=== PATIENT | male | born 1970 | race Caucasian/White ===

== ENCOUNTER 2017-11-12 11:54 | Emergency (ER) | payer SELFPAY ==
[2017-11-12 12:02] VITALS: BP 153/102; PULSE 106; RESP 18; TEMP 36.6; O2SAT 100; BMI 26.4
--- NOTE | 2017-11-12 12:02 | XR_ITS ---
XR foot RT min 3V HISTORY: Posttraumatic pain ITS.REASON: pain ORDERING PHYSICIAN: Laith Petty MD PATIENT AGE: 46 years COMPARISON: None FINDINGS: No fracture or dislocation. No lytic or blastic change. There is normal mineralization.. The joint spaces are well-preserved. No significant degenerative/arthritic changes. No erosive changes evident. IMPRESSION: Negative, no acute finding
[2017-11-12 12:25] VITALS: BP 157/94; PULSE 54; RESP 17; O2SAT 98
--- NOTE | 2017-11-12 12:26 | PC.NURSE ---
pt returned from rad
--- NOTE | 2017-11-12 12:48 | HMH.EDGENADL ---
ED Disposition Clinical Impression: Right foot sprain Qualifiers: Encounter type: initial encounter Qualified Code(s): S93.601A - Unspecified sprain of right foot, initial encounter Disposition: Home, Self-Care Condition on Discharge: Good Instructions: DI for Foot Sprain Additional Instructions: Please apply ice to the affected area, take the pain medications today, schedule a follow-up appointment with Dr. Infante (corporate fitness program coordinator). Prescriptions: Tramadol HCl [Ultram 50mg tablet] 50 mg PO QIDP PRN #8 tab PRN Reason: pain Referrals: Mechelle Infante DPM [Physician] - Time of Disposition: 12:48 - Critical Care Critical Care Time: No Attestation: On 11/12/17, the high probability of a clinically significant, sudden or life threatening deterioration of the following system(s) required my full and direct attention, intervention and personal management. The time I documented below is in addition to time spent performing reported procedures but includes the following listed in this critical care notation. Medical Decision Making - Medical Records Medical records reviewed: Yes: I reviewed the patient's medical records. Vital Signs: 11/12/17 12:02 11/12/17 12:25 Temperature 97.8 F Temperature Source Oral Pulse Rate [Left Brachial] 106 H 54 L Respiratory Rate 18 17 Blood Pressure [Left Arm] 153/102 157/94 Blood Pressure Mean [Left Arm] 119 115 Blood Pressure Source [Left Arm] Automatic Cuff Automatic Cuff Blood Pressure Position [Left Arm] Sitting Sitting 02 Sat by Pulse Oximetry 100 98 Oxygen Delivery Method Room Air Room Air - Radiology Data #1 Image(s): Foot/Toes (right) Image Reviewed: Yes I reviewed the patient's radiology results, Yes I discussed the image results w/the radiologist, Yes I have reviewed radiologist's interpretation Preliminary Findings: Normal/NAD - [place] Inquiry Pt receiving controlled substance: Yes [place] was queried for this patient: No Reason not queried -: Hospital network issues Risks and benefits of using a controlled substance: were discussed with pt by me - Reevaluation(s) Time: 12:53 Reevaluation #1: Patient instructed to follow-up with corporate fitness program coordinator. General Adult HPI - General Chief complaint: PAIN Stated complaint: right foot pain no AO Mode of Arrival: Family Vehicle Limitations: No Limitations Description of Symptoms (Recalled from ER Triage Doc. by RN): pt states that a couple weeks ago he stepped off the side of the sidewalk and felt and twinge and since then the pain has increasingly gotten worse in his right foot. - History of Present Illness Onset (ago): week(s) (2) Location: lower extremity (right foot) Radiation: non-radiation Severity: moderate Severity scale (1-10): 4 Quality: burning Consistency: intermittent Relieving factors: rest Exacerbating factors: movement Associated symptoms: denies other symptoms - Related Data Previous Rx's Medication Instructions Recorded Tramadol HCl [Ultram 50mg 50 mg PO QIDP PRN #8 tab 11/12/17 tablet] Allergies Allergy/AdvReac Type Severity Reaction Status Date / Time ketorolac [From Toradol] Allergy Verified 11/12/17 12:09 [facility] History I have reviewed the patient's past medical history: Yes Medical History: Denies:: Cancer, Diabetes Mellitus Type 1, Diabetes Mellitus Type 2, MRSA Laterality Cases: Bilateral: Arthroscopy Shoulder Amputation: No - *Social History Smoking Status: Never smoker Alcohol Intake: current Alcohol Intake Frequency:: 0-2 drinks per day - Psychiatric History Expresses thoughts of harming self/others: None Suicide Plan Description: No Plan ROS Obtained: Yes All systems reviewed & no additional complaints - Musculoskeletal Musculoskeletal: Reports as per HPI, Reports other (right foot pain) Physical Exam - General General appearance: alert, in no apparent distress - Chest Chest inspection: Present: normal inspection, symmetric chest wall ris
[2017-11-12 12:55] VITALS: BP 132/86; PULSE 103; RESP 16; TEMP 36.8; O2SAT 100
== END 2017-11-12 12:59 | disposition home or self-care (01) ==
PROVIDERS: Emergency Provider Emergency Medicine
DX: S93.601A Unspecified sprain of right foot, initial encounter (principal); K21.9 Gastro-esophageal reflux disease without esophagitis; Z88.6 Allergy status to analgesic agent; X50.1XXA Overexertion from prolonged static or awkward postures, initial encounter; Y92.480 Sidewalk as the place of occurrence of the external cause
CPT/HCPCS: 73630; 99282

== ENCOUNTER 2017-12-26 04:05 | Emergency (ER) | payer SELFPAY ==
[2017-12-26 04:11] VITALS: BP 150/97; PULSE 108; RESP 20; TEMP 37.2; O2SAT 96; BMI 25.7
--- NOTE | 2017-12-26 04:16 | XR_ITS ---
XR chest 2V HISTORY: ITS.REASON: cough ORDERING PHYSICIAN: Jihan Rivas MD PATIENT AGE: 47 years COMPARISON: None available FINDINGS: The cardiomediastinal silhouette and pulmonary vascularity are within normal limits. The lungs are clear without infiltrates, suspicious nodules, or pleural effusions. No acute bony abnormalities. IMPRESSION: Negative chest, no acute finding
[2017-12-26 04:29] VITALS: PULSE 106; PULSE 99
--- NOTE | 2017-12-26 04:50 | HMH.EDCP ---
ED Disposition Clinical Impression: Influenza A, Cough, Rib pain on left side, Pneumonia, Lung neoplasm Disposition: Home, Self-Care Condition on Discharge: Fair Additional Instructions: 1- rest. 2- alternate motrin and tylenol for fever and pain. 3- call this afternoon Dr Castro office for an appointment. 4- start levaquinn 750 mg po q day, the patient was warned about gain as a side effect of tendon ruptures from Levaquin, avoid sports activity. 5- tamiflu 75 mg po bid. 6- to return for persisting fever, worse soa , hemoptysis or any new sx. Prescriptions: Benzonatate [Tessalon Perle 100mg Cap] 200 mg PO Q4HP PRN #30 cap PRN Reason: Cough levoFLOXacin [Levaquin 750mg tablet] 750 mg PO DAILY #10 tab Oseltamivir Phosphate [Tamiflu 75mg Capsule] 75 mg PO BID #10 cap - Critical Care Critical Care Time: No Attestation: On 12/26/17, the high probability of a clinically significant, sudden or life threatening deterioration of the following system(s) required my full and direct attention, intervention and personal management. The time I documented below is in addition to time spent performing reported procedures but includes the following listed in this critical care notation. Medical Decision Making - Medical Records Medical records reviewed: Yes: I reviewed the patient's medical records. - [place] Inquiry Pt receiving controlled substance: No [place] was queried for this patient: No Vital Signs: 12/26/17 04:11 12/26/17 04:29 12/26/17 05:39 Temperature 98.9 F Temperature Source Oral Pulse Rate 99 H Pulse Rate [Right Radial] 108 H 100 H Respiratory Rate 20 16 Blood Pressure Blood Pressure [Right Arm] 150/97 141/98 Blood Pressure Mean [Right Arm] 114 112 Blood Pressure Source Blood Pressure Source [Right Arm] Automatic Cuff Blood Pressure Position Blood Pressure Position [Right Arm] Sitting 02 Sat by Pulse Oximetry 96 95 Oxygen Delivery Method Room Air 12/26/17 06:57 12/26/17 07:43 Temperature 98.9 F Temperature Source Oral Pulse Rate 107 H Pulse Rate [Right Radial] 96 H Respiratory Rate 18 16 Blood Pressure 137/93 Blood Pressure [Right Arm] 147/101 Blood Pressure Mean [Right Arm] 116 Blood Pressure Source Automatic Cuff Blood Pressure Source [Right Arm] Blood Pressure Position Sitting Blood Pressure Position [Right Arm] 02 Sat by Pulse Oximetry 95 Oxygen Delivery Method Room Air Room Air - Lab Data Lab Results 12/26/17 04:40: Sodium 133 L, Potassium 3.9, Chloride 105, Carbon Dioxide 22, Anion Gap 9.9, BUN 14, Creatinine 0.98, Estimated Creat Clear 112, Estimated GFR 82, Est GFR ( Amer) 100, Glucose 106, Calcium 8.4 L, Total Bilirubin 0.3, AST 36, ALT 45, Alkaline Phosphatase 46, Total Creatine Kinase 88, CK-MB (CK-2) 0.6, CK-MB (CK-2) Rel Index 0.7, Troponin I < 0.02, Total Protein 7.4, Albumin 3.5, Globulin 3.9 H, Albumin/Globulin Ratio 0.9 L 12/26/17 04:40: Lactic Acid 0.8 12/26/17 04:40: WBC 6.1, RBC 5.04, Hgb 16.2, Hct 47.5, MCV 94.2 H, MCH 32.1 H, MCHC 34.0, RDW 12.2, Plt Count 171, MPV 7.2 L, Neut % (Auto) 47.2, Lymph % (Auto) 33.1, [place] % (Auto) 15.7 H, Eos % (Auto) 3.4, Baso % (Auto) 0.6, Neut # (Auto) 2.9, Lymph # (Auto) 2.0, [place] # (Auto) 1.0, Eos # (Auto) 0.2, Baso # (Auto) 0.0 12/26/17 04:40: D-Dimer 112 12/26/17 04:40: B-Natriuretic Peptide 8 12/26/17 04:40: Magnesium 1.8 12/26/17 04:40: Monoscreen Negative 12/26/17 05:00: Influenza Type A Ag Positive A, Influenza Type B Ag Negative, Group A Strep Rapid Negative 12/26/17 05:00: Specimen Source Right radial, O2 % room air, ABG pH 7.53 H, ABG pCO2 24.5 L, ABG pO2 92.9, ABG HCO3 19.8 L, ABG Total CO2 20.6 L, ABG O2 Saturation 98, ABG Base Excess -2.9 L, Demetrius Test Acceptable 12/26/17 05:45: Urine Color Yellow, Urine Appearance Clear, Urine pH 6.0, Ur Specific [place] 1.025, Urine Protein Negative, Urine Glucose (UA) Negative, Urine Ketones Trace, Urine Blood Negative, Urine Nitrate N
--- NOTE | 2017-12-26 04:54 | ED_ITS ---
ED Disposition Clinical Impression: Influenza A, Cough, Rib pain on left side, Pneumonia, Lung neoplasm Disposition: Home, Self-Care Condition on Discharge: Fair Additional Instructions: 1- rest. 2- alternate motrin and tylenol for fever and pain. 3- call this afternoon Dr Castro office for an appointment. 4- start levaquinn 750 mg po q day, the patient was warned about gain as a side effect of tendon ruptures from Levaquin, avoid sports activity. 5- tamiflu 75 mg po bid. 6- to return for persisting fever, worse soa , hemoptysis or any new sx. Prescriptions: Benzonatate [Tessalon Perle 100mg Cap] 200 mg PO Q4HP PRN #30 cap PRN Reason: Cough levoFLOXacin [Levaquin 750mg tablet] 750 mg PO DAILY #10 tab Oseltamivir Phosphate [Tamiflu 75mg Capsule] 75 mg PO BID #10 cap - Critical Care Critical Care Time: No Attestation: On 12/26/17, the high probability of a clinically significant, sudden or life threatening deterioration of the following system(s) required my full and direct attention, intervention and personal management. The time I documented below is in addition to time spent performing reported procedures but includes the following listed in this critical care notation. Medical Decision Making - Medical Records Medical records reviewed: Yes: I reviewed the patient's medical records. - [place] Inquiry Pt receiving controlled substance: No [place] was queried for this patient: No Vital Signs: 12/26/17 04:11 12/26/17 04:29 12/26/17 05:39 Temperature 98.9 F Temperature Source Oral Pulse Rate 99 H Pulse Rate [Right Radial] 108 H 100 H Respiratory Rate 20 16 Blood Pressure Blood Pressure [Right Arm] 150/97 141/98 Blood Pressure Mean [Right Arm] 114 112 Blood Pressure Source Blood Pressure Source [Right Arm] Automatic Cuff Blood Pressure Position Blood Pressure Position [Right Arm] Sitting 02 Sat by Pulse Oximetry 96 95 Oxygen Delivery Method Room Air 12/26/17 06:57 12/26/17 07:43 Temperature 98.9 F Temperature Source Oral Pulse Rate 107 H Pulse Rate [Right Radial] 96 H Respiratory Rate 18 16 Blood Pressure 137/93 Blood Pressure [Right Arm] 147/101 Blood Pressure Mean [Right Arm] 116 Blood Pressure Source Automatic Cuff Blood Pressure Source [Right Arm] Blood Pressure Position Sitting Blood Pressure Position [Right Arm] 02 Sat by Pulse Oximetry 95 Oxygen Delivery Method Room Air Room Air - Lab Data Lab Results 12/26/17 04:40: Sodium 133 L, Potassium 3.9, Chloride 105, Carbon Dioxide 22, Anion Gap 9.9, BUN 14, Creatinine 0.98, Estimated Creat Clear 112, Estimated GFR 82, Est GFR ( Amer) 100, Glucose 106, Calcium 8.4 L, Total Bilirubin 0.3, AST 36, ALT 45, Alkaline Phosphatase 46, Total Creatine Kinase 88, CK-MB ( CK-2) 0.6, CK-MB (CK-2) Rel Index 0.7, Troponin I < 0.02, Total Protein 7.4, Albumin 3.5, Globulin 3.9 H, Albumin/Globulin Ratio 0.9 L 12/26/17 04:40: Lactic Acid 0.8 12/26/17 04:40: WBC 6.1, RBC 5.04, Hgb 16.2, Hct 47.5, MCV 94.2 H, MCH 32.1 H, MCHC 34.0, RDW 12.2, Plt Count 171, MPV 7.2 L, Neut % (Auto) 47.2, Lymph % (Auto ) 33.1, [place] % (Auto) 15.7 H, Eos % (Auto) 3.4, Baso % (Auto) 0.6, Neut # (Auto ) 2.9, Lymph # (Auto) 2.0, [place] # (Auto) 1.0, Eos # (Auto) 0.2, Baso # (Auto) 0.0 12/26/17 04:40: D-Dimer
--- NOTE | 2017-12-26 04:59 | CT_ITS ---
CT angio chest HISTORY: Cough, chest pain, left-sided chest pain ITS.REASON: left inframammary pain and soa ORDERING PHYSICIAN: Jihan Rivas MD PATIENT AGE: 47 years TECHNIQUE: Axial images obtained following the administration of 75 mL of Isovue 370 . Sagittal, and coronal reformatted images are also generated and reviewed. All CT scans at the facility use one or more dose reduction, viz: automated exposure control; ma/kV adjustment per patient size (including targeted exams where dose is matched to indication; i.e. head); or iterative reconstruction technique. COMPARISON: None FINDINGS: No evidence of pulmonary embolus, aortic aneurysm, or aortic dissection. Main pulmonary artery is slightly prominent with a pulmonary artery/aorta ratio greater than 1. Normal heart size. No evidence of pericardial effusion. No mediastinal or hilar mass. There is a lobular 12 x 5 mm opacity in the posterior aspect of the right lower lobe. Could be due to an inflammatory nodule or developing neoplasm. There is some patchy groundglass opacities in this region as well which may be due to some pneumonitis. No effusions. No acute bony anomalies. Upper abdominal images are unremarkable. IMPRESSION: 1. No evidence of pulmonary embolus or aortic aneurysm or dissection. 2. Mild prominence of the main pulmonary artery which may be seen with early pulmonary arterial hypertension. 3. Nodular opacity right lower lobe which could be an infectious/inflammatory or even neoplastic. There is some patchy infiltrate in this region as well. Consider 3 month follow-up to confirm resolution and/or stability
[2017-12-26 05:25] LABS: Basophils % 0.6 % (0.1-2.0); Eosinophils # 0.2 K/mm3 (0.0-0.4); Eosinophils % 3.4 % (0.1-12.0); Hematocrit 47.5 % (42.0-52.0); Hemoglobin 16.2 g/dL (14.1-18.0); Lymphocytes % 33.1 K/mm3 (10-50); Mean Corpuscular Hemoglobin 32.1 pg (27.0-31.2); Mean Corpuscular Volume 94.2 fl (80-94); Mean Platelet Volume 7.2 fl (7.4-10.4); Monocytes % 15.7 % (1.7-9.3); Neutrophils # 2.9 K/mm3 (1.8-7.8); Neutrophils % 47.2 % (37.0-80.0); Platelet Count 171 K/mm3 (142-424); Red Blood Count 5.04 M/mm3 (4.60-6.20); Red Cell Distribution Width 12.2 % (11.5-17.5); White Blood Count 6.1 K/mm3 (4.8-10.8)
[2017-12-26 05:28] LABS: ABG Base Excess -2.9 mmol/L (-2.4-2.3); ABG HCO3 19.8 mmhg (22.0-26.0); ABG Oxygen Saturation 98 % (90-100); ABG PCO2 24.5 mmhg (35.0-45.0); ABG PH 7.53 mmol/L (7.35-7.45); ABG PO2 92.9 mmhg (80-100); ABG TCO2 20.6 mmhg (23-27)
[2017-12-26 05:31] LABS: Allen's Test Acceptable; Oxygen room air %; Source Right Radial
[2017-12-26 05:39] VITALS: BP 141/98; PULSE 100; RESP 16; O2SAT 95
[2017-12-26 05:41] LABS: Magnesium 1.8 mg/dL (1.4-2.2)
[2017-12-26 05:45] LABS: Lactic Acid 0.8 mmol/L (0.4-2.0)
[2017-12-26 05:53] LABS: Microscopic, Urine URINE MICROSCOPIC (MICROSCOPIC)
[2017-12-26 05:56] LABS: Appearance,Urine CLEAR (Clear); Bilirubin,Urine Negative (Negative); Blood, Urine Negative (Negative); Color,Urine YELLOW (Yellow); Glucose,Urine (UA) Negative (Negative); Ketones,Urine TRACE (Negative); Leukocyte Esterase,Urine Negative (Negative); Nitrate,Urine Negative (Negative); Protein,Urine Negative (Negative); Specific Gravity, Urine 1.025 (1.005-1.030); Urobilinogen,Urine 0.2 EU/dl (0.2)
[2017-12-26 05:56] LABS: Strep Scrn Group A (Rapid) Negative (Negative)
[2017-12-26 05:58] LABS: Amorphous Sediment,Urine Trace /lpf; Squamous Epithelial Cell,Urine Occasional #/hpf (0-5); WBC,Urine Occasional #/hpf (0-3)
[2017-12-26 06:01] LABS: Alanine Aminotransferase 45 U/L (12-78); Albumin Level 3.5 gm/dL (3.4-5.0); Albumin/Globulin Ratio 0.9 (1.1-1.8); Alkaline Phosphatase 46 U/L (46-116); Anion Gap 9.9 mEq/L (5-15); Aspartate Amino Transferase 36 U/L (15-37); Bilirubin,Total 0.3 mg/dL (0.2-1.0); Blood Urea Nitrogen 14 mg/dL (7-18); CKMB Relative Index 0.7 U/L (0-4.0); Calcium 8.4 mg/dL (8.5-10.1); Carbon Dioxide 22 mmol/L (21.0-32.0); Chloride 105 mmol/L (98-107); Creatine Kinase 88 U/L (39-308); Creatine Kinase MB 0.6 ng/ml (0.0-3.6); Creatinine Clearance Estimated 112 mL/min (0-300); Creatinine,Serum 0.98 mg/dL (0.70-1.30); Estimated Glomerular Filt Rate 82 ml/min (>60); GFR (African American) 100 ML/MIN (>60); Globulin 3.9 gm/dl (1.3-3.2); Glucose 106 mg/dL (74-106); Potassium 3.9 mmoL/L (3.5-5.1); Sodium 133 mmol/L (136-145); Total Protein,Serum 7.4 gm/dL (6.4-8.2); Troponin I < 0.02 ng/ml (0.00-0.06)
[2017-12-26 06:01] LABS: Amphetamine/Metha Screen,Urine Negative ng/mL (<1000); Barbiturates Screen,Urine Negative ng/mL (<200); Benzodiazepines Screen,Urine Negative ng/mL (200); Cannabinoid Screen,Urine Negative ng/mL (<50); Cocaine Screen,Urine Negative ng/g (<300); Methadone Screen,Urine Negative ng/mL (<300); Opiate Screen,Urine Positive ng/mL (<300); Phencyclidine Screen,Urine Negative ng/mL (<25)
[2017-12-26 06:06] LABS: D-Dimer 112 (0-400)
[2017-12-26 06:46] LABS: Monoscreen (Rapid) Negative (Negative)
[2017-12-26 06:57] VITALS: BP 147/101; PULSE 96; RESP 18; O2SAT 95
[2017-12-26 07:43] VITALS: BP 137/93; PULSE 107; RESP 16; TEMP 37.2; O2SAT 98
== END 2017-12-26 07:57 | disposition home or self-care (01) ==
PROVIDERS: Emergency Provider Emergency Medicine
DX: J10.1 Influenza due to other identified influenza virus with other respiratory manifestations (principal); J18.9 Pneumonia, unspecified organism; D38.1 Neoplasm of uncertain behavior of trachea, bronchus and lung
CPT/HCPCS: 71046; 71275; 80053; 80305; 81001; 82550; 82553; 82803; 83605; 83735; 83880; 84484; 85025; 85378; 86318; 87040; 87275; 87276; 87430; 93005; 96365; 96367; 96372; 96375; 99284; J1956; Q9967

== ENCOUNTER → 2019-05-18 14:41 | Outpatient (POV) | payer SELFPAY ==
--- NOTE | 2019-05-18 15:42 | ECG_ITS ---
APPROVED REPORT Exam: Resting ECG HR:99 bpm ECG Measurements Heart Rate 99 AXES WA 134 P 69 QRSd 72 QRS 22 QT 334 T 44 QTc 428 <Conclusion> Normal sinus rhythm left atrial abnormality Borderline ECG Electronically signed by : Gilberto Perdomo, 05/19/2019 13:49:15
== END ==
PROVIDERS: Visit Provider Internal Medicine
DX: R06.09 Other forms of dyspnea (principal); R00.0 Tachycardia, unspecified
CPT/HCPCS: 93005

== ENCOUNTER 2020-07-20 04:22 | Emergency (ER) | payer BC, SELFPAY ==
[2020-07-20 04:24] VITALS: BP 142/103; PULSE 108; RESP 16; TEMP 36.6; O2SAT 98; BMI 25.1
--- NOTE | 2020-07-20 04:43 | CT_ITS ---
PROCEDURE: CT LUMBAR SPINE WO CON CLINICAL HISTORY: post op back surgery. pain Mid back pain radiating down both legs, recent surgery COMPARISON: CT [facility]GC[facility] CT angio chest from 02/23/[address] THORACIC SPINE WO CON from 07/20/2020 TECHNIQUE: Axial images obtained with sagittal and coronal reformats. All CT scans at the facility use one or more dose reduction, viz: automated exposure control, ma/kV adjustment per patient size (including targeted exams where dose is matched to indication, i.e. head), or iterative reconstruction technique. FINDINGS: Most recent exam is not available for comparison. Lumbar spine: There postsurgical changes with inter pedicular screws and connecting rods at T11-T12 L2 and L3 stabilizing a burst fracture at L1. There is mild degenerative disc disease in the lower thoracic spine at T9-T10 T10-T11, T11-T12. A burst fractures present at L1 with main involvement involving the mid and anterior aspect of the vertebral body. Posterior vertebral body involvement is also noted with 7 mm retropulsion of the posterior superior fragment causing bilateral lateral recess narrowing, foraminal narrowing and narrowing of the canal. Scattered small foci of hyperdense material noted along the posterior aspect of the spine within the soft tissues consistent with antibiotic beads. L2-L3 and L3-L4 and L4-5 have an unremarkable appearance. There is minimal bulging disc at L5-S1 slightly eccentric toward the left. Scattered foci of air present within the paraspinal soft tissues consistent with postsurgical change. IMPRESSION: Postsurgical changes in the lower thoracic and lumbar spine with inter pedicular screws and interconnecting rods stabilizing L1 burst fracture with retropulsion of the posterior superior fragment by 7 mm with bilateral lateral recess narrowing and borderline canal stenosis. No obvious hardware malfunction Dictated by: Demetrius Ferris MD 07/20/2020 05:54 Demetrius Ferris MD in [place] 07/20/2020 05:54
--- NOTE | 2020-07-20 04:43 | CT_ITS ---
PROCEDURE: CT THORACIC SPINE WO CON CLINICAL HISTORY: post op back surgery. pain [facility] TECHNIQUE: Axial images obtained with sagittal and coronal reformats. All CT scans at the facility use one or more dose reduction, viz: automated exposure control, ma/kV adjustment per patient size (including targeted exams where dose is matched to indication, i.e. head), or iterative reconstruction technique. FINDINGS: Moderate compression deformity of L1 with mild retropulsion into the spinal canal of 7 mm with bilateral lateral recess narrowing and canal stenosis. Bilateral inter pedicular screws with interlocking rods noted at T11-T12 and L2 and L3. No evidence of hardware malfunction. Skin tyler are present along with foci of air within paraspinal musculature. Scattered small foci of hyperdensity noted in the surgery site and may represent antibiotic beads. Mild wedging is present involving T7, T8, T9, T10, and T11. There is a spinous process fracture nondisplaced involving T8 and T9. A left transverse process fractures present at L1. There is a right lower lobe nodule measuring 12 x 6 mm with 2 adjacent small satellite nodules probably not significantly changed from a prior chest CT of 02/23/2018. IMPRESSION: 1. Mild wedging of T7 through T11. These minimal compression deformities may be old and may be better evaluated with MRI. 2. Spinous process fractures nondisplaced at T8 and T9 3. Right lower lobe nodule not significantly changed. 4. Burst fracture of L1 described in the lumbar spine report Dictated by: Demetrius Ferris MD 07/20/2020 06:05 Demetrius Ferris MD in [place] 07/20/2020 06:05
[2020-07-20 05:24] VITALS: BP 132/97; PULSE 91; RESP 16; O2SAT 98
[2020-07-20 05:30] LABS: Basophils % 0.4 % (0.1-2.0); Eosinophils # 0.2 K/mm3 (0.0-0.4); Eosinophils % 3.1 % (0.1-12.0); Hematocrit 36.5 % (42.0-52.0); Hemoglobin 11.7 g/dL (14.1-18.0); Lymphocytes # 2.3 K/mm3 (0.7-4.5); Lymphocytes % 31.1 % (10-50); Mean Corpuscular HGB Conc 32.1 g/dL (31.8-35.4); Mean Corpuscular Hemoglobin 30.4 pg (27.0-31.2); Mean Corpuscular Volume 94.7 fl (80-94); Mean Platelet Volume 6.5 fl (7.4-10.4); Monocytes # 0.7 K/mm3 (0.1-1.0); Monocytes % 9.2 % (1.7-9.3); Neutrophils # 4.2 K/mm3 (1.8-7.8); Neutrophils % 56.2 % (37.0-80.0); Platelet Count 592 K/mm3 (142-424); Red Blood Count 3.85 M/mm3 (4.60-6.20); Red Cell Distribution Width 12.1 % (11.5-17.5); White Blood Count 7.5 K/mm3 (4.8-10.8)
[2020-07-20 05:34] LABS: Chloride 102 mmol/L (98-107); Potassium 4.1 mmoL/L (3.5-5.1); Sodium 136 mmol/L (136-145)
[2020-07-20 05:37] LABS: Alanine Aminotransferase 18 U/L (12-78); Albumin Level 4.2 g/dl (3.5-5.0); Albumin/Globulin Ratio 1.3 (1.1-1.8); Alkaline Phosphatase 93 U/L (38-126); Anion Gap 15.1 mEq/L (5-15); Aspartate Amino Transferase 26 U/L (17-59); Bilirubin,Total 0.4 mg/dl (0.2-1.3); Blood Urea Nitrogen 9 mg/dl (9-20); Calcium 9.9 mg/dl (8.4-10.2); Carbon Dioxide 23 mmol/L (22.0-30.0); Creatinine Clearance Estimated 130 mL/min (50-200); Estimated Glomerular Filt Rate 103 ml/min (>60); GFR (African American) 125 ML/MIN (>60); Globulin 3.3 g/dL (1.3-3.2); Glucose 93 mg/dl (74-100); Total Protein,Serum 7.5 g/dl (6.3-8.2)
--- NOTE | 2020-07-20 05:38 | HMH.EDGENADL ---
ED Disposition Clinical Impression: Post-op pain Disposition: Home, Self-Care Condition on Discharge: Good Instructions: DI for Acute Pain -- Adult Additional Instructions: call [facility] this am for follow up Prescriptions: Oxycodone HCl/Acetaminophen [Percocet 10-325 mg Tablet] 1 tab PO Q6H PRN #5 tab PRN Reason: Moderate To Severe Pain Prescription Printed Referrals: Gilberto Ma MD [Primary Care Provider] - - Critical Care Critical Care Time: No Attestation: On 07/20/20, the high probability of a clinically significant, sudden or life threatening deterioration of the following system(s) required my full and direct attention, intervention and personal management. The time I documented below is in addition to time spent performing reported procedures but includes the following listed in this critical care notation. Medical Decision Making - Medical Records Medical records reviewed: Yes: I reviewed the patient's medical records. - [place] Inquiry Pt receiving controlled substance: No Vital Signs: 07/20/20 04:24 07/20/20 05:24 Temperature 97.9 F Temperature Source Oral Pulse Rate [Left Radial] 108 H 91 H Respiratory Rate 16 16 Blood Pressure [Right Arm] 142/103 H 132/97 H Blood Pressure Mean [Right Arm] 116 108 Blood Pressure Source [Right Arm] Automatic Cuff Blood Pressure Position [Right Arm] Sitting Sitting 02 Sat by Pulse Oximetry 98 98 Oxygen Delivery Method Room Air - Lab Data Lab results reviewed: Yes: I reviewed the patient's lab results. Lab Results 07/20/20 04:50: WBC 7.5, RBC 3.85 L, Hgb 11.7 L, Hct 36.5 L, MCV 94.7 H, MCH 30.4, MCHC 32.1, RDW 12.1, Plt Count 592 H, MPV 6.5 L, Neut % (Auto) 56.2, Lymph % (Auto) 31.1, [place] % (Auto) 9.2, Eos % (Auto) 3.1, Baso % (Auto) 0.4, Neut # (Auto) 4.2, Lymph # (Auto) 2.3, [place] # (Auto) 0.7, Eos # (Auto) 0.2, Baso # (Auto) 0.0 07/20/20 04:50: Sodium 136, Potassium 4.1, Chloride 102, Carbon Dioxide 23, Anion Gap 15.1 H, BUN 9, Creatinine 0.80, Estimated Creat Clear 130, Estimated GFR 103, Est GFR ( Amer) 125, Glucose 93, Calcium 9.9, Total Bilirubin 0.4, AST 26, ALT 18, Alkaline Phosphatase 93, Total Protein 7.5, Albumin 4.2, Globulin 3.3 H, Albumin/Globulin Ratio 1.3 Result diagrams: 07/20/20 04:50 07/20/20 04:50 Orders (Tests/Meds): ED MEDICATIONS Generic Name Dose Route Start Last Admin Trade Name Freq PRN Reason Stop Dose Admin Sodium Chloride 1,000 mls @ 999 mls/hr 07/20/20 04:45 07/20/20 04:57 Sod Chlor 0.9% 1000ml Bag IV 07/20/20 05:45 999 mls/hr .Q1H1M VINOD Administration Discontinued Medications Generic Name Dose Route Start Last Admin Trade Name Freq PRN Reason Stop Dose Admin Hydromorphone HCl 1 mg 07/20/20 05:51 07/20/20 05:57 Hydromorphone 2mg/Ml Syringe IV 07/20/20 05:52 1 mg ONCE ONE Administration Morphine Sulfate 4 mg 07/20/20 04:43 07/20/20 04:57 Morphine 4mg/Ml Syringe IV 07/20/20 04:44 4 mg ONCE ONE Administration Ondansetron HCl 4 mg 07/20/20 04:44 07/20/20 04:57 Ondansetron 4mg/2ml Vial IV 07/20/20 04:45 4 mg ONCE ONE Administration - CT Data CT Scan: T-Spine, L-Spine Time Received: 06:[address] Reviewed: Yes: I have viewed the radiologist's interpretation Preliminary Findings: Abnormal (see report ) - Physician Consults Physician Consulted: spine- dr tamez Reason -: Pt condition General Adult HPI - General Chief complaint: PAIN Stated complaint: Back surgery this Oct, having severe now Time Seen by Provider: 07/20/20 05:00 Mode of Arrival: Wheelchair Source of Information: Patient, Medical Record Limitations: No Limitations Description of Symptoms (Recalled from ER Triage Doc. by RN): pt stated he had a spinal fusion surgery on 07/10 at . pt c/o severe pain at the center of his back and pain while ambulating. when asked to describe his pain pt stated it feels like ove been shot in the back with a shotgun pt rates his toya
--- NOTE | 2020-07-20 06:01 | PC.NURSE ---
speaking with ortho
[2020-07-20 06:27] VITALS: BP 141/92; PULSE 81; RESP 16; TEMP 36.6; O2SAT 98
== END 2020-07-20 06:34 | disposition home or self-care (01) ==
PROVIDERS: Emergency Provider Emergency Medicine; PCP Family Medicine
DX: G89.18 Other acute postprocedural pain (principal); M54.5 Low back pain
CPT/HCPCS: 72128; 72131; 80053; 85025; 96365; 96375; 99283; J2405

== ENCOUNTER → 2021-01-03 15:07 | Outpatient (CLI) | payer BC, SELFPAY | PROVIDERS: PCP Family Medicine; Visit Provider Family Medicine | DX: Z20.822 Contact with and (suspected) exposure to COVID-19 (principal) | CPT/HCPCS: U0003 ==

== ENCOUNTER 2021-10-25 08:50 | Emergency (ER) | payer BC, SELFPAY ==
[2021-10-25 08:52] VITALS: BP 118/90; PULSE 122; RESP 22; TEMP 36.8; O2SAT 97; BMI 25.7
--- NOTE | 2021-10-25 09:01 | HMH.EDGENADL ---
ED Disposition Clinical Impression: Strain of thoracic back region Cervical strain Qualifiers: Encounter type: initial encounter Qualified Code(s): S16.1XXA - Strain of muscle, fascia and tendon at neck level, initial encounter Lumbar strain Qualifiers: Encounter type: initial encounter Qualified Code(s): S39.012A - Strain of muscle, fascia and tendon of lower back, initial encounter Disposition: Home, Self-Care Condition on Discharge: Fair Instructions: DI for Low Back Pain, DI for Neck Sprain, DI for Thoracic Back Pain Additional Instructions: Lortab 7.5 mg as prescribed. Follow-up with your primary care provider as soon as possible for further care. Additional instructions for CONTROLLED SUBSTANCES: You have been prescribed a medication that is a controlled substance. Controlled substances include pain medications known as opiates and sedative nerve medications known as benzodiazepines. Tramadol, fioricet, and gabapentin are also controlled substances. Some common opiates include: Codeine (such as Tylenol #3) Hydrocodone (Vicodin, Lortab, Lorcet, [place]) Oxycodone (Percocet, Percodan, Oxycodone, Oxy IR) Some common benzodiazepines include: Diazepam (Valium) Lorazepam (Ativan) Alprazolam (Xanax) Clonazepam (Klonopin) Oxazepam (Serax) All of these controlled substances are highly addictive and frequently abused. Misuse can and frequently does lead to addiction as well as overdose and . Medication should be stored in a locked cabinet or other secure storage unit. Do not store the medication in a motor vehicle. Short term supplies, 3 days or less, are prescribed because of the highly addictive nature of the medication. Any of the controlled substance medication NOT taken should be disposed of properly and NOT SAVED. The recommended method of disposing of unused medications is: Place the medicines in a sealable plastic bag. If the medicine is a solid, crush it or add water to dissolve it. Add something undesirable (cat litter, coffee grounds, etc.) Dispose of sealed bag in household trash Do not flush or pour unused medicines down a sink or drain. Controlled substances should not be shared, given away or sold. Because of the addictive nature and frequent abuse, these medications are sometimes stolen. These medications should be kept in a safe place where they cannot be stolen. Do not keep them in your car or purse. Lost or stolen prescriptions for controlled substances WILL NOT BE REFILLED in this emergency department, regardless of whether a police report was filed. Prescriptions: Hydrocodone/Acetaminophen [Lortab 7.5/325mg tablet] 1 tab PO Q6HP PRN #10 tablet PRN Reason: Moderate To Severe Pain Transmission Status: Received by [email or web address] #[id number] Referrals: Gilberto Ma MD [Primary Care Provider] - - Critical Care Critical Care Time: No Attestation: On , the high probability of a clinically significant, sudden or life threatening deterioration of the following system(s) required my full and direct attention, intervention and personal management. The time I documented below is in addition to time spent performing reported procedures but includes the following listed in this critical care notation. Medical Decision Making - Tex Inquiry Pt receiving controlled substance: Yes Tex was queried for this patient: Yes Risks and benefits of using a controlled substance: were discussed with pt by me Vital Signs: 10/25/21 08:52 Temperature 98.2 F Temperature Source Oral Pulse Rate [Left Radial] 122 H Respiratory Rate 22 Blood Pressure [Left Arm] 118/90 Blood Pressure Mean [Left Arm] 99 Blood Pressure Source [Left Arm] Automatic Cuff Blood Pressure Position [Left Arm] Sitting 02 Sat by Pulse Oximetry 97 Oxygen Delivery Method Room Air Orders (Tests/Meds): ED MEDICATIONS Discontinued Medications Generic Name Dose Route Start Last Admin Trade Name
--- NOTE | 2021-10-25 09:11 | CT_ITS ---
FINAL REPORT CLINICAL HISTORY: fall, c/o severe back pain COMPARISON: 07-20-2020 CT FINDINGS: Axial imaging of the lumbar spine was obtained without contrast. Sagittal and coronal reformatted images were also obtained and reviewed.This study was performed with techniques to keep radiation doses as low as reasonably achievable (ALARA). Individualized dose reduction techniques using automated exposure control or adjustment of mA and/or kV according to the patient's size were employed. There is a moderate L1 burst fracture with interval healing and stable loss of height. There is no acute fracture. The vertebral alignment is normal. There is fusion of T11-L3. There is no evidence of significant central canal stenosis. IMPRESSION: Interval healing of previous fracture. No new abnormality. Reviewed, Interpreted and Dictated by Leobardo Patino III, MD Transcribed by Dora Conroy Authenticated by Leobardo Patino III, MD on 10/25/2021 10:26:[address] [facility]
--- NOTE | 2021-10-25 09:11 | CT_ITS ---
FINAL REPORT CLINICAL HISTORY: fall, c/o severe back pain FINDINGS: Axial CT images of the cervical spine were obtained without contrast. Sagittal and coronal reformatted images were also obtained. This study was performed with techniques to keep radiation doses as low as reasonably achievable (ALARA). Individualized dose reduction techniques using automated exposure control or adjustment of mA and/or kV according to the patient's size were employed. There is no evidence of fracture or dislocation. There are mild and moderate degenerative changes, greatest at C5-6. There is mild neural foraminal narrowing C5-6. No significant canal stenosis is identified. IMPRESSION: No fracture or acute bony abnormality identified. Reviewed, Interpreted and Dictated by Leobardo Patino III, MD Transcribed by Dorcas Aguilar Authenticated by Leobardo Patino III, MD on 10/25/2021 10:22:53 AM [facility]
--- NOTE | 2021-10-25 09:11 | CT_ITS ---
FINAL REPORT CLINICAL HISTORY: fall, c/o severe low back pain COMPARISON: 07/20/2020 FINDINGS: Axial CT images of the thoracic spine were obtained without contrast. Sagittal and coronal reformatted images were also obtained. This study was performed with techniques to keep radiation doses as low as reasonably achievable (ALARA). Individualized dose reduction techniques using automated exposure control or adjustment of mA and/or kV according to the patient's size were employed. There are mild chronic compression fractures of T5, and T7-T11 which are stable. No acute fracture is identified. There is fusion from T11-L3. There is no evidence of canal stenosis. IMPRESSION: Chronic compression fractures without acute bony abnormality. Reviewed, Interpreted and Dictated by Leobardo Patino III, MD Transcribed by Dorcas Aguilar Authenticated by Leobardo Patino III, MD on 10/25/2021 10:22:39 AM [facility]
--- NOTE | 2021-10-25 10:44 | PC.NURSE ---
called for disk for pt
--- NOTE | 2021-10-25 10:48 | PC.NURSE ---
pt up pacing room, vs delayed.
[2021-10-25 10:50] VITALS: BP 124/86; PULSE 105; RESP 21; TEMP 36.9; O2SAT 98
== END 2021-10-25 10:50 | disposition home or self-care (01) ==
PROVIDERS: Emergency Provider Emergency Medicine; PCP Family Medicine
DX: S16.1XXA Strain of muscle, fascia and tendon at neck level, initial encounter (principal); S39.012A Strain of muscle, fascia and tendon of lower back, initial encounter; W18.09XA Striking against other object with subsequent fall, initial encounter; Y92.488 Other paved roadways as the place of occurrence of the external cause
CPT/HCPCS: 72125; 72128; 72131; 96372; 99282; J2405

== ENCOUNTER 2021-12-27 08:00 | Outpatient (RCR) | payer BC, SELFPAY | END 2021-12-27 08:05 | disposition home or self-care (01) | LOC: PT 08:00 | PROVIDERS: PCP Family Medicine; Visit Provider Orthopaedic Surgery Orthopaedic Surgery of the Spine | DX: M54.50 Low back pain, unspecified (principal); Z98.1 Arthrodesis status | CPT/HCPCS: 97110; 97163; 97535 ==

== ENCOUNTER 2022-08-24 21:42 | Emergency (ER) | payer BC, SELFPAY ==
[2022-08-24 22:53] VITALS: BP 115/65; PULSE 91; RESP 18; TEMP 36.6; O2SAT 97; BMI 25.8
--- NOTE | 2022-08-24 22:59 | XR_ITS ---
PROCEDURE INFORMATION: Exam: XR Left Tibia and Fibula Exam date and time: 08/24/2022 11:21 PM Age: 51 years old Clinical indication: Injury or trauma; Fall; Sprain or strain; Lower leg; Left TECHNIQUE: Imaging protocol: Radiologic exam of the Left tibia and fibula. Views: 2 views. COMPARISON: CR XR ANKLE LT MIN 3V 08/24/2022 11:21 PM FINDINGS: Bones/joints: Bimalleolar fracture of the ankle. Soft tissues: Normal. IMPRESSION: Bimalleolar fracture of the ankle. No proximal fibular fracture.
--- NOTE | 2022-08-24 22:59 | XR_ITS ---
PROCEDURE INFORMATION: Exam: XR Left Ankle Exam date and time: 08/24/2022 11:21 PM Age: 51 years old Clinical indication: Injury or trauma; Fall; Sprain or strain; Ankle; Left TECHNIQUE: Imaging protocol: Radiologic exam of the Left ankle. Views: 3 or more views. COMPARISON: No relevant prior studies available. FINDINGS: Bones/joints: Mildly displaced oblique fracture of the distal fibular metaphysis. Mildly displaced medial malleolus fracture. Soft tissues: Hematoma around the ankle. IMPRESSION: Mildly displaced oblique fracture of the distal fibular metaphysis. Mildly displaced medial malleolus fracture.
--- NOTE | 2022-08-24 23:13 | HMH.EDFALL ---
Discharge Plan Disposition Patient Disposition: Home, Self-Care Prescriptions Prescriptions: No Action hydrocodone-acetaminophen 1 TAB tablet 1 tab PO Q6HP PRN (Reason: Moderate To Severe Pain) Qty: 10 0RF oxycodone-acetaminophen 1 EACH tablet 1 tab PO NEEDED PRN (Reason: post op pain ) oxycodone-acetaminophen 1 EACH tablet 1 tab PO Q6H PRN (Reason: Moderate To Severe Pain) Qty: 5 0RF Referrals Follow up/Referrals: Arline Clinton MD [Primary Care Provider] - See instructions Clinical Impressions Clinical Impression: Bimalleolar ankle fracture Instructions Patient Instructions: DI for Ankle Fracture Discharge ED Provider: Isaac Stinson Fall HPI General Chief Complaint: Fall Stated Complaint: AO 08/24@7AM@home Injured L leg Time Seen by Provider: 08/24/22 23:14 Mode of Arrival: Wheelchair Source of Information: Patient and Medical Record Limitations: No Limitations Description of Symptoms (Recalled from ER Triage Doc. by RN): pt states that this morning at approx 0700 while mopping his floor. States that he landed on his left side and injured his left ankle and leg. Denies any other injuries. History of Present Illness HPI Narrative: fell this am and has increased pain and swelling and ecchymosis lt ankle - MD complaint: fall Onset (ago): hour(s) Fall from: standing Fall witnessed: no Place fall occurred: home Loss of consciousness: none Prolonged down time: no Context: tripped/slipped Location of injury - extremities: Left: lower leg and ankle Severity: moderate Associated symptoms (after fall): denies Related Data Home Medications Medication Instructions Recorded Confirmed oxycodone-acetaminophen 5 mg-325 1 tab PO NEEDED PRN post op pain 07/20/20 1015/20 mg tablet Previous Rx's Medication Instructions Recorded oxycodone-acetaminophen 10 mg-325 1 tab PO Q6H PRN Moderate To 10/15/20 mg tablet Severe Pain #5 tabs hydrocodone 7.5 mg-acetaminophen 1 tab PO Q6HP PRN Moderate To 10/25/21 325 mg tablet Severe Pain #10 tabs Allergies Allergy/AdvReac Type Severity Reaction Status Date / Time ketorolac [From Toradol] Allergy Verified 07/20/20 05:22 PFSH PFSH Social History Smoking Status: Never smoker alcohol intake: never current occupational status: employed Travel in the last 8 weeks: None ROS Obtained: Yes All systems reviewed & no additional complaints except as documented Physical Exam General General appearance: alert Head Head exam: normocephalic Eye Eye exam: Present PERRL and EOMI ENT ENT exam: Present mucous membranes moist Neck Neck exam: Present trachea midline Respiratory Respiratory exam: Absent normal lung sounds bilaterally Cardiovascular Cardiovascular exam: Present regular rate Abdominal Exam Abdominal exam: Present soft Expanded Lower Extremity Exam Left: Hip/Pelvis exam: Present pelvis stable Lower leg exam: Present tenderness and Achilles tendon intact; Absent full ROM, swelling or ecchymosis Ankle exam: Present tenderness, swelling and deformity; Absent full ROM or erythema Foot/toe exam: Present ecchymosis; Absent calcaneal tenderness Neurovascular/Tendon exam: Absent pulse deficit or motor deficit Neurological Exam Neurological exam: Present alert and CN II-XII intact Skin Skin exam: Absent rash Medical Decision Making Medical Records Medical records reviewed: Yes I reviewed the patient's medical records. Tex Inquiry Pt receiving controlled substance: No Vital Signs: 08/24/22 22:53 08/25/22 00:37 Temperature 97.9 F 97.9 F Temperature Source Oral Oral Pulse Rate 82 Pulse Rate [Apical] 91 H Respiratory Rate 18 16 Blood Pressure 110/70 Blood Pressure [Right Arm] 115/65 Blood Pressure Mean [Right Arm] 81 Blood Pressure Source [Right Arm] Automatic Cuff Blood Pressure Position [Right Arm] Sitting 02 Sat by Pulse Oximetry 97 Oxygen Delivery Method Room Air
--- NOTE | 2022-08-24 23:36 | CT_ITS ---
PROCEDURE INFORMATION: Exam: CT Left Lower Extremity Without Contrast, Ankle Exam date and time: 08/24/2022 11:44 PM Age: 51 years old Clinical indication: Injury or trauma; Fall; Sprain or strain; Ankle; Left TECHNIQUE: Imaging protocol: CT of the Left lower extremity without contrast was performed. Exam focused on the ankle. 3D rendering (Not supervised by radiologist): MIP and/or 3D reconstructed images were created by the technologist. Radiation optimization: All CT scans at this facility use at least one of these dose optimization techniques: automated exposure control; mA and/or kV adjustment per patient size (includes targeted exams where dose is matched to clinical indication); or iterative reconstruction. COMPARISON: CR XR ANKLE LT MIN 3V 08/24/2022 11:21 PM FINDINGS: Bones/joints: Mildly displaced oblique fracture of the distal fibular metaphysis. Mildly displaced medial malleolar fracture with mild comminution. Talar bone islands. Chronic osteochondral defect of the medial talar dome. Soft tissues: Hematoma around the fractures. IMPRESSION: 1. Mildly displaced oblique fracture of the distal fibular metaphysis. 2. Mildly displaced medial malleolar fracture with mild comminution.
[2022-08-25 00:01] LABS: Coronavirus 19, PCR Not Detected (NotDetected); Influenza A, PCR Not Detected (NotDetected); Influenza B, PCR Not Detected (NotDetected)
--- NOTE | 2022-08-25 00:23 | PC.NURSE ---
paged Dr. Valadez at this time
[2022-08-25 00:37] VITALS: BP 110/70; PULSE 82; RESP 16; TEMP 36.6; O2SAT 97
== END 2022-08-25 01:29 | disposition home or self-care (01) ==
PROVIDERS: Emergency Provider Emergency Medicine; PCP Family Medicine
DX: M25.572 Pain in left ankle and joints of left foot (principal); S82.842A Displaced bimalleolar fracture of left lower leg, initial encounter for closed fracture; W01.0XXA Fall on same level from slipping, tripping and stumbling without subsequent striking against object, initial encounter; Y93.E5 Activity, floor mopping and cleaning
CPT/HCPCS: 29405; 73590; 73610; 73700; 96374; 96375; 96376; 99284; C9803; J2405; U0003; U0005

== ENCOUNTER 2022-08-25 12:41 | Emergency (ER) | payer BC, SELFPAY ==
[2022-08-25 12:41] VITALS: BP 144/92; PULSE 90; RESP 17; TEMP 36.7; O2SAT 100; BMI 25.8
[2022-08-25 13:00] VITALS: BP 142/80; PULSE 88; RESP 20; O2SAT 95
[2022-08-25 13:30] VITALS: BP 126/76; PULSE 80; RESP 20; O2SAT 96
--- NOTE | 2022-08-25 14:39 | HMH.EDGENADL ---
Discharge Plan Disposition Patient Disposition: Home, Self-Care Condition: Fair Prescriptions Prescriptions: New oxycodone 5 mg capsule 5 mg PO Q6H PRN (Reason: pain) Qty: 10 0RF No Action hydrocodone-acetaminophen 1 TAB tablet 1 tab PO Q6HP PRN (Reason: Moderate To Severe Pain) Qty: 10 0RF oxycodone-acetaminophen 1 EACH tablet 1 tab PO NEEDED PRN (Reason: post op pain ) oxycodone-acetaminophen 1 EACH tablet 1 tab PO Q6H PRN (Reason: Moderate To Severe Pain) Qty: 5 0RF Referrals Follow up/Referrals: Paul Valadez, [Staff Physician] - See instructions Provider,Referral, [Primary Care Provider] - See instructions Activity Restrictions/Add. Instructions Additional Instructions/Restrictions: Continue crutches and splint until seen by orthopedics. Elevate your ankle on several pillows. Ice 20 minutes 4 times a day. Follow-up with orthopedic clinic tomorrow. Call tomorrow morning at 9 AM to make arrangements to be seen tomorrow in the clinic. Oxycodone as needed for pain. Do not take hydrocodone while taking oxycodone. Additional instructions for FRACTURED (BROKEN) BONE: See Dr. Valadez, orthopedics, as soon as possible for further evaluation. Treat your splint like you would a cast: Do not get it wet (cover with a plastic bag while bathing or showering). If the splint feels too tight, you may loosen the lindsay wrap covering it, but do not remove the splint. You may ice the fracture by applying an ice pack over the top of the splint, without removing the splint. Return to an emergency department immediately if you have uncontrollable pain, loss of feeling or inability to move your injured extremity. Additional instructions for CONTROLLED SUBSTANCES: You have been prescribed a medication that is a controlled substance. Controlled substances include pain medications known as opiates and sedative nerve medications known as benzodiazepines. Tramadol, fioricet, and gabapentin are also controlled substances. Some common opiates include: Codeine (such as Tylenol #3) Hydrocodone (Vicodin, Lortab, Lorcet, [place]) Oxycodone (Percocet, Percodan, Oxycodone, Oxy IR) Some common benzodiazepines include: Diazepam (Valium) Lorazepam (Ativan) Alprazolam (Xanax) Clonazepam (Klonopin) Oxazepam (Serax) All of these controlled substances are highly addictive and frequently abused. Misuse can and frequently does lead to addiction as well as overdose and . Medication should be stored in a locked cabinet or other secure storage unit. Do not store the medication in a motor vehicle. Short term supplies, 3 days or less, are prescribed because of the highly addictive nature of the medication. Any of the controlled substance medication NOT taken should be disposed of properly and NOT SAVED. The recommended method of disposing of unused medications is: Place the medicines in a sealable plastic bag. If the medicine is a solid, crush it or add water to dissolve it. Add something undesirable (cat litter, coffee grounds, etc.) Dispose of sealed bag in household trash Do not flush or pour unused medicines down a sink or drain. Controlled substances should not be shared, given away or sold. Because of the addictive nature and frequent abuse, these medications are sometimes stolen. These medications should be kept in a safe place where they cannot be stolen. Do not keep them in your car or purse. Lost or stolen prescriptions for controlled substances WILL NOT BE REFILLED in this emergency department, regardless of whether a police report was filed. Clinical Impressions Clinical Impression: Bimalleolar ankle fracture Instructions Patient Instructions: How to Use Crutches, DI for Ankle Fracture, How to Take Care of Your Splint Discharge ED Provider: Eduardo Martinez General Adult HPI General Chief complaint: Extremity Injury, Lower Stated complaint: l leg pain Time Seen by Neal
--- NOTE | 2022-08-25 14:45 | PC.NURSE ---
DR. HACKETT AT BEDSIDE FOR EVALUATION
--- NOTE | 2022-08-25 15:10 | PC.NURSE ---
DR. HACKETT AT BEDSIDE TO DISCUSS POC WITH PT
--- NOTE | 2022-08-25 15:38 | PC.NURSE ---
ORTHO GLASS REAPPLIED TO L FOOT
--- NOTE | 2022-08-25 15:40 | PC.NURSE ---
PT HAS FAMILY COMING TO PICK HIM UP
[2022-08-25 15:50] VITALS: BP 126/66; PULSE 91; RESP 17; TEMP 36.7; O2SAT 99
== END 2022-08-25 15:50 | disposition home or self-care (01) ==
PROVIDERS: Emergency Provider Emergency Medicine
DX: S82.842A Displaced bimalleolar fracture of left lower leg, initial encounter for closed fracture (principal); R45.1 Restlessness and agitation; G89.29 Other chronic pain; Z79.1 Long term (current) use of non-steroidal anti-inflammatories (NSAID); W01.10XA Fall on same level from slipping, tripping and stumbling with subsequent striking against unspecified object, initial encounter
CPT/HCPCS: 96372; 99284; J2405

== ENCOUNTER → 2022-09-01 15:48 | Outpatient (CLI) | payer BC, SELFPAY ==
[2022-09-01 17:10] LABS: Microscopic, Urine URINE MICROSCOPIC (MICROSCOPIC)
[2022-09-01 17:50] LABS: Basophils # 0.1 K/mm3 (0-0.2); Basophils % 0.8 % (0.1-2.0); Eosinophils # 0.3 K/mm3 (0.0-0.4); Eosinophils % 3.4 % (0.1-12.0); Hematocrit 44.5 % (42.0-52.0); Hemoglobin 14.3 g/dL (14.1-18.0); Lymphocytes # 2.3 K/mm3 (0.7-4.5); Lymphocytes % 27.6 % (10-50); Mean Corpuscular HGB Conc 32.1 g/dL (31.8-35.4); Mean Corpuscular Hemoglobin 30.4 pg (27.0-31.2); Mean Corpuscular Volume 94.4 fl (80-94); Mean Platelet Volume 7.3 fl (7.4-10.4); Monocytes # 0.6 K/mm3 (0.1-1.0); Monocytes % 7.6 % (1.7-9.3); Neutrophils % 60.6 % (37.0-80.0); Platelet Count 403 K/mm3 (142-424); Red Blood Count 4.72 M/mm3 (4.60-6.20); White Blood Count 8.2 K/mm3 (4.8-10.8)
[2022-09-01 17:58] LABS: Appearance,Urine CLEAR (Clear); Bilirubin,Urine Negative (Negative); Blood, Urine Negative (Negative); Color,Urine YELLOW (Yellow); Glucose,Urine (UA) Negative (Negative); Ketones,Urine Negative (Negative); Leukocyte Esterase,Urine Negative (Negative); Nitrate,Urine Negative (Negative); PH,Urine 6.5 (5.0-8.5); Protein,Urine Negative (Negative); Urobilinogen,Urine 0.2 EU/dl (0.2)
[2022-09-01 18:03] LABS: Chloride 106 mmol/L (98-107); Sodium 140 mmol/L (136-145)
[2022-09-01 18:05] LABS: Alanine Aminotransferase 25 U/L (12-78); Albumin Level 4.5 g/dl (3.5-5.0); Albumin/Globulin Ratio 1.5 (1.1-1.8); Alkaline Phosphatase 70 U/L (38-126); Aspartate Amino Transferase 33 U/L (17-59); Bilirubin,Total 0.2 mg/dl (0.2-1.3); Blood Urea Nitrogen 19 mg/dl (9-20); Calcium 9.7 mg/dl (8.4-10.2); Carbon Dioxide 26 mmol/L (22.0-30.0); Estimated Glomerular Filt Rate 89 ml/min (>60); GFR (African American) 108 ML/MIN (>60); Glucose 92 mg/dl (74-100); Total Protein,Serum 7.5 g/dl (6.3-8.2)
[2022-09-01 18:49] LABS: Bacteria,Urine 1+ /lpf; Squamous Epithelial Cell,Urine Occasional #/hpf (0-5)
== END ==
PROVIDERS: Visit Provider Orthopaedic Surgery
DX: Z01.818 Encounter for other preprocedural examination (principal); S82.842A Displaced bimalleolar fracture of left lower leg, initial encounter for closed fracture
CPT/HCPCS: 80053; 81001; 85025

== ENCOUNTER 2022-09-02 13:31 | Day surgery (SDC) | payer BC, SELFPAY ==
[2022-08-27 13:37] VITALS: BMI 25.8
[2022-09-02] VITALS (11 sets, daily range): BP systolic 107–135; BP diastolic 60–95; PULSE 72–101; RESP 16–20; TEMP 36.4–43; O2SAT 92–98
--- NOTE | 2022-09-02 | XR_ITS ---
PROCEDURE INFORMATION: Exam: XR Left Ankle Exam date and time: 09/02/2022 12:00 AM Age: 51 years old Clinical indication: Screening exam; Orif left ankle using c-arm guidance. Dose 2:33mgy. Time: 38secs; Additional info: Orif left ankle, c-arm case TECHNIQUE: Imaging protocol: Radiologic exam of the Left ankle. Views: 1 or 2 views. COMPARISON: CT ANKLE LT WO CON 08/24/2022 11:44 PM FINDINGS: Bones/joints: Operative fluoroscopy was used to guide open reduction and internal fixation of the left lateral malleolus. Soft tissues: Normal. IMPRESSION: Operative fluoroscopy was used to guide open reduction and internal fixation of the left lateral malleolus.
--- NOTE | 2022-09-02 13:51 | SUR.PREOP ---
Pt progress number given to , Christy, verbalized understanding of system
--- NOTE | 2022-09-02 14:04 | P.PN_ITS ---
[facility] Medical History Small bowel obstruction due to adhesions Surgical History History of arthroscopy of left shoulder History of back surgery Family History Other No significant family history Social History Smoking Status: Never smoker alcohol intake: current substance use type: denies use current occupational status: employed Travel in the last 8 weeks: None [facility] Anesthesia Checklist Patient Identification Patient Identification: Arm Band Structural Data Admitted From: Home Planned Operative Procedure/s: ORIF Left Ankle Consent for Planned Operative Procedure(s) Verified: Yes Verified Documents: Surgical Consent NPO Status Verified Time NPO: 00:00 Additional verifications Anesthesia Reactions: Yes (N/V, anxiety) Hx Blood Transfusions: No Blood Transfusion Reaction: No Airway Assessment C-Spine Mobility Assessed: Yes TMJ Mobility Assessed: Yes Dentition: Good Dentition Neurological Assessment Level of Consciousness: Awake and Alert Anesthesia Plan Anesthesia Risk discussed: Yes Anesthesia Plan: Verified ASA Class: I Anesthesia Type: General w/block (Left Popliteal/Adductor Canal)
--- NOTE | 2022-09-02 17:30 | EXP.OP.NOTE ---
Date of procedure: 09/02/22 Pre-op Diagnosis:: Left displaced bimalleolar ankle fracture Post-op Diagnosis:: Same Procedure performed:: Open reduction internal fixation left bimalleolar ankle fracture Surgeon:: Paul Valadez DO Paper Bag Inspector(s):: Shobha FABIAN ARTIST BLACKSMITH:: Jimmy Hernandez Anesthesia: GETA and regional Estimated blood loss (mL): 0 Operative findings:: See dictation Operative note:: Patient is identified preoperatively. Left ankle marked yes my initials. Taken back the operating room. After undergoing a block with anesthesia. Placed upon operating bed. General anesthesia ministered airway secured. Left lower extremity prepped and draped in normal sterile fashion. Once prepped and draped final operative timeout performed to identify proper patient procedure and extremity. Everyone involved in case agreed. No counter indications to beginning. Did receive preoperative antibiotics. Marking pen was used to bre plan incision over the outside aspect of the ankle. And over the medial malleolus. Esmarch was used to exsanguinate extremity pneumatic tourniquet plated 300 mmHg. Skin knife was used to incise skin over the lateral malleolus careful dissection was taken down to identify the fracture site. Fracture hematoma was evacuated. Skin edges of the fracture were debrided. Reduction maneuver was performed with traction and [id number] reduction clamp. Once anatomical reduction was performed and clamped in place a anterior to posterior lag screw was placed to hold the fragment stable. The distal fibula plates were then selected and placed on the bone lag screw was used to lag plate to the bone distal 2.7-year-old screws were placed in the distal fibula portion additional locking screw in the shaft and lag screw in the shaft for fixation on the lateral malleolus. X-rays were taken to show good reduction of the lateral malleolus and reduction of the talus back under the tibia. Attention was then drawn to the medial aspect. Incision was made over the medial malleolus. There is a very small bony fragment off the anterior aspect of the medial malleolus. This fragment was so small that it would not hold the 4.0 mm cannulated screws. Therefore reduction maneuver was performed back in anatomical site and Ethibond sutures were placed to reduce the fracture and anatomical position and tied in place once reduced x-rays were taken to confirm reduction of the medial malleolus fragment. Deep layers closed with 0 Vicryl subcutaneous with 2-0 Vicryl nylon stitches in the skin sterile dressing placed posterior splint placed patient be made nonweightbearing we discharged home. Condition: stable Disposition: PACU Complications:: None apparent
--- NOTE | 2022-09-02 18:06 | P.PNANES_ITS ---
[facility] Anesthesia Record Part I Anesthesia Record I Intake, IV Amount: 600 Estimated blood loss (mL): 40 Urine output (mL): 0 Blood Products used (#): none Blood Pressure: 132/71 SaO2: 96 Pulse Rate: 101 Respiratory Rate: 20 Temperature: 97.9 F Patient is:: Awake and Stable Stable to PACU at:: 17:55
--- NOTE | 2022-09-02 18:26 | PC.NURSE ---
1822-detailed report given at bedside to BLUE Trejo 1824-pt transported to post op via stretcher w/herson rails up and left in care of BLUE Trejo with bed locked in lowest position, vss, pt stable
--- NOTE | 2022-09-03 07:13 | P.PNANES_ITS ---
[facility] Anesthesia Record Part II Anesthesia Record Part II Discharge Time: 18:25 Destination: Surgical Day Care (OP Surgery) PACU nurse assessment reviewed?: Yes Patient Condition:: Good Anesthesia Complications:: None Swallowing reflex intact?: Yes Cyanosis?: No Blood Pressure: 118/72 Pulse Rate: 75 Temperature: 97.7 F Mental Status: Alert & Oriented Pain level:: 4 (pt c/o thigh pain most likely from tourniquet. No c/o pain in ankle) Nausea and/or vomitting:: None Intake, IV Amount: 0
[2022-09-03 07:15] VITALS: BP 118/72; PULSE 75; TEMP 36.5
== END 2022-09-02 19:05 | disposition home or self-care (01) ==
PROVIDERS: PCP Family Medicine; Visit Provider Orthopaedic Surgery
PROC: (CPT 27814; principal; 2022-09-02 14:30)
DX: S82.842A Displaced bimalleolar fracture of left lower leg, initial encounter for closed fracture (principal); W01.0XXA Fall on same level from slipping, tripping and stumbling without subsequent striking against object, initial encounter; Y92.019 Unspecified place in single-family (private) house as the place of occurrence of the external cause
CPT/HCPCS: 27814; 73600; 76000; 96374; C1713; C1776; J2405

== ENCOUNTER → 2022-09-19 12:55 | Outpatient (CLI) | payer BC, SELFPAY ==
--- NOTE | 2022-09-19 12:58 | XR_ITS ---
FINAL REPORT CLINICAL HISTORY: lt ankle fracture, f/u COMPARISON: August 24, 2022 FINDINGS: LEFT ANKLE Three views of the left ankle were obtained. A cast is present There is a distal fibular fracture with a screw plate and multiple screws present. There is a medial malleolar fracture with approximately 5 mm of distraction, stable. There is no acute fracture or dislocation. There is a 9 mm osteochondral lesion in the medial talar dome right. There is no soft tissue abnormality. IMPRESSION: Distal fibular fracture with a screw plate and multiple screws present. Medial malleolus fracture with distraction, stable. Reviewed, Interpreted and Dictated by Leobardo Patino III, MD Transcribed by Dora Conroy Authenticated and [facility]
== END ==
PROVIDERS: PCP Family Medicine; Visit Provider Orthopaedic Surgery
DX: S82.842A Displaced bimalleolar fracture of left lower leg, initial encounter for closed fracture (principal)
CPT/HCPCS: 73610

== ENCOUNTER 2022-09-19 15:07 | Outpatient (RCR) | payer BC, SELFPAY | END 2022-09-19 16:00 | disposition home or self-care (01) | LOC: PT 15:07 | PROVIDERS: Visit Provider Orthopaedic Surgery | DX: M25.572 Pain in left ankle and joints of left foot (principal) | CPT/HCPCS: 97760 ==

== ENCOUNTER → 2022-10-17 12:51 | Outpatient (CLI) | payer BC, SELFPAY ==
--- NOTE | 2022-10-17 12:57 | XR_ITS ---
FINAL REPORT CLINICAL HISTORY: lt ankle fracture f/u COMPARISON: September 19, 2022 FINDINGS: LEFT ANKLE Three views of the left ankle were obtained. There are postoperative changes of the distal fibula. There is a subacute fracture of the medial malleolus with evidence of interval healing. There is increased callus formation along the posterior distal tibia. . The joint spaces and mortise are intact. There is medial soft tissue swelling. IMPRESSION: Subacute fracture of the medial malleolus with evidence of interval healing. Postoperative change distal fibula. Reviewed, Interpreted and Dictated by Leobardo Patino III, MD Transcribed by Dora Conroy Authenticated and [facility]
== END ==
LOC: RAD 12:53
PROVIDERS: PCP Family Medicine; Visit Provider Orthopaedic Surgery
DX: M25.572 Pain in left ankle and joints of left foot (principal); S82.842A Displaced bimalleolar fracture of left lower leg, initial encounter for closed fracture
CPT/HCPCS: 73610

== ENCOUNTER → 2022-11-04 13:11 | Outpatient (CLI) | payer BC, SELFPAY ==
--- NOTE | 2022-11-04 13:14 | XR_ITS ---
FINAL REPORT CLINICAL HISTORY: pain..s/p surgery COMPARISON: 10/17/2022 FINDINGS: LEFT ANKLE Three views demonstrate no new fracture or dislocation. There are postoperative changes of the distal fibula with screw plate and screws. Subacute appearing fracture of the medial malleolus is without evidence of significant callus formation. There is persistent soft tissue swelling. IMPRESSION: Subacute fracture of the medial malleolus without evidence of healing. Persistent soft tissue swelling. Reviewed, Interpreted and Dictated by Leobardo Patino III, MD Transcribed by Lydia Sanabria Authenticated and [facility]
== END ==
LOC: RAD 13:12
PROVIDERS: PCP Family Medicine; Visit Provider Physician Assistant Surgical
DX: S82.842A Displaced bimalleolar fracture of left lower leg, initial encounter for closed fracture (principal); M25.572 Pain in left ankle and joints of left foot
CPT/HCPCS: 73610

== ENCOUNTER → 2022-11-14 12:44 | Outpatient (CLI) | payer BC, SELFPAY ==
--- NOTE | 2022-11-14 12:53 | XR_ITS ---
FINAL REPORT CLINICAL HISTORY: fracture COMPARISON: 11/04/2022 FINDINGS: LEFT ANKLE Three views demonstrate no acute fracture or dislocation. Patient is status post ORIF with side plate and screws of the distal fibula. A well corticated os ossific density is seen inferior to the medial malleolus likely related to old trauma. The visualized joint spaces are normally aligned. The soft tissues are unremarkable. IMPRESSION: No acute bony abnormality. Reviewed, Interpreted and Dictated by Dylan Hatfield MD Transcribed by Lydia Sanabria Authenticated and . [facility]
== END ==
LOC: RAD 12:48
PROVIDERS: PCP Family Medicine; Visit Provider Orthopaedic Surgery
DX: S82.842A Displaced bimalleolar fracture of left lower leg, initial encounter for closed fracture (principal)
CPT/HCPCS: 73610

== ENCOUNTER → 2022-12-12 07:31 | Outpatient (CLI) | payer BC, SELFPAY ==
--- NOTE | 2022-12-12 07:32 | MR_ITS ---
FINAL REPORT CLINICAL HISTORY: ankle pain. PRIOR HX SURGERY AUG 2022. Lateral sided ankle pain with swelling. no injury or trauma COMPARISON: None FINDINGS: Multiplanar MR imaging of the left ankle was performed without contrast. Postoperative changes in the fibula cause significant artifact obscuring some detail. There is subacute fracture of the medial malleolus with bone marrow edema in this region. There is an osteochondral lesion in the medial tibial plateau measuring 7 mm transverse diameter with adjacent bone marrow edema. There is mild degenerative change. The ligaments are intact without definite evidence of injury. Portions of the lateral ligaments are obscured. The flexor and extensor tendons are intact. The posterior plantar aponeurosis is intact. No significant joint effusion is seen. The musculature is intact. There is no evidence of soft tissue mass or cyst. IMPRESSION: Subacute fracture medial malleolus with bone marrow edema. Osteochondral lesion medial tibial plateau with adjacent bone marrow edema. No definite ligamentous injury. Reviewed, Interpreted and Dictated by Leobardo Patino III, MD Transcribed by Christy Matthews Authenticated and [facility]
== END ==
LOC: RAD 07:32
PROVIDERS: PCP Family Medicine; Visit Provider Orthopaedic Surgery
DX: S82.842A Displaced bimalleolar fracture of left lower leg, initial encounter for closed fracture (principal)
CPT/HCPCS: 73721

== ENCOUNTER → 2022-12-24 09:37 | Outpatient (CLI) | payer BC, SELFPAY ==
[2022-12-24 09:55] LABS: Microscopic, Urine URINE MICROSCOPIC (MICROSCOPIC)
[2022-12-24 10:30] LABS: Basophils # 0.1 K/mm3 (0-0.2); Basophils % 1.3 % (0.1-2.0); Eosinophils # 0.2 K/mm3 (0.0-0.4); Eosinophils % 2.5 % (0.1-12.0); Hematocrit 50.1 % (42.0-52.0); Hemoglobin 16.6 g/dL (14.1-18.0); Lymphocytes # 4.1 K/mm3 (0.7-4.5); Lymphocytes % 43.9 % (10-50); Mean Corpuscular HGB Conc 33.1 g/dL (31.8-35.4); Mean Corpuscular Hemoglobin 29.9 pg (27.0-31.2); Mean Corpuscular Volume 90.2 fl (80-94); Mean Platelet Volume 7.6 fl (7.4-10.4); Monocytes # 0.6 K/mm3 (0.1-1.0); Monocytes % 6.7 % (1.7-9.3); Neutrophils # 4.3 K/mm3 (1.8-7.8); Neutrophils % 45.6 % (37.0-80.0); Platelet Count 391 K/mm3 (142-424); Red Blood Count 5.55 M/mm3 (4.60-6.20); White Blood Count 9.4 K/mm3 (4.8-10.8)
[2022-12-24 10:57] LABS: Appearance,Urine CLEAR (Clear); Blood, Urine Negative (Negative); Color,Urine YELLOW (Yellow); Glucose,Urine (UA) Negative (Negative); Ketones,Urine TRACE (Negative); Leukocyte Esterase,Urine Negative (Negative); Nitrate,Urine Negative (Negative); Protein,Urine TRACE (Negative); Specific Gravity, Urine 1.025 (1.005-1.030); Urobilinogen,Urine 0.2 EU/dl (0.2)
[2022-12-24 11:11] LABS: Bilirubin,Urine Negative (Negative); WBC,Urine Occasional #/hpf (0-3)
[2022-12-24 11:12] LABS: Bacteria,Urine Trace /lpf; Mucus,Urine Trace /lpf; Squamous Epithelial Cell,Urine Occasional #/hpf (0-5)
[2022-12-24 11:14] LABS: Alanine Aminotransferase 18 U/L (12-78); Albumin Level 4.9 g/dl (3.5-5.0); Albumin/Globulin Ratio 1.8 (1.1-1.8); Alkaline Phosphatase 106 U/L (38-126); Anion Gap 15.2 mEq/L (5-15); Aspartate Amino Transferase 26 U/L (17-59); Bilirubin,Total 0.6 mg/dl (0.2-1.3); Blood Urea Nitrogen 12 mg/dl (9-20); Calcium 9.4 mg/dl (8.4-10.2); Carbon Dioxide 20 mmol/L (22.0-30.0); Chloride 106 mmol/L (98-107); Cholesterol 246 mg/dl (140-200); Estimated Glomerular Filt Rate 89 ml/min (>60); GFR (African American) 108 ML/MIN (>60); Globulin 2.7 g/dL (1.3-3.2); Glucose 105 mg/dl (74-100); HDL Cholesterol 61 mg/dl (40-60); Potassium 4.2 mmoL/L (3.5-5.1); Sodium 137 mmol/L (136-145); Total Protein,Serum 7.6 g/dl (6.3-8.2); Triglycerides 184 mg/dl (30-150); VLDL Cholesterol 37 mg/dL (0-40)
[2022-12-24 11:25] LABS: Direct LDL Cholesterol 138.99 mg/dL (100-129)
[2022-12-24 11:31] LABS: 25-OH Vitamin D, Total 18.9 ng/mL (30-100)
[2022-12-24 11:44] LABS: Prostate Specific Ag Screen 5.4 ng/ml (0.0-4.0); Thyroid Stimulating Hormone 0.75 uIU/mL (0.465-4.68)
[2022-12-24 12:03] LABS: Vitamin B12 490 pg/mL (239-931)
[2022-12-24 23:58] LABS: Folate 9.81 ng/mL
[2022-12-29 14:16] LABS: Testosterone, Total, LC/MS 302.3 ng/dL (264.0-916.0); Testosterone,Free 4.4 pg/mL (7.2-24.0)
== END ==
LOC: LAB 09:37
PROVIDERS: PCP Family Medicine; Visit Provider Family Medicine
DX: Z00.00 Encounter for general adult medical examination without abnormal findings (principal); G47.00 Insomnia, unspecified; N52.9 Male erectile dysfunction, unspecified; M54.50 Low back pain, unspecified; E55.9 Vitamin D deficiency, unspecified; Z13.1 Encounter for screening for diabetes mellitus; Z13.6 Encounter for screening for cardiovascular disorders; Z12.5 Encounter for screening for malignant neoplasm of prostate; Z79.899 Other long term (current) drug therapy
CPT/HCPCS: 80053; 80061; 81001; 82306; 82607; 82746; 84402; 84403; 84443; 85025; G0103

== ENCOUNTER → 2023-05-20 14:09 | Outpatient (CLI) | payer BC, SELFPAY ==
--- NOTE | 2023-05-20 14:12 | XR_ITS ---
FINAL REPORT CLINICAL HISTORY: left ankle pain, swelling, hx of fx and sx 7 months ago COMPARISON: 11/14/2022 FINDINGS: Left ankle Three views were obtained. There are postoperative changes of the distal fibula with screw plate and multiple screws. There is presumed chronic bony fragment at the medial malleolus. Medial soft tissue swelling is seen. IMPRESSION: Postoperative and chronic appearing findings. Reviewed, Interpreted and Dictated by Leobardo Patino III, MD Transcribed by Dorcas Aguilar Authenticated and . [facility]
== END ==
LOC: RAD 14:09
PROVIDERS: PCP Family Medicine; Visit Provider Orthopaedic Surgery
DX: M25.572 Pain in left ankle and joints of left foot (principal)
CPT/HCPCS: 73610

== ENCOUNTER 2023-07-10 09:30 | Outpatient (RCR) | payer BC, SELFPAY ==
--- NOTE | 2023-05-28 15:30 | HMH.PTOPEV ---
PT Outpatient Evaluation Rehab PT Outpatient Evaluation Start: 05/28/23 11:05 Freq: Status: Active Protocol: Document 05/28/23 15:19 TANNA (Rec: 05/28/23 15:30 TANNA [id number]) E-signed By Zia Smith, PT Outpatient Therapy Subjective History Subjective History Patient is a 52 year old male presenting to outpatient PT with reports of L post- surgical foot/ankle pain S/P ORIF for bimalleolar ankle fracture. Initial occurred after a misstep in his kitchen at home 08/24/22. Comorbidities include hx of LS surgery, B shoulder labral repairs x 7, HTN and stomach surgery. Chief Complaint Pain,Stiff,Swelling,Weakness Symptom Type Ache,Sharp,Burning Symptoms Relieved By Rest/Positioning,Elevation Symptoms Aggravated By Standing,Physical Activity, Walking Prior Functional Limitations None Current Functional Limitations Housework,Standing,Squatting, Recreation Activity,Walking, Stairs,Balance Symptom Description Constant but Variable Level of pain today (0-10) 1 Pain scale - at its best (0-10) 1 Pain scale - at its worst (0-10) 9 Ankle/Foot Eval Gait Observation General Gait Pattern Observation Antalgic Gait,Decrease Weight Bear (L) Assistive Device Ambulation Assistive Device None Palpation Tenderness left Ankle/Foot Palpation Findings Tenderness Ankle/Foot Palpation Overall Comment Surgical incisions 3/4 ROM Ankle/Foot Dorsiflexion w/Knee Extended -13 Active Range Motion (degrees) Ankle/Foot Plantar Flexion Active Range 54 of Motion (degrees) Ankle/Foot Eversion Active Range of 9 Motion (degrees) Ankle/Foot Inversion Active Range of 15 Motion (degrees) Ankle/Foot ROM Limitations Soft Tissue Tightness,Bony Restriction Great Toe ROM Reason Not Measured Within Functional Limits Accessory Movements Ankle Accessory Movements that Elicit Tibial Dorsal Pomaria,Tibial Symptoms Ventral Pomaria,Talus Dorsal Pomaria,Talus Ventral Pomaria MMT left Ankle Dorsiflexion Strength Grade 4- Good- Ankle Plantarflexion Strength Grade 4- Good- Foot Eversion Strength Grade 3+ Fair+ Foot Inversion Strength Grade 3+ Fair+ Special Tests Ankle Anterior Drawer Test Negative Left Ankle Eversion Test Negative Left Foot Interdigital Kelly
--- NOTE | 2023-07-03 14:59 | HMH.RHREAS ---
Rehab Reassessment Rehab OP Re-assessment Start: 05/28/23 11:05 Freq: Status: Active Protocol: Document 07/03/23 14:50 TANNA (Rec: 07/03/23 14:58 TANNA [id number]) E-signed By Zia Smith, PT Lower Extremity Functional Index Activities Today, do you or would you have any difficulty at all with: a.Any of your usual work, housework or Quite a bit of difficulty school activities b. Your usual hobbies, recreational or Quite a bit of difficulty sporting activities c. Getting into or out of the bath Moderate difficulty d. Walking between rooms A little bit of difficulty e. Putting on your shoes or socks A little bit of difficulty f. Squatting Moderate difficulty g. Lifting an object, like a bag of Moderate difficulty groceries from the floor h. Performing light activities around A little bit of difficulty your home i. Performing heavy activities around Quite a bit of difficulty your home j. Getting into or out of a car Quite a bit of difficulty k. Walking 2 blocks Extreme difficulty or unable to perform activity l. Walking a mile Moderate difficulty m. Going up or down 10 stairs (about 1 Extreme difficulty or unable flight of stairs) to perform activity n. Standing for 1 hour A little bit of difficulty o. Sitting for 1 hour Extreme difficulty or unable to perform activity p. Running on even ground Extreme difficulty or unable to perform activity q. Running on uneven ground Extreme difficulty or unable to perform activity r. Making sharp turns while running fast Extreme difficulty or unable to perform activity s. Hopping Extreme difficulty or unable to perform activity t. Rolling over in bed No difficulty LEFI Score Lower Extremity Functional Index Score 28 Rehab Re-assessment Subjective Subjective Patient reports 40% improvement since start of care. Objective Objective Notes AROM: DF 0; PF 42; INV 24; EV 14 MMT: DF/PF WNL; INV/EV 4-/5 LEFS: Neuro: WNL TTP: L ATFL 3/4; lateral incision 3/4 Pain: 4/10 today; 8/10 at worst Assessment Progress Assessment Progressing as Expected Assessment Notes Patient would benefit from continuing with skilled PT services in
== END 2023-07-10 09:35 | disposition home or self-care (01) ==
LOC: PT 09:30
PROVIDERS: PCP Family Medicine; Visit Provider Orthopaedic Surgery
DX: M25.572 Pain in left ankle and joints of left foot (principal); S82.842A Displaced bimalleolar fracture of left lower leg, initial encounter for closed fracture
CPT/HCPCS: 97014; 97016; 97033; 97110; 97140; 97163; 97164; G0283

== ENCOUNTER → 2023-07-25 07:08 | Outpatient (CLI) | payer BC, SELFPAY ==
--- NOTE | 2023-07-25 07:21 | ECG_ITS ---
APPROVED REPORT Exam: Resting ECG HR:71 bpm ECG Measurements Heart Rate 71 AXES OR 157 P 27 QRSd 80 QRS 56 QT 378 T 63 QTc 400 Conclusion SINUS RHYTHM POSSIBLE RIGHT VENTRICULAR CONDUCTION DELAY [RSR (QR) IN V1/V2] NONSPECIFIC T-WAVE ABNORMALITY BORDERLINE ECG UNCONFIRMED REPORT Electronically signed by : Gilberto Perdomo MD 07/26/2023 10:40:07
--- NOTE | 2023-07-25 07:44 | XR_ITS ---
FINAL REPORT CLINICAL HISTORY: Pre Op, htn FINDINGS: Two views of the chest were obtained. The heart size and pulmonary vascularity are within normal limits. The mediastinum is normal. No acute pulmonary abnormality is identified. There is no pneumothorax. The bony thorax is intact. There are postoperative changes in the thoracolumbar spine. IMPRESSION: No active cardiopulmonary disease. Reviewed, Interpreted and Dictated by Leobardo Patino III, MD Transcribed by Dorcas Aguilar Authenticated and [facility]
[2023-07-25 07:46] LABS: Basophils # 0.1 K/mm3 (0-0.2); Basophils % 0.7 % (0.1-2.0); Eosinophils # 0.3 K/mm3 (0.0-0.4); Eosinophils % 3.3 % (0.1-12.0); Hematocrit 41.8 % (42.0-52.0); Hemoglobin 14.5 g/dL (14.1-18.0); Lymphocytes # 2.9 K/mm3 (0.7-4.5); Lymphocytes % 36.1 % (10-50); Mean Corpuscular HGB Conc 34.6 g/dL (31.8-35.4); Mean Corpuscular Hemoglobin 32.4 pg (27.0-31.2); Mean Corpuscular Volume 93.6 fl (80-94); Mean Platelet Volume 8.1 fl (7.4-10.4); Monocytes # 0.6 K/mm3 (0.1-1.0); Monocytes % 6.9 % (1.7-9.3); Neutrophils # 4.3 K/mm3 (1.8-7.8); Platelet Count 296 K/mm3 (142-424); Red Blood Count 4.46 M/mm3 (4.60-6.20); Red Cell Distribution Width 13.3 % (11.5-17.5)
[2023-07-25 08:24] LABS: Chloride 113 mmol/L (98-107); Potassium 4.1 mmoL/L (3.5-5.1); Sodium 141 mmol/L (136-145)
[2023-07-25 08:27] LABS: Alanine Aminotransferase 25 U/L (12-78); Albumin Level 3.9 g/dl (3.5-5.0); Albumin/Globulin Ratio 1.6 (1.1-1.8); Alkaline Phosphatase 72 U/L (38-126); Anion Gap 10.1 mEq/L (5-15); Aspartate Amino Transferase 27 U/L (17-59); Blood Urea Nitrogen 15 mg/dl (9-20); Carbon Dioxide 22 mmol/L (22.0-30.0); Estimated Glomerular Filt Rate 79 ml/min (>60); GFR (African American) 95 ML/MIN (>60); Globulin 2.5 g/dL (1.3-3.2); Total Protein,Serum 6.4 g/dl (6.3-8.2)
[2023-07-25 08:28] LABS: Bilirubin,Total 0.1 mg/dl (0.2-1.3); Calcium 9.1 mg/dl (8.4-10.2); Glucose 115 mg/dl (74-100)
== END ==
LOC: LAB 07:09
PROVIDERS: PCP Family Medicine; Visit Provider Orthopaedic Surgery
DX: Z01.818 Encounter for other preprocedural examination (principal); M25.572 Pain in left ankle and joints of left foot
CPT/HCPCS: 36415; 71046; 80053; 85025; 93005

== ENCOUNTER → 2023-07-25 07:13 | Outpatient (CLI) | payer BC, SELFPAY | PROVIDERS: PCP Orthopaedic Surgery; Visit Provider Orthopaedic Surgery | DX: Z01.818 Encounter for other preprocedural examination (principal) ==

== ENCOUNTER 2023-07-28 06:05 | Day surgery (SDC) | payer BC, SELFPAY ==
[2023-07-24 14:38] VITALS: BMI 27.1
[2023-07-28] VITALS (10 sets, daily range): BP systolic 106–141; BP diastolic 65–86; PULSE 66–98; RESP 14–21; TEMP 36.2–36.7; O2SAT 96–98
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
--- NOTE | 2023-07-28 08:52 | XR_ITS ---
FINAL REPORT CLINICAL HISTORY: HARDWEAR REMOVABLE 0.47 dap 0.08 fluoro time FINDINGS: 2 fluoroscopic spot images were obtained for hardware removal. 0.08 seconds of fluoroscopy time was reported. 0.47 mGy. IMPRESSION: 0.08 seconds of fluoroscopy time. Reviewed, Interpreted and Dictated by Leobardo Patino III, MD Transcribed by Lydia Sanabria Authenticated and [facility]
--- NOTE | 2023-07-28 08:55 | SUR.OPER ---
0855- asha mckay spoke to MAKAYLA wright and pt is permitted to take the hardware removed from his ankle home with him.
--- NOTE | 2023-07-28 09:09 | EXP.OP.NOTE ---
Date of procedure: 07/28/23 Pre-op Diagnosis:: Retained painful hardware left ankle Post-op Diagnosis:: Same Procedure performed:: Removal of implants deep left ankle fibula plate and screws Surgeon:: Paul Valadez DO [employer]:: Other Anesthesia: GETA and regional Estimated blood loss (mL): 0 Operative findings:: See dictation Operative note:: Patient was identified preoperatively. Left ankle marked with a yes and my initials. Transported operative suite. Given a regional block. Left lower extremity is then prepped and draped normal sterile fashion. Once prepped and draped final operative timeout performed to identify proper patient procedure and extremity. Everyone involved the case agreed. There is no counter indication to beginning. Did receive preoperative antibiotics. Marking pen was made to make previous incision over the lateral malleolus. Esmarch was used to exsanguinate the extremity and pneumatic tourniquet was inflated to 300 mmHg. Skin knife was used to incise through skin careful dissection was taken down to identify the fibular plate. Careful dissection was taken around the edges of the fibular plate with sharp dissection. The entirety of the plate was exposed retractors were placed hardware screws were removed without difficulty. Lag screw removed without difficulty. And the plate was removed without difficulty. Irrigation of the wound was performed. There is some scar tissue at the superior aspect of the plate with soft tissue growing into one of the open plate holes this was debrided. Irrigation repeated. Deep layers closed with Vicryl. Subcutaneous with Vicryl. And skin closed with 3-0 nylon stitch. Soft dressing placed wrap with Bryan bandage patient waken anesthesia taken recovery in stable condition Condition: stable Disposition: PACU Complications:: None apparent
--- NOTE | 2023-07-28 09:11 | P.PNANES_ITS ---
[facility] Anesthesia Record Part I Anesthesia Record I Intake, IV Amount: 800 Hydration: Adequate Estimated blood loss (mL): 5 Urine output (mL): 0 Blood Products used (#): none Blood Pressure: 128/86 SaO2: 96 Pulse Rate: 98 Airway Patency: Patent Respiratory Rate: 14 Temperature: 98 F Patient is:: Awake (Talking) and Stable Stable to PACU at:: 09:05
--- NOTE | 2023-07-29 07:19 | P.PNANES_ITS ---
[facility] Anesthesia Record Part II Anesthesia Record Part II Discharge Time: 09:33 Destination: Surgical Day Care (OP Surgery) PACU nurse assessment reviewed?: Yes Patient Condition:: Good Anesthesia Complications:: None Swallowing reflex intact?: Yes Airway Patency: Patent Cyanosis?: No Blood Pressure: 116/74 SaO2: 98 Respiratory Rate: 19 Pulse Rate: 80 Temperature: 98 F Mental Status: Alert & Oriented Pain level:: 4 Nausea and/or vomitting:: None Intake, IV Amount: 0 Hydration: Adequate
[2023-07-29 07:21] VITALS: BP 116/74; PULSE 80; RESP 19; TEMP 36.6; O2SAT 98
== END 2023-07-28 10:15 | disposition home or self-care (01) ==
PROVIDERS: PCP Family Medicine; Visit Provider Orthopaedic Surgery
PROC: (CPT 20680; principal; 2023-07-28 07:30)
DX: T84.84XA Pain due to internal orthopedic prosthetic devices, implants and grafts, initial encounter (principal); G89.28 Other chronic postprocedural pain
CPT/HCPCS: 20680; 73600; 96374

== ENCOUNTER → 2023-08-12 08:58 | Outpatient (CLI) | payer BC, SELFPAY ==
--- NOTE | 2023-08-12 09:01 | XR_ITS ---
FINAL REPORT CLINICAL HISTORY: left ankle sx, hardware removed 2 weeks ago FINDINGS: AP, oblique, and lateral views of the left ankle were obtained. There is no prior exam for comparison. There is a chronic appearing fracture of the medial malleolus. There is evidence of previous hardware in the distal fibula. There is degenerative joint disease. There is mild soft tissue edema. IMPRESSION: Degenerative joint disease. Evidence of prior hardware. Reviewed, Interpreted and Dictated by Natalie Youngblood MD Transcribed by Carlyle Santos Authenticated and [facility] [place] [place]
== END ==
LOC: RAD 08:59
PROVIDERS: PCP Family Medicine; Visit Provider Orthopaedic Surgery
DX: M25.572 Pain in left ankle and joints of left foot (principal); S82.892A Other fracture of left lower leg, initial encounter for closed fracture
CPT/HCPCS: 73610

== ENCOUNTER → 2023-09-16 08:46 | Outpatient (CLI) | payer BC, SELFPAY ==
--- NOTE | 2023-09-16 08:49 | XR_ITS ---
FINAL REPORT CLINICAL HISTORY: left ankle COMPARISON: 08/12/2023 FINDINGS: LEFT ANKLE: Three views of the left ankle were obtained. Again seen are hardware defects in the distal fibula consistent with explanted hardware. There is a well-corticated ossific density inferior to the medial malleolus probably due to ununited fracture fragment. There is a 6 mm osteochondral lesion in the medial talar dome. There is moderate soft tissue swelling about the ankle. IMPRESSION: Postoperative defects. Probable ununited fracture fragment inferior to the medial malleolus. Osteochondral lesion in the medial talar dome. Reviewed, Interpreted and Dictated by Dylan Hatfield MD Transcribed by Carlyle Santos Authenticated and . [facility]
== END ==
LOC: RAD 08:47
PROVIDERS: PCP Family Medicine; Visit Provider Orthopaedic Surgery
DX: T84.89XA Other specified complication of internal orthopedic prosthetic devices, implants and grafts, initial encounter (principal)
CPT/HCPCS: 73610

== ENCOUNTER 2024-01-14 10:00 | Outpatient (RCR) | payer BC, SELFPAY ==
--- NOTE | 2023-09-04 08:24 | HMH.PTOPEV ---
PT Outpatient Evaluation Rehab PT Outpatient Evaluation Start: 09/04/23 08:14 Freq: Status: Active Protocol: Document 09/04/23 08:14 EM (Rec: 09/04/23 08:24 EM [id number]) E-signed By Abhay Mcgee, PT Outpatient Therapy Subjective History Subjective History Pt presents s/p left ankle ( lateral aspect) hardware removal from previous ORIF. Pt reports most recent sx ~3 weeks ago, 'it certainly feels different, not sure about better, but I think it's moving better.' Pt reports previous injury/fx to left ankle w/ORIF was ~1 yr ago. New diagnosis of cancer in past 12 No months? Chief Complaint Pain,Stiff,Weakness Symptom Type Ache,Sharp,Dull Symptoms Relieved By Rest/Positioning,Ice Symptoms Aggravated By Standing,Walking Prior Functional Limitations Standing,Walking,Stairs Current Functional Limitations Housework,Standing,Walking, Stairs Symptom Description Constant but Variable Level of pain today (0-10) 7 Pain scale - at its best (0-10) 5 Pain scale - at its worst (0-10) 8 Ankle/Foot Eval Gait Observation General Gait Pattern Observation Antalgic Gait Assistive Device Ambulation Assistive Device None Palpation Tenderness left Ankle/Foot Palpation Overall Comment 3/4 lateral malleolus, 1/4 medial malleolus ROM Ankle/Foot Dorsiflexion w/Knee Extended 0-1 Active Range Motion (degrees) Ankle/Foot Plantar Flexion Active Range 0-34 of Motion (degrees) Ankle/Foot Eversion Active Range of 0-9 Motion (degrees) Ankle/Foot Inversion Active Range of 0-30 Motion (degrees) MMT Ankle Dorsiflexion Strength Grade 4 Good Ankle Plantarflexion Strength Grade 4- Good- Foot Eversion Strength Grade 3+ Fair+ Foot Inversion Strength Grade 3+ Fair+ Lower Extremity Functional Index Activities Today, do you or would you have any difficulty at all with: a.Any of your usual work, housework or Quite a bit of difficulty school activities b. Your usual hobbies, recreational or Quite a bit of difficulty sporting activities c. Getting into or out of the bath Moderate difficulty d. Walking between rooms Moderate difficulty e. Putting on your shoes or socks A little bit of difficulty f. Squatting Moderate difficulty g. Lifting an object, like a bag of A little bit of difficulty groceries from the floor h. Performing light activities around A little bit of difficulty your home i. Performing heavy activities around Extreme difficulty or unable your home to perform activity j. Getting into or out of a car Moderate difficulty k. Walking 2 blocks Quite a bit of difficulty l. Walking a mile Extreme difficulty or unable to perform activity m. Going up or down 10 stairs (about 1 Moderate difficulty flight of stairs) n. Standing for 1 hour Extreme difficulty or unable to perform activity o. Sitting for 1 hour A little bit of difficulty p. Running on even ground Extreme difficulty or unable to perform activity q. Running on uneven ground Extreme difficulty or unable to perform activity r. Making sharp turns while running fast Extreme difficulty or unable to perform activity s. Hopping Quite a bit of difficulty t. Rolling over in bed No difficulty LEFI Score Lower Extremity Functional Index Score 30 Outpatient Therapy Assessment Impairments Problems/Impairmments Palpation Tenderness,Impaired Range of Motion,Impaired Strength,Impaired Gait Pattern ,Impaired Walking,Impaired Standing,Impaired Household Care,Impaired Stair Climbing, Subjective C/O Pain,Impaired Self Care/Self Management Prognosis Rehab Potential Good Clinical Impression Consistent with Diagnosis Yes Short Term Goals Number of Weeks 4 Decreased Palpation Tenderness Yes: 1-2/4 left ankle Increase Range of Motion Yes: 75% of WFL LEFT ANKLE AROM Increase Strength Yes: 4/5 LEFT ANKLE Increase Ability to Walk Yes: 30MIN Increase Ability to Stand Yes: 30MIN Improve Ability For Household Care Yes: 30MIN Improve LEFI Score Yes: 40-45 Decrease Subjective C/O Pain Yes: 3-4/10 W/ABOVE ACTIVITIES Patient to be Ind w/ HEP Yes [employer] Information Clerk Goals Number of Weeks 6-8 Decreased Palpation Tenderness Yes: 0-1/4 LEFT ANKLE Increase Range of Motion Yes: WFL LEFT ANKLE AROM Increase Strength Yes: 5/5 LEFT ANKLE Improve Gait Pattern without Assistive Yes: WFL Device Increase Ability to Walk Yes: 60MIN Increase Ability to Stand Yes: 60MIN Improve Ability For Household Care Yes: 60MIN Improve Ability to Climb Stairs Yes: WFL Decrease Subjective C/O Pain Yes: 0-2/10 W/ABOVE ACTIVITIES Patient to be Ind w/ Advanced HEP Yes Outpatient Therapy Plan of Care Treatment Plan May Include Therapeutic Exercise Including Home Yes Exercise Program Manual Therapy Techniques Yes Neuromuscular Re-education Yes Therapeutic Activities to Return to Yes Previous Functional/Work Level Gait Training Yes ADL/Self Care Education Yes Dry Needling Yes Thermal Modalities Yes Electrical Stimulation Yes Ultrasound/Phonophoresis Yes Iontophoresis Yes Vasopneumatic Compression Pump Yes Eval/Re-Eval Yes Frequency Times per week 2-3 Duration Number of Weeks 6-8 Addendums This patient is a candidate for social No or vocational rehab? Patient/Guardian verbally acknowledges Yes understanding of treatment program and consents to further treatment? Patient/Guardian verbally acknowledges Yes understanding of diagnosis, prognosis and goals for treatment? Eval Complexity PT Charges 95676 - Moderate Complexity Shoulder/Elbow Eval Shoulder Objective Measurements Elbow Objective Measurements PHYSICIAN CERTIFICATION: I certify the specified therapy services for Popeye Matthews are required, authorized, and reviewed every 30 days.
--- NOTE | 2023-10-01 16:42 | HMH.RHREAS ---
Rehab Reassessment Rehab OP Re-assessment Start: 09/04/23 08:14 Freq: Status: Active Protocol: Document 10/01/23 16:02 EM (Rec: 10/01/23 16:39 EM [id number]) E-signed By Abhay Mcgee, PT Lower Extremity Functional Index Activities Today, do you or would you have any difficulty at all with: a.Any of your usual work, housework or Moderate difficulty school activities b. Your usual hobbies, recreational or Quite a bit of difficulty sporting activities c. Getting into or out of the bath A little bit of difficulty d. Walking between rooms A little bit of difficulty e. Putting on your shoes or socks A little bit of difficulty f. Squatting Moderate difficulty g. Lifting an object, like a bag of A little bit of difficulty groceries from the floor h. Performing light activities around A little bit of difficulty your home i. Performing heavy activities around Moderate difficulty your home j. Getting into or out of a car A little bit of difficulty k. Walking 2 blocks Quite a bit of difficulty l. Walking a mile Quite a bit of difficulty m. Going up or down 10 stairs (about 1 Moderate difficulty flight of stairs) n. Standing for 1 hour Moderate difficulty o. Sitting for 1 hour No difficulty p. Running on even ground Moderate difficulty q. Running on uneven ground Quite a bit of difficulty r. Making sharp turns while running fast Extreme difficulty or unable to perform activity s. Hopping Moderate difficulty t. Rolling over in bed No difficulty LEFI Score Lower Extremity Functional Index Score 44 Rehab Re-assessment Subjective Subjective Pt reports 0-3/10 left ankle pain on VAS depending on activity, and reports improved overall function since I eval . Objective Objective Notes AROM: LEFT ANKLE DF 0-9, PF 0- 39, INV 0-35, EVR 0-15 MMT: LEFT ANKLE DF 4-4+/5, L PF 4/5, L EVR 4/5, INV 4-4+/5 TTP: LEFT ANKLE LATERAL ASPECT /SX. INCISION 2/4, MEDIAL ASPECT LEFT ANKLE SX. INCISION 0-/4 GAIT: WFL ON LEVEL TERRAIN LEF INDEX 44 VS 30 ON I EVAL Assessment Progress Assessment Progressing as Expected Assessment Notes IMPROVED ROM, STRENGTH, TTP, LEF INDEX Patient goals met STG'S 06/14, LTG'S 02/12 Goals Not Met LTG'S 02/12 Plan Plan Pt to continue w/skilled P.T. to make further improvements in ROM, strength, TTP, and gait to allow for optimal function Frequency of Therapy 1-2x/wk Duration of therapy 4-6wks Time and Billing Re-Eval Time 12 Re-Eval Billing Units 1 PHYSICIAN CERTIFICATION: I certify the specified therapy services for Popeye Matthews are required, authorized, and reviewed every 30 days.
--- NOTE | 2023-10-30 11:33 | HMH.RHREAS ---
Rehab Reassessment Rehab OP Re-assessment Start: 09/04/23 08:14 Freq: Status: Active Protocol: Document 10/30/23 11:08 ME (Rec: 10/30/23 11:33 EM [id number]) E-signed By Abhay Mcgee, PT Lower Extremity Functional Index Activities Today, do you or would you have any difficulty at all with: a.Any of your usual work, housework or A little bit of difficulty school activities b. Your usual hobbies, recreational or Quite a bit of difficulty sporting activities c. Getting into or out of the bath A little bit of difficulty d. Walking between rooms A little bit of difficulty e. Putting on your shoes or socks A little bit of difficulty f. Squatting Moderate difficulty g. Lifting an object, like a bag of No difficulty groceries from the floor h. Performing light activities around A little bit of difficulty your home i. Performing heavy activities around Quite a bit of difficulty your home j. Getting into or out of a car A little bit of difficulty k. Walking 2 blocks Quite a bit of difficulty l. Walking a mile Quite a bit of difficulty m. Going up or down 10 stairs (about 1 Moderate difficulty flight of stairs) n. Standing for 1 hour Moderate difficulty o. Sitting for 1 hour No difficulty p. Running on even ground Quite a bit of difficulty q. Running on uneven ground Extreme difficulty or unable to perform activity r. Making sharp turns while running fast Extreme difficulty or unable to perform activity s. Hopping Extreme difficulty or unable to perform activity t. Rolling over in bed No difficulty LEFI Score Lower Extremity Functional Index Score 41 Rehab Re-assessment Subjective Subjective Pt reports 0-2/10 left ankle pain on VAS at rest, however, reports intermittent left ankle instability (lateral) on unlevel terrain. Objective Objective Notes AROM: LEFT ANKLE DF 0-10, PF 0 -45, INV 0-35, EVR 0-15 MMT: LEFT ANKLE DF 4+/5, L PF 4+/5, L EVR 4-4+/5, INV 4-4+/5 TTP: LEFT ANKLE LATERAL ASPECT /SX. INCISION 2/4, MEDIAL ASPECT LEFT ANKLE SX. INCISION 0-1/4, left sinus tarsi 2-3/4 GAIT: WFL ON LEVEL TERRAIN LEF INDEX 41 VS 30 ON I EVAL Assessment Progress Assessment Progressing as Expected Assessment Notes improved ROM, strength, increased TTP and LEF score Patient goals met STG'S 06/14, LTG'S 04/14 Revised Goals LTG'S 12/13 Plan Plan Pt to continue w/skilled P.T. to make further improvements in ROM, strength, TTP, and gait to allow for optimal function Frequency of Therapy 1-2X/WK Duration of therapy 3-5WKS Time and Billing Re-Eval Time 11 Re-Eval Billing Units 1 PHYSICIAN CERTIFICATION: I certify the specified therapy services for Popeye Matthews are required, authorized, and reviewed every 30 days.
--- NOTE | 2023-12-10 10:50 | HMH.RHREAS ---
Rehab Reassessment Rehab OP Re-assessment Start: 09/04/23 08:14 Freq: Status: Active Protocol: Document 12/10/23 10:31 EM (Rec: 12/10/23 10:49 EM [id number]) E-signed By Abhay Mcgee, PT Lower Extremity Functional Index Activities Today, do you or would you have any difficulty at all with: a.Any of your usual work, housework or A little bit of difficulty school activities b. Your usual hobbies, recreational or Quite a bit of difficulty sporting activities c. Getting into or out of the bath A little bit of difficulty d. Walking between rooms A little bit of difficulty e. Putting on your shoes or socks No difficulty f. Squatting No difficulty g. Lifting an object, like a bag of No difficulty groceries from the floor h. Performing light activities around A little bit of difficulty your home i. Performing heavy activities around Quite a bit of difficulty your home j. Getting into or out of a car A little bit of difficulty k. Walking 2 blocks Quite a bit of difficulty l. Walking a mile Extreme difficulty or unable to perform activity m. Going up or down 10 stairs (about 1 Quite a bit of difficulty flight of stairs) n. Standing for 1 hour Quite a bit of difficulty o. Sitting for 1 hour No difficulty p. Running on even ground Quite a bit of difficulty q. Running on uneven ground Extreme difficulty or unable to perform activity r. Making sharp turns while running fast Extreme difficulty or unable to perform activity s. Hopping Quite a bit of difficulty t. Rolling over in bed No difficulty LEFI Score Lower Extremity Functional Index Score 42 Rehab Re-assessment Subjective Subjective Pt reports absence from skilled P.T. d/t bowel obstruction, however, reports increase in medial aspect left ankle pain since last reassessment, 'the outside is feeling much better, but that inside is more painful and is a little unstable.' Pt reports 3/10 left ankle pain on VAS, and feels 80% better overall since I eval Objective Objective Notes AROM: LEFT ANKLE DF 0-12, PF 0 -48, INV 0-37, EVR 0-25 MMT: LEFT ANKLE DF 4+/5, L PF 4+/5, L EVR 4--4/5, INV 4/5 TTP: LEFT ANKLE LATERAL ASPECT /SX. INCISION 0-1/4, MEDIAL ASPECT LEFT ANKLE SX. INCISION /DELTOID LIG 2-12/07, left sinus tarsi 0-4 GAIT: WFL ON LEVEL TERRAIN LEF INDEX 42 VS 30 ON I EVAL Assessment Progress Assessment Slower Than Expected Assessment Notes slight regression in medial aspect TTP and strength, however LEF slightly improved LEF Patient goals met STG'S 06/14, LTG'S 04/14 Goals Not Met LTG'S 12/13 Plan Plan Pt to continue w/skilled P.T. to make further improvements in ROM, strength, TTP, and gait to allow for optimal function Frequency of Therapy 1-2x/wk Duration of therapy 3-5wks Time and Billing Re-Eval Time 11 Re-Eval Billing Units 1 PHYSICIAN CERTIFICATION: I certify the specified therapy services for Popeye Matthews are required, authorized, and reviewed every 30 days.
--- NOTE | 2024-01-14 12:54 | HMH.RHREAS ---
Rehab Reassessment Rehab OP Re-assessment Start: 09/04/23 08:14 Freq: Status: Active Protocol: Document 01/14/24 11:59 PHORNE (Rec: 01/14/24 12:52 PHORNE [id number]) E-signed By Omar Reilly, PT Lower Extremity Functional Index Activities Today, do you or would you have any difficulty at all with: a.Any of your usual work, housework or Moderate difficulty school activities b. Your usual hobbies, recreational or Moderate difficulty sporting activities c. Getting into or out of the bath A little bit of difficulty d. Walking between rooms Moderate difficulty e. Putting on your shoes or socks No difficulty f. Squatting A little bit of difficulty g. Lifting an object, like a bag of A little bit of difficulty groceries from the floor h. Performing light activities around A little bit of difficulty your home i. Performing heavy activities around Quite a bit of difficulty your home j. Getting into or out of a car A little bit of difficulty k. Walking 2 blocks Moderate difficulty l. Walking a mile Quite a bit of difficulty m. Going up or down 10 stairs (about 1 A little bit of difficulty flight of stairs) n. Standing for 1 hour Quite a bit of difficulty o. Sitting for 1 hour No difficulty p. Running on even ground A little bit of difficulty q. Running on uneven ground Extreme difficulty or unable to perform activity r. Making sharp turns while running fast Extreme difficulty or unable to perform activity s. Hopping Moderate difficulty t. Rolling over in bed No difficulty LEFI Score Lower Extremity Functional Index Score 46 Rehab Re-assessment Subjective Subjective Patient reports that he is approximately 75% improved since beginning PT. He reports that he feels like there has not been a lot of progress as of late, but reports that US and the patches continue to provide him with pain relief. He reports that he returns to Dr. Valadez's office next with hopes that he is able to have some imaging completed. He reports that he continues to have difficulty with standing. His current pain is a 4/10 but at worst is a 7/10 and at best is a 2/10. He would like to continue with therapy until he is able to get more answers. Objective Objective Notes AROM: LEFT ANKLE DF 0-14, PF 0 -50, INV 0-35, EVR 0-30 MMT: LEFT ANKLE DF 4+/5, L PF 4+/5, L EVR 4--4/5, INV 4/5 TTP: LEFT ANKLE LATERAL ASPECT /SX. INCISION 0-1/4, MEDIAL ASPECT LEFT ANKLE SX. INCISION /DELTOID LIG 2-3/4, left sinus tarsi 0-1/4 GAIT: WFL ON LEVEL TERRAIN LEF INDEX 46 vs 30 [ End ] Assessment Progress Assessment Slower Than Expected Assessment Notes Patient has shown some slight progress thus far in his rehabilitation. He continues to demonstrate persistent pain , but improvements in motion and strength. Skilled PT remains indicated for this patient, presently. Patient goals met STG'S 06/14, LTG'S 04/14 Goals Not Met LTG'S 12/13 Plan Plan Continue as per initial POC Frequency of Therapy 1-2x/wk Duration of therapy 3-5wks Time and Billing Re-Eval Time 11 Re-Eval Billing Units 1 PHYSICIAN CERTIFICATION: I certify the specified therapy services for Popeye Matthews are required, authorized, and reviewed every 30 days.
== END 2024-01-14 11:00 | disposition home or self-care (01) ==
LOC: PT 10:00
PROVIDERS: PCP Family Medicine; Visit Provider Orthopaedic Surgery
DX: M25.572 Pain in left ankle and joints of left foot (principal); S82.892A Other fracture of left lower leg, initial encounter for closed fracture; Z98.890 Other specified postprocedural states
CPT/HCPCS: 97010; 97014; 97016; 97033; 97035; 97110; 97112; 97140; 97163; 97164; 97530; G0283

== ENCOUNTER 2024-01-29 23:01 | Emergency (ER) | payer BC, SELFPAY ==
[2024-01-29 23:03] VITALS: BP 130/90; PULSE 126; RESP 22; TEMP 36.6; O2SAT 98; BMI 25.7
--- NOTE | 2024-01-29 23:25 | ECG_ITS ---
APPROVED REPORT Exam: Resting ECG HR:97 bpm ECG Measurements Heart Rate 97 AXES WY 139 P 59 QRSd 72 QRS 46 QT 307 T 149 QTc 361 Conclusion SINUS RHYTHM MODERATE T-WAVE ABNORMALITY, CONSIDER LATERAL ISCHEMIA [-0.1+ mV T-WAVE IN I/aVL/V5/V6] ABNORMAL ECG T wave abnormality in lateral leads but no STEMI Electronically signed by : GLENDY HARRISON, 01/30/2024 05:10:02
--- NOTE | 2024-01-29 23:25 | CT_ITS ---
PROCEDURE INFORMATION: Exam: CT Head Without Contrast Exam date and time: 01/29/2024 11:36 PM Age: 53 years old Clinical indication: Pain; Headache TECHNIQUE: Imaging protocol: Computed tomography of the head without contrast. Radiation optimization: All CT scans at this facility use at least one of these dose optimization techniques: automated exposure control; mA and/or kV adjustment per patient size (includes targeted exams where dose is matched to clinical indication); or iterative reconstruction. COMPARISON: CT CERVICAL SPINE WO CON 10/25/2021 9:31 AM FINDINGS: Brain: Normal. No hemorrhage. Unremarkable white matter. No mass effect. Cerebral ventricles: No ventriculomegaly. Paranasal sinuses: Visualized sinuses are unremarkable. No fluid levels. Mastoid air cells: Visualized mastoid air cells are well aerated. Bones/joints: Unremarkable. No acute fracture. Soft tissues: Unremarkable. IMPRESSION: No acute intracranial findings.
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
[2024-01-29 23:40] LABS: Basophils # 0.2 K/mm3 (0-0.2); Basophils % 1.3 % (0.1-2.0); Eosinophils # 0.2 K/mm3 (0.0-0.4); Eosinophils % 1.7 % (0.1-12.0); Hematocrit 50.1 % (42.0-52.0); Hemoglobin 17.2 g/dL (14.1-18.0); Lymphocytes # 4.9 K/mm3 (0.7-4.5); Lymphocytes % 41.2 % (10-50); Mean Corpuscular HGB Conc 34.3 g/dL (31.8-35.4); Mean Corpuscular Hemoglobin 32.1 pg (27.0-31.2); Mean Corpuscular Volume 93.6 fl (80-94); Mean Platelet Volume 7.1 fl (7.4-10.4); Monocytes % 8.4 % (1.7-9.3); Neutrophils # 5.6 K/mm3 (1.8-7.8); Neutrophils % 47.5 % (37.0-80.0); Platelet Count 344 K/mm3 (142-424); Red Blood Count 5.35 M/mm3 (4.60-6.20); Red Cell Distribution Width 13.3 % (11.5-17.5); White Blood Count 11.8 K/mm3 (4.8-10.8)
[2024-01-29 23:46] LABS: Alanine Aminotransferase 27 U/L (12-78); Albumin Level 4.7 g/dl (3.5-5.0); Albumin/Globulin Ratio 1.7 (1.1-1.8); Alkaline Phosphatase 85 U/L (38-126); Anion Gap 12.6 mEq/L (5-15); Aspartate Amino Transferase 35 U/L (17-59); Bilirubin,Total 0.7 mg/dl (0.2-1.3); Blood Urea Nitrogen 20 mg/dl (9-20); Calcium 9.8 mg/dl (8.4-10.2); Carbon Dioxide 22 mmol/L (22.0-30.0); Chloride 101 mmol/L (98-107); Creatinine Clearance Estimated 85 mL/min (50-200); Estimated Glomerular Filt Rate 64 ml/min (>60); GFR (African American) 77 ML/MIN (>60); Globulin 2.8 g/dL (1.3-3.2); Glucose 111 mg/dl (74-100); Magnesium 1.9 mg/dl (1.6-2.3); Potassium 3.6 mmoL/L (3.5-5.1); Sodium 132 mmol/L (136-145); Total Protein,Serum 7.5 g/dl (6.3-8.2)
[2024-01-30] VITALS: BP 121/87
[2024-01-30] MEDS: MAGNESIUM SULFATE IN WATER 2 GM/50 ML PIGGYBACK IV (00:03)
[2024-01-30] MEDS: LACTATED RINGERS 1000ML 1,000 ML 999 ML IV (00:04)
[2024-01-30] MEDS: droPERidol 5MG/2ML VIAL 2.5 MG IV (00:04)
[2024-01-30] MEDS: diphenhydrAMINE 50MG/ML VIAL 25 MG IV (00:56)
[2024-01-30 01:00] VITALS: BP 101/76
--- NOTE | 2024-01-30 01:35 | PC.NURSE ---
pt reports his head is feeling some better. However, pt states he is feeling very anxious. He reports the benedryl helped some at first but now he is back to where he was. I informed Dr. Albert, she states she will place an order for meds.
[2024-01-30] MEDS: LORazepam 1MG TABLET 1 MG PO (01:39)
[2024-01-30 01:55] VITALS: BP 141/94; PULSE 78; RESP 18; TEMP 37.1; O2SAT 99
== END 2024-01-30 02:05 | disposition home or self-care (01) ==
PROVIDERS: Emergency Provider Emergency Medicine; PCP Family Medicine
DX: G44.89 Other headache syndrome (principal); E87.1 Hypo-osmolality and hyponatremia; R11.2 Nausea with vomiting, unspecified; R42 Dizziness and giddiness; I10 Essential (primary) hypertension
CPT/HCPCS: 70450; 80053; 83735; 85025; 93005; 96365; 96375; 99284; J1790; J3475

== ENCOUNTER 2024-02-05 17:16 | Outpatient (CLI) | payer BC, SELFPAY ==
--- NOTE | 2024-02-05 17:16 | MR_ITS ---
FINAL REPORT TECHNIQUE: Multiplanar MRI without gadolinium enhancement CLINICAL HISTORY: Lt Ankle Pain, swelling prior surgery 2 years ago from a break and then 8-9 months ago hardware removal FINDINGS: Articular cartilage: There is an osteochondral defect of the medial talar dome measuring 9 mm. Marrow signal: Mild marrow edema along the margins of a ununited, chronic transverse fracture of the medial malleolus. There are postoperative changes of the distal fibula with healed fracture. There is also an old healed fracture of the posterior malleolus. Joint fluid: Small Tendons: No evidence of tear Ligaments: Major ligaments unremarkable Plantar fascia: No evidence of tear or fasciitis. IMPRESSION: Osteochondral lesion of the medial talar dome. Ununited, transverse medial malleolar fracture with mild reactive marrow edema along the fracture margins. Reviewed, Interpreted and Dictated by Дмитрий Luu MD Transcribed by Lydia Sanabria Authenticated and [facility]
== END 2024-02-05 23:59 | disposition home or self-care (01) ==
LOC: RAD 17:16
PROVIDERS: PCP Family Medicine; Visit Provider Orthopaedic Surgery
DX: M25.572 Pain in left ankle and joints of left foot (principal); T84.89XA Other specified complication of internal orthopedic prosthetic devices, implants and grafts, initial encounter
CPT/HCPCS: 73721

== ENCOUNTER 2024-04-28 06:15 | Day surgery (SDC) | payer BC, SELFPAY ==
[2024-04-26 09:50] VITALS: BMI 25.8
[2024-04-28] VITALS (10 sets, daily range): BP systolic 127–150; BP diastolic 86–105; PULSE 68–93; RESP 16–18; TEMP 36.2–36.6; O2SAT 96–100
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
--- NOTE | 2024-04-28 10:53 | P.PNANES_ITS ---
[facility] Anesthesia Record Part I Anesthesia Record I Intake, IV Amount: 1,100 Hydration: Adequate Estimated blood loss (mL): 10 Urine output (mL): 0 Blood Products used (#): none Blood Pressure: 146/86 SaO2: 97 Pulse Rate: 93 Airway Patency: Patent Respiratory Rate: 16 Temperature: 97.8 F Patient is:: Awake (Talking after removal of oral airway), Oral/Nasal airway (10.0 oral airway. Removed upon arrival to PACU) and Stable Stable to PACU at:: 10:55
--- NOTE | 2024-04-28 11:19 | P.OP_ITS ---
Date of procedure: 04/28/24 Pre-op Diagnosis:: Left ankle posttraumatic impingement and subcentimeter OCD lesion talus Post-op Diagnosis:: Same Procedure performed:: 1 left ankle arthroscopy with synovectomy and debridement Surgeon:: Paul Valadez DO Water Service Supervisor(s):: Fahad FABIAN WAISTLINE JOINER OVERLOCK:: Constance Overton Anesthesia: GETA and regional Estimated blood loss (mL): 0 Operative findings:: Extensive synovitis soft tissue impingement medial gutter subcentimeter OCD softening with no full-thickness cartilage lesion Operative note:: Patient is identified preoperatively. Left ankle marked with yes my initials. Transferred operative suite. Placed upon the operating bed general anesthesia was administered and airway secured. Left lower extremity was had a thigh tourniquet placed of the knee qureshi. Left lower extremity was then prepped and draped normal sterile fashion. Once prepped and draped final operative timeout performed to identify proper patient procedure and extremity. Everyone involved the case agreed. No counter indications to beginning. Did receive preoperative antibiotics. Marking pen was used to bre landmarks of the ankle standard anterior medial anterior lateral portals. Esmarch used to exsanguinate extremity pneumatic tourniquet inflated to 300 mmHg. 18-gauge needle was then placed into the ankle joint and inflated with 20 cc of saline. Small noy in the skin was made for the anterior medial portal followed by a hemostat and the trocar was placed into the ankle joint exchange with a camera. Tensions then brought to the anterior lateral portal with 18-gauge spinal needle was utilized for placement of the anterior lateral portal again small noy in the skin was made followed by hemostat and the probe was placed into the ankle joint. Scope directly into the medial gutter within the medial gutter there was significant soft tissue impingement the review of MRI scan of the talus showed subcentimeter lesion on the medial aspect of the talus. This area was extensively probed there was softening of the cartilage on the medial aspect of the talus but no large flap no loose cartilage lesion. Using a sucker shaver synovectomy and debridement was performed medial gutter and above the medial talus. Further diagnostic arthroscopy sweeping into the lateral joint line showed no full-thickness cartilage lesions there was cartilage softening on the inferior surface of the tibia again no full-thickness cartilage lesion present once debridement was completed probe was then placed back into the ankle joint I extensively probed the medial aspect of the talus without a full-thickness cartilage flap attention was brought to the finishing debridement of the medial gutter decision was made not to undermine the overlying cartilage. Final drive-through the ankle showed no loose bodies no further pathology cameras removed the joint was drained skin closed with nylon stitch large bulky dressing placed patient waken anesthesia taken recovery stable condition. Condition: stable Disposition: PACU Complications:: None apparent
--- NOTE | 2024-04-28 17:32 | EXP.ANES.II ---
[facility] Anesthesia Record Part II Anesthesia Record Part II Discharge Time: 11:20 Destination: Surgical Day Care (OP Surgery) PACU nurse assessment reviewed?: Yes Patient Condition:: Good Anesthesia Complications:: None Swallowing reflex intact?: Yes Airway Patency: Patent Cyanosis?: No Blood Pressure: 129/92 SaO2: 97 Respiratory Rate: 16 Pulse Rate: 82 Temperature: 97.7 F Mental Status: Alert & Oriented Pain level:: 5 Nausea and/or vomitting:: None Intake, IV Amount: 1,100 Hydration: Adequate
== END 2024-04-28 12:06 | disposition home or self-care (01) ==
PROVIDERS: PCP Family Medicine; Visit Provider Orthopaedic Surgery
PROC: (CPT 29897; principal; 2024-04-28 09:15)
DX: M93.272 Osteochondritis dissecans, left ankle and joints of left foot (principal); M89.8X7 Other specified disorders of bone, ankle and foot
CPT/HCPCS: 29897; 96374; J0690; J1100; J2250; J2270; J2405; J3010; J7120

== ENCOUNTER 2024-08-10 22:21 | Emergency (ER) | payer BC, SELFPAY ==
[2024-08-10 22:22] VITALS: BP 128/89; PULSE 98; RESP 20; TEMP 36.7; O2SAT 99; BMI 25.8
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
[2024-08-10] MEDS: diphenhydrAMINE 50MG/ML VIAL 50 MG IV (22:58)
[2024-08-10] MEDS: DEXAMETHASONE 4MG/ML 5ML MDV 10 MG IV (22:58)
[2024-08-10] MEDS: ACETAMINOPHEN 1,000MG/100ML VIAL 1000 MG IV (22:58)
[2024-08-10] MEDS: METHOCARBAMOL 500MG TABLET 500 MG PO (22:58)
--- NOTE | 2024-08-10 23:18 | ECG_ITS ---
APPROVED REPORT Exam: Resting ECG HR:92 bpm ECG Measurements Heart Rate 92 AXES MA 148 P 50 QRSd 86 QRS 46 QT 274 T 50 QTc 324 Conclusion SINUS RHYTHM POSSIBLE LEFT ATRIAL ENLARGEMENT [-0.1mV P-WAVE IN V1/V2] SEPTAL MYOCARDIAL INFARCTION , OF INDETERMINATE AGE [40+ ms Q WAVE IN V1/V2] No STEMI Electronically signed by : GLENDY HARRISON, 08/11/2024 04:42:06
[2024-08-10] MEDS: droPERidol 5MG/2ML VIAL 2.5 MG IV (23:26)
[2024-08-10 23:41] LABS: Basophils # 0.1 K/mm3 (0-0.2); Basophils % 0.8 % (0.1-2.0); Eosinophils # 0.2 K/mm3 (0.0-0.4); Eosinophils % 1.4 % (0.1-12.0); Hematocrit 48.7 % (42.0-52.0); Hemoglobin 17.4 g/dL (14.1-18.0); Lymphocytes # 3.8 K/mm3 (0.7-4.5); Lymphocytes % 36.2 % (10-50); Mean Corpuscular HGB Conc 35.6 g/dL (31.8-35.4); Mean Corpuscular Hemoglobin 31.8 pg (27.0-31.2); Mean Corpuscular Volume 89.2 fl (80-94); Mean Platelet Volume 7.3 fl (7.4-10.4); Monocytes # 0.8 K/mm3 (0.1-1.0); Monocytes % 8.1 % (1.7-9.3); Neutrophils # 5.6 K/mm3 (1.8-7.8); Neutrophils % 53.4 % (37.0-80.0); Platelet Count 339 K/mm3 (142-424); Red Blood Count 5.46 M/mm3 (4.60-6.20); Red Cell Distribution Width 13.1 % (11.5-17.5); White Blood Count 10.4 K/mm3 (4.8-10.8)
[2024-08-10 23:58] LABS: Chloride 101 mmol/L (98-107); Potassium 3.3 mmoL/L (3.5-5.1); Sodium 133 mmol/L (136-145)
[2024-08-11 00:01] LABS: Anion Gap 16.3 mEq/L (5-15); Blood Urea Nitrogen 20 mg/dl (9-20); Calcium 9.4 mg/dl (8.4-10.2); Carbon Dioxide 19 mmol/L (22.0-30.0); Creatinine Clearance Estimated 83 mL/min (50-200); Estimated Glomerular Filt Rate 64 ml/min (>60); GFR (African American) 77 ML/MIN (>60); Glucose 97 mg/dl (74-100)
[2024-08-11] MEDS: LORazepam 2MG/ML VIAL 1 MG IV ×2 (00:05→00:43)
[2024-08-11 01:28] VITALS: BP 138/98; PULSE 93; RESP 16; TEMP 36.6; O2SAT 94
== END 2024-08-11 01:34 | disposition home or self-care (01) ==
PROVIDERS: Physician Assistant; Emergency Provider Emergency Medicine; PCP Family Medicine
DX: R51.9 Headache, unspecified (principal); H53.149 Visual discomfort, unspecified; R11.0 Nausea; F40.298 Other specified phobia
CPT/HCPCS: 80048; 83735; 85025; 93005; 96374; 96375; 99283; J0131; J1100; J1200; J1790; J2060

== ENCOUNTER 2024-09-15 13:00 | Outpatient (RCR) | payer BC, SELFPAY ==
--- NOTE | 2024-07-14 10:44 | HMH.PTOPEV ---
PT Outpatient Evaluation Rehab PT Outpatient Evaluation Start: 07/14/24 10:13 Freq: Status: Active Protocol: Document 07/14/24 10:15 AYALAJOSELINE (Rec: 07/14/24 10:42 TANNA [id number]) E-signed By Zia Smith, PT Outpatient Therapy Subjective History Subjective History Patient is a 53 year old male presenting to outpatient PT with reports of L foot/ankle pain S/P L ankle debridement from previous ORIF. Patient has previously been seen in outpatient PT x 2. Main complaint is overall foot/ ankle deconditioning. Initial sx 07/28 with hardware removal 05/29. Other comorbidities include hx of LS fusion x 2, L RCR x 7 HTN and HL. New diagnosis of cancer in past 12 No months? Chief Complaint Pain,Stiff,Gives out/Unstable Symptom Type Ache,Sharp,Stabbing Symptoms Relieved By Rest/Positioning,Ice,OTC Meds Symptoms Aggravated By Standing,Physical Activity, Walking Prior Functional Limitations Standing,Walking Current Functional Limitations Housework,Standing,Recreation Activity,Walking,Stairs, Balance Symptom Description Constant but Variable Level of pain today (0-10) 2 Pain scale - at its best (0-10) 2 Pain scale - at its worst (0-10) 8 Ankle/Foot Eval Gait Observation General Gait Pattern Observation Antalgic Gait,Decrease Weight Bear (L) Assistive Device Ambulation Assistive Device None Palpation Tenderness left ATF TTP positive ROM Ankle/Foot Dorsiflexion w/Knee Extended -10 Active Range Motion (degrees) Ankle/Foot Plantar Flexion Active Range 58 of Motion (degrees) Ankle/Foot Eversion Active Range of 11 Motion (degrees) Ankle/Foot Inversion Active Range of 22 Motion (degrees) Great Toe ROM Reason Not Measured Within Functional Limits MMT Ankle Dorsiflexion Strength Grade 4 Good Ankle Plantarflexion Strength Grade 5 Normal Foot Eversion Strength Grade 4- Good- Foot Inversion Strength Grade 4- Good- Special Tests Ankle Anterior Drawer Test Negative Left Talar Tilt Test Negative Left Ankle Posterior Drawer Test Negative Left Foot Interdigital Neuroma Test Negative Left Lower Extremity Functional Index Activities Today, do you or would you have any difficulty at all with: a.Any of your usual work, housework or Quite a bit of difficulty school activities b. Your usual hobbies, recreational or Quite a bit of difficulty sporting activities c. Getting into or out of the bath Moderate difficulty d. Walking between rooms Moderate difficulty e. Putting on your shoes or socks A little bit of difficulty f. Squatting Moderate difficulty g. Lifting an object, like a bag of A little bit of difficulty groceries from the floor h. Performing light activities around Moderate difficulty your home i. Performing heavy activities around Quite a bit of difficulty your home j. Getting into or out of a car A little bit of difficulty k. Walking 2 blocks Moderate difficulty l. Walking a mile Extreme difficulty or unable to perform activity m. Going up or down 10 stairs (about 1 Quite a bit of difficulty flight of stairs) n. Standing for 1 hour Extreme difficulty or unable to perform activity o. Sitting for 1 hour No difficulty p. Running on even ground Quite a bit of difficulty q. Running on uneven ground Extreme difficulty or unable to perform activity r. Making sharp turns while running fast Extreme difficulty or unable to perform activity s. Hopping Quite a bit of difficulty t. Rolling over in bed No difficulty LEFI Score Lower Extremity Functional Index Score 33 Outpatient Therapy Assessment Impairments Problems/Impairmments Palpation Tenderness,Impaired Range of Motion,Impaired Strength,Impaired Gait Pattern ,Impaired Walking,Impaired Standing,Impaired Household Care,Impaired Stair Climbing, Impaired Incline Stepping, Impaired Stepping on Uneven Surface,Impaired Squatting, Impaired Recreational Activities,Impaired Work Activities,Impaired Balance, Subjective C/O Pain Prognosis Rehab Potential Good Clinical Impression Consistent with Diagnosis Yes Short Term Goals Number of Weeks 2 Decrease Subjective C/O Pain Yes: 5/10 at worst Patient to be Ind w/ HEP Yes Sponsorship Manager Goals Number of Weeks 4-6 Decreased Palpation Tenderness Yes: 1/4 Increase Range of Motion Yes: WNL Increase Strength Yes: 5/5 all planes Increase Ability to Walk Yes: 30 min without difficulty Improve Ability For Household Care Yes Improve Ability to Climb Stairs Yes: 1 flight up/down without difficulty Improve LEFI Score Yes: >70 Decrease Subjective C/O Pain Yes: 2 Outpatient Therapy Plan of Care Treatment Plan May Include Therapeutic Exercise Including Home Yes Exercise Program Manual Therapy Techniques Yes Neuromuscular Re-education Yes Therapeutic Activities to Return to Yes Previous Functional/Work Level Gait Training Yes ADL/Self Care Education Yes Dry Needling Yes Thermal Modalities Yes Electrical Stimulation Yes Ultrasound/Phonophoresis Yes Iontophoresis Yes Orthotics/Bracing/Splinting Yes Vasopneumatic Compression Pump Yes Massage Yes Eval/Re-Eval Yes Frequency Times per week 2-3 Duration Number of Weeks 4-6 Addendums This patient is a candidate for social No or vocational rehab? Patient/Guardian verbally acknowledges Yes understanding of treatment program and consents to further treatment? Patient/Guardian verbally acknowledges Yes understanding of diagnosis, prognosis and goals for treatment? Eval Complexity PT Charges 13110 - Moderate Complexity Shoulder/Elbow Eval Shoulder Objective Measurements Elbow Objective Measurements PHYSICIAN CERTIFICATION: I certify the specified therapy services for Popeye Matthews are required, authorized, and reviewed every 30 days.
--- NOTE | 2024-08-18 10:53 | HMH.RHREAS ---
Rehab Reassessment Rehab OP Re-assessment Start: 07/14/24 10:13 Freq: Status: Active Protocol: Document 08/17/24 10:57 TANNA (Rec: 08/17/24 12:14 TANNA [id number]) E-signed By Zia Smith, PT Lower Extremity Functional Index Activities Today, do you or would you have any difficulty at all with: a.Any of your usual work, housework or Moderate difficulty school activities b. Your usual hobbies, recreational or Quite a bit of difficulty sporting activities c. Getting into or out of the bath No difficulty d. Walking between rooms A little bit of difficulty e. Putting on your shoes or socks No difficulty f. Squatting A little bit of difficulty g. Lifting an object, like a bag of A little bit of difficulty groceries from the floor h. Performing light activities around A little bit of difficulty your home i. Performing heavy activities around Quite a bit of difficulty your home j. Getting into or out of a car A little bit of difficulty k. Walking 2 blocks Moderate difficulty l. Walking a mile Quite a bit of difficulty m. Going up or down 10 stairs (about 1 Moderate difficulty flight of stairs) n. Standing for 1 hour Quite a bit of difficulty o. Sitting for 1 hour No difficulty p. Running on even ground Moderate difficulty q. Running on uneven ground Quite a bit of difficulty r. Making sharp turns while running fast Extreme difficulty or unable to perform activity s. Hopping Quite a bit of difficulty t. Rolling over in bed No difficulty LEFI Score Lower Extremity Functional Index Score 45 Rehab Re-assessment Subjective Subjective Patient reports 70% improvement since start of care. Objective Objective Notes AROM: DF 0; PF WNL; INV 17; EV 19 MMT: DF 4+/5; PF WNL; INV/EV 4 /5 Pain 1/10 today 7/10 at worst over past week Neuro: WNL Assessment Progress Assessment Progressing as Expected Assessment Notes Patient would benefit from continuing with skilled PT services in order to address functional limitations with all standing/ambulatory activities. Patient goals met STG 2 Goals Not Met STG 1; LTG's Revised Goals NA Time and Billing Re-Eval Time 16 Re-Eval Billing Units 1 Charge for PT reassessment? Yes PHYSICIAN CERTIFICATION: I certify the specified therapy services for Popeye Byron are required, authorized, and reviewed every 30 days.
== END 2024-09-15 23:59 | disposition home or self-care (01) ==
LOC: PT 13:00
PROVIDERS: Visit Provider Physician Assistant
DX: M25.572 Pain in left ankle and joints of left foot (principal); Z98.890 Other specified postprocedural states
CPT/HCPCS: 97010; 97014; 97035; 97110; 97140; 97163; 97164; 97530; G0283

== ENCOUNTER 2025-02-11 15:36 | Outpatient (CLI) | payer BC, SELFPAY ==
--- NOTE | 2025-02-11 15:41 | XR_ITS ---
FINAL REPORT TECHNIQUE: 5 views cervical spine CLINICAL HISTORY: pain center of spine COMPARISON: None FINDINGS: CERVICAL SPINE: AP, lateral, oblique and odontoid views of the cervical spine were obtained. There is no prior exam for comparison. There is no acute fracture or malalignment. Vertebral body height is preserved. There is moderate disc space narrowing of the C5-6 and C6-7 levels, with moderate anterior osteophytes. The precervical soft tissues are normal. IMPRESSION: Degenerative change without acute bony abnormality. Reviewed, Interpreted and Dictated by Dylan Hatfield MD Transcribed by Julee Cheung Authenticated and [facility]
== END 2025-02-11 23:59 | disposition home or self-care (01) ==
LOC: RAD 15:37
PROVIDERS: PCP Nurse Practitioner; Visit Provider Nurse Practitioner
DX: M50.30 Other cervical disc degeneration, unspecified cervical region (principal)
CPT/HCPCS: 72050

== ENCOUNTER 2025-04-04 15:52 | Outpatient (RCR) | payer BC, SELFPAY | END 2025-04-04 23:59 | disposition home or self-care (01) | LOC: OT 15:52 | PROVIDERS: PCP Nurse Practitioner; Visit Provider Orthopaedic Surgery | DX: Z47.89 Encounter for other orthopedic aftercare (principal); Z96.612 Presence of left artificial shoulder joint | CPT/HCPCS: 97110; 97140; 97166 ==

== ENCOUNTER 2025-05-05 14:00 | Outpatient (RCR) | payer BC, SELFPAY | END 2025-05-05 23:59 | disposition home or self-care (01) | LOC: OT 14:00 | PROVIDERS: Visit Provider Orthopaedic Surgery | DX: Z47.1 Aftercare following joint replacement surgery (principal); Z96.612 Presence of left artificial shoulder joint | CPT/HCPCS: 97014; 97032; 97110; 97140; 97530; G0283 ==

== ENCOUNTER 2025-05-10 09:54 | Outpatient (RCR) | payer BC, SELFPAY | END 2025-05-10 23:59 | disposition home or self-care (01) | LOC: OT 09:54 | PROVIDERS: Visit Provider Orthopaedic Surgery | DX: Z47.89 Encounter for other orthopedic aftercare (principal); Z96.612 Presence of left artificial shoulder joint | CPT/HCPCS: 97014; 97035; 97110; 97168; G0283 ==

== ENCOUNTER 2025-06-09 09:37 | Outpatient (CLI) | payer BC, SELFPAY ==
--- OUTSIDE RECORDS SUMMARY | 2025-06-09 09:43 | XMS_ITS | Encounter Summary ---
Author Organization [employer] ([place], [place], [place], [place]) Address [address] [place] [address] Care Team Providers Care Ceramic Products Sales Engineer Name Role Phone Unavailable Primary Care Provider Unavailenrike e Encounter Details Date Type Department Care Team (Late st Contact Info) Description 03/07/2019 Transcribed Document [facility] [place] [facility] [address] [place] [address] ProviderYoli MD [address] [place] [address] Social History Tobacco Use Types Packs/Day Years Used Date Smoking Tobacco: Never Assessed Sex and Gender Information Value Date Recorded Sex Assigned at Not on file Legal Sex Male 6:25 PM CDT Gender Identity Not on file Sexual Orientation Not on file documented as of this encounter Miscellaneous Notes * Cerner Conversion Note - Historical ProviderMD - 03/07/2019 2:00 AM CDT Pain Assessment Entered On: 03/07/2019 3:18 EDT Performed On: 03/07/2019 3:25 EDT by Judy Conroy Lpn Intervention Information: acetaminophen Performed by Judy Conroy Lpn on 03/07/2019 02:25:00 EDT acetaminophen,650mg Oral Pain Assessment Pain Assessment : Follow-up assessment Pain Scale Goal : 4 Pain Scale Used : 0-10 Scale Judy Conroy Lpn - 03/07/2019 3:18 EDT Pain Scale Intensity : 1 Judy Conroy Lpn - 03/07/2019 3:18 EDT Image 4 - Images currently included in the form version of this document have not been included in the text rendition version of the form. documented in this encounter Plan of Treatment Not on file documented as of this encounter Visit Diagnoses Not on filedocumented in this encounter
--- OUTSIDE RECORDS SUMMARY | 2025-06-09 09:43 | XMS_ITS | Encounter Summary ---
Author Organization [employer] ([place], [place], [place], [place]) Address [address] [place] [address] Care Team Providers Care Insurance Associate Name Role Phone Unavailable Primary Care Provider Unavailenrike e Encounter Details Date Type Department Care Team (Late st Contact Info) Description 03/09/2019 Transcribed Document [facility] [place] [facility] [address] [place] [address] ProviderYoli MD [address], [place] [id number] Social History Tobacco Use Types Packs/Day Years Used Date Smoking Tobacco: Never Assessed Sex and Gender Information Value Date Recorded Sex Assigned at Not on file Legal Sex Male 6:25 PM CDT Gender Identity Not on file Sexual Orientation Not on file documented as of this encounter Miscellaneous Notes * Cerner Conversion Note - Yoli ProviderMD - 03/09/2019 5:50 AM CDT UM Authorization Entered On: 03/09/2019 5:50 EDT Performed On: 03/09/2019 5:50 EDT by MARCIA DELGADILLO RN Primary Insurance Authorization Authorization and Policy Numbers : Insurance 1 Health Plan: [facility] Policy Number: [id number] Authorization Number: NPR Insurance Primary Name : Bran [id number] Authorization Status-Primary : Admit approved Auth/Referral Contact Name-Primary : Davina Reference Number-Primary : [id number] Number of Days Authorized-Primary : 7 Authorized Service Begin Date-Primary : 02/26/2019 EDT Authorized Service End Date-Primary : 03/07/2019 EDT Authorization Comments-Primary : Per voice message: all days approved. D/C date noted. Historical Authorization Comments-Primary : Comment 1: Discharge date and summary faxed. (Gretel Ocampo, [employer] Solution Architect 03/08/2019 15:34) Comment 2: Clinicals faxed to [phone] (MARCIA DELGADILLO RN 03/08/2019 12:31) Comment 3: Clinicals faxed for cont stay. (MARCIA DELGADILLO RN 03/08/2019 06:51) Comment 4: Per Davina denial overturned and contd stay approved till 03/04, NRD 03/05. May fax clinicals on 03/09 9tuesday) (CARLOS MANUEL CAMACHO RN 03/05/2019 14:05) Comment 5: Clinicals faxed via [employer] for reconsideration, notified Linnea with Dr Camilo office, p2p no given (CARLOS MANUEL CAMACHO RN 03/05/2019 12:35) Comment 6: email to re: denial (ANA PAULA GONZALEZ, RN-Utilization Review 03/05/2019 12:14) Comment 7: rec'd call from Davina/Bran- approval for IP 02/26-03/02/19 and cont stay denial starting 03/03/19 and forward due to pt stable. Can do P2P within 14 days, call [phone] and option 1. If substantial change in condition, can fax additional clinicals for reconsideration. (ANA PAULA GONZALEZ, RN-Utilization Review 03/05/2019 12:09) Comment 8: Case pended per website, clinicals faxed via [employer] (CARLOS MANUEL CAMACHO RN 03/05/2019 10:27) Comment 9: Clinicals submitted via [employer] website (CARLOS MANUEL CAMACHO RN 03/02/2019 08:52) Comment 10: No authorization for this visit, OP or IP found in [employer]. (MARCIA DELGADILLO RN 02/27/2019 10:39) Comment 11: Per [facility] notes no auth required. Submitted for OP (?). MD wants patient to stay 5 days. Note to UR team to f/u on 03/02 re: authorizatin (MARCIA DELGADILLO RN 02/27/2019 10:36) MARCIA DELGADILLO RN - 03/09/2019 5:50 EDT documented in this encounter Plan of Treatment Not on file documented as of this encounter Visit Diagnoses Not on filedocumented in this encounter
--- OUTSIDE RECORDS SUMMARY | 2025-06-09 09:43 | XMS_ITS | Encounter Summary ---
Author Organization [employer] ([place], [place], [place], [place]) Address [address] [place] [address] Care Team Providers Care Sketch Liner Name Role Phone Unavailable Primary Care Provider Unavailabl e Encounter Details Date Type Department Care Team (Late st Contact Info) Description 05/03/2020 Transcribed Document [facility] [place] Family Medicine [address] [place] [address] ProviderYoli MD [address] [place] [address] Social History Tobacco Use Types Packs/Day Years Used Date Smoking Tobacco: Never Assessed Sex and Gender Information Value Date Recorded Sex Assigned at Not on file Legal Sex Male 6:25 PM CDT Gender Identity Not on file Sexual Orientation Not on file documented as of this encounter Miscellaneous Notes * Cerner Conversion Note - Yoli ProviderMD - 05/03/2020 11:22 AM CDT [facility] Endo IntraOp Summary Primary Physician: COLTON DODSON MD Finalized Date/Time: 05/03/20 11:38:46 Pt. Name: CALEB MATTHEWS/Sex: 1970 Male Med Rec #: [id number] Physician: COLTON DODSON MD Financial #: [id number] Pt. Type: O Room/Bed: END/ Admit/Disch: 05/03/20 09:56:00 - Institution: [facility] Endo - Case Attendance Entry 1 Entry 2 Entry 3 Case Attendee COLTON DODSON MD Thayer, Dena, RN ROXIE WOODARD, WATCH ENGINEER Role Performed Surgeon/Proceduralist, Dye Padder Operator, First Scrub, First First Time In 05/03/20 11:14:00 05/03/20 11:14:00 05/03/20 11:14:00 Time Out 05/03/20 11:40:00 05/03/20 11:40:00 05/03/20 11:40:00 Procedure Colonoscopy, Colonoscopy, Colonoscopy, Esophagogastroduodenosco Esophagogastroduodenosco Esophagogastroduodenosco py, Gastric Biopsy, py, Gastric Biopsy, py, Gastric Biopsy, Colon Biopsy Colon Biopsy Colon Biopsy Other Attendee Superficial Wound Closed By: Last Modified By: Beata Boone RN Thayer, Dena, Beata Corley RN 05/03/20 11:37:31 05/03/20 11:37:31 05/03/20 11:37:31 Entry 4 Entry 5 Case Attendee SAMUEL RAMIREZ CRNA-ADITYA GARZON MD-ANS Role Performed TRACTOR OPERATOR/Nurse Medical Laboratory Assistant Anesthesiologist of Record Time In 05/03/20 11:14:00 05/03/20 11:14:00 Time Out 05/03/20 11:40:00 05/03/20 11:40:00 Procedure Colonoscopy, Colonoscopy, Esophagogastroduodenosco Esophagogastroduodenosco py, Gastric Biopsy, py, Gastric Biopsy, Colon Biopsy Colon Biopsy Other Attendee Superficial Wound Closed By: Last Modified By: Beata Boone RN Thayer, Dena, RN 05/03/20 11:37:31 05/03/20 11:37:31 [facility] Endo - Case Attendance Audit 05/03/20 11:37:31 Asp Web Developer: [id number] Modifier: [id number] 1 <+> Time Out 1 <*> Procedure Colonoscopy, Esophagogastroduodenoscopy, Gastric Biopsy, Colon Biopsy 2 <+> Time Out 2 <*> Procedure Colonoscopy, Esophagogastroduodenoscopy, Gastric Biopsy, Colon Biopsy 3 <+> Time Out 3 <*> Procedure Colonoscopy, Esophagogastroduodenoscopy, Gastric Biopsy, Colon Biopsy 4 <+> Time Out 4 <*> Procedure Colonoscopy, Esophagogastroduodenoscopy, Gastric Biopsy, Colon Biopsy 5 <+> Time Out 5 <*> Procedure Colonoscopy, Esophagogastroduodenoscopy, Gastric Biopsy, Colon Biopsy 05/03/20 11:32:29 Asp Web Developer: [id number] Modifier: [id number] 1 <*> Procedure Colonoscopy, Esophagogastroduodenoscopy, Gastric Biopsy 2 <*> Procedure Colonoscopy, Esophagogastroduodenoscopy, Gastric Biopsy 3 <*> Procedure Colonoscopy, Esophagogastroduodenoscopy, Gastric Biopsy 4 <*> Procedure Colonoscopy, Esophagogastroduodenoscopy, Gastric Biopsy 5 <*> Procedure Colonoscopy, Esophagogastroduodenoscopy, Gastric Biopsy 05/03/20 11:23:30 Asp Web Developer: [id number] Modifier: [id number] 1 <*> Procedure Colonoscopy, Esophagogastroduodenoscopy 2 <*> Procedure Colonoscopy, Esophagogastroduodenoscopy 3 <*> Procedure Colonoscopy, Esophagogastroduodenoscopy 4 <*> Procedure Colonoscopy, Esophagogastroduodenoscopy 5 <*> Procedure Colonoscopy, Esophagogastroduodenoscopy 05/03/20 11:17:39 Asp Web Developer: [id number] Modifier: [id number] 1 <+> Time In 1 <*> Procedure Colonoscopy, Esophagogastroduodenoscopy 2 <+> Time In 2 <*> Procedure Colonoscopy, Esophagogastroduodenoscopy 3 <+> Time In 3 <*> Procedure Colonoscopy, Esophagogastroduodenoscopy 4 <+> Time In 4 <*> Procedure Colonoscopy, Esophagogastroduodenoscopy 5 <+> Time In 5 <*> Procedure Colonoscopy, Esophagogastroduodenoscopy 05/03/20 11:16:04 Asp Web Developer: [id number] Modifier: [id number] 1 <*> Procedure Colonoscopy 2 <*> Procedure Colonoscopy 3 <*> Procedure Colonoscopy 4 <*> Procedure Colonoscopy 5 <*> Procedure Colonoscopy 05/03/20 11:08:45 Asp Web Developer: [id number] Modifier: [id number] <+> 2 Case Attendee <+> 2 Role Performed <+> 2 Procedure <+> 3 Case Attendee <+> 3 Role Performed <+> 3 Procedure <+> 4 Case Attendee <+> 4 Role Performed <+> 4 Procedure <+> 5 Case Attendee <+> 5 Role Performed <+> 5 Procedure [facility] Endo - Case times Entry 1 Patient In Room Time 05/03/20 11:14:00 Out Room Time 05/03/20 11:40:00 Anesthesia Start Time 05/03/20 11:14:00 Stop Time 05/03/20 11:40:00 Surgery / Procedure Times Start Time 05/03/20 11:22:00 Stop Time 05/03/20 11:37:00 Last Modified By: Beata Boone RN 05/03/20 11:37:30 [facility] Endo - Case times Audit 05/03/20 11:37:30 Asp Web Developer: [id number] Modifier: [id number] <+> 1 Out Room Time <+> 1 Stop Time <+> 1 Stop Time 05/03/20 11:22:12 Asp Web Developer: [id number] Modifier: [id number] <+> 1 Start Time [facility] Endo - Cultures and Spec Summary Entry 1 Cultrures and Specimens Specimen Ordered: Yes Test(s) Routine/Path-Lab Requested/Final Disposition Last Modified By: Beata Boone RN 05/03/20 11:24:56 [facility] Endo - Delays Entry 1 Delay Reason Other Duration 0 Minute(s) Last Modified By: Beata Boone RN 05/03/20 11:08:50 [facility] Endo - Departure from OR Entry 1 Integumentary Assessment Integumentary WDL Assessment WDL Transfer/Handoff Transfer to PACU Phase I Post-op Transport Stretcher/Gurney Via Patient Transport Beata Boone, BLUE, Accompanied by SAMUEL RAMIREZ CRNA-ANS Last Modified By: Beata Boone RN 05/03/20 11:08:52 [facility] Endo - Endoscopy Details Entry 1 Abdomen Procedure Soft, Non-Tender Assessment Procedure Abdomen 05/03/20 11:08:00 Assessment D/T Radio Frequency Ablation Abdominal Pressure Last Modified By: Beata Boone RN 05/03/20 11:08:56 [facility] Endo - Fire Risk Assessment Entry 1 Fire Info Surgical Site or 0- No Incision Above the Xyphoid Open O2 Source 1- Yes (Mask or Cannula) Available Ignition 1- Yes (ESU, Laser, Light Source) Fire Risk 2 Assessment Score Fire Score Fire Risk Yes Assessment Complete Fire Risk Beata Boone, diesel engine inspector Verified By Fire Risk 05/03/20 11:09:00 Assessment Verified Date/Time Fire Risk High Risk Protocol Yes Implemented Standard Fire Yes Safety Precautions Followed Last Modified By: Beata Boone RN 05/03/20 11:09:02 [facility] Endo - General Case Associate Financial Advisor 1 Case Information OR Endo 01 [facility] Case Level 1 Room Verified Yes Wound Class III - Contaminated Specialty SN Gastroenterology Anesthesia Type General ASA Class 2 Diagnosis Preop Diagnosis change in bowel and abd pain Postop Same As Preop Yes Postop Diagnosis change in bowel and abd pain Last Modified By: Beata Boone RN 05/03/20 11:18:26 [facility] Endo - General Case Data Audit 05/03/20 11:18:26 Asp Web Developer: [id number] Modifier: [id number] 1 <*> Preop Diagnosis R19.8 R10.9 Z87.19 1 <*> Postop Diagnosis R19.8 R10.9 Z87.19 [facility] Endo - Intraoperative Assessment Entry 1 Valid History / Yes Physical in Chart Preoperative Yes Checklist Reviewed/Evaluated Patient is Latex No Sensitive Level of WDL Consciousness (WDL = Alert, Oriented to Person, Place, and Time) Present Upon IVs Arrival to OR Last Modified By: Beata Boone RN 05/03/20 11:09:27 [facility] Endo - Intraoperative Equipment Entry 1 Equipment Intraop Monitoring Electrocardiogram Three lead placement (ECG) Electrode Placement Blood Pressure Arm, left upper Location Pulse Oximeter Hand, right Probe Site Antiembolic Devices Scopes Flexible Endoscopes Colonoscope Used Scope Serial M Number/Identificatio n Number Photo/Video Documentation Photo Yes Video No Last Modified By: Beata Boone RN 05/03/20 11:09:40 [facility] Endo - Patient Positioning Entry 1 Procedure Colonoscopy, Esophagogastroduodenosco py, Gastric Biopsy, Colon Biopsy Body Position Lateral, right side up Left Arm Position Resting at side Right Arm Position Resting at side Left Leg Position Other Right Leg Position Other Position Comments Right leg over left leg, uncrossed Feet Uncrossed Yes Pressure Points Yes Checked Positioned By Beata Boone RN Position Verified Positioning Yes Verified by Surgeon Last Modified By: Beata Boone RN 05/03/20 11:32:30 [facility] Endo - Patient Positioning Audit 05/03/20 11:32:30 Asp Web Developer: [id number] Modifier: [id number] 1 <*> Procedure Colonoscopy, Esophagogastroduodenoscopy, Gastric Biopsy 05/03/20 11:23:31 Asp Web Developer: [id number] Modifier: [id number] 1 <*> Procedure Colonoscopy, Esophagogastroduodenoscopy 05/03/20 11:16:05 Asp Web Developer: [id number] Modifier: [id number] 1 <*> Procedure Colonoscopy [facility] Endo - Sign In Entry 1 Patient, Site, Yes Procedure Identified Surgical Consent Yes Confirmed Surgical Site N/A Marked by person performing procedure Airway Hypothermia Risk No Warming Measures No Taken Last Modified By: Beata Boone RN 05/03/20 11:22:34 [facility] Endo - Sign Out Entry 1 RN Confirmation Surgical Yes Procedure(s) Identified Instrument, Sponge N/A and Sharps Counts Correct/Documented Equipment Problems N/A Documented Specimen Labeled Yes Correctly Urinary Catheter N/A Documented in IView Safety Checklist Yes Elements Complete? RN Sign Out Beata Boone RN Signature RN Sign Out 05/03/20 11:40:00 Signature Date/Time Plan of Care Outcome - Fire Risk OUTCOME STATEMENT: Goal met Patient is free from injury related to surgical fire Plan of Care Outcome - Pt Positioning OUTCOME STATEMENT: Goal met Absence of signs and symptoms of positioning injury. Plan of Care Outcome - Skin Prep OUTCOME STATEMENT: Goal met Intraoperative care is consistent with measures to prevent infection Plan of Care Outcome - Xray/Images OUTCOME STATEMENT: N/A Absence of observable signs or symptoms of radiation injury Plan of Care Outcome - Counts OUTCOME STATEMENT: N/A Absence of signs and symptoms of injury related to extraneous objects Last Modified By: Beata Boone RN 05/03/20 11:38:00 [facility] Endo - Surgical Procedures Entry 1 Entry 2 Entry 3 Procedure Colonoscopy Esophagogastroduodenosco Gastric Biopsy py Modifiers Additional antral Procedure Description Primary Procedure No Yes No Primary Surgeon COLTON DODSON MD YONG, JUNE, MD YONG, JUNE, MD Start 05/03/20 11:29:00 05/03/20 11:22:00 05/03/20 11:22:00 Stop 05/03/20 11:37:00 05/03/20 11:23:00 05/03/20 11:37:00 Physician States 05/03/20 11:31:00 Cecum Reached Anesthesia Type MAC MAC MAC Specialty SN Gastroenterology SN Gastroenterology SN Gastroenterology Wound Class III - Contaminated III - Contaminated III - Contaminated Last Modified By: Beata Boone RN Thayer, Dena, RN Thayer, Dena, RN 05/03/20 11:38:06 05/03/20 11:38:06 05/03/20 11:38:06 Entry 4 Procedure Colon Biopsy Modifiers Additional random Procedure Description Primary Procedure No Primary Surgeon COLTON DODSON MD Start 05/03/20 11:29:00 Stop 05/03/20 11:37:00 Physician States 05/03/20 11:31:00 Cecum Reached Anesthesia Type MAC Specialty SN Gastroenterology Wound Class III - Contaminated Last Modified By: Beata Boone RN 05/03/20 11:38:06 [facility] Endo - Surgical Procedures Audit 05/03/20 11:38:06 Asp Web Developer: [id number] Modifier: [id number] 1 <*> Procedure Colonoscopy 2 <*> Procedure Esophagogastroduodenoscopy <+> 3 Stop <+> 4 Stop 05/03/20 11:37:16 Asp Web Developer: [id number] Modifier: [id number] 1 <*> Procedure Colonoscopy 1 <+> Stop 05/03/20 11:34:08 Asp Web Developer: [id number] Modifier: [id number] <*> Procedure Colon Biopsy 4 <+> Additional Procedure Description 05/03/20 11:32:27 Asp Web Developer: [id number] Modifier: [id number] 1 <*> Procedure Colonoscopy 1 <*> Start 05/03/20 11:22:00 1 <+> Physician States Cecum Reached <+> 4 Procedure <+> 4 Primary Procedure <+> 4 Primary Surgeon <+> 4 Specialty <+> 4 Start <+> 4 Wound Class <+> 4 Anesthesia Type <+> 4 Physician States Cecum Reached 05/03/20 11:25:43 Asp Web Developer: [id number] Modifier: [id number] <*> Procedure Gastric Biopsy 3 <+> Additional Procedure Description 05/03/20 11:24:42 Asp Web Developer: [id number] Modifier: [id number] 2 <*> Procedure Esophagogastroduodenoscopy 2 <+> Stop 05/03/20 11:23:28 Asp Web Developer: [id number] Modifier: [id number] <+> 3 Procedure <+> 3 Primary Procedure <+> 3 Primary Surgeon <+> 3 Specialty <+> 3 Start <+> 3 Wound Class <+> 3 Anesthesia Type 05/03/20 11:22:21 Asp Web Developer: [id number] Modifier: [id number] <+> 1 Start 2 <*> Procedure Esophagogastroduodenoscopy 2 <+> Start [facility] Endo - Time Out Entry 1 Procedure to be Colonoscopy, Performed Esophagogastroduodenosco py, Gastric Biopsy, Colon Biopsy Time Out Time Out Pause Time 05/03/20 11:20:00 All activity Yes suspended (unless life threatening emergency) Team Verbally Correct patient Confirms Information identity, Consent form is present and accurate, Agreement on the procedure to be done, Correct patient position, Relevant images/results properly labeled/appropriately displayed, Reconcile problems if responses among team members differ Antibiotic N/A Prophylaxis Administered Or In Progress Within the Last 60 Minutes Beta Edgar N/A Administered Venous N/A Thromboembolism Prophylaxis Required Anticipated Critical Events Surgeon None expected Last Modified By: Beata Boone RN 05/03/20 11:32:30 [facility] Endo - Time Out Audit 05/03/20 11:32:30 Asp Web Developer: [id number] Modifier: [id number] 1 <*> Procedure to be Performed Colonoscopy, Esophagogastroduodenoscopy, Gastric Biopsy 05/03/20 11:23:31 Asp Web Developer: [id number] Modifier: [id number] 1 <*> Procedure to be Performed Colonoscopy, Esophagogastroduodenoscopy Case Comments <None> Finalized By: Beata Boone RN Document Signatures Signed By: Beata Boone RN 05/03/20 11:38 Electronically signed by [facility] Conversion Dough Maker Cerner at 01/22/2023 6:50 PM CDT documented in this encounter Plan of Treatment Not on file documented as of this encounter Visit Diagnoses Not on filedocumented in this encounter
--- OUTSIDE RECORDS SUMMARY | 2025-06-09 09:43 | XMS_ITS | Encounter Summary ---
Author Organization [employer] ([place], [place], [place], [place]) Address [address] [place] [address] Care Team Providers Care Apartment Leasing Manager Name Role Phone Unavailable Primary Care Provider Unavailenrike e Encounter Details Date Type Department Care Team (Late st Contact Info) Description 03/08/2019 Transcribed Document [facility] [place] Family Medicine [facility] [place] [address] ProviderYoli MD [facility] [place], [place] [id number] Social History Tobacco Use Types Packs/Day Years Used Date Smoking Tobacco: Never Assessed Sex and Gender Information Value Date Recorded Sex Assigned at Not on file Legal Sex Male 6:25 PM CDT Gender Identity Not on file Sexual Orientation Not on file documented as of this encounter Miscellaneous Notes * Cerner Conversion Note - Yoli ProviderMD - 03/08/2019 10:09 AM CDT Patient: CALEB MATTHEWS Age: 48 Years Sex: Male : 1970 Admit Date 02/26/2019 10:03 Discharge Date 03/08/19 Primary Care Provider THAI MCLEAN [facility] Discharge Diagnosis No Diagnosis on Record Procedures SN - Proc - Procedure: Laparotomy Exploratory (02/26/19 09:50:05 EDT) Reason for Hospitalization 48-year-old male with history of multiple abdominal surgeries who presented with partial small bowel obstructions. He underwent laparoscopic lysis of adhesions in November 2018 with return of bowel function. The patient continued to endorse left lower quadrant pain and occasional bouts of partial obstruction since discharge. Presented on 02/26 for exploratory laparotomy with lysis of adhesions. The procedure was without any immediate consultations and was tolerated well by the patient. Hospital Course He was admitted following surgery. The patient had a history of difficult pain control. He was started on scheduled narcotics and Tylenol. The patient developed a postoperative ileus which was treated with NG tube and bowel rest. His ileus has resolved and the patient is currently tolerating a diet and has positive bowel function. Pain is controlled on current regimen. He is stable and ready for discharge home Vital Signs T: 36.7 ??C TMIN: 36.7 ??C TMAX: 37.3 ??C HR: 83(Monitored) RR: 16 BP: 109/65 SpO2: 98% Oxygen Settings (Last) Oxygen Therapy Mode: Room air (03/07/19 20:00:00 EDT) Oxygen Flow Rate: 2 Liter/Min (02/26/19 21:20:00 EDT) Physical Exam Gen: NAD Resp: Nonlabored respirations CV: Normal peripheral perfusion Ab: soft, nontender, nondistended Discharge Disposition Home Rx pain meds for continued pain control, prescribed bowel regimen daily Advance diet slowly as tolerated No heavy lifting, bending, pulling, stooping gradient 20 pounds for 6 weeks. Can shower. Follow-up 1 week. Discharge Follow Up KATHY MARTÍNEZBRITNEY - 03/18/2019 09:30 Discharge Medications (7) Active Ambien 10 mg oral tablet 10 mg = 1 Tab, PRN, Oral, At Bedtime amphetamine-dextroamphetamine 30 mg oral capsule, extended release 30 mg = 1 Cap, Oral, QAM Colace 100 mg oral capsule 100 mg = 1 Cap, PRN, Oral, BID hydroCHLOROthiazide-lisinopril 25 mg-20 mg oral tablet 1 Tab, Oral, Daily MiraLax oral powder for reconstitution 17 Gram, Oral, Daily oxyCODONE 15 mg oral tablet, extended release 15 mg = 1 Tab, Oral, Q12H oxyCODONE 5 mg oral tablet 5 mg = 1 Tab, PRN, Oral, Q6H Code Status Start: 02/26/19 10:25:00 EDT, Full Code, Continuous Order Condition on Discharge Stable Consulting Physicians SOMMER CALIX MD Current Diet Order Diet, Adult - Ordered -- Start: 03/08/19 8:51:00 EDT, GI Soft / Low Residue / Low Fiber Diet, Isolation: Standard Precautions Pending Labs Ordered Platelet Count Specimen Type: Blood, Routine collect, 02/28/19 10:25:00 EDT, Q48H, Nurse Collect documented in this encounter Plan of Treatment Not on file documented as of this encounter Visit Diagnoses Not on filedocumented in this encounter
--- OUTSIDE RECORDS SUMMARY | 2025-06-09 09:43 | XMS_ITS | Encounter Summary ---
Author Organization [employer] ([place], [place], [place], [place]) Address [address] [place] [address] Care Team Providers Care Baby Registry Sales Consultant Name Role Phone Unavailable Primary Care Provider Unavailabl e Encounter Details Date Type Department Care Team (Late st Contact Info) Description 03/08/2019 Transcribed Document [facility] [place] Family Medicine [address] [place] [address] ProviderYoli MD [address] [place], [place] [id number] Social History Tobacco Use Types Packs/Day Years Used Date Smoking Tobacco: Never Assessed Sex and Gender Information Value Date Recorded Sex Assigned at Not on file Legal Sex Male 6:25 PM CDT Gender Identity Not on file Sexual Orientation Not on file documented as of this encounter Miscellaneous Notes * Cerner Conversion Note - Historical ProviderMD - 03/08/2019 2:00 AM CDT Grain Merchandiser Details Entered On: 03/08/2019 2:32 EDT Performed On: 03/08/2019 2:00 EDT by Zoe Murray, BLUE Order Details Transport Mode Order Detail : Ambulatory Isolation Precautions Order Detail : Standard Precautions Order Detail : N/A IV Order Detail : 1 Oxygen Order Detail : 0 Nurse Collect Order Detail : 0 Lift/Transfer : Independent Central Line Order Detail : No Room Service : Appropriate Arterial Line : No Zoe Murray, BLUE - 03/08/2019 2:32 EDT documented in this encounter Plan of Treatment Not on file documented as of this encounter Visit Diagnoses Not on filedocumented in this encounter
--- OUTSIDE RECORDS SUMMARY | 2025-06-09 09:43 | XMS_ITS | Encounter Summary ---
Author Organization [employer] ([place], [place], [place], [place]) Address [address] [place] [address] Care Team Providers Care Fixed Income Director Name Role Phone Unavailable Primary Care Provider Unavailenrike e Encounter Details Date Type Department Care Team (Late st Contact Info) Description 03/08/2019 Transcribed Document [facility] [place] Family Medicine [address] [place] [address] ProviderYoli MD [address] [place] [address] Social History Tobacco Use Types Packs/Day Years Used Date Smoking Tobacco: Never Assessed Sex and Gender Information Value Date Recorded Sex Assigned at Not on file Legal Sex Male 6:25 PM CDT Gender Identity Not on file Sexual Orientation Not on file documented as of this encounter Miscellaneous Notes * Cerner Conversion Note - Yoli Luna MD - 03/08/2019 10:59 AM CDT Patient Education Materials Follows: Laparoscopic Lysis of Abdominal Adhesions, Care After Refer to this sheet in the next few weeks. These instructions provide you with information about caring for yourself after your procedure. Your health care provider may also give you more specific instructions. Your treatment has been planned according to current medical practices, but problems sometimes occur. Call your health care provider if you have any problems or questions after your procedure. What can I expect after the procedure? After your procedure, it is common to have some pain around the incision. Follow these instructions at home: ??? Take medicines only as directed by your health care provider. ??? You may need to start by eating only a little at a time. Start with liquids. As your appetite improves, gradually return to eating solid foods. ??? Do not lift anything that is heavier than 10 lb (4.5 kg) for four weeks. ??? Return to your normal activities as directed by your health care provider. Ask your health care provider what activities are safe for you. ??? There are many different ways to close and cover an incision, including stitches (sutures), skin glue, and adhesive strips. Follow instructions from your health care provider about: ? Incision care. ? Bandage (dressing) changes and removal. ? Incision closure removal. ??? Check your incisions every day for signs of infection. Watch for: ? Redness, swelling, or pain. ? Fluid , blood, or pus. Contact a health care provider if: ??? You develop a fever or chills. ??? You have redness, swelling, or pain at the site of your incisions. ??? You have fluid, blood, or pus coming from your incisions. ??? There is a bad smell coming from your incisions or the dressing. ??? Your pain gets worse. ??? You have a cough. ??? You have nausea and vomiting that does not go away after 3 hours. Get help right away if: ??? You develop severe pain in your abdomen or your chest. ??? You develop shortness of breath. ??? You develop nausea or vomiting that is severe or keeps coming back. This information is not intended to replace advice given to you by your health care provider. Make sure you discuss any questions you have with your health care provider. Document Released: 02/06/2016 Document Revised: 02/27/2017 Document Reviewed: 09/18/2015 Elsevier Interactive Patient Education ? 2018 [employer] documented in this encounter Plan of Treatment Not on file documented as of this encounter Visit Diagnoses Not on filedocumented in this encounter
--- OUTSIDE RECORDS SUMMARY | 2025-06-09 09:43 | XMS_ITS | Encounter Summary ---
Author Organization [employer] ([place], [place], [place], [place]) Address [address] [place] [address] Care Team Providers Care Educational Aide Name Role Phone Unavailable Primary Care Provider Sai e Encounter Details Date Type Department Care Team (Late st Contact Info) Description 03/08/2019 Transcribed Document [facility] [place] [address] [place] [address] ProviderYoli MD [address], [place] [id number] Social History Tobacco Use Types Packs/Day Years Used Date Smoking Tobacco: Never Assessed Sex and Gender Information Value Date Recorded Sex Assigned at Not on file Legal Sex Male 6:25 PM CDT Gender Identity Not on file Sexual Orientation Not on file documented as of this encounter Miscellaneous Notes * Cerner Conversion Note - Yoli ProviderMD - 03/08/2019 3:34 PM CDT UM Authorization Entered On: 03/08/2019 15:35 EDT Performed On: 03/08/2019 15:34 EDT by Gretel Ocampo, Liquid Sugar Melter Primary Insurance Authorization Authorization and Policy Numbers : Insurance 1 Health Plan: [facility] Policy Number: [id number] Authorization Number: NPR Insurance Primary Name : Bran [id number] Authorization Status-Primary : Awaiting callback Auth/Referral Contact Name-Primary : Davina Reference Number-Primary : [id number] Number of Days Authorized-Primary : 7 Authorized Service Begin Date-Primary : 02/26/2019 EDT Authorized Service End Date-Primary : 03/04/2019 EDT Authorization Comments-Primary : Discharge date and summary faxed. Historical Authorization Comments-Primary : Comment 1: Clinicals faxed to [phone] (MARCIA DELGADILLO RN 03/08/2019 12:31) Comment 2: Clinicals faxed for cont stay. (MARCIA DELGADILLO RN 03/08/2019 06:51) Comment 3: Per Davina denial overturned and contd stay approved till 03/04, NRD 03/05. May fax clinicals on 03/09 9tues) (CARLOS MANUEL CAMACHO RN 03/05/2019 14:05) Comment 4: Clinicals faxed via [employer] for reconsideration, notified Linnea with Dr Camilo office, p2p no given (CARLOS MANUEL CAMACHO RN 03/05/2019 12:35) Comment 5: email to re: denial (ANA PAULA GONZALEZ, RN-Utilization Review 03/05/2019 12:14) Comment 6: rec'd call from Davina/Bran- approval for IP 02/26-03/02/19 and cont stay denial starting 03/03/19 and forward due to pt stable. Can do P2P within 14 days, call [phone] and option 1. If substantial change in condition, can fax additional clinicals for reconsideration. (ANA PAULA GONZALEZ, RN-Utilization Review 03/05/2019 12:09) Comment 7: Case pended per website, clinicals faxed via [employer] (CARLOS MANUEL CAMACHO RN 03/05/2019 10:27) Comment 8: Clinicals submitted via [employer] website (CARLOS MANUEL CAMACHO RN 03/02/2019 08:52) Comment 9: No authorization for this visit, OP or IP found in [employer]. (MARCIA DELGADILLO RN 02/27/2019 10:39) Comment 10: Per [facility] notes no auth required. Submitted for OP (?). MD wants patient to stay 5 days. Note to UR team to f/u on 03/02 re: authorizatin (MARCIA DELGADILLO RN 02/27/2019 10:36) Gretel Ocampo, Liquid Sugar Melter - 03/08/2019 15:34 EDT Electronically signed by Panch[facility] Conversion X Ray Tech Cerner at 01/22/2023 6:46 PM CDT documented in this encounter Plan of Treatment Not on file documented as of this encounter Visit Diagnoses Not on filedocumented in this encounter
--- OUTSIDE RECORDS SUMMARY | 2025-06-09 09:43 | XMS_ITS | Encounter Summary ---
Author Organization [employer] ([place], [place], [place], [place]) Address [address] [place] [address] Care Team Providers Care Breaker Table Worker Name Role Phone Unavailable Primary Care Provider Unavailabl e Encounter Details Date Type Department Care Team (Late st Contact Info) Description 03/07/2019 Transcribed Document [facility] [place] [address] [place] [address] ProviderYoli MD [address] [place], [place] [phone] Social History Tobacco Use Types Packs/Day Years Used Date Smoking Tobacco: Never Assessed Sex and Gender Information Value Date Recorded Sex Assigned at Not on file Legal Sex Male 6:25 PM CDT Gender Identity Not on file Sexual Orientation Not on file documented as of this encounter Miscellaneous Notes * Cerner Conversion Note - Historical ProviderMD - 03/07/2019 5:00 PM CDT Chart Check - Review Order Profile Entered On: 03/07/2019 18:39 EDT Performed On: 03/07/2019 17:00 EDT by Sylvie Mcmanus RN Chart Check Powerplans Initiated/Discontinued as Appropriate : Yes All Active Orders Reviewed : Yes Sylvie Mcmanus RN - 03/07/2019 18:39 EDT Electronically signed by Pancho [facility] Conversion Music Adapter Cerner at 01/22/2023 6:53 PM CDT documented in this encounter Plan of Treatment Not on file documented as of this encounter Visit Diagnoses Not on filedocumented in this encounter
--- OUTSIDE RECORDS SUMMARY | 2025-06-09 09:43 | XMS_ITS | Encounter Summary ---
Author Organization [employer] ([place], [place], [place], [place]) Address [address] [place] [address] Care Team Providers Care Coal Yard Supervisor Name Role Phone Unavailable Primary Care Provider Unavailabl e Encounter Details Date Type Department Care Team (Late st Contact Info) Description 02/26/2019 Transcribed Document [facility] [place] [address] [place] [address] ProviderYoli MD [address] [place] [address] Social History Tobacco Use Types Packs/Day Years Used Date Smoking Tobacco: Never Assessed Sex and Gender Information Value Date Recorded Sex Assigned at Not on file Legal Sex Male 6:25 PM CDT Gender Identity Not on file Sexual Orientation Not on file documented as of this encounter Miscellaneous Notes * Cerner Conversion Note - Yoli ProviderMD - 02/26/2019 8:27 AM CDT [facility] Main OR IntraOp Summary Primary Physician: KATHY HERNANDEZ MD-SUR Finalized Date/Time: 02/27/19 15:56:37 Pt. Name: CALEB MATTHEWS/Sex: 1970 Male Med Rec #: [id number] Physician: KATHY HERNANDEZ MD-SUR Financial #: [id number] Pt. Type: I Room/Bed: 350/1 Admit/Disch: 02/26/19 10:03:00 - Institution: [facility] IntraOp Case Attendance Entry 1 Entry 2 Entry 3 Case Attendee KATHY HERNANDEZ MD-SUR Pulford, Tameka L, Rn Annmarie Moreno, Jewelry Manager Role Performed Surgeon/Proceduralist, Crab Butcher, First Scrub, First First Time In 02/26/19 08:02:00 02/26/19 08:02:00 02/26/19 08:02:00 Time Out 02/26/19 10:11:00 02/26/19 10:11:00 02/26/19 10:11:00 Procedure Laparotomy Exploratory Laparotomy Exploratory, Laparotomy Exploratory, Lysis Adhesions Lysis Adhesions Other Attendee Superficial Wound Closed By: Last Modified By: Solange Frazier Rn Pulford, Tameka L, Rn Pulford, Tameka L, Rn 02/26/19 10:11:48 02/26/19 10:11:31 02/26/19 10:11:31 Entry 4 Entry 5 Entry 6 Case Attendee JEREMY DURON CRNFA TAY, JAMES, MD KLINE, MICHELLE R, CRNA Role Performed INSULATION BOARD CALENDER OPERATOR Anesthesiologist of Fellow Record Time In 02/26/19 08:02:00 02/26/19 08:02:00 02/26/19 08:02:00 Time Out 02/26/19 10:11:00 02/26/19 10:11:00 02/26/19 10:11:00 Procedure Laparotomy Exploratory, Laparotomy Exploratory, Laparotomy Exploratory, Lysis Adhesions Lysis Adhesions Lysis Adhesions Other Attendee Superficial Wound Closed By: Last Modified By: Solange Frazier Rn Pulford, Tameka L, Rn Pulford, Tameka L, Rn 02/26/19 10:11:31 02/26/19 10:11:31 02/26/19 10:11:31 Entry 7 Case Attendee Bren Spaulding RN Role Performed Crab Butcher, Second Time In 02/26/19 09:15:00 Time Out 02/26/19 10:11:00 Procedure Laparotomy Exploratory, Lysis Adhesions Other Attendee Superficial Wound Closed By: Last Modified By: Solange Frazier Rn 02/26/19 10:11:31 [facility] IntraOp Case Attendance Audit 02/26/19 10:11:48 Manager School: [id number] Modifier: [id number] <+> 1 Procedure 02/26/19 10:11:31 Manager School: [id number] Modifier: [id number] <+> 1 Time Out 2 <+> Time Out 2 <*> Procedure Laparotomy Exploratory, Lysis Adhesions 3 <+> Time Out 3 <*> Procedure Laparotomy Exploratory, Lysis Adhesions 4 <+> Time Out 4 <*> Procedure Laparotomy Exploratory, Lysis Adhesions 5 <+> Time Out 5 <*> Procedure Laparotomy Exploratory, Lysis Adhesions 6 <+> Time Out 6 <*> Procedure Laparotomy Exploratory, Lysis Adhesions 7 <+> Time Out 7 <*> Procedure Laparotomy Exploratory, Lysis Adhesions 02/26/19 09:15:44 Manager School: [id number] Modifier: [id number] <+> 1 Time In 2 <+> Time In 2 <*> Procedure Laparotomy Exploratory, Lysis Adhesions 3 <+> Time In 3 <*> Procedure Laparotomy Exploratory, Lysis Adhesions 4 <+> Time In 4 <*> Procedure Laparotomy Exploratory, Lysis Adhesions 5 <+> Time In 5 <*> Procedure Laparotomy Exploratory, Lysis Adhesions 6 <+> Time In 6 <*> Procedure Laparotomy Exploratory, Lysis Adhesions <+> 7 Case Attendee <+> 7 Role Performed <+> 7 Time In <+> 7 Procedure 02/26/19 08:27:55 Manager School: [id number] Modifier: [id number] <+> 5 Case Attendee <+> 5 Role Performed <+> 5 Procedure <+> 6 Case Attendee <+> 6 Role Performed <+> 6 Procedure [facility] IntraOp Case Times Entry 1 Patient In Room Time 02/26/19 08:02:00 Out Room Time 02/26/19 10:11:00 Anesthesia Start Time 02/26/19 08:02:00 Stop Time 02/26/19 10:11:00 Anesthesia Ready 02/26/19 08:02:00 Surgery / Procedure Times Start Time 02/26/19 08:27:00 Stop Time 02/26/19 10:06:00 Last Modified By: Solange Frazier Rn 02/26/19 10:11:26 [facility] IntraOp Case Times Audit 02/26/19 10:11:26 Manager School: [id number] Modifier: [id number] <+> 1 Out Room Time <+> 1 Stop Time 02/26/19 10:11:01 Manager School: [id number] Modifier: [id number] <+> 1 Stop Time [facility] IntraOp Cautery Entry 1 ESU Identification Cautery Type Monopolar ESU ID Number [id number] ID Type Serial Number Cautery Settings Cut Setting 30 Coag Setting 30 ESU Grounding Pad Ground Pad Type Adult Grounding Pad Site Right thigh Grounding Pad Solange Frazier Rn Applied By Grounding Pad Site Warm, dry and intact Skin Condition Before Cautery Grounding Pad Site Unchanged Skin Condition After Cautery Last Modified By: Solange Frazier Rn 02/26/19 09:16:11 [facility] IntraOp Cautery Audit 02/26/19 09:16:11 Manager School: [id number] Modifier: [id number] <+> 1 Cautery Type [facility] IntraOp Communication Entry 1 Entry 2 Communication To Family/Significant other Family/Significant other Comment Communication By Solange Frazier Rn Montgomery, Hazel, RN Date and Time 02/26/19 08:35:00 02/26/19 09:33:00 Last Modified By: Solange Frazier Rn Pulford, Tameka L, Rn 02/26/19 09:42:27 02/26/19 09:42:27 [facility] IntraOp Communication Audit 02/26/19 09:42:27 Manager School: [id number] Modifier: [id number] <+> 1 Communication By <+> 1 Communication To <+> 2 Communication By <+> 2 Date and Time <+> 2 Communication To [facility] IntraOp Counts Verification Entry 1 Entry 2 Procedure Laparotomy Exploratory, Laparotomy Exploratory, Lysis Adhesions Lysis Adhesions Count Info Count Type Sponge, Sharps, Sponge, Sharps, Instrument Instrument, Miscellaneous Counts Verification Baseline/pre-procedure Before wound closure Sequence Count Results Not Applicable Correct, surgeon notified If Incorrect or Waived complete the Counts Action Taken form: If Intentional Retention, complete the Intential Retention form: Counts Performed By Count Performed By Annmarie Moreno, Annmarie Moreno, (Scrub) Jewelry Manager Jewelry Manager Count Performed By Solange Frazier Rn Montgomery, Hazel, RN (RN) Last Modified By: Solange Frazier Rn Pulford, Tameka L, Rn 02/26/19 09:54:27 02/26/19 09:54:52 [facility] IntraOp Counts Verification Audit 02/26/19 09:54:52 Manager School: [id number] Modifier: [id number] 2 <*> Procedure Laparotomy Exploratory, Lysis Adhesions 2 <+> Count Performed By (Scrub) 2 <+> Count Performed By (RN) 02/26/19 09:54:27 Manager School: [id number] Modifier: [id number] 1 <*> Procedure Laparotomy Exploratory, Lysis Adhesions 02/26/19 09:53:48 Manager School: [id number] Modifier: [id number] 1 <*> Procedure Laparotomy Exploratory, Lysis Adhesions 02/26/19 09:13:18 Manager School: [id number] Modifier: [id number] <+> 2 Procedure <+> 2 Count Type <+> 2 Counts Verification Sequence <+> 2 Count Results [facility] IntraOp Counts Final Entry 1 Procedure Laparotomy Exploratory, Lysis Adhesions Final Count Info Count Type Sponge, Sharps Counts Verification Skin Closure/end of Sequence procedure Count Results Correct, surgeon notified Counts Performed By Count Performed By Annmarie Moreno, (Scrub) Jewelry Manager Count Performed By Bren Spaulding RN (RN) Last Modified By: Solange Frazier Rn 02/26/19 09:54:05 [facility] IntraOp Counts Final Audit 02/26/19 09:54:05 Manager School: [id number] Modifier: [id number] Entry 1 was deleted. Higher numbered entries shifted one position to fill the gap. <-> 1 Procedure Laparotomy Exploratory, Lysis Adhesions <-> 1 Count Type Sponge, Sharps <-> 1 Count Results Correct, surgeon notified <-> 1 Count Performed By (Scrub) Annmarie Moreno, Jewelry Manager <-> 1 Count Performed By (RN) Bren Spaulding RN <-> 1 Counts Verification Sequence Skin Closure/end of procedure 02/26/19 09:53:20 Manager School: [id number] Modifier: [id number] Entry 1 was deleted. Higher numbered entries shifted one position to fill the gap. <-> 1 Procedure Laparotomy Exploratory, Lysis Adhesions <-> 1 Count Type Sponge, Sharps, Miscellaneous <-> 1 Count Results Correct, surgeon notified <-> 1 Count Performed By (Scrub) <-> 1 Count Performed By (RN) <-> 1 Counts Verification Sequence Skin Closure/end of procedure 02/26/19 09:50:27 Manager School: [id number] Modifier: [id number] <+> 2 Procedure <+> 2 Count Type <+> 2 Count Results <+> 2 Count Performed By (Scrub) <+> 2 Count Performed By (RN) <+> 2 Counts Verification Sequence [facility] IntraOp Cultures and Spec Summary Entry 1 Cultrures and Specimens Specimen Ordered: Yes Specimens Types Pathology Specimen(s) Labeled Pathology and Sent to Last Modified By: Solange Frazier Rn 02/26/19 07:37:02 [facility] IntraOp Delays Entry 1 Delay Reason No Delay Duration 02 Minute(s) Last Modified By: Solange Frazier Rn 02/26/19 08:32:21 [facility] IntraOp Delays Audit 02/26/19 08:32:21 Manager School: [id number] Modifier: [id number] 1 <*> Duration 0 Minute(s) [facility] IntraOp Departure from OR Entry 1 Integumentary Assessment Transfer/Handoff Transfer to PACU Phase I Handoff Method Bedside/Face to face, Phone call Post-op Transport Stretcher/Gurney Via Patient Transport JEREMY DURON CRNFA, Accompanied by GLEN TARANGO CRNA Last Modified By: Solange Frazier Rn 02/26/19 09:13:46 [facility] IntraOp Dressing and Packing Entry 1 Type Dressing Location ABDOMEN Applied By JEREMY DURON CRNFA Last Modified By: Solange Frazier Rn 02/26/19 09:51:03 [facility] IntraOp Fire Risk Assessment Entry 1 Fire Info Surgical Site or 0- No Incision Above the Xyphoid Open O2 Source 0- No (Mask or Cannula) Available Ignition 1- Yes (ESU, Laser, Light Source) Fire Risk 1 Assessment Score Fire Score Fire Risk Yes Assessment Complete Fire Risk Solange Frazier Rn Assessment Verified By Fire Risk 02/26/19 08:26:00 Assessment Verified Date/Time Fire Risk Standard Fire Yes Safety Precautions Followed Last Modified By: Solange Frazier Rn 02/26/19 08:40:40 [facility] IntraOp Fire Risk Assessment Audit 02/26/19 08:40:40 Manager School: [id number] Modifier: [id number] <+> 1 Fire Risk Assessment Verified Date/Time [facility] IntraOp General Case Artisan 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 1 Case Information OR OR 08 [facility] Case Level 1 Room Verified Yes Wound Class I - Clean Specialty SN General Anesthesia Type General ASA Class 2 Diagnosis Preop Diagnosis SMALL BOWEL OBSTRUCTION Postop Same As Preop No Postop Diagnosis SEE MD POST OP NOTE Last Modified By: Solange Frazier Rn 02/26/19 08:57:52 [facility] IntraOp General Case Data Audit 02/26/19 08:57:52 Manager School: [id number] Modifier: [id number] <+> 1 ASA Class <+> 1 Preop Diagnosis [facility] IntraOp Intraoperative Assessment Entry 1 Handoff Method Online nursing summary Valid History / Yes Physical in Chart Preoperative Yes Checklist Reviewed/Evaluated Allergies Reviewed Yes Patient is Latex No Sensitive Isolation Not applicable Precautions Noted Level of WDL Consciousness (WDL = Alert, Oriented to Person, Place, and Time) Skin Assessment No Verified Present Upon IVs Arrival to OR Last Modified By: Solange Frazier Rn 02/26/19 09:14:09 [facility] IntraOp Intraoperative Equipment Entry 1 Type Monitoring Equipment Equipment Michaela Suction System ID Number [id number] Intraop Monitoring Electrocardiogram Three lead placement (ECG) Electrode Placement Blood Pressure Non-Invasive BP Device Source Antiembolic Devices Antiembolic Devices Sequential compression device, knee high Antiembolic Device Bilateral Location Antiembolic Device [id number] ID Number Scopes Photo/Video Documentation Last Modified By: Solange Frazier Rn 02/26/19 07:38:43 [facility] IntraOp Medication Admin Entry 1 Medication/Irrigant SALINE NORMAL-[id number] Route of IRRIGATION Administration Dose Dose 1000 Unit of Measure ml Administered By KATHY HERNANDEZ MD-SUR Procedure Irrigation Last Modified By: Solange Frazier Rn 02/26/19 07:39:18 [facility] IntraOp Patient Positioning Entry 1 Procedure Laparotomy Exploratory, Lysis Adhesions Left Arm Position Secured on padded arm board Right Arm Position Secured on padded arm board Left Leg Position Uncrossed, parallel Right Leg Position Uncrossed, parallel Feet Uncrossed Yes Pressure Points Yes Checked Positioning Devices Head Rest, Safety Strap, Arm(s), Safety Strap, Thighs, Pillows Positioned By KATHY HERNANDEZ MD-SUR, Solange Frazier Rn Position Verified Positioning Yes Verified by Anesthesia Positioning Yes Verified by Surgeon Last Modified By: Solange Frazier Rn 02/26/19 07:40:15 [facility] IntraOp Sign In Entry 1 Patient, Site, Yes Procedure Identified Surgical Consent Yes Confirmed Surgical Site N/A Marked by person performing procedure Anesthesia Machine Yes Check Completed Medication Checks Yes Completed Allergies Yes Airway Difficult No Airway/Aspiration Risk Difficult Yes Airway/Aspiration Intervention Equipment Available Blood Loss Risk No Blood Loss Yes Intervention Equipment Prepared and Ready Blood Identifiers Not applicable Verified Per Policy Hypothermia Risk Yes Warming Measures Yes Taken Last Modified By: Solange Frazier Rn 02/26/19 07:40:40 [facility] IntraOp Sign Out Entry 1 RN Confirmation Surgical Yes Procedure(s) Identified Instrument, Sponge Yes and Sharps Counts Correct/Documented Equipment Problems Yes Documented Specimen Labeled Yes Correctly Urinary Catheter Yes Documented in IView Diego Patient Yes Recovery Concerns Reviewed with Anesthesia Provider, Surgeon and RN Diego Patient Yes Management Concerns Reviewed with Anesthesia Provider, Surgeon and RN Safety Checklist Yes Elements Complete? RN Sign Out Solange Frazier Rn Signature RN Sign Out 02/26/19 10:11:00 Signature Date/Time Plan of Care Outcome - [...] of Care Outcome - Counts OUTCOME STATEMENT: Goal met Absence of signs and symptoms of injury related to extraneous objects Last Modified By: Solange Frazier Rn 02/26/19 10:11:16 [facility] IntraOp Sign Out Audit 02/26/19 10:11:16 Manager School: [id number] Modifier: [id number] <+> 1 RN Sign Out Signature Date/Time 02/26/19 09:55:21 Manager School: [id number] Modifier: [id number] <+> 1 RN Sign Out Signature [facility] IntraOp Skin Prep Entry 1 Procedure Laparotomy Exploratory, Lysis Adhesions Prescribed N/A Pre-Surgical Prep Completed Prep Area ABDOMEN Intraop Prep Integumentary WDL Assessment WDL Prep Agents Chloraprep Prep by Solange Frazier Rn Hair Removal Methods Clipper/Scissors Hair Removal By Solange Frazier Rn Last Modified By: Solange Frazier Rn 02/26/19 09:15:17 [facility] IntraOp Skin Prep Audit 02/26/19 09:15:17 Manager School: [id number] Modifier: [id number] <+> 1 Procedure [facility] IntraOp Surgical Procedures Entry 1 Entry 2 Procedure Laparotomy Exploratory Lysis Adhesions Modifiers Additional (EXPLORATORY Procedure LAPAROTOMY, LYSIS OF Description ADHESIONS, TAP BLOCK INTRAOPERATIVELY) Primary Procedure Yes No Primary Surgeon KATHY HERNANDEZ MD-SUR NISBETT, DARYL, MD-SUR Start 02/26/19 08:27:00 02/26/19 08:27:00 Stop 02/26/19 10:06:00 02/26/19 10:06:00 Physician States Cecum Reached Anesthesia Type General General Specialty SN General SN General Wound Class I - Clean I - Clean Last Modified By: Solange Frazier Rn Pulford, Tameka L, Rn 02/26/19 10:11:10 02/26/19 10:11:10 [facility] IntraOp Surgical Procedures Audit 02/26/19 10:11:10 Manager School: [id number] Modifier: [id number] <+> 1 Stop <+> 2 Stop 02/26/19 09:50:05 Manager School: [id number] Modifier: [id number] 1 <*> Procedure Laparotomy Exploratory [facility] IntraOP Time Out Entry 1 Procedure to be Laparotomy Exploratory, Performed Lysis Adhesions Time Out Time Out Pause Time 02/26/19 08:26:00 All activity Yes suspended (unless life threatening emergency) Team Verbally Correct patient Confirms Information identity, Correct side and site are marked, Consent form is present and accurate, Agreement on the procedure to be done, Correct patient position, Relevant images/results properly labeled/appropriately displayed, Confirm antibiotics have been administered, Confirm the skin prep has dried, Confirm prosthesis/implant/devic e is present, Performed in location of procedure after prepped/draped, Reconcile problems if responses among team members differ Antibiotic Yes Prophylaxis Administered Or In Progress Within the Last 60 Minutes Beta Edgar N/A Administered Venous Yes Thromboembolism Prophylaxis Required Anticipated Critical Events Surgeon None expected Anesthesia Provider None expected Nursing Assures Sterility of instruments, Equipment concerns or issues Essential Imaging Yes Labeled and Displayed Last Modified By: Solange Frazier Rn 02/26/19 08:32:13 [facility] IntraOP Time Out Audit 02/26/19 08:32:13 Manager School: [id number] Modifier: [id number] 1 <+> Time Out Pause Time 1 <*> Procedure to be Performed Laparotomy Exploratory, Lysis Adhesions Case Comments <None> Finalized By: ANUP PARMAR Document Signatures Signed By: Solange Frazier Rn 02/26/19 10:11 ANUP PARMAR 02/27/19 15:56 Unfinalized History Date/Time Username Reason for Unfinalizing Freetext Reason for Unfinalizing 02/27/19 15:55 WATCHRISTINADR Correct Billing documented in this encounter Plan of Treatment Not on file documented as of this encounter Visit Diagnoses Not on filedocumented in this encounter
--- OUTSIDE RECORDS SUMMARY | 2025-06-09 09:43 | XMS_ITS | Encounter Summary ---
Author Organization [employer] ([place], [place], [place], [place]) Address [address] [place] [address] Care Team Providers Care Hr Administrative Assistant Name Role Phone Unavailable Primary Care Provider Unavailabl e Encounter Details Date Type Department Care Team (Late st Contact Info) Description 03/07/2019 Transcribed Document [facility] [place] [address] [place] [address] ProviderYoli MD [address] [place], [place] [id number] Social History Tobacco Use Types Packs/Day Years Used Date Smoking Tobacco: Never Assessed Sex and Gender Information Value Date Recorded Sex Assigned at Not on file Legal Sex Male 6:25 PM CDT Gender Identity Not on file Sexual Orientation Not on file documented as of this encounter Miscellaneous Notes * Cerner Conversion Note - Historical ProviderMD - 03/07/2019 2:00 AM CDT Front Desk Assistant Details Entered On: 03/07/2019 3:17 EDT Performed On: 03/07/2019 2:00 EDT by Judy Conroy Lpn Order Details Transport Mode Order Detail : Ambulatory Isolation Precautions Order Detail : Standard Precautions Order Detail : N/A IV Order Detail : 1 Oxygen Order Detail : 0 Nurse Collect Order Detail : 0 Lift/Transfer : Independent Central Line Order Detail : No Room Service : Appropriate Arterial Line : No Judy Conroy Lpn - 03/07/2019 3:17 EDT documented in this encounter Plan of Treatment Not on file documented as of this encounter Visit Diagnoses Not on filedocumented in this encounter
--- OUTSIDE RECORDS SUMMARY | 2025-06-09 09:43 | XMS_ITS | Encounter Summary ---
Author Organization [employer] ([place], [place], [place], [place]) Address [address] [place] [address] Care Team Providers Care Rn Practitioner Name Role Phone Unavailable Primary Care Provider Unavailenrike e Encounter Details Date Type Department Care Team (Late st Contact Info) Description 10/11/2018 Transcribed Document [facility] [place] Family Medicine [address] [place] [address] ProviderYoli MD [address] [place] [address] Social History Tobacco Use Types Packs/Day Years Used Date Smoking Tobacco: Never Assessed Sex and Gender Information Value Date Recorded Sex Assigned at Not on file Legal Sex Male 6:25 PM CDT Gender Identity Not on file Sexual Orientation Not on file documented as of this encounter Miscellaneous Notes * [employer] Conversion Note - Historical ProviderMD - 10/11/2018 6:00 AM STAFF CONSULTANT Pain Assessment Entered On: 10/11/2018 6:10 EST Performed On: 10/11/2018 5:16 EST by Eileen Sun Rn Intervention Information: acetaminophen Performed by Eileen Sun Rn on 10/11/2018 05:11:00 EST acetaminophen,650mg + sterile empty bag,1Each IV Piggyback,Forearm Left Pain Assessment Pain Assessment : Follow-up assessment Pain Scale Goal : 3 Pain Scale Used : 0-10 Scale Eileen Sun Rn - 10/11/2018 6:10 EST Pain Scale Intensity : 3 Eileen Sun Rn - 10/11/2018 6:10 EST Image 4 - Images currently included in the form version of this document have not been included in the text rendition version of the form. documented in this encounter Plan of Treatment Not on file documented as of this encounter Visit Diagnoses Not on filedocumented in this encounter
--- OUTSIDE RECORDS SUMMARY | 2025-06-09 09:43 | XMS_ITS | Encounter Summary ---
Author Organization [employer] ([place], [place], [place], [place]) Address [address] [place] [address] Care Team Providers Care Jd Edwards Consultant Name Role Phone Unavailable Primary Care Provider Unavailabl e Encounter Details Date Type Department Care Team (Late st Contact Info) Description 02/27/2019 Transcribed Document [facility] [place] Family Medicine [address] [place] [address] ProviderYoli MD [address] [place] [address] Social History Tobacco Use Types Packs/Day Years Used Date Smoking Tobacco: Never Assessed Sex and Gender Information Value Date Recorded Sex Assigned at Not on file Legal Sex Male 6:25 PM CDT Gender Identity Not on file Sexual Orientation Not on file documented as of this encounter Miscellaneous Notes * [employer] Conversion Note - Historical ProviderMD - 02/27/2019 10:39 AM CDT UM Authorization Entered On: 02/27/2019 10:40 EDT Performed On: 02/27/2019 10:39 EDT by MARCIA DELGADILLO RN Primary Insurance Authorization Authorization and Policy Numbers : Insurance 1 Health Plan: AET Policy Number: [id number] Authorization Number: [employer] Primary Name : Aeduniana [id number] Authorization Comments-Primary : No authorization for this visit, OP or IP found in [employer]. Historical Authorization Comments-Primary : Comment 1: Per [facility] notes no auth required. Submitted for OP (?). wants patient to stay 5 days. Note to UR team to f/u on 03/02 re: authorizatin (MARCIA DELGADILLO RN 02/27/2019 10:36) MARCIA DELGADILLO RN - 02/27/2019 10:39 EDT Electronically signed by [facility] Conversion [employer]ed Factory Manager Cerner at 01/22/2023 6:52 PM CDT documented in this encounter Plan of Treatment Not on file documented as of this encounter Visit Diagnoses Not on filedocumented in this encounter
--- OUTSIDE RECORDS SUMMARY | 2025-06-09 09:43 | XMS_ITS | Encounter Summary ---
Author Organization [employer] ([place], [place], [place], [place]) Address [address] [place] [address] Care Team Providers Care Anthropology Professor Name Role Phone Unavailable Primary Care Provider Unavailenrike e Encounter Details Date Type Department Care Team (Late st Contact Info) Description 03/10/2019 Transcribed Document [facility] [address] [place] [address] ProviderYoli MD [address] [id number] Social History Tobacco Use Types Packs/Day Years Used Date Smoking Tobacco: Never Assessed Sex and Gender Information Value Date Recorded Sex Assigned at Not on file Legal Sex Male 6:25 PM CDT Gender Identity Not on file Sexual Orientation Not on file documented as of this encounter Miscellaneous Notes * [employer] Conversion Note - Yoli ProviderMD - 03/10/2019 1:02 PM CDT Post Visit Phone Call Entered On: 03/10/2019 13:03 EDT Performed On: 03/10/2019 13:02 EDT by NEREIDA HARRIS RN Post Visit Phone Call Post Visit Phone Call History : First call Contact Relationship to Patient : Self Emergency Room Visit Since DC : No Adequate Pain Control After Visit : Yes Surgical Dressing Clean/Dry/Intact : Yes Surgical Site Free of Redness/Swelling/Drainage : Yes Symptoms of Fever : No Symptoms of Nausea or Vomiting : No Adequate Fluid Intake : Yes Food Intake, Post Visit : Fair Bowel/Bladder Concerns : No Mobility Progressing or Maintained as Expected : Yes Using Continuous Passive Motion Machine : N/A Discharge Instructions Understood : Yes Follow-Up Actions : None NEREIDA HARRIS RN - 03/10/2019 13:02 EDT documented in this encounter Plan of Treatment Not on file documented as of this encounter Visit Diagnoses Not on filedocumented in this encounter
--- OUTSIDE RECORDS SUMMARY | 2025-06-09 09:43 | XMS_ITS | Encounter Summary ---
Author Organization [employer] 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 Role Phone Unavailable Primary Care Provider Sai e Encounter Details Date Type Department Care Team (Late st Contact Info) Description 05/03/2020 Transcribed Document [facility] Medicine [address] [place] [address] ProviderYoli MD [address] [place] [address] Social History Tobacco Use Types Packs/Day Years Used Date Smoking Tobacco: Never Assessed Sex and Gender Information Value Date Recorded Sex Assigned at Not on file Legal Sex Male 6:25 PM CDT Gender Identity Not on file Sexual Orientation Not on file documented as of this encounter Miscellaneous Notes * Cerner Conversion Note - Yoli Luna MD - 05/03/2020 12:10 PM CDT Patient Education Materials Follows: ESOPHAGOGASTRODUODENOSCOPY Care After Read the instructions outlined below and refer to this sheet over the next few days. These discharge instructions provide you with general information on caring for yourself after you leave the hospital. Your doctor may also give you specific instructions. While your treatment has been planned according to the most current medical practices available, unavoidable complications occasionally occur. If you have any problems or questions after discharge, call your doctor. HOME CARE INSTRUCTIONS: ACTIVITY: ?? You may resume your regular activity tomorrow, but move at a slower pace for the next 24 hours. ?? Take frequent rest periods for the next 24 hours. ?? Walking will help get rid of the air and reduce the bloated feeling in your belly (abdomen). ?? No driving for 24 hours because of the medication (sedation) used during the test. ?? You may shower. ?? Do not sign any important legal documents or operate any machinery for 24 hours (because of the sedation used during the test). NUTRITION: ?? Drink plenty of fluids. ?? You may resume your normal diet or as instructed by your doctor ?? Begin with a light meal and progress to your normal diet. Heavy or fried foods are harder to digest and may make you feel sick to your stomach (nauseated). ?? Avoid alcoholic beverages for 24 hours or as instructed. MEDICATIONS: ?? You may resume your normal medications unless your doctor tells you otherwise. WHAT TO EXPECT TODAY: ?? Some feelings of bloating in the abdomen. ?? Excessive burping today and passage of more gas than usual. ?? A sore throat can be normal. Use throat lozenges or gargle with warm salt water and drink plenty of fluids. FINDING OUT THE RESULTS OF YOUR TEST: ?? Not all test results are available during your visit. If you had biopsies or other tests done during your procedure, you can make an appointment with your doctor to get the results. Sometimes you may be instructed to call the doctor's office for your results. It is important for you to follow up on all of your test results. SEEK IMMEDIATE MEDICAL CARE IF: ?? You cannot eat or drink. ?? You have worsening throat or chest pain. ?? You have dizziness, lightheadedness, or you faint. ?? You have severe nausea or vomiting. ?? You have a fever greater than 101. ?? You have chills. ?? You have severe abdominal pain or discomfort that gets worse throughout the day. ?? You have black, tarry, or bloody stools. Hemorrhoids Hemorrhoids are swollen veins in and around the rectum or anus. There are two types of hemorrhoids: ??? Internal hemorrhoids. These occur in the veins that are just inside the rectum. They may poke through to the outside and become irritated and painful. ??? External hemorrhoids. These occur in the veins that are outside the anus and can be felt as a painful swelling or hard lump near the anus. Most hemorrhoids do not cause serious problems, and they can be managed with home treatments such as diet and lifestyle changes. If home treatments do not help the symptoms, procedures can be done to shrink or remove the hemorrhoids. What are the causes? This condition is caused by increased pressure in the anal area. This pressure may result from various things, including: ??? Constipation. ??? Straining to have a bowel movement. ??? Diarrhea. ??? . ??? Obesity. ??? Sitting for long periods of time. ??? Heavy lifting or other activity that causes you to strain. ??? Anal sex. ??? Riding a bike for a long period of time. What are the signs or symptoms? Symptoms of this condition include: ??? Pain. ??? Anal itching or irritation. ??? Rectal bleeding. ??? Leakage of stool (feces). ??? Anal swelling. ??? One or more lumps around the anus. How is this diagnosed? This condition can often be diagnosed through a visual exam. Other exams or tests may also be done, such as: ??? An exam that involves feeling the rectal area with a gloved hand (digital rectal exam). ??? An exam of the anal canal that is done using a small tube (anoscope). ??? A blood test, if you have lost a significant amount of blood. ??? A test to look inside the colon using a flexible tube with a camera on the end (sigmoidoscopy or colonoscopy). How is this treated? This condition can usually be treated at home. However, various procedures may be done if dietary changes, lifestyle changes, and other home treatments do not help your symptoms. These procedures can help make the hemorrhoids smaller or remove them completely. Some of these procedures involve surgery, and others do not. Common procedures include: ??? Rubber band ligation. Rubber bands are placed at the base of the hemorrhoids to cut off their blood supply. ??? Sclerotherapy. Medicine is injected into the hemorrhoids to shrink them. ??? Infrared coagulation. A type of light energy is used to get rid of the hemorrhoids. ??? Hemorrhoidectomy surgery. The hemorrhoids are surgically removed, and the veins that supply them are tied off. ??? Stapled hemorrhoidopexy surgery. The surgeon tyler the base of the hemorrhoid to the rectal wall. Follow these instructions at home: Eating and drinking ??? Eat foods that have a lot of fiber in them, such as whole grains, beans, nuts, fruits, and vegetables. ??? Ask your health care provider about taking products that have added fiber (fiber supplements). ??? Reduce the amount of fat in your diet. You can do this by eating low-fat dairy products, eating less red meat, and avoiding processed foods. ??? Drink enough fluid to keep your urine pale yellow. Managing pain and swelling ??? Take warm sitz baths for 20 minutes, 3?4 times a day to ease pain and discomfort. You may do this in a bathtub or using a portable sitz bath that fits over the toilet. ??? If directed, apply ice to the affected area. Using ice packs between sitz baths may be helpful. ? Put ice in a plastic bag. ? Place a towel between your skin and the bag. ? Leave the ice on for 20 minutes, 2?3 times a day. General instructions ??? Take xntx-got-pfcktxz and prescription medicines only as told by your health care provider. ??? Use medicated creams or suppositories as told. ??? Get regular exercise. Ask your health care provider how much and what kind of exercise is best for you. In general, you should do moderate exercise for at least 30 minutes on most days of the week (150 minutes each week). This can include activities such as walking, biking, or yoga. ??? Go to the bathroom when you have the urge to have a bowel movement. Do not wait. ??? Avoid straining to have bowel movements. ??? Keep the anal area dry and clean. Use wet toilet paper or moist towelettes after a bowel movement. ??? Do not sit on the toilet for long periods of time. This increases blood pooling and pain. ??? Keep all follow-up visits as told by your health care provider. This is important. Contact a health care provider if you have: ??? Increasing pain and swelling that are not controlled by treatment or medicine. ??? Difficulty having a bowel movement, or you are unable to have a bowel movement. ??? Pain or inflammation outside the area of the hemorrhoids. Get help right away if you have: ??? Uncontrolled bleeding from your rectum. Summary ??? Hemorrhoids are swollen veins in and around the rectum or anus. ??? Most hemorrhoids can be managed with home treatments such as diet and lifestyle changes. ??? Taking warm sitz baths can help ease pain and discomfort. ??? In severe cases, procedures or surgery can be done to shrink or remove the hemorrhoids. This information is not intended to replace advice given to you by your health care provider. Make sure you discuss any questions you have with your health care provider. Document Released: 09/19/2001 Document Revised: 09/30/2019 Document Reviewed: 02/11/2019 [employer] Patient Education ? 2020 [facility]. General Anesthesia, Adult, Care After This sheet gives you information about how to care for yourself after your procedure. Your health care provider may also give you more specific instructions. If you have problems or questions, contact your health care provider. What can I expect after the procedure? After the procedure, the following side effects are common: ??? Pain or discomfort at the IV site. ??? Nausea. ??? Vomiting. ??? Sore throat. ??? Trouble concentrating. ??? Feeling cold or chills. ??? Weak or tired. ??? Sleepiness and fatigue. ??? Soreness and body aches. These side effects can affect parts of the body that were not involved in surgery. Follow these instructions at home: For at least 24 hours after the procedure: ??? Have a responsible adult stay with you. It is important to have someone help care for you until you are awake and alert. ??? Rest as needed. ??? Do not: ? Participate in activities in which you could fall or become injured. ? Drive. ? Use heavy machinery. ? Drink alcohol. ? Take sleeping pills or medicines that cause drowsiness. ? Make important decisions or sign legal documents. ? Take care of children on your own. Eating and drinking ??? Follow any instructions from your health care provider about eating or drinking restrictions. ??? When you feel hungry, start by eating small amounts of foods that are soft and easy to digest (bland), such as toast. Gradually return to your regular diet. ??? Drink enough fluid to keep your urine pale yellow. ??? If you vomit, rehydrate by drinking water, juice, or clear broth. General instructions ??? If you have sleep apnea, surgery and certain medicines can increase your risk for breathing problems. Follow instructions from your health care provider about wearing your sleep device: ? Anytime you are sleeping, including during daytime naps. ? While taking prescription pain medicines, sleeping medicines, or medicines that make you drowsy. ??? Return to your normal activities as told by your health care provider. Ask your health care provider what activities are safe for you. ??? Take lxnw-boa-tvkuexf and prescription medicines only as told by your health care provider. ??? If you smoke, do not smoke without supervision. ??? Keep all follow-up visits as told by your health care provider. This is important. Contact a health care provider if: ??? You have nausea or vomiting that does not get better with medicine. ??? You cannot eat or drink without vomiting. ??? You have pain that does not get better with medicine. ??? You are unable to pass urine. ??? You develop a skin rash. ??? You have a fever. ??? You have redness around your IV site that gets worse. Get help right away if: ??? You have difficulty breathing. ??? You have chest pain. ??? You have blood in your urine or stool, or you vomit blood. Summary ??? After the procedure, it is common to have a sore throat or nausea. It is also common to feel tired. ??? Have a responsible adult stay with you for the first 24 hours after general anesthesia. It is important to have someone help care for you until you are awake and alert. ??? When you feel hungry, start by eating small amounts of foods that are soft and easy to digest (bland), such as toast. Gradually return to your regular diet. ??? Drink enough fluid to keep your urine pale yellow. ??? Return to your normal activities as told by your health care provider. Ask your health care provider what activities are safe for you. This information is not intended to replace advice given to you by your health care provider. Make sure you discuss any questions you have with your health care provider. Document Released: 12/29/2001 Document Revised: 09/25/2018 Document Reviewed: 05/08/2018 [employer] Patient Education ? 2020 [employer] Gastritis, Adult Gastritis is inflammation of the stomach. There are two kinds of gastritis: ??? Acute gastritis. This kind develops suddenly. ??? Chronic gastritis. This kind is much more common and lasts for a long time. Gastritis happens when the lining of the stomach becomes weak or gets damaged. Without treatment, gastritis can lead to stomach bleeding and ulcers. What are the causes? This condition may be caused by: ??? An infection. ??? Drinking too much alcohol. ??? Certain medicines. These include steroids, antibiotics, and some uhiv-rmh-vnscfaa medicines, such as aspirin or ibuprofen. ??? Having too much acid in the stomach. ??? A disease of the intestines or stomach. ??? Stress. ??? An allergic reaction. ??? Crohn's disease. ??? Some cancer treatments (radiation). Sometimes the cause of this condition is not known. What are the signs or symptoms? Symptoms of this condition include: ??? Pain or a burning sensation in the upper abdomen. ??? Nausea. ??? Vomiting. ??? An uncomfortable feeling of fullness after eating. ??? Weight loss. ??? Bad breath. ??? Blood in your vomit or stools. In some cases, there are no symptoms. How is this diagnosed? This condition may be diagnosed with: ??? Your medical history and a description of your symptoms. ??? A physical exam. ??? Tests. These can include: ? Blood tests. ? Stool tests. ? A test in which a thin, flexible instrument with a light and a camera is passed down the esophagus and into the stomach (upper endoscopy). ? A test in which a sample of tissue is taken for testing (biopsy). How is this treated? This condition may be treated with medicines. The medicines that are used vary depending on the cause of the gastritis: ??? If the condition is caused by a bacterial infection, you may be given antibiotic medicines. ??? If the condition is caused by too much acid in the stomach, you may be given medicines called H2 blockers, proton pump inhibitors, or antacids. Treatment may also involve stopping the use of certain medicines, such as aspirin, ibuprofen, or other NSAIDs. Follow these instructions at home: Medicines ??? Take gjyb-bjm-ixxjtmu and prescription medicines only as told by your health care provider. ??? If you were prescribed an antibiotic medicine, take it as told by your health care provider. Do not stop taking the antibiotic even if you start to feel better. Eating and drinking ??? Eat small, frequent meals instead of large meals. ??? Avoid foods and drinks that make your symptoms worse. ??? Drink enough fluid to keep your urine pale yellow. Alcohol use ??? Do not drink alcohol if: ? Your health care provider tells you not to drink. ? You are , may be , or are planning to become . ??? If you drink alcohol: ? Limit your use to: ? 0?1 drink a day for women. ? 0?2 drinks a day for men. ? Be aware of how much alcohol is in your drink. In the [place] one drink equals one 12 oz bottle of beer (355 mL), one 5 oz glass of wine (148 mL), or one 1? oz glass of hard liquor (44 mL). General instructions ??? Talk with your health care provider about ways to manage stress, such as getting regular exercise or practicing deep breathing, meditation, or yoga. ??? Do not use any products that contain nicotine or tobacco, such as cigarettes and e-cigarettes. If you need help quitting, ask your health care provider. ??? Keep all follow-up visits as told by your health care provider. This is important. Contact a health care provider if: ??? Your symptoms get worse. ??? Your symptoms return after treatment. Get help right away if: ??? You vomit blood or material that looks like coffee grounds. ??? You have black or dark red stools. ??? You are unable to keep fluids down. ??? Your abdominal pain gets worse. ??? You have a fever. ??? You do not feel better after one week. Summary ??? Gastritis is inflammation of the lining of the stomach that can occur suddenly (acute) or develop slowly over time (chronic). ??? This condition is diagnosed with a medical history, a physical exam, or tests. ??? This condition may be treated with medicines to treat infection or medicines to reduce the amount of acid in your stomach. ??? Follow your health care provider's instructions about taking medicines, making changes to your diet, and knowing when to call for help. This information is not intended to replace advice given to you by your health care provider. Make sure you discuss any questions you have with your health care provider. Document Released: 09/16/2002 Document Revised: 02/09/2019 Document Reviewed: 02/09/2019 [employer] Patient Education ? 2020 [employer] Esophagitis Esophagitis is inflammation of the esophagus. The esophagus is the tube that carries food from your mouth to your stomach. Esophagitis can cause soreness or pain in the esophagus. This condition can make it difficult and painful to swallow. What are the causes? Most causes of esophagitis are not serious. Common causes of this condition include: ??? Gastroesophageal reflux disease (GERD). This is when stomach contents move back up into the esophagus (reflux). ??? Repeated vomiting. ??? An allergic reaction, especially caused by food allergies (eosinophilic esophagitis). ??? Injury to the esophagus by swallowing large pills with or without water, or swallowing certain types of medicines. ??? Swallowing (ingesting) harmful chemicals, such as household cleaning products. ??? Heavy alcohol use. ??? An infection of the esophagus. This most often occurs in people who have a weakened immune system. ??? Radiation or chemotherapy treatment for cancer. ??? Certain diseases such as sarcoidosis, Crohn's disease, and scleroderma. What are the signs or symptoms? Symptoms of this condition include: ??? Difficult or painful swallowing. ??? Pain with swallowing acidic liquids, such as citrus juices. ??? Pain with burping. ??? Chest pain. ??? Difficulty breathing. ??? Nausea. ??? Vomiting. ??? Pain in the abdomen. ??? Weight loss. ??? Ulcers in the mouth. ??? Patches of white material in the mouth (candidiasis). ??? Fever. ??? Coughing up blood or vomiting blood. ??? Stool that is black, tarry, or bright red. How is this diagnosed? Your health care provider will take a medical history and perform a physical exam. You may also have other tests, including: ??? An endoscopy to examine your esophagus and stomach with a small flexible tube with a camera. ??? A test that measures the acidity level in your esophagus. ??? A test that measures how much pressure is on your esophagus. ??? A barium swallow or modified barium swallow to show the shape, size, and functioning of your esophagus. ??? Allergy tests. How is this treated? Treatment for this condition depends on the cause of your esophagitis. In some cases, steroids or other medicines may be given to help relieve your symptoms or to treat the underlying cause of your condition. You may have to make some lifestyle changes, such as: ??? Avoiding alcohol. ??? Quitting smoking. ??? Changing your diet. ??? Exercising. ??? Changing your sleep habits and your sleep environment. Follow these instructions at home: Medicines ??? Take wxpt-ydc-uwnnrne and prescription medicines only as told by your health care provider. ??? Do not take aspirin, ibuprofen, or other NSAIDs unless your health care provider told you to do so. ??? If you have trouble taking pills: ? Use a pill splitter to decrease the size of the pill. This will decrease the chance of the pill getting stuck or injuring your esophagus. ? Drink water after you take a pill. Eating and drinking ??? Avoid foods and drinks that seem to make your symptoms worse. ??? Follow a diet as recommended by your health care provider. This may involve avoiding foods and drinks such as: ? Coffee and tea (with or without caffeine). ? Drinks that contain alcohol. ? Energy drinks and sports drinks. ? Carbonated drinks or sodas. ? Chocolate and cocoa. ? Peppermint and mint flavorings. ? Garlic and onions. ? Horseradish. ? Spicy and acidic foods, including peppers, chili powder, flannery powder, vinegar, hot sauces, and barbecue sauce. ? [place] fruit juices and citrus fruits, such as oranges, jessie, and limes. ? Tomato-based foods, such as red sauce, chili, salsa, and pizza with red sauce. ? Fried and fatty foods, such as donuts, icelandic fries, potato chips, and high-fat dressings. ? High-fat meats, such as hot dogs and fatty cuts of red and white meats, such as rib eye steak, sausage, ham, and dominguez. ? High-fat dairy items, such as whole milk, butter, and cream cheese. Lifestyle ??? Eat small, frequent meals instead of large meals. ??? Avoid drinking large amounts of liquid with your meals. ??? Avoid eating meals during the 2?3 hours before bedtime. ??? Avoid lying down right after you eat. ??? Do not exercise right after you eat. ??? Do not use any products that contain nicotine or tobacco, such as cigarettes and e-cigarettes. If you need help quitting, ask your health care provider. General instructions ??? Pay attention to any changes in your symptoms. Let your health care provider know about them. ??? Wear loose-fitting clothing. Do not wear anything tight around your waist that causes pressure on your abdomen. ??? Raise (elevate) the head of your bed about 6 inches (15 cm). ??? Try relaxation strategies such as yoga, deep breathing, or meditation to manage stress. If you need help reducing stress, ask your health care provider. ??? If you are overweight, reduce your weight to an amount that is healthy for you. Ask your health care provider for guidance about a safe weight loss goal. ??? Keep all follow-up visits as told by your health care provider. This is important. Contact a health care provider if: ??? You have new symptoms. ??? You have unexplained weight loss. ??? You have difficulty swallowing, or it hurts to swallow. ??? You have wheezing or a cough that does not go away. ??? Your symptoms do not improve with treatment. ??? You have frequent heartburn for more than two weeks. Get help right away if: ??? You have severe pain in your arms, neck, jaw, teeth, or back. ??? You feel sweaty, dizzy, or light-headed. ??? You have chest pain or shortness of breath. ??? You vomit and your vomit looks like blood or coffee grounds. ??? Your stool is bloody or black. ??? You have a fever. ??? You cannot swallow, drink, or eat. Summary ??? Esophagitis is inflammation of the esophagus. ??? Most causes of esophagitis are not serious. ??? Follow your health care provider's instructions about eating and drinking. Follow instructions on medicines. ??? Contact a health care provider if you have new symptoms, have weight loss, or coughing that does not stop. ??? Get help right away if you have severe pain in the arms, neck, jaw, teeth or back, or if you have chest pain, shortness of breath, or fever. This information is not intended to replace advice given to you by your health care provider. Make sure you discuss any questions you have with your health care provider. Document Released: 10/30/2005 Document Revised: 05/14/2019 Document Reviewed: 05/14/2019 [employer] Patient Education ? 2020 [facility]. Colonoscopy, Adult, Care After This sheet gives you information about how to care for yourself after your procedure. Your health care provider may also give you more specific instructions. If you have problems or questions, contact your health care provider. What can I expect after the procedure? After the procedure, it is common to have: ??? A small amount of blood in your stool for 24 hours after the procedure. ??? Some gas. ??? Mild abdominal cramping or bloating. Follow these instructions at home: General instructions ??? For the first 24 hours after the procedure: ? Do not drive or use machinery. ? Do not sign important documents. ? Do not drink alcohol. ? Do your regular daily activities at a slower pace than normal. ? Eat soft, xcza-su-ignuax foods. ??? Take nney-sxa-wgjsisk or prescription medicines only as told by your health care provider. Relieving cramping and bloating ??? Try walking around when you have cramps or feel bloated. ??? Apply heat to your abdomen as told by your health care provider. Use a heat source that your health care provider recommends, such as a moist heat pack or a heating pad. ? Place a towel between your skin and the heat source. ? Leave the heat on for 20?30 minutes. ? Remove the heat if your skin turns bright red. This is especially important if you are unable to feel pain, heat, or cold. You may have a greater risk of getting burned. Eating and drinking ??? Drink enough fluid to keep your urine pale yellow. ??? Resume your normal diet as instructed by your health care provider. Avoid heavy or fried foods that are hard to digest. ??? Avoid drinking alcohol for as long as instructed by your health care provider. Contact a health care provider if: ??? You have blood in your stool 2?3 days after the procedure. Get help right away if: ??? You have more than a small spotting of blood in your stool. ??? You pass large blood clots in your stool. ??? Your abdomen is swollen. ??? You have nausea or vomiting. ??? You have a fever. ??? You have increasing abdominal pain that is not relieved with medicine. Summary ??? After the procedure, it is common to have a small amount of blood in your stool. You may also have mild abdominal cramping and bloating. ??? For the first 24 hours after the procedure, do not drive or use machinery, sign important documents, or drink alcohol. ??? Contact your health care provider if you have a lot of blood in your stool, nausea or vomiting, a fever, or increased abdominal pain. This information is not intended to replace advice given to you by your health care provider. Make sure you discuss any questions you have with your health care provider. Document Released: 05/06/2005 Document Revised: 07/15/2018 Document Reviewed: 12/03/2016 Socrative Patient Education ? 2019 [facility]. documented in this encounter Plan of Treatment Not on file documented as of this encounter Visit Diagnoses Not on filedocumented in this encounter
--- OUTSIDE RECORDS SUMMARY | 2025-06-09 09:43 | XMS_ITS | Encounter Summary ---
Author Organization [employer] ([place], [place], [place], [place]) Address [address] [place] [address] Care Team Providers Care Ferry Captain Name Role Phone Unavailable Primary Care Provider Unavailenrike e Encounter Details Date Type Department Care Team (Late st Contact Info) Description 03/07/2019 Transcribed Document [facility] Family Medicine [address] [place] [address] ProviderYoli MD [address] [place] [address] Social History Tobacco Use Types Packs/Day Years Used Date Smoking Tobacco: Never Assessed Sex and Gender Information Value Date Recorded Sex Assigned at Not on file Legal Sex Male 6:25 PM CDT Gender Identity Not on file Sexual Orientation Not on file documented as of this encounter Miscellaneous Notes * Cerner Conversion Note - Historical ProviderMD - 03/07/2019 9:00 AM CDT Pain Assessment Entered On: 03/07/2019 18:38 EDT Performed On: 03/07/2019 10:02 EDT by Sylvie Mcmanus RN Intervention Information: oxyCODONE Performed by Sylvie Mcmanus RN on 03/07/2019 09:02:00 EDT oxyCODONE,15mg Oral Pain Assessment Pain Assessment : Follow-up assessment Pain Scale Goal : 4 Pain Scale Used : FACES Sylvie Mcmanus RN - 03/07/2019 18:38 EDT Pain Scale Intensity : 3 Sylvie Mcmanus RN - 03/07/2019 18:38 EDT Image 4 - Images currently included in the form version of this document have not been included in the text rendition version of the form. documented in this encounter Plan of Treatment Not on file documented as of this encounter Visit Diagnoses Not on filedocumented in this encounter
--- OUTSIDE RECORDS SUMMARY | 2025-06-09 09:43 | XMS_ITS | Encounter Summary ---
Author Organization [employer] ([place], [place], [place], [place]) Address [address] [place] [address] Care Team Providers Care Master Control Supervisor Name Role Phone Unavailable Primary Care Provider Unavailenrike e Encounter Details Date Type Department Care Team (Late st Contact Info) Description 02/26/2019 Transcribed Document [facility] Family Medicine [address] [place] [address] ProviderYoli MD [address] [place] [address] Social History Tobacco Use Types Packs/Day Years Used Date Smoking Tobacco: Never Assessed Sex and Gender Information Value Date Recorded Sex Assigned at Not on file Legal Sex Male 6:25 PM CDT Gender Identity Not on file Sexual Orientation Not on file documented as of this encounter Miscellaneous Notes * Cerner Conversion Note - Yoli ProviderMD - 02/26/2019 10:25 AM CDT Pain Assessment Entered On: 02/26/2019 23:58 EDT Performed On: 02/26/2019 23:21 EDT by MARINA COTE RN Intervention Information: morphine Performed by MARINA COTE RN on 02/26/2019 22:51:00 EDT morphine,2mg IV Push,Right Mid Forearm,Pain (Severe 7-10) Pain Assessment Pain Assessment : Follow-up assessment Pain Scale Goal : 4 Pain Scale Used : 0-10 Scale MARINA COTE RN - 02/26/2019 23:57 EDT Pain Scale Intensity : 0 MARINA COTE RN - 02/26/2019 23:57 EDT Image 4 - Images currently included in the form version of this document have not been included in the text rendition version of the form. documented in this encounter Plan of Treatment Not on file documented as of this encounter Visit Diagnoses Not on filedocumented in this encounter
--- OUTSIDE RECORDS SUMMARY | 2025-06-09 09:43 | XMS_ITS | Encounter Summary ---
Author Organization [employer] ([place], [place], [place], [place]) Address [address] [place] [address] Care Team Providers Care Sleep Scientist Name Role Phone Unavailable Primary Care Provider Unavailabl e Encounter Details Date Type Department Care Team (Late st Contact Info) Description 02/26/[address] [facility] [place] Family Medicine [address] [place] [address] ProviderYoli MD [address] [place] [address] Social History Tobacco Use Types Packs/Day Years Used Date Smoking Tobacco: Never Assessed Sex and Gender Information Value Date Recorded Sex Assigned at Not on file Legal Sex Male 6:25 PM CDT Gender Identity Not on file Sexual Orientation Not on file documented as of this encounter Miscellaneous Notes * Cerner Conversion Note - Yoli ProviderMD - 02/26/2019 8:27 AM CDT [facility] Main OR PACU Summary Primary Physician: KATHY HERNANDEZ MD-SUR Finalized Date/Time: 02/26/19 11:20:16 Pt. Name: CALEB MATTHEWS/Sex: 1970 Male Med Rec #: [id number] Physician: KATHY HERNANDEZ MD-SUR Financial #: [id number] Pt. Type: O Room/Bed: /4 Admit/Disch: 02/26/19 05:55:00 - Institution: [facility] Main OR PACU I Case Times Entry 1 In PACU I 02/26/19 10:14:00 Ready for PACU 02/26/19 10:30:00 Discharge Discharge from PACU 02/26/19 11:15:00 I Last Modified By: Madeleine Ribeiro RN 02/26/19 11:20:05 [facility] Main OR PACU Acuity Entry 1 Start Time 02/26/19 10:30:00 Stop Time 02/26/19 11:15:00 Acuity Level [facility] PACU Acuity I Last Modified By: Madeleine Ribeiro RN 02/26/19 11:20:15 Finalized By: Madeleine Ribeiro RN Document Signatures Signed By: Madeleine Ribeiro RN 02/26/19 11:20 Electronically signed by Pancho [facility] Conversion Dietetic Intern Cerner at 01/22/2023 6:34 PM CDT documented in this encounter Plan of Treatment Not on file documented as of this encounter Visit Diagnoses Not on filedocumented in this encounter
--- OUTSIDE RECORDS SUMMARY | 2025-06-09 09:43 | XMS_ITS | Encounter Summary ---
Author Organization [employer] ([place], [place], [place], [place]) Address [address] [place] [address] Care Team Providers Care Email Producer Name Role Phone Unavailable Primary Care Provider Unavailabl e Encounter Details Date Type Department Care Team (Late st Contact Info) Description 02/26/2019 Transcribed Document [facility] [place] Family Medicine [address] [place] [address] ProviderYoli MD [address] [place] [id number] Social History Tobacco Use Types Packs/Day Years Used Date Smoking Tobacco: Never Assessed Sex and Gender Information Value Date Recorded Sex Assigned at Not on file Legal Sex Male 6:25 PM CDT Gender Identity Not on file Sexual Orientation Not on file documented as of this encounter Miscellaneous Notes * Cerner Conversion Note - Historical ProviderMD - 02/26/2019 7:15 AM CDT Patient: CALEB MATTHEWS Age: 48 Years Sex: Male : 1970 Please update the History and Physical on your patient by completing the appropriate section (H&Ps performed within 30 days prior to admission must be updated prior to surgery/procedure) _X__ UPDATE: The History and Physical performed by:_DN_ has been reviewed; patient was examined; there have been no clinically significant changes since the prior History and Physical was completed. ___ UPDATE: The History and Physical performed by:__ has been reviewed; patient was examined; clinically significant changes since the prior History and Physical was completed are indicated below: Significant Changes: documented in this encounter Plan of Treatment Not on file documented as of this encounter Visit Diagnoses Not on filedocumented in this encounter
--- OUTSIDE RECORDS SUMMARY | 2025-06-09 09:43 | XMS_ITS | Encounter Summary ---
Author Organization [employer] ([place], [place], [place], [place]) Address [address] [place] [address] Care Team Providers Care Tripe Scraper Name Role Phone Unavailable Primary Care Provider Unavailenrike e Encounter Details Date Type Department Care Team (Late st Contact Info) Description 03/07/2019 Transcribed Document [facility] [place] [address] [place] [address] ProviderYoli MD [address] [place] [address] Social History Tobacco Use Types Packs/Day Years Used Date Smoking Tobacco: Never Assessed Sex and Gender Information Value Date Recorded Sex Assigned at Not on file Legal Sex Male 6:25 PM CDT Gender Identity Not on file Sexual Orientation Not on file documented as of this encounter Miscellaneous Notes * Cerner Conversion Note - Yoli ProviderMD - 03/07/2019 10:00 PM CDT Pain Assessment Entered On: 03/08/2019 2:31 EDT Performed On: 03/07/2019 21:45 EDT by Zoe Murray RN Intervention Information: acetaminophen Performed by Zoe Murray RN on 03/07/2019 20:45:00 EDT acetaminophen,650mg Oral Pain Assessment Pain Assessment : Follow-up assessment Pain Scale Goal : 4 Pain Scale Used : FACES Location : Abdominal Onset : Acute Quality : Aching Pain Radiation : No Pain Intervention, Drug : Medicated Pain Improved by Intervention : Yes Zoe Murray RN - 03/08/2019 2:30 EDT Pain Scale Intensity : 2 Zoe Murray RN - 03/08/2019 2:30 EDT Image 4 - Images currently included in the form version of this document have not been included in the text rendition version of the form. documented in this encounter Plan of Treatment Not on file documented as of this encounter Visit Diagnoses Not on filedocumented in this encounter
--- OUTSIDE RECORDS SUMMARY | 2025-06-09 09:43 | XMS_ITS | Encounter Summary ---
Author Organization [employer] ([place], [place], [place], [place]) Address [address] [place] [address] Care Team Providers Care Seamer Operator Name Role Phone Unavailable Primary Care Provider Unavailenrike e Encounter Details Date Type Department Care Team (Late st Contact Info) Description 03/08/2019 Transcribed Document [facility] Family Medicine [address] [place] [address] ProviderYoli MD [address], [place] [address] Social History Tobacco Use Types Packs/Day Years Used Date Smoking Tobacco: Never Assessed Sex and Gender Information Value Date Recorded Sex Assigned at Not on file Legal Sex Male 6:25 PM CDT Gender Identity Not on file Sexual Orientation Not on file documented as of this encounter Miscellaneous Notes * Cerner Conversion Note - Yoli ProviderMD - 03/08/2019 10:49 AM CDT Final Discharge Planning Entered On: 03/08/2019 10:51 EDT Performed On: 03/08/2019 10:49 EDT by ELEONORA ARMAS Restaurant Busser Final Discharge Planning Discharge Arrangements : Patient Post-Acute Information Patient Name: CALEB MATTHEWS Gender: Male : [birth year] Age: 48 Years No Post-Acute Placement(s) Listed No Post-Acute Service(s) Listed No [place] Referral(s) Listed Transportation Needs : Family/Friend Follow Up Appointment Scheduled : Yes Is Patient High/Moderate Readmission Risk? : Yes Discharge To Care Management : Home/Residential/Fci or Self Care -01 ELEONORA ARMAS, Restaurant Busser - 03/08/2019 10:49 EDT Final Narrative Note Final Narrative Note : Pt is discharging home with his , Christy, today. No needs identified. RRS is Moderate at 46. Pt does not want HH. Follow up appts made with surgery which is why he was in the hospital. ELEONORA ARMAS, Restaurant Busser - 03/08/2019 10:49 EDT documented in this encounter Plan of Treatment Not on file documented as of this encounter Visit Diagnoses Not on filedocumented in this encounter
--- OUTSIDE RECORDS SUMMARY | 2025-06-09 09:43 | XMS_ITS | Encounter Summary ---
Author Organization [employer] ([place], [place], [place], [place]) Address [address] [place] [address] Care Team Providers Care Piccoloist Name Role Phone Unavailable Primary Care Provider Sai e Encounter Details Date Type Department Care Team (Late st Contact Info) Description 10/11/2018 Transcribed Document [facility] [place] Family Medicine [address] [place] [address] ProviderYoli MD [address] [place] [address] Social History Tobacco Use Types Packs/Day Years Used Date Smoking Tobacco: Never Assessed Sex and Gender Information Value Date Recorded Sex Assigned at Not on file Legal Sex Male 6:25 PM CDT Gender Identity Not on file Sexual Orientation Not on file documented as of this encounter Miscellaneous Notes * Cerner Conversion Note - Historical ProviderMD - 10/11/2018 12:51 PM TRAIN DISPATCHER Pain Assessment Entered On: 10/12/2018 1:27 EST Performed On: 10/12/2018 0:02 EST by Salima Ramos RN Intervention Information: oxyCODONE Performed by Salima Ramos RN on 10/11/2018 23:02:00 EST oxyCODONE,5mg Oral,Abdominal Pain Pain Assessment Pain Assessment : Follow-up assessment Pain Scale Goal : 3 Pain Scale Used : 0-10 Scale Salima Ramos RN - 10/12/2018 1:26 EST Pain Scale Intensity : 2 Salima Ramos RN - 10/12/2018 1:26 EST Image 4 - Images currently included in the form version of this document have not been included in the text rendition version of the form. documented in this encounter Plan of Treatment Not on file documented as of this encounter Visit Diagnoses Not on filedocumented in this encounter
--- OUTSIDE RECORDS SUMMARY | 2025-06-09 09:43 | XMS_ITS | Encounter Summary ---
Author Organization [employer] ([place], [place], [place], [place]) Address [address] [place] [address] Care Team Providers Care Chiller Operator Name Role Phone Unavailable Primary Care Provider Unavailenrike e Encounter Details Date Type Department Care Team (Late st Contact Info) Description 02/26/2019 Transcribed Document [facility] [place] [address] [place] [address] ProviderYoli MD [address] [place] [address] Social History Tobacco Use Types Packs/Day Years Used Date Smoking Tobacco: Never Assessed Sex and Gender Information Value Date Recorded Sex Assigned at Not on file Legal Sex Male 6:25 PM CDT Gender Identity Not on file Sexual Orientation Not on file documented as of this encounter Miscellaneous Notes * Cerner Conversion Note - Historical ProviderMD - 02/26/2019 12:13 PM CDT Pain Assessment Entered On: 02/27/2019 18:33 EDT Performed On: 02/27/2019 9:13 EDT by Sylvie Mcmanus RN Intervention Information: HYDROmorphone Performed by Sylvie Mcmanus RN on 02/27/2019 08:43:00 EDT HYDROmorphone,0.5mg IV Push,Right Antecubit [place],Abdominal Pain Pain Assessment Pain Assessment : Follow-up assessment Pain Scale Goal : 4 Pain Scale Used : FACES Sylvie Mcmanus RN - 02/27/2019 18:33 EDT Pain Scale Intensity : 3 Sylvie Mcmanus RN - 02/27/2019 18:33 EDT Image 4 - Images currently included in the form version of this document have not been included in the text rendition version of the form. documented in this encounter Plan of Treatment Not on file documented as of this encounter Visit Diagnoses Not on filedocumented in this encounter
--- OUTSIDE RECORDS SUMMARY | 2025-06-09 09:43 | XMS_ITS | Encounter Summary ---
Author Organization [employer] ([place], [place], [place], [place]) Address [address] [place] [address] Care Team Providers Care Stable Manager Name Role Phone Unavailable Primary Care Provider Unavailenrike e Encounter Details Date Type Department Care Team (Late st Contact Info) Description 02/25/2019 Transcribed Document [facility] [place] [address] [place] [address] ProviderYoli MD [address] [place] [address] Social History Tobacco Use Types Packs/Day Years Used Date Smoking Tobacco: Never Assessed Sex and Gender Information Value Date Recorded Sex Assigned at Not on file Legal Sex Male 6:25 PM CDT Gender Identity Not on file Sexual Orientation Not on file documented as of this encounter Miscellaneous Notes * Cerner Conversion Note - Historical ProviderMD - 02/25/2019 10:41 AM CDT PAT Adult Entered On: 02/25/2019 10:43 EDT Performed On: 02/25/2019 10:41 EDT by IFRAH SMITH RN Height and Weight, Clinical Dosing Height Source : Measured Height Entry Format : [place]uel Height, Feet : 0 ft(Converted to: 0 cm, 0 Inch) Height, Inches : 71 Inch(Converted to: 5 ft 11 Inch, 180.34 cm) Clinical Height : 180.34 cm Weight Source : Standing scale Weight Entry Format : Deuel Clinical Dosing Weight : 79.09 kg Weight, Pounds : 174 lb Body Surface Area (BSA) : 1.99 m2 Body Mass Index : 24.3 kg/m2 (HI) [place] Body Weight : 74 kg MATT MANZANO RN - 02/26/2019 7:12 EDT Health Histories Smoking Status : Never (less than 100 in lifetime; none in last 30 days) Smokeless Tobacco Status : Never IFRAH SMITH RN - 02/25/2019 10:41 EDT Social History (As Of: 02/26/2019 07:15:12 EDT) Tobacco: Never (less than 100 in lifetime) Smoking Status. (Last Updated: 02/26/2019 07:14:07 EDT by MATT MANZANO RN) Alcohol: Alcohol Use History Yes. Alcohol Use Frequency Rarely. (Last Updated: 02/26/2019 07:14:57 EDT by MATT MANZANO RN) Substance Abuse: Drug Use Hx: No. Use in Last 12 Months: No. (Last Updated: 02/26/2019 07:15:02 EDT by MATT MANZANO RN) Infectious Disease History Fever/Chills Last 48 Hours : No Travel To Regions with Travel Advisories : No Travel Outside [place] Within Last 30 Days : No Contact With Traveler to Advisory Region : No Tuberculosis Symptoms : None MATT MANZANO RN - 02/26/2019 7:12 EDT Infectious Disease History : Chicken pox/Shingles IFRAH SMITH RN - 02/25/2019 10:41 EDT Anesthesia/Transfusion History Family History of Anesthesia Reaction : No prior transfusion(s) Blood Transfusion Acceptable to Patient : Yes Transfusion History : Prior anesthesia reaction Type of Anesthesia Reaction : Excessive nausea/vomiting Family History of Anesthesia Reaction : None IFRAH SMITH RN - 02/25/2019 10:41 EDT Advance Directive Patient has Advance Directive *Q : No, patient refuses Advance Directive information IFRAH SMITH RN - 02/25/2019 10:41 EDT Psychosocial History Do You Have a History of the Following? : Anxiety Currently in Unsafe Situation : No Tried to Harm Yourself in the Past? : No Thoughts of Harming/Killing Yourself : No IFRAH SMITH RN - 02/25/2019 10:41 EDT General Info Want Family/Rep/Phys Notified of Admit : No Emergency Contact #1 : ` Emergency Contact #1 Phone Number : ` Emergency Contact #1 Relationship : ` Emergency Contact #2 : ` Emergency Contact #2 Phone Number : ` Emergency Contact #2 Relationship : ` MATT MANZANO RN - 02/26/2019 7:12 EDT Primary Language : Ecuadorean Preferred Communication Mode : Verbal Communication Barrier : None IFRAH SMITH RN - 02/25/2019 10:41 EDT Trae Scale Trae Sensory Perception : No impairment Trae Moisture : Rarely moist Trae Activity : Walks frequently Trae Mobility : No limitation Trae Nutrition : Excellent Trae Friction and Shear : No apparent problem Trae Score : 23 IFRAH SMITH RN - 02/25/2019 10:41 EDT Sleep Apnea Risk Assmt Hx of Obstructive Sleep Apnea Diagnosis : No Snore Loudly : No Tired, Fatigued, or Sleepy During Day : No Observed Stopping Breathing During Sleep : No Have/Are Being Treated for Hypertension : Yes BMI Greater Than 35 kg/m2 : No Age over 50 Years Old : No Neck Circumference Greater Than 40 cm : No Gender Male : Yes STOP-BANG Sleep Apnea Risk Level Score : 2 IFRAH SMITH RN - 02/25/2019 10:41 EDT documented in this encounter Plan of Treatment Not on file documented as of this encounter Visit Diagnoses Not on filedocumented in this encounter
--- OUTSIDE RECORDS SUMMARY | 2025-06-09 09:43 | XMS_ITS | Encounter Summary ---
Author Organization [employer] ([place], [place], [place], [place]) Address [address] [place] [address] Care Team Providers Care Photographic Specialist Name Role Phone Unavailable Primary Care Provider Unavailenrike e Encounter Details Date Type Department Care Team (Late st Contact Info) Description 02/27/2019 Transcribed Document [facility] [place] [address] [place] [address] ProviderYoli MD [address] [place] [address] Social History Tobacco Use Types Packs/Day Years Used Date Smoking Tobacco: Never Assessed Sex and Gender Information Value Date Recorded Sex Assigned at Not on file Legal Sex Male 6:25 PM CDT Gender Identity Not on file Sexual Orientation Not on file documented as of this encounter Miscellaneous Notes * Cerner Conversion Note - Historical ProviderMD - 02/27/2019 6:00 PM CDT Pain Assessment Entered On: 02/27/2019 18:33 EDT Performed On: 02/27/2019 18:00 EDT by Sylvie Mcmanus RN Intervention Information: acetaminophen Performed by Sylvie Mcmanus RN on 02/27/2019 17:55:00 EDT acetaminophen,1000mg IV Piggyback,Right Lower Forearm Pain Assessment Pain Assessment : Follow-up assessment Pain Scale Goal : 4 Pain Scale Used : FACES Sylvie Mcmanus RN - 02/27/2019 18:32 EDT Pain Scale Intensity : 3 Sylvie Mcmanus RN - 02/27/2019 18:32 EDT Image 4 - Images currently included in the form version of this document have not been included in the text rendition version of the form. documented in this encounter Plan of Treatment Not on file documented as of this encounter Visit Diagnoses Not on filedocumented in this encounter
--- OUTSIDE RECORDS SUMMARY | 2025-06-09 09:43 | XMS_ITS | Encounter Summary ---
Author Organization [employer] ([place], [place], [place], [place]) Address [address] [place] [address] Care Team Providers Care Rivet Passer Name Role Phone Unavailable Primary Care Provider Unavailabl e Encounter Details Date Type Department Care Team (Late st Contact Info) Description 05/03/2020 Transcribed Document [facility] [place] [address] [place] [address] ProviderYoli MD [address], [place] [id number] Social History Tobacco Use Types Packs/Day Years Used Date Smoking Tobacco: Never Assessed Sex and Gender Information Value Date Recorded Sex Assigned at Not on file Legal Sex Male 6:25 PM CDT Gender Identity Not on file Sexual Orientation Not on file documented as of this encounter Miscellaneous Notes * Cerner Conversion Note - Yoli ProviderMD - 05/03/2020 10:30 AM CDT [facility] Arya PreOp Summary Primary Physician: COLTON DODSON MD Finalized Date/Time: 05/03/20 10:28:42 Pt. Name: CALEB MATTHEWS/Sex: 1970 Male Med Rec #: [id number] Physician: COLTON DODSON MD Financial #: [id number] Pt. Type: O Room/Bed: END/ Admit/Disch: 05/03/20 09:56:00 - Institution: [facility] Arya PreOp Case Times Entry 1 In Preop 05/03/20 10:15:00 Ready for Holding n/a Room Patient Ready for n/a Surgery Patient Out of Preop 05/03/20 10:28:00 Patient Out of n/a Holding Room Last Modified By: Gina Dunham RN 05/03/20 10:28:40 [facility] Endo PreOp Case Times Audit 05/03/20 10:28:40 Electrician Sound: [id number] Modifier: [id number] <+> 1 Patient Out of Preop Finalized By: Gina Dunham RN Document Signatures Signed By: Gina Dunham RN 05/03/20 10:28 documented in this encounter Plan of Treatment Not on file documented as of this encounter Visit Diagnoses Not on filedocumented in this encounter
--- OUTSIDE RECORDS SUMMARY | 2025-06-09 09:43 | XMS_ITS | Encounter Summary ---
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 Role Phone Unavailable Primary Care Provider Sai e Encounter Details Date Type Department Care Team (Late st Contact Info) Description 03/08/2019 Transcribed Document [facility] [place] [address] [place] [address] ProviderYoli MD [address], [place] [id number] Social History Tobacco Use Types Packs/Day Years Used Date Smoking Tobacco: Never Assessed Sex and Gender Information Value Date Recorded Sex Assigned at Not on file Legal Sex Male 6:25 PM CDT Gender Identity Not on file Sexual Orientation Not on file documented as of this encounter Miscellaneous Notes * Cerner Conversion Note - Yoli ProviderMD - 03/08/2019 8:50 AM CDT [facility] Authorization Entered On: 03/08/2019 8:50 EDT Performed On: 03/08/2019 8:50 EDT by MARCIA DELGADILLO RN Primary Insurance Authorization Authorization and Policy Numbers : Insurance 1 Health Plan: [facility] Policy Number: [id number] Authorization Number: NPR Insurance Primary Name : Bran [id number] Authorization Status-Primary : Awaiting callback Auth/Referral Contact Name-Primary : Daivna Reference Number-Primary : [id number] Number of Days Authorized-Primary : 7 Authorized Service Begin Date-Primary : 02/26/2019 EDT Authorized Service End Date-Primary : 03/04/2019 EDT Historical Authorization Comments-Primary : Comment 1: Clinicals faxed for cont stay. (MARCIA DELGADILLO RN 03/08/2019 06:51) Comment 2: Per [employer] denial overturned and contd stay approved till 03/04, NRD 03/05. May fax clinicals on 03/09 9t) (CARLOS MANUEL CAMACHO RN 03/05/2019 14:05) Comment 3: Clinicals faxed via [employer] for reconsideration, notified Linnea with Dr Camilo office, p2p no given (CARLOS MANUEL CAMACHO RN 03/05/2019 12:35) Comment 4: email to re: denial (ANA PAULA GONZALEZ, RN-Utilization Review 03/05/2019 12:14) Comment 5: rec'd call from [employer]- approval for IP 02/26-03/02/19 and cont stay denial starting 03/03/19 and forward due to pt stable. Can do P2P within 14 days, call [phone] and option 1. If substantial change in condition, can fax additional clinicals for reconsideration. (ANA PAULA GONZALEZ, RN-Utilization Review 03/05/2019 12:09) Comment 6: Case pended per website, clinicals faxed via [employer] (CARLOS MANUEL CAMACHO RN 03/05/2019 10:27) Comment 7: Clinicals submitted via [employer] website (CARLOS MANUEL CAMACHO RN 03/02/2019 08:52) Comment 8: No authorization for this visit, OP or IP found in [employer]. (MARCIA DELGADILLO RN 02/27/2019 10:39) Comment 9: Per [facility] notes no auth required. Submitted for OP (?). MD wants patient to stay 5 days. Note to UR team to f/u on 03/02 re: authorizatin (MARCIA DELGADILLO RN 02/27/2019 10:36) MARCIA DELGADILLO RN - 03/08/2019 8:50 EDT documented in this encounter Plan of Treatment Not on file documented as of this encounter Visit Diagnoses Not on filedocumented in this encounter
--- OUTSIDE RECORDS SUMMARY | 2025-06-09 09:43 | XMS_ITS | Encounter Summary ---
Author Organization [employer] ([place], [place], [place], [place]) Address [address] [place] [address] Care Team Providers Care Communication Signals Intelligence Name Role Phone Unavailable Primary Care Provider Unavailabl e Encounter Details Date Type Department Care Team (Late st Contact Info) Description 05/03/2020 Transcribed Document [facility] [place] [address] [place] [address] ProviderYoli MD [address], [place] [id number] Social History Tobacco Use Types Packs/Day Years Used Date Smoking Tobacco: Never Assessed Sex and Gender Information Value Date Recorded Sex Assigned at Not on file Legal Sex Male 6:25 PM CDT Gender Identity Not on file Sexual Orientation Not on file documented as of this encounter Miscellaneous Notes * Cerner Conversion Note - Yoli ProviderMD - 05/03/2020 11:22 AM CDT [facility] PACU Summary Primary Physician: COLTON DODSON MD Finalized Date/Time: 05/03/20 12:26:24 Pt. Name: CALEB MATTHEWS/Sex: 1970 Male Med Rec #: [id number] Physician: COLTON DODSON MD Financial #: [id number] Pt. Type: O Room/Bed: END/ Admit/Disch: 05/03/20 09:56:00 - Institution: [facility] PACU Case Times Entry 1 In PACU I 05/03/20 11:40:00 Ready for PACU 05/03/20 12:24:00 Discharge Discharge from PACU 05/03/20 12:24:00 I Last Modified By: Sugey Fagan RN 05/03/20 12:24:58 Finalized By: Sugey Fagan RN Document Signatures Signed By: Sugey Fagan RN 05/03/20 12:26 Electronically signed by Pancho [facility] Conversion Analytics Director Cerner at 01/22/2023 6:58 PM CDT documented in this encounter Plan of Treatment Not on file documented as of this encounter Visit Diagnoses Not on filedocumented in this encounter
--- OUTSIDE RECORDS SUMMARY | 2025-06-09 09:43 | XMS_ITS | Encounter Summary ---
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 Role Phone Unavailable Primary Care Provider Sai e Encounter Details Date Type Department Care Team (Late st Contact Info) Description 03/08/2019 Transcribed Document [facility] [place] Family Medicine [address] [place] [address] ProviderYoli MD [address], [place] [id number] Social History Tobacco Use Types Packs/Day Years Used Date Smoking Tobacco: Never Assessed Sex and Gender Information Value Date Recorded Sex Assigned at Not on file Legal Sex Male 6:25 PM CDT Gender Identity Not on file Sexual Orientation Not on file documented as of this encounter Miscellaneous Notes * Cerner Conversion Note - Yoli ProviderMD - 03/08/2019 6:51 AM CDT [facility] Authorization Entered On: 03/08/2019 6:51 EDT Performed On: 03/08/2019 6:51 EDT by MARCIA DELGADILLO RN Primary Insurance Authorization Authorization and Policy Numbers : Insurance 1 Health [facility] Policy Number: [id number] Authorization Number: NPR Insurance Primary Name : Bran [id number] Authorization Status-Primary : Admit approved Auth/Referral Contact Name-Primary : Davina Reference Number-Primary : [id number] Number of Days Authorized-Primary : 7 Authorized Service Begin Date-Primary : 02/26/2019 EDT Authorized Service End Date-Primary : 03/04/2019 EDT Authorization Comments-Primary : Clinicals faxed for cont stay. Historical Authorization Comments-Primary : Comment 1: Brian [employer] denial overturned and contd stay approved till 03/04, NRD 03/05. May fax clinicals on 03/09 9tuesday) (CARLOS MANUEL CAMACHO RN 03/05/2019 14:05) Comment 2: Clinicals faxed via [employer] for reconsideration, notified Linnea with Dr Camilo office, p2p no given (CARLOS MANUEL CAMACHO RN 03/05/2019 12:35) Comment 3: email to re: denial (ANA PAULA GONZALEZ, RN-Utilization Review 03/05/2019 12:14) Comment 4: rec'd call from [employer]- approval for IP 02/26-03/02/19 and cont stay denial starting 03/03/19 and forward due to pt stable. Can do P2P within 14 days, call [phone] and option 1. If substantial change in condition, can fax additional clinicals for reconsideration. (ANA PAULA GONZALEZ, RN-Utilization Review 03/05/2019 12:09) Comment 5: Case pended per website, clinicals faxed via [employer] (CARLOS MANUEL CAMACHO RN 03/05/2019 10:27) Comment 6: Clinicals submitted via [employer] website (CARLOS MANUEL CAMACHO RN 03/02/2019 08:52) Comment 7: No authorization for this visit, OP or IP found in [employer]. (MARCIA DELGADILLO RN 02/27/2019 10:39) Comment 8: Per [facility] notes no auth required. Submitted for OP (?). MD wants patient to stay 5 days. Note to UR team to f/u on 03/02 re: authorizatin (MARCIA DELGADILLO RN 02/27/2019 10:36) MARCIA DELGADILLO RN - 03/08/2019 6:51 EDT documented in this encounter Plan of Treatment Not on file documented as of this encounter Visit Diagnoses Not on filedocumented in this encounter
--- OUTSIDE RECORDS SUMMARY | 2025-06-09 09:43 | XMS_ITS | Encounter Summary ---
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 Name Role Phone Unavailable Primary Care Provider Unavailenrike e Encounter Details Date Type Department Care Team (Late st Contact Info) Description 05/03/2020 Transcribed Document [facility] [place] [address] [place] [address] ProviderYoli MD [address] [place] [address] Social History Tobacco Use Types Packs/Day Years Used Date Smoking Tobacco: Never Assessed Sex and Gender Information Value Date Recorded Sex Assigned at Not on file Legal Sex Male 6:25 PM CDT Gender Identity Not on file Sexual Orientation Not on file documented as of this encounter Miscellaneous Notes * Cerner Conversion Note - Yoli ProviderMD - 05/03/2020 10:15 AM CDT Pre Procedure Adult Entered On: 05/03/2020 10:18 EDT Performed On: 05/03/2020 10:15 EDT by Gina Dunham RN Height and Weight, Clinical Dosing Height Source : Stated Height Entry Format : [place] Height, Feet : 5 ft(Converted to: 152 cm, 60 Inch) Height, Inches : 11 Inch(Converted to: 0 ft 11 Inch, 27.94 cm) Clinical Height : 180.34 cm Weight Source : Standing scale Weight Entry Format : [place] Clinical Dosing Weight : 86.42 kg Weight, Pounds : 190 lb Weight, Ounces : 2 oz Body Surface Area (BSA) : 2.07 m2 Body Mass Index : 26.6 kg/m2 (HI) [place] Body Weight : 74 kg Gina Dunham RN - 05/03/2020 10:15 EDT Health Histories Smoking Status : Never (less than 100 in lifetime; none in last 30 days) Smokeless Tobacco Status : Never Gina Dunham RN - 05/03/2020 10:15 EDT Social History (As Of: 05/03/2020 10:18:08 EDT) Tobacco: Never (less than 100 in lifetime) Smoking Status. (Last Updated: 02/26/2019 07:14:07 EDT by MATT MANZANO RN) Alcohol: Alcohol Use History Yes. Alcohol Use Frequency Rarely. (Last Updated: 02/26/2019 07:14:57 EDT by MATT MANZANO RN) Substance Abuse: Drug Use Hx: No. Use in Last 12 Months: No. (Last Updated: 02/26/2019 07:15:02 EDT by MATT MANZANO RN) Infectious Disease History Has the patient ever been tested for COVID-19? : Yes, Patient stated results Negative Date of COVID-19 test known? : Yes Does patient have symptoms of COVID-19? : No COVID19 Screening : No Experiencing Infectious Disease Symptoms : No symptoms Physical contact outside [place] in the last 30 days : No Infectious Disease History : Chicken pox/Shingles Tuberculosis Symptoms : None Gina Dunham RN - 05/03/2020 10:15 EDT COVID19 PreProcedure Screening Is this an Emergent or Add on Procedure? : No Has patient been isolated since the test : Yes Exposed to COVID19 symptoms since test? : No Gina Dunham RN - 05/03/2020 10:15 EDT Anesthesia/Transfusion History Family History of Anesthesia Reaction : No prior transfusion(s) Transfusion History : Prior anesthesia reaction Type of Anesthesia Reaction : Excessive nausea/vomiting Family History of Anesthesia Reaction : None Gina Dunham RN - 05/03/2020 10:15 EDT Functional Assessment Living Situation : Home Current Home Treatments : None Gina Dunham RN - 05/03/2020 10:15 EDT [place] Suicide Severity Rating Scale (C-SSRS) CSSRS Past Month Wish to be : No CSSRS Past Month Suicidal Thoughts : No CSSRS Lifetime Suicide Behavior : No Suicide Severity Rating Score : 0 Suicide Severity Rating : No Additional Care Required at this time Gina Dunham RN - 05/03/2020 10:15 EDT Psychosocial History Do You Have a History of the Following? : Anxiety Currently in Unsafe Situation : No Gina Dunham RN - 05/03/2020 10:15 EDT Advance Directive Patient has Advance Directive *Q : No, patient refuses Advance Directive information Gina Dunham RN - 05/03/2020 10:15 EDT General Info Legal Guardian : No Want Family/Rep/Phys Notified of Admit : No Emergency Contact #1 : Christy Emergency Contact #1 Phone Number : [phone] Emergency Contact #1 Relationship : spouise Emergency Contact #2 : . Emergency Contact #2 Phone Number : . Emergency Contact #2 Relationship : . Primary Language : Stateless Preferred Communication Mode : Verbal Communication Barrier : None Floor Manager Needed : No Gina Dunham RN - 05/03/2020 10:15 EDT Sleep Apnea Risk Assmt Hx of [...] Sleep Apnea Risk Level Score : 2 Gina Dunham RN - 05/03/2020 10:15 EDT Trae Scale Trae Sensory Perception : No impairment Trae Moisture : Rarely moist Trae Activity : Walks frequently Trae Mobility : No limitation Trae Nutrition : Excellent Trae Friction and Shear : No apparent problem Trae Score : 23 Gina Dunham RN - 05/03/2020 10:15 EDT Fall Risk Scales ABCs Fall Injury Risk Identification : None JOHNS Hx Falls Immediate/Within 3 Months : No Johns Secondary Diagnosis : No JOHNS Use of Ambulatory Aid : None JOHNS IV Therapy or IV Access : Yes Johns Gait/Transferring : Normal, bedrest, immobile Johns Mental Status : Oriented to own ability Johns Fall Risk Score : 20 JOHNS Fall Scale Risk Level : 0-24 Low Risk [place] Fall Interventions : Adequate lighting, Non-slip footwear, Wheels locked Gina Dunham RN - 05/03/2020 10:15 EDT Valuables and Belongings Valuables and Belongings : Clothing Clothing : Common streetwear Clothing Disposition : Bedside Gina Dunham RN - 05/03/2020 10:15 EDT documented in this encounter Plan of Treatment Not on file documented as of this encounter Visit Diagnoses Not on filedocumented in this encounter
--- OUTSIDE RECORDS SUMMARY | 2025-06-09 09:43 | XMS_ITS | Encounter Summary ---
Author Organization [employer] ([place], [place], [place], [place]) Address [address] [place] [address] Care Team Providers Care College Advisor Name Role Phone Unavailable Primary Care Provider Unavailenrike e Encounter Details Date Type Department Care Team (Late st Contact Info) Description 03/08/2019 Transcribed Document [facility] [place] Family Medicine [address] [place] [address] ProviderYoli MD [address] [place] [address] Social History Tobacco Use Types Packs/Day Years Used Date Smoking Tobacco: Never Assessed Sex and Gender Information Value Date Recorded Sex Assigned at Not on file Legal Sex Male 6:25 PM CDT Gender Identity Not on file Sexual Orientation Not on file documented as of this encounter Miscellaneous Notes * Cerner Conversion Note - Yoli Luna MD - 03/08/2019 11:00 AM CDT [facility] [place] [address] CALEB MATTHEWS :1970 Visit Time:02/26/2019 Your Visit Summary Your Care Team Admitting Physician - KATHY HERNANDEZ MD-SUR Attending Physician - KATHY HERNANDEZ MD-SUR Primary Care Physician - THAI MCLEAN MD-[facility] Referring Physician - KATHY HERNANDEZ MD-SUR Your Diagnosis Other intestinal obstruction unspecified as to partial versus complete obstruction, Other intestinal obstruction unspecified as to partial versus complete obstruction, Other intestinal obstruction unspecified as to partial versus complete obstruction What to do next Instructions From Your Care Team STOP tylenol #3 (acetaminophen-codeine) if you are using new prescription oxycodone for pain. Use of multiple narcotic medications can cause dangerous oversedation. Follow-Up Appointments Follow Up with KATHY HERNANDEZ When 03/18/2019 09:30 AM EDT Comments Appointment has been made Where: [address] [facility] [address] [place] [address]- Medications What How Much When Instructions Next Dose docusate (Colace 100 mg oral capsule) 1 Capsule(s) Oral Two Times A Day as needed for as needed for constipation Printed Prescription 9pm oxyCODONE (oxyCODONE 15 mg oral tablet, extended release) 1 Tablet(s) Oral Every 12 hours Printed Prescription 9pm oxyCODONE (oxyCODONE 5 mg oral tablet) 1 Tablet(s) Oral Every 6 Hours as needed for Breakthrough Pain Printed Prescription 12 pm polyethylene glycol 3350 (MiraLax oral powder for reconstitution) 17 Gram(s) Oral Every Day Printed Prescription 03/09 amphetamine-dextroamphetamine (amphetamine-dextroamphetamine 30 mg oral capsule, extended release) 1 Capsule(s) Oral Every Morning 03/09 hydrochlorothiazide-lisinopril (hydroCHLOROthiazide-lisinopril 25 mg-20 mg oral tablet) 1 Tablet(s) Oral Every Day 03/09 zolpidem (Ambien 10 mg oral tablet) 1 Tablet(s) Oral At Bedtime as needed for sleep 03/08 9pm prn Take your medications faithfully. Do NOT skip medication. Do NOT stop taking medications without the direction of a physician. Carry a list of your medications with you at all times, and take this medication list with you to your first follow up visit. Report any side effects. Avoid herbal remedies unless discussed with your physician. As part of your treatment plan, your physician may have prescribed a limited course of a controlled substance. This medication may be given to help people with moderate or severe pain or for other medical conditions, but there are risks involved with treatment. Common side effects may include nausea, constipation, drowsiness, sweating, itching, dry mouth, and rash. More serious side effects may include cognitive and motor impairment, like problems with thinking, concentrating, alertness, and movement (e.g. slowed reflexes), and driving and operating heavy machinery can be dangerous. It is important for you to talk to your physician if you have these side effects or questions. These controlled substances can produce physical dependence and be habit-forming if taken for an extended period of time, which means that the body has gotten used to them and may experience withdrawal symptoms if they are abruptly stopped. Withdrawal symptoms can include runny nose, sweating, goose bumps, diarrhea, abdominal cramping, rapid heartbeat, difficulty sleeping, and nervousness. Please dispose of unused and medications per your retail pharmacy guidance. Allergies ketorolac (Rash, Rash) Immunizations This Visit No Immunizations Found Education Materials Laparoscopic Lysis of Abdominal Adhesions, Care After [...] 02/06/2016 Document Revised: 02/27/2017 Document Reviewed: 09/18/2015 [employer] Patient Education ?? 2018 [employer]. docusate (oral/rectal) (DOK ue sate) Colace, Diocto, Dioeze, Doc-Q-Lace, Docu, Docu Soft, Doculase, Docuprene, Docusil, Docusoft S, DocuSol, DOK, DSS, Dulcolax Stool Softener, Enemeez Mini, Manjit-Tin, Octycine-250, Pedia-Lax Stool Softener, Johnson Stool Softener, Promolaxin, Silace, Surfak Stool Softener, Mago-Q-Lax, Vacuant What is the most important information I should know about docusate? You should not use docusate if you have a blockage in your intestines. Do not use docusate while you are sick with nausea, vomiting, or severe stomach pain. You should not take mineral oil while using docusate. What is docusate? Docusate is a stool softener. It makes bowel movements softer and easier to pass. Docusate is used to treat or prevent constipation, and to reduce pain or rectal damage caused by hard stools or by straining during bowel movements. Docusate may also be used for purposes not listed in this medication guide. What should I discuss with my healthcare provider before using docusate? You should not use docusate if you are allergic to it, or if you have: ? nausea, vomiting, or severe stomach pain; ?? a blockage in your intestines; or ?? chronic stomach pain that has not been checked by a doctor. You should not take mineral oil while using docusate. Ask a doctor or pharmacist if it is safe for you to take docusate: ? if you are on a low-salt diet; or ?? if you have recently had a sudden change in your bowel habits lasting for longer than 2 weeks. FDA category C. It is not known whether docusate will harm an unborn baby. Do not use this medicine without a doctor's advice if you are . It is not known whether docusate passes into breast milk or if it could harm a nursing baby. Do not use this medicine without a doctor's advice if you are breast-feeding a baby. Do not give this medicine to a child younger than 6 years old without the advice of a doctor. How should I use docusate? Use exactly as directed on the label, or as prescribed by your doctor. Do not use in larger or smaller amounts or for longer than recommended. Take this medicine with a full glass of water. Drink plenty of liquids while you are taking docusate. Do not crush, chew, break, or open a docusate capsule or tablet. Swallow it whole. Measure liquid medicine with the dosing syringe provided, or with a special dose-measuring spoon or medicine cup. If you do not have a dose-measuring device, ask your pharmacist for one. Mix the liquid with 6 to 8 ounces of milk, fruit juice, or infant formula and drink the mixture right away. After taking docusate by mouth (tablets, capsules, liquid), you should have a bowel movement within 12 to 72 hours. Do not take docusate rectal enema by mouth. It is for use only in your rectum. Wash your hands before and after using docusate enema. Try to empty your bowel and bladder just before using the enema. Remove the cap from the enema applicator tip. Lie down on your left side with your knees bent, and gently insert the tip of the enema applicator into the rectum. Squeeze the tube to empty the entire contents into the rectum. Throw away the tube, even if there is still some medicine left in it. For best results, hold in the enema for as long as possible, or until you have a bowel movement. The rectal enema should produce a bowel movement within 2 to 15 minutes. Do not use docusate for longer than 7 days unless your doctor has told you to. Call your doctor if your symptoms do not improve, or if you have not had a bowel movement within 1 to 3 days. Overuse of a stool softener can lead to serious medical problems. Store at room temperature away from moisture and heat. What happens if I miss a dose? Since docusate is used when needed, you may not be on a dosing schedule. If you are on a schedule, use the missed dose as soon as you remember. Skip the missed dose if it is almost time for your next scheduled dose. Do not use extra medicine to make up the missed dose. What happens if I overdose? Seek emergency medical attention or call the Poison Help line at . Overdose symptoms may include nausea, vomiting or stomach pain. What should I avoid while using docusate? Avoid using laxatives or other stool softeners unless your doctor has told you to. What are the possible side effects of docusate? Get emergency medical help if you have any of these signs of an allergic reaction: hives; difficult breathing; swelling of your face, lips, tongue, or throat. Stop using docusate and call your doctor at once if you have: ? pounding heartbeats or fluttering in your chest; ?? a light-headed feeling, like you might pass out; ?? rectal bleeding or irritation; ?? numbness or a rash around your rectum; ?? vomiting, severe diarrhea or stomach cramps; or ?? continued constipation, or no bowel movement. Common side effects may include: ? dizziness, weakness; ?? gas, bloating, mild diarrhea; ?? rectal irritation; or ?? sweating. This is not a complete list of side effects and others may occur. Call your doctor for medical advice about side effects. You may report side effects to FDA at 9-089-GUJ-0686. What other drugs will affect docusate? Other drugs may interact with docusate, including prescription and fkxx-vfs-jqlxedm medicines, vitamins, and herbal products. Tell each of your health care providers about all medicines you use now and any medicine you start or stop using. Where can I get more information? Your pharmacist can provide more information about docusate. Remember, keep this and all other medicines out of the reach of children, never share your medicines with others, and use this medication only for the indication prescribed. Every effort has been made to ensure that the information provided by [employer] is accurate, up-to-date, and complete, but no guarantee is made to that effect. Drug information contained herein may be time sensitive. [employer] information has been compiled for use by healthcare practitioners and consumers in the [place] and therefore [employer] does not warrant that uses outside of the [place] are appropriate, unless specifically indicated otherwise. [employer] drug information does not endorse drugs, diagnose patients or recommend therapy. [employer] drug information is an informational resource designed to assist licensed healthcare practitioners in caring for their patients and/or to serve consumers viewing this service as a supplement to, and not a substitute for, the expertise, skill, knowledge and judgment of healthcare practitioners. The absence of a warning for a given drug or drug combination in no way should be construed to indicate that the drug or drug combination is safe, effective or appropriate for any given patient. [facility] does not assume any responsibility for any aspect of healthcare administered with the aid of information [employer] provides. The information contained herein is not intended to cover all possible uses, directions, precautions, warnings, drug interactions, allergic reactions, or adverse effects. If you have questions about the drugs you are taking, check with your doctor, nurse or pharmacist. Copyright 4582-1593 [employer]. Version: 3.03. Revision Date: 11/17/2013.oxycodone (ox i KOE done) Oxaydo, OxyCONTIN, Oxyfast, Roxicodone, Xtampza ER What is the most important information I should know about oxycodone? MISUSE OF OPIOID MEDICINE CAN CAUSE ADDICTION, OVERDOSE, OR . Keep the medication in a place where others cannot get to it. Taking opioid medicine during may cause life-threatening withdrawal symptoms in the . Fatal side effects can occur if you use opioid medicine with alcohol, or with other drugs that cause drowsiness or slow your breathing. What is oxycodone? Oxycodone is an opioid pain medication used to treat moderate to severe pain. The extended-release form of oxycodone is for ecyxpx-xak-yezne treatment of pain and should not be used on an as-needed basis for pain. Oxycodone may also be used for purposes not listed in this medication guide. What should I discuss with my healthcare provider before using oxycodone? You should not use oxycodone if you are allergic to it, or if you have: ? severe asthma or breathing problems; or ?? a blockage in your stomach or intestines. You should not use oxycodone unless you are already using a similar opioid medicine and are tolerant to it. Most brands of oxycodone are not approved for use in people under 18. OxyContin should not be given to a child younger than 11 years old. Tell your doctor if you have ever had: ? a head injury, or seizures; ?? drug or alcohol addiction, or mental illness; ?? liver or kidney disease; ?? urination problems; or ?? problems with your gallbladder, pancreas, or thyroid. If you use opioid medicine while you are , your baby could become dependent on the drug. This can cause life-threatening withdrawal symptoms in the baby after it is born. Babies born dependent on opioids may need medical treatment for several weeks. Do not breast-feed. Oxycodone can pass into breast milk and may cause drowsiness, breathing problems, or in a nursing baby. How should I use oxycodone? Follow the directions on your prescription label and read all medication guides. Never use oxycodone in larger amounts, or for longer than prescribed. Tell your doctor if you feel an increased urge to take more of this medicine. Never share opioid medicine with another person, especially someone with a history of drug abuse or addiction. MISUSE CAN CAUSE ADDICTION, OVERDOSE, OR . Keep the medication in a place where others cannot get to it. Selling or giving away opioid medicine is against the law. Stop taking all other szbdqr-vvt-tcgas narcotic pain medicines when you start taking extended-release oxycodone. Take oxycodone with food. Swallow the capsule or tablet whole to avoid exposure to a potentially fatal overdose. Do not crush, chew, break, open, or dissolve. Never crush or break an oxycodone pill to inhale the powder or mix it into a liquid to inject the drug into your vein. This can cause in . Measure liquid medicine carefully. Use the dosing syringe provided, or use a medicine dose-measuring device (not a kitchen spoon). You should not stop using oxycodone suddenly. Follow your doctor's instructions about tapering your dose. Store at room temperature, away from heat, moisture, and light. Keep track of your medicine. Oxycodone is a drug of abuse and you should be aware if anyone is using your medicine improperly or without a prescription. Do not keep leftover opioid medication. Just one dose can cause in someone using this medicine accidentally or improperly. Ask your pharmacist where to locate a drug take-back disposal program. If there is no take-back program, flush the unused medicine down the toilet. What happens if I miss a dose? Since oxycodone is used for pain, you are not likely to miss a dose. Skip any missed dose if it is almost time for your next dose. Do not use two doses at one time. What happens if I overdose? Seek emergency medical attention or call the Poison Help line at . An oxycodone overdose can be fatal, especially in a child or other person using the medicine without a prescription. Overdose can cause severe muscle weakness, pinpoint pupils, very slow breathing, extreme drowsiness, or coma. What should I avoid while using oxycodone? Do not drink alcohol. Dangerous side effects or could occur. Avoid driving or operating machinery until you know how oxycodone will affect you. Dizziness or severe drowsiness can cause falls or other accidents. Avoid medication errors. Always check the brand and strength of oxycodone you get from the pharmacy. What are the possible side effects of oxycodone? Get emergency medical help if you have signs of an allergic reaction: hives; difficult breathing; swelling of your face, lips, tongue, or throat. Opioid medicine can slow or stop your breathing, and may occur. A person caring for you should seek emergency medical attention if you have slow breathing with long pauses, blue colored lips, or if you are hard to wake up. Call your doctor at once if you have: ? noisy breathing, sighing, shallow breathing; ?? a slow heart rate or weak pulse; ?? a light-headed feeling, like you might pass out; ?? confusion, unusual thoughts or behavior; ?? seizure (convulsions); or ?? low cortisol levels-- nausea, vomiting, loss of appetite, dizziness, worsening tiredness or weakness. Seek medical attention right away if you have symptoms of serotonin syndrome, such as: agitation, confusion, fever, sweating, fast heart rate, chest pain, feeling short of breath, muscle stiffness, trouble walking, or feeling faint. Serious side effects may be more likely in older adults and those who are malnourished or debilitated. Long-term use of opioid medication may affect fertility (ability to have children) in men or women. It is not known whether opioid effects on fertility are permanent. Common side effects may include: ? drowsiness, headache, dizziness, tiredness; or ?? constipation, stomach pain, nausea, vomiting. This is not a complete list of side effects and others may occur. Call your doctor for medical advice about side effects. You may report side effects to FDA at 6-594-DVJ-7385. What other drugs will affect oxycodone? You may have breathing problems or withdrawal symptoms if you start or stop taking certain other medicines. Tell your doctor if you also use an antibiotic, antifungal medication, heart or blood pressure medication, seizure medication, or medicine to treat HIV or hepatitis C. Opioid medication can interact with many other drugs and cause dangerous side effects or . Be sure your doctor knows if you also use: ? cold or allergy medicines, bronchodilator asthma/COPD medication, or a diuretic ('water pill'); ?? medicines for motion sickness, irritable bowel syndrome, or overactive bladder; ?? other narcotic medications--opioid pain medicine or prescription cough medicine; ?? a sedative like Valium--diazepam, alprazolam, lorazepam, Xanax, Klonopin, Versed, and others; ?? drugs that make you sleepy or slow your breathing--a sleeping pill, muscle relaxer, medicine to treat mood disorders or mental illness; or ?? drugs that affect serotonin levels in your body--a stimulant, or medicine for depression, Parkinson's disease, migraine headaches, serious infections, or nausea and vomiting. This list is not complete and many other drugs may affect oxycodone. This includes prescription and lbhq-ckj-ulqfnip medicines, vitamins, and herbal products. Not all possible drug interactions are listed here. Where can I get more information? Your pharmacist can provide more information about oxycodone. Remember, keep this and all other medicines out of the reach of children, never share your medicines with others, and use this medication only for the indication prescribed. Every effort has been made to ensure that the information provided by [employer] is accurate, up-to-date, and complete, but no guarantee is made to that effect. Drug information contained herein may be time sensitive. [employer] information has been compiled for use by healthcare practitioners and consumers in the [place] and therefore [employer] does not warrant that uses outside of the [place] are appropriate, unless specifically indicated otherwise. [employer] drug information does not endorse drugs, diagnose patients or recommend therapy. [employer] drug information is an informational resource designed to assist licensed healthcare practitioners in caring for their patients and/or to serve consumers viewing this service as a supplement to, and not a substitute for, the expertise, skill, knowledge and judgment of healthcare practitioners. The absence of a warning for a given drug or drug combination in no way should be construed to indicate that the drug or drug combination is safe, effective or appropriate for any given patient. [employer] does not assume any responsibility for any aspect of healthcare administered with the aid of information [employer] provides. The information contained herein is not intended to cover all possible uses, directions, precautions, warnings, drug interactions, allergic reactions, or adverse effects. If you have questions about the drugs you are taking, check with your doctor, nurse or pharmacist. Copyright 0773-2098 [employer]. Version: 13.02. Revision Date: 09/02/2018.polyethylene glycol 3350 (yohannes ee ETH il een GLYE kol) ClearLax, GaviLAX, Gialax, GlycoLax, MiraLax, [id number], [employer] ClearLax What is the most important information I should know about polyethylene glycol 3350? You should not use this medicine if you have a bowel obstruction or intestinal blockage. If you have any of these conditions, you could have dangerous or life-threatening side effects from polyethylene glycol 3350. Do not use polyethylene glycol 3350 more than once per day. Call your doctor if you are still constipated or irregular after using this medication for 7 days in a row. What is polyethylene glycol 3350? Polyethylene glycol 3350 is a laxative solution that increases the amount of water in the intestinal tract to stimulate bowel movements. Polyethylene glycol 3350 is used as a laxative to treat occasional constipation or irregular bowel movements. Polyethylene glycol 3350 may also be used for purposes not listed in this medication guide. What should I discuss with my healthcare provider before taking polyethylene glycol 3350? You should not use this medicine if you are allergic to polyethylene glycol, or if you have a bowel obstruction or intestinal blockage. If you have any of these conditions, you could have dangerous or life-threatening side effects from polyethylene glycol 3350. People with eating disorders (such as anorexia or bulimia) should not use this medication without the advice of a doctor. To make sure this medicine is safe for you, tell your doctor if you have: ? nausea, vomiting, or severe stomach pain; ?? ulcerative colitis; ?? irritable bowel syndrome; ?? kidney disease; or ?? if you have had a sudden change in bowel habits that has lasted 2 weeks or longer. FDA category C. It is not known whether polyethylene glycol 3350 will harm an unborn baby. Tell your doctor if you are or plan to become while using this medication. It is not known whether polyethylene glycol 3350 passes into breast milk or if it could harm a nursing baby. Tell your doctor if you are breast-feeding a baby. How should I take polyethylene glycol 3350? Follow all directions on your prescription label. Do not use this medicine in larger or smaller amounts or for longer than recommended. To use the powder form of this medicine, measure your dose with the medicine cap on the bottle. This cap should contain dose narayan on the inside of it. Pour the powder into 4 to 8 ounces of a cold or hot beverage such as water, juice, soda, coffee, or tea. Stir this mixture and drink it right away. Do not save for later use. Polyethylene glycol 3350 should produce a bowel movement within 1 to 3 days of using the medication. Polyethylene glycol 3350 normally causes loose or even watery stools. Do not use polyethylene glycol 3350 more than once per day. Call your doctor if you are still constipated or irregular after using this medication for 7 days in a row. Store at room temperature away from moisture and heat. What happens if I miss a dose? Take the missed dose as soon as you remember. Skip the missed dose if it is almost time for your next scheduled dose. Do not take extra medicine to make up the missed dose. What happens if I overdose? Seek emergency medical attention or call the Poison Help line at . What should I avoid while taking polyethylene glycol 3350? Follow your doctor's instructions about any restrictions on food, beverages, or activity. What are the possible side effects of polyethylene glycol 3350? Get emergency medical help if you have signs of an allergic reaction: hives; difficult breathing; swelling of your face, lips, tongue, or throat. Stop taking this medicine and call your doctor at once if you have: ? severe or bloody diarrhea; ?? rectal bleeding; ?? blood in your stools; or ?? severe and worsening stomach pain. Common side effects may include: ? bloating, gas, upset stomach; ?? dizziness; or ?? increased sweating. This is not a complete list of side effects and others may occur. Call your doctor for medical advice about side effects. You may report side effects to FDA at 4-538-EDY-6853. What other drugs will affect polyethylene glycol 3350? Other drugs may interact with polyethylene glycol 3350, including prescription and zyam-ctf-imwyuam medicines, vitamins, and herbal products. Tell each of your health care providers about all medicines you use now and any medicine you start or stop using. Where can I get more information? Your pharmacist can provide more information about polyethylene glycol 3350. Remember, keep this and all other medicines out of the reach of children, never share your medicines with others, and use this medication only for the indication prescribed. Every effort has been made to ensure that the information provided by [employer]. ('[employer]') is accurate, up-to-date, and complete, but no guarantee is made to that effect. Drug information contained herein may be time sensitive. [facility] information has been compiled for use by healthcare practitioners and consumers in the [place] and therefore [facility] does not warrant that uses outside of the [place] are appropriate, unless specifically indicated otherwise. [employer] drug information does not endorse drugs, diagnose patients or recommend therapy. [employer] drug information is an informational resource designed to assist licensed healthcare practitioners in caring for their patients and/or to serve consumers viewing this service as a supplement to, and not a substitute for, the expertise, skill, knowledge and judgment of healthcare practitioners. The absence of a warning for a given drug or drug combination in no way should be construed to indicate that the drug or drug combination is safe, effective or appropriate for any given patient. [facility] does not assume any responsibility for any aspect of healthcare administered with the aid of information [facility] provides. The information contained herein is not intended to cover all possible uses, directions, precautions, warnings, drug interactions, allergic reactions, or adverse effects. If you have questions about the drugs you are taking, check with your doctor, nurse or pharmacist. Copyright 7731-8024 [employer]. Version: 2.04. Revision Date: 01/08/2017. Emergency Awareness and Preventative Care STROKE is an EMERGENCY Every Minute Counts Act FAST and Check for these signs: FACE Does the face look uneven? ARM Does one arm drift down? SPEECH Does their speech sound strange? TIME Call at any sign of stroke Stroke Risk Factors Atrial Fibrillation (irregular heartbeat) Diabetes Family history of stroke Heart Disease Heavy alcohol use High Blood Pressure High Cholesterol Physical inactivity and obesity Smoking Cigarette Smoking The facts are clear, cigarette smoking will shorten your life. Smoking can cause many illnesses along the way. As a healthcare provider, we recommend that you stop smoking. Assistance with quitting is available by contacting 7-207-FDXU-NOW. This is a free resource providing counseling, support, and referral. Or you may contact your personal physician. National Suicide Prevention Lifeline: The National Suicide Prevention Lifeline is a national network of local crisis centers that provides free and confidential emotional support to people in suicidal crisis or emotional distress 24 hours a day, 7 days a week. Don't Wait! Stop a Heart Attack Before it Starts What is a heart attack? A heart attack is damage or to a part of the heart from severely decreased or lack of blood flow to the heart. Over time, arteries can become narrow from the buildup of fat and cholesterol, which is called plaque. The plaque can rupture causing a blood clot to form. When the blood clot forms, the artery can become severely narrowed or completely blocked, causing a heart attack. Heart attack is the leading cause of in the [place]. 85% of muscle damage occurs within the first 2 hours. Delay in the recognition of heart attack symptoms increases the chances of . Know the early symptoms of a heart attack: Nausea Feeling of fullness in chest Jaw Pain Pain that travels down one or both arms Fatigue/being tired Anxiety Back Pain Chest pressure, squeezing, or discomfort Shortness of breath Sweating, or a cold sweat Feeling of impending doom There are unusual signs of a heart attack, too! Women, the elderly, and diabetics may present with atypical symptoms: Fainting/dizziness Weakness Confusion Risk Factors for a Heart Attack Some heart disease risk factors, such as age and family history, cannot be changed. Others, like smoking and lack of exercise, can be changed. Smoking High Cholesterol High Blood Pressure Family History Obesity Age Gender (Males are at higher risk) Lack of Exercise Diabetes Diet Stress Excessive Alcohol Intake If you or someone you know is experiencing the signs and symptoms of a heart attack, DON???T DELAY. Call immediately and seek help. If someone collapses, perform CPR! Do not attempt to drive if you are having symptoms of heart attack. Hands-Only CPR Why Hands-Only CPR? Hands-Only CPR has been shown to be as effective as conventional CPR for cardiac arrests that occur outside of a hospital. Survival depends on immediately receiving CPR from someone nearby. How do you perform Hands-Only CPR? There are two easy steps: Call if you see a teen or adult collapse Push hard and fast in the center of the chest at a beat of 100 beats per minute. Save a life! 4 WAYS TO GET AHEAD OF SEPSIS SEPSIS is a MEDICAL EMERGENCY. Time matters! Infections put you and your family at risk for a life-threatening condition called sepsis. Sepsis is the body's extreme response to an infection. It is life-threatening, and without timely treatment, sepsis can rapidly lead to tissue damage, organ failure, and . Sepsis happens when an infection you already have-in your skin, lungs, urinary tract or somewhere else-triggers a chain reaction throughout your body. 1 PREVENT INFECTIONS Take good care of chronic conditions. Talk to your doctor about getting the recommended vaccines. 2 PRACTICE GOOD HYGIENE Wash your hands frequently. Keep cuts or open sores clean and covered until they are healed. 3 KNOW THE SYMPTOMS Confusion or disorientation Shortness of breath High heart rate Fever, shivering, or feeling very cold Extreme pain or discomfort Clammy or sweaty skin 4 ACT FAST Get medical care IMMEDIATELY if you suspect sepsis or if you have an infection that is not getting better or is getting worse. To learn more about sepsis and how to prevent infections, visit www.cdc.gov/sepsis. Patient Portal Reminder: Be sure to sign up for the [facility] patient portal, which gives you 28/04 access to your medical information ??? including these discharge instructions ??? using your computer, smartphone, or tablet. Just go to [facility] to get started. Questions? Call . Test Results Laboratory or Other Results This Visit (last charted value for your 02/26/2019 visit) Hematology 03/08/19 07:16:00 Platelet Count: 524 K/uL -- Normal range between ( 163 and 369 ) 03/05/19 07:02:00 WBC: 8.4 K/uL -- Normal range between ( 3.6 and 9.5 ) RBC: 3.39 Million/uL -- Normal range between ( 4.20 and 5.70 ) Hct: 32.6 % -- Normal range between ( 40.1 and 51.0 ) Hgb: 11.0 g/dL -- Normal range between ( 13.5 and 17.3 ) MCH: 32.4 pg -- Normal range between ( 25.6 and 32.2 ) MCHC: 33.7 Gram/dL -- Normal range between ( 32.2 and 36.5 ) MCV: 96.2 fL -- Normal range between ( 79.0 and 94.8 ) Slide Review: No RDW: 11.5 % -- Normal range between ( 11.7 and 14.9 ) MPV: 8.6 fL -- Normal range between ( 9.4 and 12.4 ) 02/26/19 07:36:00 Hemoglobin POC: 16.0 Gram/dL -- Normal range between ( 12.0 and 17.0 ) Hematocrit POC: 47.0 % -- Normal range between ( 38.0 and 51.0 ) Blood Bank 02/26/19 07:34:00 ABO/Rh (ECHO): A POS Antibody Screen: Negative ABSC General Chemistry 03/05/19 07:02:00 Creatinine Level: 0.90 mg/dL -- Normal range between ( 0.70 and 1.30 ) Sodium Level: 135 mmol/L -- Normal range between ( 136 and 146 ) Potassium Level: 3.7 mmol/L -- Normal range between ( 3.5 and 5.1 ) Chloride Level: 100 mmol/L -- Normal range between ( 102 and 112 ) Carbon Dioxide Level: 29 mmol/L -- Normal range between ( 21 and 32 ) Anion Gap: 10 -- Normal range between ( 9 and 20 ) Bun/Creatinine: 12.2 -- Normal range between ( 8.0 and 20.0 ) Calcium Level: 8.7 mg/dL -- Normal range between ( 8.4 and 10.1 ) eGFR : >60 mL/min/1.73m2 eGFR NonAfrican: >60 mL/min/1.73m2 Glucose Level: 98 mg/dL -- Normal range between ( 74 and 106 ) Blood Urea Nitrogen: 11 mg/dL -- Normal range between ( 7 and 22 ) 03/03/19 18:13:00 Bilirubin Total: 2.0 mg/dL -- Normal range between ( 0.2 and 1.2 ) A/G Ratio: 0.7 -- Normal range between ( 1.1 and 2.5 ) ALT: 25 Units/Liter -- Normal range between ( 16 and 61 ) AST: 16 Units/Liter -- Normal range between ( 5 and 37 ) Globulin: 4.3 Gram/dL -- Normal range between ( 1.5 and 4.5 ) Alk Phos: 45 Units/Liter -- Normal range between ( 27 and 136 ) Protein Total: 7.5 Gram/dL -- Normal range between ( 6.4 and 8.2 ) Albumin Level: 3.2 Gram/dL -- Normal range between ( 3.4 and 5.0 ) 02/27/19 06:37:00 Magnesium Level: 2.1 mg/dL -- Normal range between ( 1.5 and 2.4 ) 02/26/19 07:36:00 Potassium POC: 3.7 mmol/L -- Normal range between ( 3.5 and 4.9 ) Diagnostic Radiology 03/03/19 13:56:00 CR Abdomen 1 Vw Portable: CR Abdomen 1 Vw Portable Patient Name:ISAURACALEB TITO I have received and understand this information and was given the opportunity to ask questions. Patient/Special Warfare Boat Operator Name: Patient/Special Warfare Boat Operator Signature: Relationship to Patient: Clinician/Hospital Special Warfare Boat Operator Signature: Date: documented in this encounter Plan of Treatment Not on file documented as of this encounter Visit Diagnoses Not on filedocumented in this encounter
--- OUTSIDE RECORDS SUMMARY | 2025-06-09 09:43 | XMS_ITS | Encounter Summary ---
Author Organization [employer] ([place], [place], [place], [place]) Address [address] [place] [address] Care Team Providers Care Surgical Appliances Salesperson Name Role Phone Unavailable Primary Care Provider Unavailenrike e Encounter Details Date Type Department Care Team (Late st Contact Info) Description 03/08/2019 Transcribed Document [facility] [place] Medicine [address] [place] [address] ProviderYoli MD [address], [place] [id number] Social History Tobacco Use Types Packs/Day Years Used Date Smoking Tobacco: Never Assessed Sex and Gender Information Value Date Recorded Sex Assigned at Not on file Legal Sex Male 6:25 PM CDT Gender Identity Not on file Sexual Orientation Not on file documented as of this encounter Miscellaneous Notes * [employer] Conversion Note - Historical ProviderMD - 03/08/2019 5:00 AM CDT Chart Check - Review Order Profile Entered On: 03/08/2019 4:04 EDT Performed On: 03/08/2019 5:00 EDT by Zoe Murray RN Chart Check Powerplans Initiated/Discontinued as Appropriate : Yes All Active Orders Reviewed : Yes Zoe Murray RN - 03/08/2019 4:04 EDT documented in this encounter Plan of Treatment Not on file documented as of this encounter Visit Diagnoses Not on filedocumented in this encounter
--- OUTSIDE RECORDS SUMMARY | 2025-06-09 09:43 | XMS_ITS | Encounter Summary ---
Author Organization [employer] ([place], [place], [place], [place]) Address [address] [place] [address] Care Team Providers Care Receptionist Telephone Operator Name Role Phone Unavailable Primary Care Provider Unavailabl e Encounter Details Date Type Department Care Team (Late st Contact Info) Description 11/23/2018 Transcribed Document [facility] [place] [address] [place] [address] ProviderYoli MD [address] [place] [address] Social History Tobacco Use Types Packs/Day Years Used Date Smoking Tobacco: Never Assessed Sex and Gender Information Value Date Recorded Sex Assigned at Not on file Legal Sex Male 6:25 PM CDT Gender Identity Not on file Sexual Orientation Not on file documented as of this encounter Miscellaneous Notes * [employer]ner Conversion Note - Historical ProviderMD - 11/23/2018 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 Family reports pt is tolerating po well and drinking nutrl suppl. Plans for d/c today. 11/18: Nsg consult ie: 2-# wt loss. Pt reports decreased appetite; NGT in place. States has lost 5-10# over the past 2 months. Has drank Ensure in the past and agreed to have it sent once diet advanced. No physical signs of malnutrition observed. Dx: abd pain, PSBO PMH: lung mass LBM: +11/22 Skin: wnls Meds: colace, miralax Labs: noted Diet: regular + Ensure BID Intake: ~63% x 2 meals (11/22) Ht: 71 , Admit wt: 170# Current wt: no new (11/23) UBW: 175-180# 2 months ago IBW: 172#/98% BMI 23.[address], LD - 11/23/2018 11:46 EST Nutrition Diagnoses Oral or Nutrition Support Intake : Inadequate oral intake Oral or Nutr Support Intake Related To : PSBO Oral or Nutr Support Intake Evidenced by : NPO x 1 day Oral or Nutrition Support Intake Status : Resolved Weight : Unintended weight loss Weight Related to : PMH Weight As Evidenced by : 5-10# (3-6%) x 2 months Weight Status : Active CHRISTINE ROSA RD, LD - 11/23/2018 10:59 EST Nutrition Interventions Meals and Snacks : General/Healthful diet Nutrition Supplement Therapy : Commercial beverage CHRISTINE ROSA RD, - 11/23/2018 10:59 EST Monitoring/Evaluation Energy Intake : Total energy intake Food Intake : Amount of food Weight Status : Weight gain, Weight loss, Weight Maintanence CHRISTINE ROSA RD, - 11/23/2018 10:59 EST Nutrition Recommendations Nutrition Care Level : Low Dietitian Recommendations : 1. Encourage po intake of meals and Thelma Ensure BID Goal: >75% intake 2. Check wt 2 x weekly Goal: no significant unplanned wt loss low risk - f/u weekly CHRISTINE ROSA RD, CARLI - 11/23/2018 11:46 EST documented in this encounter Plan of Treatment Not on file documented as of this encounter Visit Diagnoses Not on filedocumented in this encounter
--- OUTSIDE RECORDS SUMMARY | 2025-06-09 09:43 | XMS_ITS | Encounter Summary ---
Author Organization [employer] ([place], [place], [place], [place]) Address [address] [place] [address] Care Team Providers Care Barn Manager Name Role Phone Unavailable Primary Care Provider Unavailabl e Encounter Details Date Type Department Care Team (Late st Contact Info) Description 11/24/2018 Transcribed Document [facility] [place] Family Medicine [address] [place] [address] ProviderYoli MD [address] [place] [address] Social History Tobacco Use Types Packs/Day Years Used Date Smoking Tobacco: Never Assessed Sex and Gender Information Value Date Recorded Sex Assigned at Not on file Legal Sex Male 6:25 PM CDT Gender Identity Not on file Sexual Orientation Not on file documented as of this encounter Miscellaneous Notes * Cerner Conversion Note - Historical ProviderMD - 11/24/2018 2:34 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 Post Visit Phone Call Entered On: 11/24/2018 14:34 EST Performed On: 11/24/2018 14:34 EST by LIZETTE VARGAS RN-SCHED Post Visit Phone Call Post Visit Phone Call History : First call Contact Relationship to Patient : Self Contact Name : [facility] Visit Since DC : No Adequate Pain Control After Visit : Yes Symptoms of Fever : No Adequate Fluid Intake : Yes Food Intake, Post Visit : Good Bowel/Bladder Concerns : No Mobility Progressing or Maintained as Expected : Yes Discharge Instructions Understood : Yes Follow-Up Actions : None LIZETTE VARGAS RN-SCHED - 11/24/2018 14:34 EST Electronically signed by Panch[facility] Conversion Children'S Tutor Cerner at 01/22/2023 6:45 PM CDT documented in this encounter Plan of Treatment Not on file documented as of this encounter Visit Diagnoses Not on filedocumented in this encounter
--- OUTSIDE RECORDS SUMMARY | 2025-06-09 09:43 | XMS_ITS | Encounter Summary ---
Author Organization [employer] ([place], [place], [place], [place]) Address [address] [place] [address] Care Team Providers Care Sash Maker Name Role Phone Unavailable Primary Care Provider Unavailenrike e Encounter Details Date Type Department Care Team (Late st Contact Info) Description 03/07/2019 Transcribed Document [facility] [place] [address] [place] [address] ProviderYoli MD [address] [place], [place] [id number] Social History Tobacco Use Types Packs/Day Years Used Date Smoking Tobacco: Never Assessed Sex and Gender Information Value Date Recorded Sex Assigned at Not on file Legal Sex Male 6:25 PM CDT Gender Identity Not on file Sexual Orientation Not on file documented as of this encounter Miscellaneous Notes * Cerner Conversion Note - Historical ProviderMD - 03/07/2019 2:00 PM CDT Pain Assessment Entered On: 03/07/2019 18:38 EDT Performed On: 03/07/2019 16:27 EDT by Sylvie Mcmanus RN Intervention Information: acetaminophen Performed by Sylvie Mcmanus RN on 03/07/2019 15:27:00 EDT acetaminophen,650mg Oral Pain Assessment Pain Assessment [...]
--- OUTSIDE RECORDS SUMMARY | 2025-06-09 09:43 | XMS_ITS | Encounter Summary ---
Author Organization [employer] ([place], [place], [place], [place]) Address [address] [place] [address] Care Team Providers Care Surgical Garment Inspector Name Role Phone Unavailable Primary Care Provider Sai e Encounter Details Date Type Department Care Team (Late st Contact Info) Description 03/08/2019 Transcribed Document [facility] [place] [address] [place] [address] ProviderYoli MD [address], [place] [phone] Social History Tobacco Use Types Packs/Day Years Used Date Smoking Tobacco: Never Assessed Sex and Gender Information Value Date Recorded Sex Assigned at Not on file Legal Sex Male 6:25 PM CDT Gender Identity Not on file Sexual Orientation Not on file documented as of this encounter Miscellaneous Notes * Cerner Conversion Note - Yoli ProviderMD - 03/08/2019 12:31 PM CDT UM Authorization Entered On: 03/08/2019 12:33 EDT Performed On: 03/08/2019 12:31 EDT by MARCIA DELGADILLO RN Primary Insurance Authorization Authorization and Policy Numbers : Insurance 1 Health Plan: [facility] Policy Number: [id number] Authorization Number: NPR Insurance Primary Name : Bran [id number] Authorization Status-Primary : Awaiting callback Auth/Referral Contact Name-Primary : Davina Reference Number-Primary : [id number] Number of Days Authorized-Primary : 7 Authorized Service Begin Date-Primary : 02/26/2019 EDT Authorized Service End Date-Primary : 03/04/2019 EDT Authorization Comments-Primary : Clinicals faxed to [phone] Historical Authorization Comments-Primary : Comment 1: Clinicals faxed for cont stay. (MARCIA DELGADILLO RN 03/08/2019 06:51) Comment 2: Per Davina denial overturned and contd stay approved till 03/04, NRD 03/05. May fax clinicals on 03/09 9friday) (CARLOS MANUEL CAMACHO RN 03/05/2019 14:05) Comment 3: Clinicals faxed via [employer] for reconsideration, notified Linnea with Dr Camilo office, p2p no given (CARLOS MANUEL CAMACHO RN 03/05/2019 12:35) Comment 4: email to re: denial (ANA PAULA GONZALEZ, RN-Utilization Review 03/05/2019 12:14) Comment 5: rec'd call from Davina/Bran- approval for IP 02/26-03/02/19 and cont stay denial starting 03/03/19 and forward due to pt stable. Can do P2P within 14 days, call [phone] and option 1. If substantial change in condition, can fax additional clinicals for reconsideration. (ANA PAULA GONZALEZ, RN-Utilization Review 03/05/2019 12:09) Comment 6: Case pended per website, clinicals faxed via [employer] (CARLOS MANUEL CAMACHO RN 03/05/2019 10:27) Comment 7: Clinicals submitted via [employer] website (CARLOS MANUEL CAMACHO RN 03/02/2019 08:52) Comment 8: No authorization for this visit, OP or IP found in [employer]. (MARCIA DELGADILLO RN 02/27/2019 10:39) Comment 9: Per [facility] notes no auth required. Submitted for OP (?). MD wants patient to stay 5 days. Note to UR team to f/u on 03/02 re: authorizatin (MARCIA DELGADILLO RN 02/27/2019 10:36) MARCIA DELGADILLO, BLUE - 03/08/2019 12:31 EDT documented in this encounter Plan of Treatment Not on file documented as of this encounter Visit Diagnoses Not on filedocumented in this encounter
--- OUTSIDE RECORDS SUMMARY | 2025-06-09 09:43 | XMS_ITS | Encounter Summary ---
Author Organization [employer] ([place], [place], [place], [place]) Address [address] [place] [address] Care Team Providers Care Plastic Installer Name Role Phone Unavailable Primary Care Provider Unavailenrike e Encounter Details Date Type Department Care Team (Late st Contact Info) Description 03/08/2019 Transcribed Document [facility] [place] Family Medicine [address] [place] [address] ProviderYoli MD [address] [place] [address] Social History Tobacco Use Types Packs/Day Years Used Date Smoking Tobacco: Never Assessed Sex and Gender Information Value Date Recorded Sex Assigned at Not on file Legal Sex Male 6:25 PM CDT Gender Identity Not on file Sexual Orientation Not on file documented as of this encounter Miscellaneous Notes * Cerner Conversion Note - Yoli ProviderMD - 03/08/2019 2:00 AM CDT Pain Assessment Entered On: 03/08/2019 2:32 EDT Performed On: 03/08/2019 1:45 EDT by Zoe Murrya RN Intervention Information: acetaminophen Performed by Zoe Murray RN on 03/08/2019 00:45:00 EDT acetaminophen,650mg Oral Pain Assessment Pain Assessment : Follow-up assessment Pain Scale Goal : 4 Pain Scale Used : FACES Location : Abdominal Onset : Awoke with pain Quality : Aching Pain Radiation : No Pain Improved by : Medication Pain Worsened by : None Pain Intervention, Drug : Medicated Pain Improved by Intervention : Yes Zoe Murray RN - 03/08/2019 2:31 EDT Pain Scale Intensity : 1 Zoe Murray RN - 03/08/2019 2:31 EDT Image 4 - Images currently included in the form version of this document have not been included in the text rendition version of the form. documented in this encounter Plan of Treatment Not on file documented as of this encounter Visit Diagnoses Not on filedocumented in this encounter
--- OUTSIDE RECORDS SUMMARY | 2025-06-09 09:43 | XMS_ITS | Encounter Summary ---
Author Organization [employer] ([place], [place], [place], [place]) Address [address] [place] [address] Care Team Providers Care Award Clerk Name Role Phone Unavailable Primary Care Provider Unavailenrike e Encounter Details Date Type Department Care Team (Late st Contact Info) Description 05/03/2020 Transcribed Document [facility] [place] [address] [place] [address] ProviderYoli MD [address] [place] [address] Social History Tobacco Use Types Packs/Day Years Used Date Smoking Tobacco: Never Assessed Sex and Gender Information Value Date Recorded Sex Assigned at Not on file Legal Sex Male 6:25 PM CDT Gender Identity Not on file Sexual Orientation Not on file documented as of this encounter Miscellaneous Notes * Cerner Conversion Note - Yoli Luna MD - 05/03/2020 12:11 PM CDT [facility] [place] [address] CALEB MATTHEWS :1970 Visit Time:05/03/2020 What to do next Your Diagnosis Other specified symptoms and signs involving the digestive system and abdomen, Other specified symptoms and signs involving the digestive system and abdomen Personal history of other diseases of the digestive system Unspecified abdominal pain Follow-Up Appointments Follow Up with COLTON DODSON MD When Comments Biopsy results will be mailed to your home in about 1 week. If you do not receive anything, please call the GI office. Where: [address] [place] [address] [address] [place] [address]- Medications What How Much When Instructions Next Dose amphetamine-dextroamphetamine (amphetamine-dextroamphetamine 30 mg oral capsule, extended release) 1 Capsule(s) Oral Every Morning cefTAZidime (Tazicef ADD-[place]) IntraVENous Every 8 Hours hydrochlorothiazide-lisinopril (hydroCHLOROthiazide-lisinopril 25 mg-20 mg oral tablet) 1 Tablet(s) Oral Every Day zolpidem (Ambien 10 mg oral tablet) 1 Tablet(s) Oral At Bedtime as needed for sleep Take your medications faithfully. Do NOT skip [...] Please dispose of unused and medications per pharmacy guidance. Education Materials ESOPHAGOGASTRODUODENOSCOPY Care After Read the instructions outlined [...] call your doctor. HOME CARE INSTRUCTIONS: ACTIVITY: ??? You may resume your regular activity tomorrow, but move at a slower pace for the next 24 hours. ??? Take frequent rest periods for the next 24 hours. ??? Walking will help get rid of the air and reduce the bloated feeling in your belly (abdomen). ??? No driving for 24 hours because of the medication (sedation) used during the test. ??? You may shower. ??? Do not sign any important legal documents or operate any machinery for 24 hours (because of the sedation used during the test). NUTRITION: ??? Drink plenty of fluids. ??? You may resume your normal diet or as instructed by your doctor ??? Begin with a light meal and progress to your normal diet. Heavy or fried foods are harder to digest and may make you feel sick to your stomach (nauseated). ??? Avoid alcoholic beverages for 24 hours or as instructed. MEDICATIONS: ??? You may resume your normal medications unless your doctor tells you otherwise. WHAT TO EXPECT TODAY: ??? Some feelings of bloating in the abdomen. ??? Excessive burping today and passage of more gas than usual. ??? A sore throat can be normal. Use throat lozenges or gargle with warm salt water and drink plenty of fluids. FINDING OUT THE RESULTS OF YOUR TEST: ??? Not all test results are available during your visit. If you had biopsies or other tests done during your procedure, you can make an appointment with your doctor to get the results. Sometimes you may be instructed to call the doctor???s office for your results. It is important for you to follow up on all of your test results. SEEK IMMEDIATE MEDICAL CARE IF: ??? You cannot eat or drink. ??? You have worsening throat or chest pain. ??? You have dizziness, lightheadedness, or you faint. ??? You have severe nausea or vomiting. ??? You have a fever greater than 101. ??? You have chills. ??? You have severe abdominal pain or discomfort that gets worse throughout the day. ??? You have black, tarry, or bloody stools. [...] Take warm sitz baths for 20 minutes, 3???4 times a day to ease pain and [...] Leave the ice on for 20 minutes, 2???3 times a day. General instructions ??? Take htjh-djw-mpibrtd and prescription medicines only as told by [...] 09/19/2001 Document Revised: 09/30/2019 Document Reviewed: 02/11/2019 [employer] Patient Education ?? 2020 [employer]. General Anesthesia, Adult, Care After This sheet [...] activities are safe for you. ??? Take xbbw-yyl-adssoxa and prescription medicines only as told by [...] 12/29/2001 Document Revised: 09/25/2018 Document Reviewed: 05/08/2018 [employer] Patient Education ?? 2020 [employer]. Gastritis, Adult Gastritis is inflammation of the [...] medicines. These include steroids, antibiotics, and some jxex-qhr-ddqpzfc medicines, such as aspirin or ibuprofen. ??? [...] these instructions at home: Medicines ??? Take bkvw-gaj-jnwfycd and prescription medicines only as told by [...] alcohol: ? Limit your use to: ? 0???1 drink a day for women. ? 0???2 drinks a day for men. ? Be aware of how much alcohol is in your drink. In the [place] one drink equals one 12 oz bottle of beer (355 mL), one 5 oz glass of wine (148 mL), or one 1?? oz glass of hard liquor (44 mL). [...] 09/16/2002 Document Revised: 02/09/2019 Document Reviewed: 02/09/2019 [employer] Patient Education ?? 2020 [employer]. Esophagitis Esophagitis is inflammation of the esophagus. [...] these instructions at home: Medicines ??? Take zzmd-snz-tfngexn and prescription medicines only as told by [...] vinegar, hot sauces, and barbecue sauce. ? [place] fruit juices and citrus fruits, such as oranges, jessie, and limes. ? Tomato-based foods, such as red sauce, chili, salsa, and pizza with red sauce. ? Fried and fatty foods, such as donuts, dominican fries, potato chips, and high-fat dressings. ? [...] meals. ??? Avoid eating meals during the 2???3 hours before bedtime. ??? Avoid lying down [...] 10/30/2005 Document Revised: 05/14/2019 Document Reviewed: 05/14/2019 [employer] Patient Education ?? 2020 [employer]. Colonoscopy, Adult, Care After This sheet gives [...] slower pace than normal. ? Eat soft, pngv-sy-tqpvvp foods. ??? Take utuk-sui-hmgrfoy or prescription medicines only as told by [...] source. ? Leave the heat on for 20???30 minutes. ? Remove the heat if your [...] ??? You have blood in your stool 2???3 days after the procedure. Get help right [...] 05/06/2005 Document Revised: 07/15/2018 Document Reviewed: 12/03/2016 [employer] Patient Education ?? 2020 [employer]. Emergency Awareness and Preventative Care STROKE is [...] Assistance with quitting is available by contacting 0-531-RRNP-NOW. This is a free resource providing counseling, [...] and how to prevent infections, visit www.cdc.gov/sepsis. Test Results Laboratory or Other Results This Visit (last charted value for your 05/03/2020 visit) Microbiology 05/01/2020 12:00 PM Novel Coronavirus 2019: Not Detected Patient Name:CALEB MATTHEWS I have received this information and was given the opportunity to ask questions. Patient/Drill Hand Name: Patient/Drill Hand Signature: Relationship to Patient: Clinician/Hospital Drill Hand Signature: Date: Electronically signed by Pancho, [facility] Conversion Corner Cutter Tommie at 01/22/2023 6:53 PM CDT documented in this encounter Plan of Treatment Not on file documented as of this encounter Visit Diagnoses Not on filedocumented in this encounter
--- OUTSIDE RECORDS SUMMARY | 2025-06-09 09:43 | XMS_ITS | Encounter Summary ---
Author Organization [employer] ([place], [place], [place], [place]) Address [address] [place] [address] Care Team Providers Care Bicycle Technician Name Role Phone Unavailable Primary Care Provider Sai e Encounter Details Date Type Department Care Team (Late st Contact Info) Description 10/11/2018 Transcribed Document [facility] [place] [address] [place] [address] ProviderYoli MD [address] [place] [address] Social History Tobacco Use Types Packs/Day Years Used Date Smoking Tobacco: Never Assessed Sex and Gender Information Value Date Recorded Sex Assigned at Not on file Legal Sex Male 6:25 PM CDT Gender Identity Not on file Sexual Orientation Not on file documented as of this encounter Miscellaneous Notes * Cerner Conversion Note - Yoli ProviderMD - 10/11/2018 2:53 PM GIZZARD PEELER Patient: CALEB MATTHEWS Age: 47 Years Sex: Male : 1970 Subjective multiple owel movements after small bowel follow-through Pain improving Intake & Output Intake & Output Totals Last 24 Hours (7a-7a) Intake (32 Events) Continuous Infusions (1777.0833 mL) Medications (347.5 mL) Output (4 Events) Gastric Tube Output: (920 mL) Urine Voided (Volume) (500 mL) Input Total: 2124.5833 mL Output Total: 1420 mL Balance: 704.5833 mL Vital Signs T: 36.8 ??C HR: 84 (Monitored) RR: 14 BP: 140/90 MAP: 115 SpO2: 95% Physical Exam Gen: NAD Resp: Nonlabored respirations CV: Normal peripheral perfusion Ab: soft, nontender nondistended, VTE Risk Total Score VTE Prophylaxis - Surgical Heparin 5,000 Units, SubCutaneous, Inj, Q12H, Routine, Start 10/10/18 11:30:00 EST (KEMAR ACOSTA MD) Small bowel obstruction K56.609 resolved Advancing diet Home tomorrow Orders: acetaminophen, 500 mg, Oral, Tab, Q6H, PRN for Abdominal Pain, Routine, Start 10/11/18 12:51:00 EST docusate, 100 mg, Oral, Cap, BID, Routine, Start 10/11/18 12:51:00 EST oxyCODONE, 5 mg, Oral, Tab, Q6H, PRN for Abdominal Pain, Routine, Start 10/11/18 12:51:00 EST polyethylene glycol 3350, 17 Gram, Oral, Powder, Daily, Routine, Start 10/11/18 12:51:00 EST Advance Diet Instructions to Nursing Diet, Adult Medications Inpatient Colace, 100 mg, 1 Cap, Oral, BID Dilaudid, 0.5 mg, 0.5 mL, IV Push, Q4H, PRN heparin, 5000 Units, 1 mL, SubCutaneous, Q12H MiraLax, 17 Gram, 1 Packet, Oral, Daily oxyCODONE, 5 mg, 1 Tab, Oral, Q6H, PRN Protonix, 40 mg, IV Push, Daily Sodium Chloride 0.9% intravenous solution 1,000 mL, 1000 mL, IntraVENous Tylenol, 500 mg, 1 Tab, Oral, Q6H, PRN Zofran, 4 mg, 2 mL, IV Push, Q4H, PRN Home acetaminophen Routine Labs - Last 24 Hours No qualifying data available Albumin Level: 3.1 Gram/dL Low Alk Phos: 40 Units/Liter ALT: 38 Units/Liter Anion Gap: 13 AST: 44 Units/Liter High Bilirubin Total: 0.9 mg/dL Calcium Level: 8.4 mg/dL Magnesium Level: 2.1 mg/dL Protein Total: 5.9 Gram/dL Low Imaging Results (Last 24 Hours) Radiology Results (Last 48 hours) [id number] -- 10/10/2018 11:30 CT Abdomen Pelvis W (10/10/2018 07:18) Result: CT SCAN OF THE ABDOMEN AND PELVIS WITH CONTRAST INDICATION: Abdominal pain.COMPARISON: None .TECHNIQUE: Multiple axial CT images were obtained from the lung basesthrough the pubic symphysis following the administration of intravenous contrast. This study was performed with techniques to keep radiationdoses as low as reasonably achievable, (ALARA). Individualized dosereduction techniques using automated exposure control or adjustment ofmA and/or kV according to the patient size were employed. FINDINGS: ABDOMEN: The lung bases are clear. The heart is normal in size. Theliver is diffusely hypodense consistent with fatty infiltration. Thespleen is unremarkable. No adrenal mass is present. The pancreas isnormal. The kidneys are normal. The aorta is normal in caliber. There isno free fluid or adenopathy. There are mildly dilated loops of smallbowel within the abdomen which gradually taper to normal caliber likelyreflecting ileus.PELVIS: The appendix is not identified. There are colonic diverticulawithout CT evidence of diverticulitis. The urinary bladder isunremarkable. There is no significant free fluid or adenopathy. IMPRESSION: Mildly dilated loops of small bowel without a distincttransition point most suggestive of an ileus. An early obstruction isnot entirely excluded. CR Small Bowel Series (10/11/2018 10:36) Result: SMALL BOWEL FOLLOW-THROUGHHISTORY: Epigastric pain. Abnormal CT.PROCEDURE: Gastrografin was gently injected through the patient'sexisting nasogastric tube. 9 overhead films were obtained.FINDINGS: Preliminary director of manufacturing film demonstrates nasogastric tubeterminating within the stomach. There is a single loop of mildly dilatedbowel within the left abdomen. The transit time to the colon is normalat 45 minutes. The mucosal fold pattern is normal.IMPRESSION: No obstruction identified.Images reviewed, interpreted, and dictated by Dr. Natalie Youngblood.Transcribed by MARTY Neff have personally viewed, interpreted and dictated the examination. Ihave read and agree with the above final transcribed report. Problem List/Past Medical History No chronic problems Historical No historical problems Procedure/Surgical History LUNG CANCER WORKUP. Allergies ketorolac (Rash, Rash) Electronically signed by Nena Deleon Conversion Repairer Welding Systems And Equipment Cerner at 01/22/2023 6:31 PM CDT documented in this encounter Plan of Treatment Not on file documented as of this encounter Visit Diagnoses Not on filedocumented in this encounter
--- OUTSIDE RECORDS SUMMARY | 2025-06-09 09:43 | XMS_ITS | Encounter Summary ---
Author Organization [employer] ([place], [place], [place], [place]) Address [address] [place] [address] Care Team Providers Care Expander Name Role Phone Unavailable Primary Care Provider Unavailenrike e Encounter Details Date Type Department Care Team (Late st Contact Info) Description 10/11/2018 Transcribed Document [facility] [place] Medicine [address] [place] [address] ProviderYoli MD [address] [place] [address] Social History Tobacco Use Types Packs/Day Years Used Date Smoking Tobacco: Never Assessed Sex and Gender Information Value Date Recorded Sex Assigned at Not on file Legal Sex Male 6:25 PM CDT Gender Identity Not on file Sexual Orientation Not on file documented as of this encounter Miscellaneous Notes * Cerner Conversion Note - Historical ProviderMD - 10/11/2018 5:00 AM FIB[employer] OPTIC CABLE SPLICER Chart Check - Review Order Profile Entered On: 10/11/2018 6:10 EST Performed On: 10/11/2018 5:00 EST by Eileen Sun Rn Chart Check Chart Reviewed Date and Time : 10/11/2018 5:00 EST [employer] Initiated/Discontinued as Appropriate : Yes All Active Orders Reviewed : Yes Eileen Sun Rn - 10/11/2018 6:10 EST Electronically signed by Pancho [facility] Conversion Trim Machine Operator Cerner at 01/22/2023 6:32 PM CDT documented in this encounter Plan of Treatment Not on file documented as of this encounter Visit Diagnoses Not on filedocumented in this encounter
--- OUTSIDE RECORDS SUMMARY | 2025-06-09 09:43 | XMS_ITS | Encounter Summary ---
Author Organization [employer] ([place], [place], [place], [place]) Address [address] [place] [address] Care Team Providers Care Oysterman Name Role Phone Unavailable Primary Care Provider Unavailenrike e Encounter Details Date Type Department Care Team (Late st Contact Info) Description 02/27/2019 Transcribed Document [facility] [place] [address] [place] [address] ProviderYoli MD [address] [place] [address] Social History Tobacco Use Types Packs/Day Years Used Date Smoking Tobacco: Never Assessed Sex and Gender Information Value Date Recorded Sex Assigned at Not on file Legal Sex Male 6:25 PM CDT Gender Identity Not on file Sexual Orientation Not on file documented as of this encounter Miscellaneous Notes * Cerner Conversion Note - Historical ProviderMD - 02/27/2019 5:00 AM CDT Chart Check - Review Order Profile Entered On: 02/27/2019 3:03 EDT Performed On: 02/27/2019 5:00 EDT by MARINA COTE RN Chart Check Power[employer]ans Initiated/Discontinued as Appropriate : Yes All Active Orders Reviewed : Yes MARINA COTE RN - 02/27/2019 3:03 EDT documented in this encounter Plan of Treatment Not on file documented as of this encounter Visit Diagnoses Not on filedocumented in this encounter
--- OUTSIDE RECORDS SUMMARY | 2025-06-09 09:43 | XMS_ITS | Encounter Summary ---
Author Organization [employer] ([place], [place], [place], [place]) Address [address] [place] [address] Care Team Providers Care Internet Project Manager Name Role Phone Unavailable Primary Care Provider Unavailabl e Encounter Details Date Type Department Care Team (Late st Contact Info) Description 05/03/2020 Transcribed Document [facility] [place] [address] [place] [address] ProviderYoli MD [address] [id number] Social History Tobacco Use Types Packs/Day Years Used Date Smoking Tobacco: Never Assessed Sex and Gender Information Value Date Recorded Sex Assigned at Not on file Legal Sex Male 6:25 PM CDT Gender Identity Not on file Sexual Orientation Not on file documented as of this encounter Miscellaneous Notes * Cerner Conversion Note - Yoli Luna MD - 05/03/2020 11:46 AM CDT Patient: CALEB MATTHEWS Age: 49 Years Sex: Male : 1970 *Operation Colonoscopy, Esophagogastroduodenoscopy, Gastric Biopsy, Colon Biopsy, Indication for Surgery Abdominal pain Change in bowel. *Preoperative Diagnosis change in bowel and abd pain *Postoperative Diagnosis Abdominal pain due to previous adhesion. Chronic gastritis Reflux esophagitis A Normal colon to terminal ileum except hemorrhoids. *Surgeon(s) Primary Surgeon COLTON DODSON MD (Surgeon/Proceduralist, First) *Estimated Blood Loss Minimal. The colon prep was good. *Findings Reflux esophagitis A. Chronic gastritis, antral biopsies taken. Normal duodenum Normal colon to cecum and terminal ileum. Random colon biopsies were taken. Medium hemorrhoids. *Specimen(s) Antrum Random colon Complications None Outpatient Capsule Endoscopy. Follow up colonoscopy in 10 years. PPI daily x 3 months. Date of Service Date/Time of Service SN - Proc - Start Time: 05/03/20 11:29:00 (05/03/20 11:32:27) SN - Proc - Start Time: 05/03/20 11:29:00 (05/03/20 11:32:27) Electronically signed by Pancho, Nena Conversion Pathology Laboratory Aides Teacher Cerner at 01/22/2023 6:40 PM CDT documented in this encounter Plan of Treatment Not on file documented as of this encounter Visit Diagnoses Not on filedocumented in this encounter
--- OUTSIDE RECORDS SUMMARY | 2025-06-09 09:43 | XMS_ITS | Clinical Summary ---
Author Organization [employer] ([place], [place], [place], [place]) Address [address] [place] [address] Care Team Providers Care Light Armored Reconnaissance Officer Name Role Phone Unavailable Primary Care Provider Unavailabl e Social History Tobacco Use Types Packs/Day Years Used Date Smoking Tobacco: Never Assessed Sex and Gender Information Value Date Recorded Sex Assigned at Not on file Legal Sex Male 6:25 PM CDT Gender Identity Not on file Sexual Orientation Not on file Plan of Treatment Not on file
--- OUTSIDE RECORDS SUMMARY | 2025-06-09 09:43 | XMS_ITS | Encounter Summary ---
Author Organization [employer] ([place], [place], [place], [place]) Address [address] [place] [address] Care Team Providers Care Ultrasound Technologist Sonographer Name Role Phone Unavailable Primary Care Provider Unavailenrike e Encounter Details Date Type Department Care Team (Late st Contact Info) Description 03/08/[address] [facility] [place] [facility] [place] [address] ProviderYoli MD [address] [id number] Social History Tobacco Use Types Packs/Day Years Used Date Smoking Tobacco: Never Assessed Sex and Gender Information Value Date Recorded Sex Assigned at Not on file Legal Sex Male 6:25 PM CDT Gender Identity Not on file Sexual Orientation Not on file documented as of this encounter Miscellaneous Notes * Cerner Conversion Note - Yoli ProviderMD - 03/08/2019 9:00 AM CDT Patient: CALEB MATTHEWS Age: 48 Years Sex: Male : 1970 Assessment/Plan Status post post exploratory laparotomy of with lysis of adhesions Ileus has resolved. Patient tolerating full liquid diet. Advance diet to a GI soft diet. The patient is stable and ready for discharge to home. VTE Prophylaxis - Medical Enoxaparin 40 mg, SubCutaneous, Inj, [id number], Routine, Start 02/26/19 11:00:00 EDT (KATHY HERNANDEZ) Subjective Patient is doing well. Tolerating diet. Pain control. Vital Signs T: 36.7 ??C TMIN: 36.7 ??C TMAX: 37.3 ??C HR: 83(Monitored) RR: 16 BP: 109/65 SpO2: 98% Oxygen Settings (Last) Oxygen Therapy Mode: Room air (03/07/19 20:00:00 EDT) Oxygen Flow Rate: 2 Liter/Min (02/26/19 21:20:00 EDT) Intake & Output Totals Last 24 Hours (7a-7a) Input Total: 881 mL Output Total: 1940 mL Balance: -1059 mL Physical Exam Gen: NAD Resp: Nonlabored respirations CV: Normal peripheral perfusion Ab: soft, nontender, nondistended Medications Adderall 10 mg oral tablet, 30 mg= 3 Tab, Oral, Daily cloNIDine 50 mcg + dexamethasone 4 mg + bupivacaine-EPINEPHrine 0.25%-1:200,000 injectable solution cloNIDine 50 mcg + dexamethasone 4 mg + bupivacaine-EPINEPHrine 0.25%-1:200,000 injectable solution docusate sodium, 100 mg= 1 Cap, Oral, BID hydroCHLOROthiazide, 25 mg= 1 Tab, Oral, Daily lisinopril, 20 mg= 1 Tab, Oral, Daily Lovenox, 40 mg= 0.4 mL, SubCutaneous, K30DCed MiraLax, 17 Gram= 1 Packet, Oral, Daily ondansetron, 4 mg= 2 mL, IV Push, Q6H, PRN oxyCODONE, 5 mg= 1 Tab, Oral, Q6H, PRN OxyCONTIN, 15 mg= 1 Tab, Oral, Q12H sodium chloride 0.9% injectable solution, 10 mL, IV Push, See Comment, PRN Tylenol, 650 mg= 2 Tab, Oral, Q4H Valium, 5 mg= 1 Tab, Oral, Q6H, PRN Lab Results Test Name Test Result Date/Time Platelet Count 524 K/uL (High) 03/08/2019 07:16 EDT Electronically signed by Nena Deleon Conversion Motor Vehicle Emissions Inspector Cerner at 01/22/2023 6:28 PM CDT documented in this encounter Plan of Treatment Not on file documented as of this encounter Visit Diagnoses Not on filedocumented in this encounter
--- OUTSIDE RECORDS SUMMARY | 2025-06-09 09:43 | XMS_ITS | Encounter Summary ---
Author Organization [employer] ([place], [place], [place], [place]) Address [address] [place] [address] Care Team Providers Care Acquisition Editor Name Role Phone Unavailable Primary Care Provider Unavailenrike e Encounter Details Date Type Department Care Team (Late st Contact Info) Description 02/27/2019 Transcribed Document [facility] [place] [address] [place] [address] ProviderYoli MD [address] [place] [address] Social History Tobacco Use Types Packs/Day Years Used Date Smoking Tobacco: Never Assessed Sex and Gender Information Value Date Recorded Sex Assigned at Not on file Legal Sex Male 6:25 PM CDT Gender Identity Not on file Sexual Orientation Not on file documented as of this encounter Miscellaneous Notes * Cerner Conversion Note - Historical ProviderMD - 02/27/2019 2:00 AM CDT Promotion Specialist Details Entered On: 02/27/2019 1:10 EDT Performed On: 02/27/2019 2:00 EDT by MARINA COTE RN Order Details Transport Mode Order Detail : Wheelchair Isolation Precautions Order Detail : Standard Precautions Order Detail : N/A IV Order Detail : 1 Oxygen Order Detail : 0 Nurse Collect Order Detail : 0 Lift/Transfer : Independent Central Line Order Detail : No Room Service : Appropriate Arterial Line : No MARINA COTE RN - 02/27/2019 1:10 EDT documented in this encounter Plan of Treatment Not on file documented as of this encounter Visit Diagnoses Not on filedocumented in this encounter
--- OUTSIDE RECORDS SUMMARY | 2025-06-09 09:43 | XMS_ITS | Encounter Summary ---
Author Organization [employer] ([place], [place], [place], [place]) Address [address] [place] [address] Care Team Providers Care Seasonal Retail Merchandiser Name Role Phone Unavailable Primary Care Provider Unavailenrike e Encounter Details Date Type Department Care Team (Late st Contact Info) Description 02/26/2019 Transcribed Document [facility] [place] [facility] [place] [address] ProviderYoli MD [address] [place] [address] Social History Tobacco Use Types Packs/Day Years Used Date Smoking Tobacco: Never Assessed Sex and Gender Information Value Date Recorded Sex Assigned at Not on file Legal Sex Male 6:25 PM CDT Gender Identity Not on file Sexual Orientation Not on file documented as of this encounter Miscellaneous Notes * Cerner Conversion Note - Yoli ProviderMD - 02/26/2019 10:04 AM CDT Patient: CALEB MATTHEWS Age: 48 Years Sex: Male : 1970 *Operation Exploratory laparotomy Lysis of adhesions Indication for Surgery 48-year-old male with history of multiple abdominal surgeries who presented with partial small bowel obstructions. He underwent laparoscopic lysis of adhesions in November 2018 with return of bowel function. The patient continued to endorse left lower quadrant pain and occasional bouts of partial obstruction since discharge. *Preoperative Diagnosis Partial small bowel obstruction *Postoperative Diagnosis Same *Surgeon(s) Antonio Bo M.D. coding assistant: Kendal Thomas *Procedure Narrative Patient was brought to operative suite and placed in supine position. After induction of general anesthesia patient was prepped and draped in sterile fashion . Time out was preformed. Verified patient, procedures, yue-operative antibiotics, and correct site. I made a vertical midline incision using a 10 blade and this incision was deepened using electrocautery. I carefully entered the peritoneum at the inferior aspect of his wound given his previous abdominal surgeries. Using Metzenbaum scissors sharply dissected adhered small bowel to the anterior abdominal wall. Once I cleared the bilateral abdominal wall I then examined the small bowel standard fashion beginning at the ligament of Treitz. Patient had numerous intraloop adhesions. This required combination of blunt and sharp dissection in order to define the patient's intestinal anatomy. At the completion of the dissection I was able to examine the small bowel freely beginning at the ligament of Treitz to cecum. Then I examined the right, transverse and descending colon. The abdomen was irrigated and checked for hemostasis. Fascia was closed with #1 looped PDS ??2. Skin was closed with tyler. Patient tolerated procedure well. A tap block was performed at the completion of the surgery. Drains/Packs Used None *Estimated Blood Loss 100 mL *Findings Numerous intraloop adhesions *Specimen(s) None Complications None Date of Service Date/Time of Service SN - Proc - Start Time: 02/26/19 08:27:00 (EDT) (02/26/19 09:15:14 EDT) SN - Proc - Start Time: 02/26/19 08:27:00 (EDT) (02/26/19 09:15:14 EDT) Electronically signed by Nena Deleon Conversion Dental Laboratory Technology Teacher Cerner at 01/22/2023 6:48 PM CDT documented in this encounter Plan of Treatment Not on file documented as of this encounter Visit Diagnoses Not on filedocumented in this encounter
--- OUTSIDE RECORDS SUMMARY | 2025-06-09 09:44 | XMS_ITS | Encounter Summary ---
Author Organization [employer] ([place], [place], [place], [place]) Address [address] [place] [address] Care Team Providers Care Shoe Repair Cobbler Name Role Phone Unavailable Primary Care Provider Unavailabl e Encounter Details Date Type Department Care Team (Late st Contact Info) Description 03/02/2019 Transcribed Document [facility] [place] Family Medicine [address] [place] [address] ProviderYoli MD [address] [place] [address] Social History Tobacco Use Types Packs/Day Years Used Date Smoking Tobacco: Never Assessed Sex and Gender Information Value Date Recorded Sex Assigned at Not on file Legal Sex Male 6:25 PM CDT Gender Identity Not on file Sexual Orientation Not on file documented as of this encounter Miscellaneous Notes * Cerner Conversion Note - Yoli ProviderMD - 03/02/2019 8:52 AM CDT UM Authorization Entered On: 03/02/2019 8:53 EDT Performed On: 03/02/2019 8:52 EDT by CARLOS MANUEL CAMACHO RN Primary Insurance Authorization Authorization and Policy Numbers : Insurance 1 Health Plan: [employer] Policy Number: [id number] Authorization Number: NPR Insurance Primary Name : [facility] [id number] Reference Number-Primary : [id number] Authorized Service Begin Date-Primary : 02/26/2019 EDT Authorization Comments-Primary : Clinicals submitted via [employer] website Historical Authorization Comments-Primary : Comment 1: No authorization for this visit, OP or IP found in [employer]. (MARCIA DELGADILLO RN 02/27/2019 10:39) Comment 2: Per [facility] notes no auth required. Submitted for OP (?). wants patient to stay 5 days. Note to UR team to f/u on 5/28 re: authorizatin (MARCIA DELGADILLO RN 02/27/2019 10:36) CARLOS MANUEL CAMACHO RN - 03/02/2019 8:52 EDT documented in this encounter Plan of Treatment Not on file documented as of this encounter Visit Diagnoses Not on filedocumented in this encounter
--- OUTSIDE RECORDS SUMMARY | 2025-06-09 09:44 | XMS_ITS | Encounter Summary ---
Author Organization [employer] ([place], [place], [place], [place]) Address [address] [place] [address] Care Team Providers Care Price Economist Name Role Phone Unavailable Primary Care Provider Sai e Encounter Details Date Type Department Care Team (Late st Contact Info) Description 03/02/2019 Transcribed Document [facility] [place] Family Medicine [address] [place] [address] ProviderYoli MD [address] [place], [place] [id number] Social History Tobacco Use Types Packs/Day Years Used Date Smoking Tobacco: Never Assessed Sex and Gender Information Value Date Recorded Sex Assigned at Not on file Legal Sex Male 6:25 PM CDT Gender Identity Not on file Sexual Orientation Not on file documented as of this encounter Miscellaneous Notes * Cerner Conversion Note - Yoli ProviderMD - 03/02/2019 2:19 PM CDT Initial Discharge Planning Entered On: 03/02/2019 14:22 EDT Performed On: 03/02/2019 14:19 EDT by ELEONORA ARMAS Social Worker Initial Assessment I Previously Documented Living Environment : No qualifying data available. Living Situation : Home with family care Patient Lives With : Spouse Is the Patient a Caregiver at Home? : No Emergency Contact #1 : Christy Matthews Emergency Contact #1 Phone Number : [phone] Emergency Contact #1 Relationship : Emergency Contact #2 : ` Emergency Contact #2 Relationship : ` Enter Doctors Name : Gilberto Ma Does Patient have PCP Listed? : Yes Legal Guardian : No Is Guardianship Needed : No ELEONORA ARMAS Social Worker - 03/02/2019 14:19 EDT Initial Assessment II Sensory and Motor Deficits : None Current Home Treatments and Equipment : None ELEONORA ARMAS Social Worker - 03/02/2019 14:19 EDT Discharge Needs I Anticipated Discharge Date : 03/03/2019 EDT Anticipated Discharge To, CM : Home with family care Current Home Treatment/Equipment : Current Home Treatment/Equipment No qualifying data available. Post Acute/Home Treatments : None ELEONORA ARMAS French Cord Binder - 03/02/2019 14:19 EDT Discharge Needs II Professional Skilled Services : Professional Skilled Services No qualifying data available. ELEONORA ARMAS Social Worker - 03/02/2019 14:19 EDT Narrative Note Narrative Note : 48 year old male was admitted for exploratory lap/lysis of adhesions due to partial small bowel obstruction. MDR rounds held in pts room. Explained role of case management to pt and , Christy. Pt up ambulating independently. Pt will dc home tomorrow per surgery as long as pain is controlled. No needs identified. ELEONORA ARMAS French Cord Binder - 03/02/2019 14:19 EDT documented in this encounter Plan of Treatment Not on file documented as of this encounter Visit Diagnoses Not on filedocumented in this encounter
--- OUTSIDE RECORDS SUMMARY | 2025-06-09 09:44 | XMS_ITS | Encounter Summary ---
Author Organization [employer] ([place], [place], [place], [place]) Address [address] [place] [address] Care Team Providers Care Web Marketing Coordinator Name Role Phone Unavailable Primary Care Provider Unavailenrike e Encounter Details Date Type Department Care Team (Late st Contact Info) Description 11/19/2018 Transcribed Document [facility] [place] [address] [place] [address] ProviderYoli MD [address] [place] [address] Social History Tobacco Use Types Packs/Day Years Used Date Smoking Tobacco: Never Assessed Sex and Gender Information Value Date Recorded Sex Assigned at Not on file Legal Sex Male 6:25 PM CDT Gender Identity Not on file Sexual Orientation Not on file documented as of this encounter Miscellaneous Notes * Cerner Conversion Note - Historical ProviderMD - 11/19/2018 2:00 AM DAIRY INSPECTOR Snowmobile Mechanic Details Entered On: 11/19/2018 3:49 EST Performed On: 11/19/2018 2:00 EST by Reese Chawla RN Order Details Transport Mode Order Detail : Ambulatory Isolation Precautions Order Detail : Standard Precautions Order Detail : N/A IV Order Detail : 1 Oxygen Order Detail : 1 Nurse Collect Order Detail : 0 Lift/Transfer : Independent Central Line Order Detail : No Room Service : Not Appropriate Arterial Line : No Reese Chawla RN - 11/19/2018 3:49 EST documented in this encounter Plan of Treatment Not on file documented as of this encounter Visit Diagnoses Not on filedocumented in this encounter
--- OUTSIDE RECORDS SUMMARY | 2025-06-09 09:44 | XMS_ITS | Encounter Summary ---
Author Organization [employer] ([place], [place], [place], [place]) Address [address] [place] [address] Care Team Providers Care Inspector Hairspring Name Role Phone Unavailable Primary Care Provider Unavailenrike e Encounter Details Date Type Department Care Team (Late st Contact Info) Description 02/28/2019 Transcribed Document [facility] [place] [address] [place] [address] ProviderYoli MD [address] [place] [address] Social History Tobacco Use Types Packs/Day Years Used Date Smoking Tobacco: Never Assessed Sex and Gender Information Value Date Recorded Sex Assigned at Not on file Legal Sex Male 6:25 PM CDT Gender Identity Not on file Sexual Orientation Not on file documented as of this encounter Miscellaneous Notes * Cerner Conversion Note - Historical ProviderMD - 02/28/2019 12:00 AM CDT Pain Assessment Entered On: 02/28/2019 1:27 EDT Performed On: 02/27/2019 23:37 EDT by MARINA COTE RN Intervention Information: acetaminophen Performed by MARINA COTE RN on 02/27/2019 23:32:00 EDT acetaminophen,1000mg IV Piggyback,Right Mid Forearm Pain Assessment Pain Assessment : Follow-up assessment Pain Scale Goal : 4 Pain Scale Used : 0-10 Scale MARINA COTE RN - 02/28/2019 1:27 EDT Pain Scale Intensity : 5 MARINA COTE RN - 02/28/2019 1:27 EDT Image 4 - Images currently included in the form version of this document have not been included in the text rendition version of the form. documented in this encounter Plan of Treatment Not on file documented as of this encounter Visit Diagnoses Not on filedocumented in this encounter
--- OUTSIDE RECORDS SUMMARY | 2025-06-09 09:44 | XMS_ITS | Encounter Summary ---
Author Organization [employer] ([place], [place], [place], [place]) Address [address] [place] [address] Care Team Providers Care It Program Engagement Director Name Role Phone Unavailable Primary Care Provider Unavailenrike e Encounter Details Date Type Department Care Team (Late st Contact Info) Description 11/17/2018 Transcribed Document [facility] [place] [address] [place] [address] ProviderYoli MD [address] [place] [address] Social History Tobacco Use Types Packs/Day Years Used Date Smoking Tobacco: Never Assessed Sex and Gender Information Value Date Recorded Sex Assigned at Not on file Legal Sex Male 6:25 PM CDT Gender Identity Not on file Sexual Orientation Not on file documented as of this encounter Miscellaneous Notes * Cerner Conversion Note - Historical ProviderMD - 11/17/2018 5:08 PM INSTRUMENT ASSEMBLER ED Event Note Entered On: 11/17/2018 17:09 EST Performed On: 11/17/2018 17:08 EST by MARCIA MAZARIEGOS RN ED Event Note ED Event Date/Time : 11/17/2018 17:08 EST ED Event Location : Assigned room ED Description of Event : Report called to Sharmaine Alan RN and pt to room 336 via stretcher. MARCIA MAZARIEGOS RN - 11/17/2018 17:08 EST Electronically signed by [facility] Conversion Casing Tier Cerner at 01/22/2023 6:29 PM CDT documented in this encounter Plan of Treatment Not on file documented as of this encounter Visit Diagnoses Not on filedocumented in this encounter
--- OUTSIDE RECORDS SUMMARY | 2025-06-09 09:44 | XMS_ITS | Encounter Summary ---
Author Organization [employer] ([place], [place], [place], [place]) Address [address] [place] [address] Care Team Providers Care Post Anesthesia Room Nurse Name Role Phone Unavailable Primary Care Provider Unavailenrike e Encounter Details Date Type Department Care Team (Late st Contact Info) Description 02/27/2019 Transcribed Document [facility] [place] Family Medicine [address] [place] [address] ProviderYoli MD [address] [place] [address] Social History Tobacco Use Types Packs/Day Years Used Date Smoking Tobacco: Never Assessed Sex and Gender Information Value Date Recorded Sex Assigned at Not on file Legal Sex Male 6:25 PM CDT Gender Identity Not on file Sexual Orientation Not on file documented as of this encounter Miscellaneous Notes * Cerner Conversion Note - Historical ProviderMD - 02/27/2019 12:00 PM CDT Pain Assessment Entered On: 02/27/2019 18:32 EDT Performed On: 02/27/2019 12:22 EDT by Sylvie Mcmanus RN Intervention Information: acetaminophen Performed by Sylvie Mcmanus RN on 02/27/2019 12:17:00 EDT acetaminophen,1000mg IV Piggyback,Right Antecubit Crosby Pain Assessment Pain Assessment : Follow-up assessment Pain Scale Goal : 4 Pain Scale Used : FACES Sylvie Mcmnaus RN - 02/27/2019 18:32 EDT Pain Scale [...]
--- OUTSIDE RECORDS SUMMARY | 2025-06-09 09:44 | XMS_ITS | Encounter Summary ---
Author Organization [employer] ([place], [place], [place], [place]) Address [address] [place] [address] Care Team Providers Care Landscape Technician Name Role Phone Unavailable Primary Care Provider Unavailenrike e Encounter Details Date Type Department Care Team (Late st Contact Info) Description 11/17/2018 Transcribed Document [facility] [place] Family Medicine [address] [place] [address] ProviderYoli MD [address] [place] [address] Social History Tobacco Use Types Packs/Day Years Used Date Smoking Tobacco: Never Assessed Sex and Gender Information Value Date Recorded Sex Assigned at Not on file Legal Sex Male 6:25 PM CDT Gender Identity Not on file Sexual Orientation Not on file documented as of this encounter Miscellaneous Notes * Cerner Conversion Note - Historical ProviderMD - 11/17/2018 12:31 PM JOURNEYMAN MACHINIST Pain Assessment Entered On: 11/17/2018 14:21 EST Performed On: 11/17/2018 13:13 EST by MARCIA MAZARIEGOS RN Intervention Information: morphine Performed by MARCIA MAZARIEGOS RN on 11/17/2018 12:43:00 EST morphine,4mg IV Push,Left Lower Forearm Pain Assessment Pain Assessment : Follow-up assessment Pain Scale Used : 0-10 Scale Location : Abdominal MARCIA MAZARIEGOS RN - 11/17/2018 14:21 EST Pain Scale Intensity : 4 MARCIA MAZARIEGOS RN - 11/17/2018 14:21 EST Image 4 - Images currently included in the form version of this document have not been included in the text rendition version of the form. Electronically signed by Nena Deleon Conversion Structural Metal Fabricator Apprentice Cerner at 01/22/2023 6:38 PM CDT documented in this encounter Plan of Treatment Not on file documented as of this encounter Visit Diagnoses Not on filedocumented in this encounter
--- OUTSIDE RECORDS SUMMARY | 2025-06-09 09:44 | XMS_ITS | Encounter Summary ---
Author Organization [employer] ([place], [place], [place], [place]) Address [address] [place] [address] Care Team Providers Care Personal Computer Network Engineer Name Role Phone Unavailable Primary Care Provider Unavailenrike e Encounter Details Date Type Department Care Team (Late st Contact Info) Description 03/05/2019 Transcribed Document [facility] [place] Family Medicine [address] [place] [address] ProviderYoli MD [address] [place] [address] Social History Tobacco Use Types Packs/Day Years Used Date Smoking Tobacco: Never Assessed Sex and Gender Information Value Date Recorded Sex Assigned at Not on file Legal Sex Male 6:25 PM CDT Gender Identity Not on file Sexual Orientation Not on file documented as of this encounter Miscellaneous Notes * Cerner Conversion Note - Historical ProviderMD - 03/05/2019 8:18 AM CDT Pain Assessment Entered On: 03/05/2019 19:28 EDT Performed On: 03/05/2019 19:47 EDT by Judy Conroy Lpn Intervention Information: oxyCODONE Performed by Sylvie Mcmanus RN on 03/05/2019 18:47:00 EDT oxyCODONE,10mg OroGAStric Tube,Abdominal Pain Pain Assessment Pain Assessment : Follow-up assessment Pain Scale Goal : 4 Pain Scale Used : 0-10 Scale Judy Conroy Lpn - 03/05/2019 19:28 EDT Pain Scale Intensity : 1 Judy Conroy Lpn - 03/05/2019 19:28 EDT Image 4 - Images currently included in the form version of this document have not been included in the text rendition version of the form. documented in this encounter Plan of Treatment Not on file documented as of this encounter Visit Diagnoses Not on filedocumented in this encounter
--- OUTSIDE RECORDS SUMMARY | 2025-06-09 09:44 | XMS_ITS | Encounter Summary ---
Author Organization [employer] ([place], [place], [place], [place]) Address [address] [place] [address] Care Team Providers Care Education Finance Processor Name Role Phone Unavailable Primary Care Provider Unavailabl e Encounter Details Date Type Department Care Team (Late st Contact Info) Description 11/17/2018 Transcribed Document [facility] [place] [address] [place] [address] ProviderYoli MD [address] [place] [address] Social History Tobacco Use Types Packs/Day Years Used Date Smoking Tobacco: Never Assessed Sex and Gender Information Value Date Recorded Sex Assigned at Not on file Legal Sex Male 6:25 PM CDT Gender Identity Not on file Sexual Orientation Not on file documented as of this encounter Miscellaneous Notes * Cerner Conversion Note - Historical ProviderMD - 11/17/2018 12:06 PM AUTOMOTIVE ARTIST ED Assessment Entered On: 11/17/2018 12:46 EST Performed On: 11/17/2018 12:45 EST by MARCIA MAZARIEGOS RN ED Quick Look Assessment Level of Consciousness : Alert, Awake Affect/Behavior : Appropriate, Calm, Cooperative Orientation : Oriented x 4 Skin Temperature : Warm Skin Description : Dry MARCIA MAZARIEGOS RN - 11/17/2018 12:45 EST ED General-Functional Assess Preferred Communication Mode : Verbal Communication Barrier : None Primary Language : Trinidadian Any Spiritual/Cultural Needs or Requests : No Currently in Unsafe Situation : No MARCIA MAZARIEGOS RN - 11/17/2018 12:45 EST Social Habits Smoking Status : Never (less than 100 in lifetime; none in last 30 days) Smokeless Tobacco Status : Never Desires Tobacco Cessation Calc : 0 MARCIA MAZARIEGOS RN - 11/17/2018 12:45 EST Social History (As Of: 11/17/2018 12:46:46 EST) Gastrointestinal ED Gastrointestinal Assessment WDL : WDL with exceptions Gastrointestinal Symptoms : Abdominal pain, Nausea Frequency of Vomiting : 0 Bowel Movemen, Last Date : 11/16/2018 9:00 EST MARCIA MAZARIEGOS RN - 11/17/2018 12:45 EST Electronically signed by [employer] [facility] Conversion Aircraft Engine Installer Cerner at 01/22/2023 6:39 PM CDT documented in this encounter Plan of Treatment Not on file documented as of this encounter Visit Diagnoses Not on filedocumented in this encounter
--- OUTSIDE RECORDS SUMMARY | 2025-06-09 09:44 | XMS_ITS | Encounter Summary ---
Author Organization [employer] ([place], [place], [place], [place]) Address [address] [place] [address] Care Team Providers Care Associate Sales Name Role Phone Unavailable Primary Care Provider Unavailenrike e Encounter Details Date Type Department Care Team (Late st Contact Info) Description 03/05/2019 Transcribed Document [facility] [place] [address] [place] [address] ProviderYoli MD [address] [place] [address] Social History Tobacco Use Types Packs/Day Years Used Date Smoking Tobacco: Never Assessed Sex and Gender Information Value Date Recorded Sex Assigned at Not on file Legal Sex Male 6:25 PM CDT Gender Identity Not on file Sexual Orientation Not on file documented as of this encounter Miscellaneous Notes * Cerner Conversion Note - Historical ProviderMD - 03/05/2019 5:00 AM CDT Chart Check - Review Order Profile Entered On: 03/05/2019 6:03 EDT Performed On: 03/05/2019 5:00 EDT by Judy Conroy Lpn Chart Check Powerplans Initiated/Discontinued as Appropriate : Yes All Active Orders Reviewed : Yes Judy Conroy Lpn - 03/05/2019 6:02 EDT Electronically signed by [facility] Conversion Etymology Teacher Cerner at 01/22/2023 6:36 PM CDT documented in this encounter Plan of Treatment Not on file documented as of this encounter Visit Diagnoses Not on filedocumented in this encounter
--- OUTSIDE RECORDS SUMMARY | 2025-06-09 09:44 | XMS_ITS | Encounter Summary ---
Author Organization [employer] ([place], [place], [place], [place]) Address [address] [place] [address] Care Team Providers Care Savings Counselor Name Role Phone Unavailable Primary Care Provider Sai e Encounter Details Date Type Department Care Team (Late st Contact Info) Description 11/17/2018 Transcribed Document [facility] Family Medicine [address] [place] [address] ProviderYoli MD [address] [place] [address] Social History Tobacco Use Types Packs/Day Years Used Date Smoking Tobacco: Never Assessed Sex and Gender Information Value Date Recorded Sex Assigned at Not on file Legal Sex Male 6:25 PM CDT Gender Identity Not on file Sexual Orientation Not on file documented as of this encounter Miscellaneous Notes * Cerner Conversion Note - Yoli ProviderMD - 11/17/2018 5:11 PM CNC SERVICE ENGINEER [address] [place] [address] PERSON INFORMATION Name HEMALATHA MATTHEWSVIN Surinder Age 47 Years 1970 Sex Male Language Israeli PCP PHY, NOT LISTED Marital Status Single Med Service Emergency Medicine Acct# Arrival 11/17/2018 12:06:00 Visit Reason Abdominal pain; UNSPECIFIED ABDOMINAL PAIN Acuity 3 - Urgent LOS 000 05:05 Depart Date: 00:00 AM Address: [place] [address] Comment: PROVIDER INFORMATION Provider Role Assigned Unassigned YASMIN TREJO PA ED Physician 11/17/2018 12:26:52 MARCIA MAZARIEGOS, LICENSING MANAGER Nurse 11/17/2018 12:35:09 DIAGNOSIS Abdominal pain PHYS DOC NOTES VITALS INFORMATION Vital Sign Triage Latest Temp Source Oral Oral Temp Mode Fahrenheit Fahrenheit Temp Fahrenheit 97.4 Deg F 97.4 Deg F Temp Celsius 02 Sat 99 % 98 % Respiratory Rate 20 Breaths/Min 20 Breaths/Min Peripheral Pulse Rate 102 bpm 102 bpm Apical Heart Rate Blood Pressure 162 mmHg / 101 mmHg 169 mmHg / 100 mmHg Comment: MEDICAL INFORMATION Allergy Info: ketorolac Medications: Comment: DISCHARGE INFORMATION Discharge Disposition: Admitted as Inpatient Discharge Location: PATIENT EDUCATION INFORMATION Instructions: Follow up: With: Address: When: PATIENT RESOURCE [facility]ENTER Within 2 to 3 days Comments: For further assistance with your Primary Care Physician please contact the Patient Resource Center at [phone]. With: Address: When: NOT LISTED PHY Within 2 to 3 days Comment: documented in this encounter Plan of Treatment Not on file documented as of this encounter Visit Diagnoses Not on filedocumented in this encounter
--- OUTSIDE RECORDS SUMMARY | 2025-06-09 09:44 | XMS_ITS | Encounter Summary ---
Author Organization [employer] ([place], [place], [place], [place]) Address [address] [place] [address] Care Team Providers Care Warehouse Processor Name Role Phone Unavailable Primary Care Provider Unavailenrike e Encounter Details Date Type Department Care Team (Late st Contact Info) Description 02/27/2019 Transcribed Document [facility] [place] Family Medicine [address] [place] [address] ProviderYoli MD [address], [place] [id number] Social History Tobacco Use Types Packs/Day Years Used Date Smoking Tobacco: Never Assessed Sex and Gender Information Value Date Recorded Sex Assigned at Not on file Legal Sex Male 6:25 PM CDT Gender Identity Not on file Sexual Orientation Not on file documented as of this encounter Miscellaneous Notes * Cerner Conversion Note - Historical ProviderMD - 02/27/2019 12:00 AM CDT Pain Assessment Entered On: 02/26/2019 23:58 EDT Performed On: 02/26/2019 23:14 EDT by MARINA COTE RN Intervention Information: acetaminophen Performed by MARINA COTE RN on 02/26/2019 23:09:00 EDT acetaminophen,1000mg IV Piggyback,Right Mid Forearm Pain Assessment Pain Assessment : Follow-up assessment Pain Scale Goal : 4 Pain Scale Used : 0-10 Scale MARINA COTE RN - 02/26/2019 23:57 EDT Pain Scale Intensity : 4 MARINA COTE RN - 02/26/2019 23:57 EDT Image 4 - Images currently included in the form version of this document have not been included in the text rendition version of the form. documented in this encounter Plan of Treatment Not on file documented as of this encounter Visit Diagnoses Not on filedocumented in this encounter
--- OUTSIDE RECORDS SUMMARY | 2025-06-09 09:44 | XMS_ITS | Encounter Summary ---
Author Organization [employer] ([place], [place], [place], [place]) Address [address] [place] [address] Care Team Providers Care Flight Operations Specialist Name Role Phone Unavailable Primary Care Provider Sai e Encounter Details Date Type Department Care Team (Late st Contact Info) Description 11/17/2018 Transcribed Document [facility] [place] Family Medicine [facility] [place] [address] ProviderYoli MD [address], [place] [id number] Social History Tobacco Use Types Packs/Day Years Used Date Smoking Tobacco: Never Assessed Sex and Gender Information Value Date Recorded Sex Assigned at Not on file Legal Sex Male 6:25 PM CDT Gender Identity Not on file Sexual Orientation Not on file documented as of this encounter Miscellaneous Notes * Cerner Conversion Note - Historical ProviderMD - 11/17/2018 3:06 PM MEDICAL LEAD Patient: CALEB DELAROSA Age: 47 years Sex: Male : 1970 Associated Diagnoses: Abdominal pain Author: YASMIN TREJO PA Basic Information Additional information: Chief Complaint from Nursing Triage Note : Chief Complaint 11/17/2018 12:06 EST Chief Complaint from [facility], c/o LUQ abdominal pain, with nausea. hx SBO last month. pt reports watery bowel movement yesterday. . History of Present Illness Patient is a 47-year-old male with history of recent small bowel obstruction who presents the emergency room today with complaints of left upper quadrant abdominal pain and nausea. Patient reports that he has been experiencing this pain since Friday. He shared that his last bowel movement was yesterday and that since then his bowel movements have changed from regular to almost water. He also shares he has had nothing by mouth to eat or drink since Friday. He reports no aggravating or alleviating factors with this pain. Other than previously stated nausea and abdominal pain he reports no additional associated symptoms including pain in his chest, shortness of breath, vomiting, fever or any urinary complaints. Review of Systems Constitutional symptoms: No fever, no chills. Respiratory symptoms: No shortness of breath, Cardiovascular symptoms: No chest pain, Gastrointestinal symptoms: Abdominal pain, left upper quadrant, achy, cramping, pressure, nausea, diarrhea, no vomiting, no constipation. Genitourinary symptoms: No dysuria, Additional review of systems information: All other systems reviewed and otherwise negative. Health Status Allergies: Allergic Reactions (Selected) Severity Not Documented Ketorolac- Rash and rash.. Medications: (Selected) Inpatient Medications Ordered Normal Saline 1,000 mL: 125 mL/Hr, IntraVENous Zofran: 4 mg, IV Push, Q4H, PRN: Nausea/Vomiting morphine: 2 mg, IV Push, Q2H, PRN: Pain (Severe 7-10) Prescriptions Prescribed PriLOSEC OTC 20 mg oral delayed release tablet: 1 Tab, Oral, Daily, 30 Tab, 0 Refill(s). Past Medical/ Family/ Social History Surgical history: LUNG CANCER WORKUP.. Family history: No family history items have been selected or recorded.. Social history: Social & Psychosocial Habits No Data Available . Problem list: Active Problems (1) No Chronic Problems . Physical Examination Vital Signs Vital Signs/Vital Measures 11/17/2018 15:08 EST Heart Rate Monitored 104 bpm HI Systolic Blood Pressure 153 mmHg HI Diastolic Blood Pressure 88 mmHg Mean Arterial Pressure (MAP)-BMDI 124 Oxygen Saturation 96 % Oxygen Therapy Mode Room air (Modified) 11/17/2018 14:00 EST Heart Rate Monitored 94 bpm Oxygen Saturation 97 % Oxygen Therapy Mode Room air 11/17/2018 13:00 EST Heart Rate Monitored 96 bpm Oxygen Saturation 95 % Oxygen Therapy Mode Room air 11/17/2018 12:06 EST Temperature Source Oral Temperature Mode Fahrenheit Temperature, Fahrenheit 97.4 Deg F Clinical Temperature, C 36.3 Deg C Peripheral Pulse Rate 102 bpm HI Respiratory Rate 20 Breaths/Min Systolic Blood Pressure 162 mmHg HI Diastolic Blood Pressure 101 mmHg HI Oxygen Saturation 99 % Oxygen Therapy Mode Room air . Measurements 11/17/2018 12:06 EST Height Source Stated Height Entry Format Mcclain Height/Length, BELIZEAN (ft) 5 ft Height/Length BELIZEAN 7 Inch CLINICALHEIGHT 170.18 cm [place] Body Weight 65.16 kg Weight Source, ED Critical estimated dosing weight Weight Entry Format Mcclain Weight Malaysian lb 170 lb CLINICALWEIGHT 77.27 kg Body Surface Area (BSA) 1.89 m2 Body Mass Index 26.7 kg/m2 HI . Oxygen Saturation 11/17/2018 15:08 EST Oxygen Saturation 96 % 11/17/2018 14:00 EST Oxygen Saturation 97 % 11/17/2018 13:00 EST Oxygen Saturation 95 % 11/17/2018 12:06 EST Oxygen Saturation 99 % . General: Alert, moderate distress. Skin: Warm, dry. Head: Normocephalic, atraumatic. Eye: Extraocular movements are intact, normal conjunctiva. Cardiovascular: Tachycardia. Respiratory: Respirations are non-labored. Gastrointestinal: Soft, Tenderness: Mild, generalized, left upper quadrant, Guarding: Minimal, Rebound: Negative, Bowel sounds: Quiet. Neurological: Alert and oriented to person, place, time, and situation, No focal neurological deficit observed. Psychiatric: Cooperative. Medical Decision Making Rationale: Patient presents to ED with complaints of abdominal pain concern of bowel obstruction. Patient with history of bowel traction. Patient with elevated lactic of 2..2 and responded well to IV fluids with repeat lactic of 1.4. CT scan w/oral and IV contrast ordered by general surgery who was familiar with patient. Initial plan was NG tube and admission to hospital based on results of CT scan. No evidence of small bowel obstruction on CT scan. Patient afebrile, non-toxic appearing vital signs stable. General surgery was in the emergency room and caring for patient and recommended he be admitted to their service for additional workup. Patient and family were agreeable to plan of care and admitted to the hospital.. Documents reviewed: Emergency department nurses' notes, emergency department records, prior records. Orders Include Previous Orders (Selected) Inpatient Orders Ordered 12 Hr Chart Check-Review Order Profile: Admission History Adult: Admit to Inpatient: Document Patient's Preferred Pharmacy: ED Clinical Reconciliation: Immunizations Quality Measures: NG Tube: NPO (immediate): Normal Saline 1,000 mL: 125 mL/Hr, IntraVENous Lime Puller Details: Review Care Plan/IPOCs: Zofran: 4 mg, IV Push, Q4H, PRN: Nausea/Vomiting morphine: 2 mg, IV Push, Q2H, PRN: Pain (Severe 7-10) Ordered (Exam Completed) CT Abdomen Pelvis W: Completed .Automated Differential: CBC w/ Auto Diff: CMP Comprehensive Metabolic Panel: Cardiac Monitoring: ED Adult Fall Risk Assessment: ED Adult Triage: ED aviation program manager: EKG: Gastrografin (Adult): 30 mL, Oral, 1-Time Lactic Acid Level with Reflex if Indicated: Lactic Acid Level: Lipase Level: NaCl 0.9% bolus: 1,000 mL, 1,000 mL/Hr, IV Piggyback, 1-Time Peripheral IV Insertion: Pulse Oximetry Continuous Monitoring: Troponin I Ultra: Zofran: 4 mg, IV Push, 1-Time fentaNYL: 50 mcg, IV Push, 1-Time iopamidol: 75 mL, IV Push, ADHOC morphine: 4 mg, IV Push, 1-Time Discontinued CT Abdomen Pelvis WO: . Electrocardiogram: Time 11/17/2018 12:36:00, rate 102, EP Interp, The Rhythm is sinus tachycardia. , Sinus tachycardia without acute ST elevations reviewed by Dr. Ariza. Results review: Lab results : Lab Results 11/17/2018 15:00 EST WBC 7.8 K/uL RBC 4.68 Million/uL Hgb 15.3 g/dL Hct 44.6 % MCV 95.3 fL HI MCH 32.7 pg HI MCHC 34.3 Gram/dL Platelet Count 212 K/uL MPV 8.4 fL LOW RDW 11.9 % Neut % 64.9 % Neut # 5.08 K/uL Lymph % 21.5 % Lymph # 1.68 x10(3)/uL [place] % 10.6 % HI [place] # 0.83 K/uL Eos % 2.2 % Eos # 0.17 x10(3)/uL Baso % 0.5 % Baso # 0.04 x10(3)/uL Slide Review No IG# 0.02 x10(3)/uL IG% 0.30 % 11/17/2018 14:07 EST Lactic Acid Level 1.4 mmol/L 11/17/2018 12:37 EST Sodium Level 138 mmol/L Potassium Level 4.2 mmol/L Chloride Level 107 mmol/L Carbon Dioxide Level 21 mmol/L Anion Gap 14 Glucose Level 83 mg/dL Blood Urea Nitrogen 6 mg/dL LOW CREATININE 0.80 mg/dL eGFR >60 mL/min/1.73m2 eGFR NonAfrican >60 mL/min/1.73m2 Bun/Creatinine 7.5 LOW Calcium Level 8.8 mg/dL Protein Total 7.6 Gram/dL Albumin Level 4.1 Gram/dL Globulin 3.5 Gram/dL A/G Ratio 1.2 Bilirubin Total 0.6 mg/dL Alk Phos 51 Units/Liter AST 74 Units/Liter HI ALT 104 Units/Liter HI Lipase Level 104 Units/Liter Lactic Acid Level 2.2 mmol/L CRIT Troponin I Ultra <0.015 ng/mL . Radiology results: Radiology Results (Last 48 hours) [id number] -- 11/17/2018 16:04 CT Abdomen Pelvis W (11/17/2018 15:21) Result: CT SCAN OF THE ABDOMEN AND PELVIS WITH CONTRAST. HISTORY: Generalized abdominal pain, nausea, lung nodules.COMPARISON: October 10, 2018.PROCEDURE: The patient was injected with IV contrast. Oral contrast wasalso administered. Axial images were obtained from the lung bases to thepubic symphysis by computed tomography. This study was performed withtechniques to keep radiation doses as low as reasonably achievable,(ALARA). Individualized dose reduction techniques using automatedexposure control or adjustment of mA and/or kV according to the patientsize were employed.FINDINGS: ABDOMEN: The lung bases demonstrate a 6.5 mm noncalcified nodule in theright lower lobe. This is indeterminate. The heart is normal in size.The liver is mildly fatty infiltrated. The gallbladder is unremarkable.The spleen is unremarkable. No adrenal mass is present. The pancreas isnormal. The kidneys are normal. The aorta is normal in caliber. There isno free fluid or adenopathy. There is rectus diastases. There is nohernia. No free air is identified. GI tract demonstrates no evidence ofobstruction. Contrast is seen to the descending colon.PELVIS: The appendix is not identified. There is mild sigmoid colondiverticulosis without CT evidence of diverticulitis. The urinarybladder is unremarkable. There is no significant free fluid oradenopathy. IMPRESSION: No evidence of acute intra-abdominal process.Mild fatty infiltration of the liver.Noncalcified nodule in the right lower lobe, indeterminate.Films reviewed, interpreted, and dictated by Dr. Aguayo.Transcribed by Judith Miramontes PA-C. . Impression and Plan Diagnosis Abdominal pain - Discharge, Medical Calls-Consults - 11/17/2018 14:50:00 , MILAGROS DECKER PA, General Surgery, phone call, recommends very familiar with patient and hx of numerous SBO. Will wait for results of CT scan. Plan of care likely hospitalist to admit, NG tube and symptomatic care.. - 11/17/2018 16:04:00 , KATHY HERNANDEZ MD-SUR, General Surgery, phone call, recommends will admit to [facility]. Plan Condition: Stable. Disposition: Admit Admit/Transfer/Discharge: Admit to Inpatient (Order): Start: 11/17/2018 16:04 EST, Admit reason: Abdominal Pain, Estimated length of stay 2 Midnights or LONGER, Level of Care: Med-Surg, Admitting: KATHY HERNANDEZ MD-SUR, Attending: EVAN ARIZA MD-EMR. Counseled: Patient, Regarding diagnosis, Regarding diagnostic results, Regarding treatment plan, Patient indicated understanding of instructions. Notes: I certify that the Physician Retail Marketing Executive performed the services as delegated. I agree with the assessment, treatment plan and disposition of the patient as recorded by the Physician Retail Marketing Executive, Dr. Ariza. documented in this encounter Plan of Treatment Not on file documented as of this encounter Visit Diagnoses Not on filedocumented in this encounter
--- OUTSIDE RECORDS SUMMARY | 2025-06-09 09:44 | XMS_ITS | Encounter Summary ---
Author Organization [employer] ([place], [place], [place], [place]) Address [address] [place] [address] Care Team Providers Care Set Up Mechanic Name Role Phone Unavailable Primary Care Provider Unavailabl e Encounter Details Date Type Department Care Team (Late st Contact Info) Description 10/12/2018 Transcribed Document [facility] [place] [address] [place] [address] ProviderYoli MD [address] [place], [place] [phone] Social History Tobacco Use Types Packs/Day Years Used Date Smoking Tobacco: Never Assessed Sex and Gender Information Value Date Recorded Sex Assigned at Not on file Legal Sex Male 6:25 PM CDT Gender Identity Not on file Sexual Orientation Not on file documented as of this encounter Miscellaneous Notes * Cerner Conversion Note - Historical ProviderMD - 10/12/2018 9:40 AM PRESIDENT CELEBRITY ACQUISTION Discharge Instructions Entered On: 10/12/2018 9:43 EST Performed On: 10/12/2018 9:40 EST by ANGY QUIROS PharmD DC Instructions HWD Stroke/TIA Discharge Ins : N/A Heart Failure Discharge Ins : N/A Warfarin Discharge Ins : N/A Renetta Gunn Lpn - 10/12/2018 10:47 EST Special Instructions : STOP taking the following medication: 1) acetaminophen (tylenol) ANGY QUIROS, Nicholas - 10/12/2018 9:55 EST documented in this encounter Plan of Treatment Not on file documented as of this encounter Visit Diagnoses Not on filedocumented in this encounter
--- OUTSIDE RECORDS SUMMARY | 2025-06-09 09:44 | XMS_ITS | Encounter Summary ---
Author Organization [employer] ([place], [place], [place], [place]) Address [address] [place] [address] Care Team Providers Care Child & Adolescent Psychiatrist Name Role Phone Unavailable Primary Care Provider Unavailabl e Encounter Details Date Type Department Care Team (Late st Contact Info) Description 02/28/2019 Transcribed Document [facility] [place] [address] [place] [address] ProviderYoli MD [address] [place] [address] Social History Tobacco Use Types Packs/Day Years Used Date Smoking Tobacco: Never Assessed Sex and Gender Information Value Date Recorded Sex Assigned at Not on file Legal Sex Male 6:25 PM CDT Gender Identity Not on file Sexual Orientation Not on file documented as of this encounter Miscellaneous Notes * Cerner Conversion Note - Historical ProviderMD - 02/28/2019 5:00 PM CDT Chart Check - Review Order Profile Entered On: 02/28/2019 15:44 EDT Performed On: 02/28/2019 17:00 EDT by Sylvie Mcmanus RN Chart Check Powerplans Initiated/Discontinued as Appropriate : Yes All Active Orders Reviewed : Yes Sylvie Mcmanus RN - 02/28/2019 15:44 EDT Electronically signed by Pancho [facility] Conversion Trading Assistant Cerner at 01/22/2023 6:32 PM CDT documented in this encounter Plan of Treatment Not on file documented as of this encounter Visit Diagnoses Not on filedocumented in this encounter
--- OUTSIDE RECORDS SUMMARY | 2025-06-09 09:44 | XMS_ITS | Encounter Summary ---
Author Organization [employer] ([place], [place], [place], [place]) Address [address] [place] [address] Care Team Providers Care Insurance Executive Name Role Phone Unavailable Primary Care Provider Unavailabl e Encounter Details Date Type Department Care Team (Late st Contact Info) Description 10/13/2018 Transcribed Document [facility] [place] Family Medicine [address] [place] [address] ProviderYoli MD [address] [place] [address] Social History Tobacco Use Types Packs/Day Years Used Date Smoking Tobacco: Never Assessed Sex and Gender Information Value Date Recorded Sex Assigned at Not on file Legal Sex Male 6:25 PM CDT Gender Identity Not on file Sexual Orientation Not on file documented as of this encounter Miscellaneous Notes * Cerner Conversion Note - Historical ProviderMD - 10/13/2018 12:00 PM AMMONIA REFRIGERATION WORKER Post Visit Phone Call Entered On: 10/13/2018 12:03 EST Performed On: 10/13/2018 12:00 EST by Ronda Holland Rn Post Visit Phone Call Post Visit Phone [...] Understood : Yes Follow-Up Actions : None Ronda Holland Rn - 10/13/2018 12:00 EST Electronically signed by Pancho [facility] Conversion Financial Data Analyst Cerner at 01/22/2023 6:51 PM CDT documented in this encounter Plan of Treatment Not on file documented as of this encounter Visit Diagnoses Not on filedocumented in this encounter
--- OUTSIDE RECORDS SUMMARY | 2025-06-09 09:44 | XMS_ITS | Encounter Summary ---
Author Organization [employer] ([place], [place], [place], [place]) Address [address] [place] [address] Care Team Providers Care Marketing Support Assistant Name Role Phone Unavailable Primary Care Provider Unavailabl e Encounter Details Date Type Department Care Team (Late st Contact Info) Description 02/27/2019 Transcribed Document [facility] [place] Family Medicine [address] [place] [address] ProviderYoli MD [address] [place] [address] Social History Tobacco Use Types Packs/Day Years Used Date Smoking Tobacco: Never Assessed Sex and Gender Information Value Date Recorded Sex Assigned at Not on file Legal Sex Male 6:25 PM CDT Gender Identity Not on file Sexual Orientation Not on file documented as of this encounter Miscellaneous Notes * Cerner Conversion Note - Yoli ProviderMD - 02/27/2019 11:20 AM CDT Pain Assessment Entered On: 03/02/2019 2:11 EDT Performed On: 03/01/2019 5:10 EDT by Zoe Murray RN Intervention Information: HYDROmorphone Performed by Zoe Murray RN on 03/01/2019 04:40:00 EDT HYDROmorphone,1mg IV Push,Forearm Right,Pain (Severe 7-10) Pain Assessment Pain Assessment : Follow-up assessment Pain Scale Goal : 4 Pain Scale Used : FACES Location : Abdominal Onset : Awoke with pain Quality : Throbbing Pain Radiation : No Pain Improved by : Medication Pain Worsened by : None Pain Intervention, Drug : Medicated Pain Improved by Intervention : Yes Zoe Murray RN - 03/02/2019 2:11 EDT Pain Scale Intensity : 3 Zoe Murray RN - 03/02/2019 2:11 EDT Image 4 - Images currently included in the form version of this document have not been included in the text rendition version of the form. documented in this encounter Plan of Treatment Not on file documented as of this encounter Visit Diagnoses Not on filedocumented in this encounter
--- OUTSIDE RECORDS SUMMARY | 2025-06-09 09:44 | XMS_ITS | Encounter Summary ---
Author Organization [employer] ([place], [place], [place], [place]) Address [address] [place] [address] Care Team Providers Care Auto Customize Painter Name Role Phone Unavailable Primary Care Provider Unavailenrike e Encounter Details Date Type Department Care Team (Late st Contact Info) Description 03/01/2019 Transcribed Document [facility] [place] Medicine [address] [place] [address] ProviderYoli MD [address] [place] [address] Social History Tobacco Use Types Packs/Day Years Used Date Smoking Tobacco: Never Assessed Sex and Gender Information Value Date Recorded Sex Assigned at Not on file Legal Sex Male 6:25 PM CDT Gender Identity Not on file Sexual Orientation Not on file documented as of this encounter Miscellaneous Notes * Cerner Conversion Note - Yoli ProviderMD - 03/01/2019 10:50 AM CDT Patient: CALEB MATTHEWS Age: 48 Years Sex: Male : 1970 Subjective Rossi. cl. liqs. +flatus Intake & Output Intake & Output Totals Last 24 Hours (7a-7a) Intake (13 Events) Medications (21 mL) Oral Intake (500 mL) Output (0 Events) No output events found in the last 24 hours. Input Total: 521 mL Output Total: 0 mL Balance: 521 mL Vital Signs T: 37.2 ??C TMIN: 36.9 ??C TMAX: 37.8 ??C HR: 98(Monitored) RR: 16 BP: 99/64 SpO2: 98% Physical Exam abdomen soft. NT. Inciison dry VTE Risk Total Score VTE Prophylaxis - Surgical Enoxaparin 40 mg, SubCutaneous, Inj, [id number], Routine, Start 02/26/19 11:00:00 EDT (KATHY HERNANDEZ) Assessment/Plan s/p OFELIA. Doing great. Advance diet. Probable d/c in am Other intestinal obstruction unspecified as to partial versus complete obstruction K56.699, Other intestinal obstruction unspecified as to partial versus complete obstruction K56.699 Orders: docusate, 100 mg, Oral, Cap, BID, Routine, Start 03/01/19 9:06:00 EDT Medications Inpatient Adderall 10 mg oral tablet, 30 mg= 3 Tab, Oral, Daily alvimopan, 12 mg= 1 Cap, Nasogastric Tube, BID cloNIDine 50 mcg + dexamethasone 4 mg + bupivacaine-EPINEPHrine 0.25%-1:200,000 injectable solution cloNIDine 50 mcg + dexamethasone 4 mg + bupivacaine-EPINEPHrine 0.25%-1:200,000 injectable solution diazePAM, 2.5 mg= 0.5 Tab, Oral, Q6H, PRN docusate sodium, 100 mg= 1 Cap, Oral, BID hydroCHLOROthiazide, 25 mg= 1 Tab, Oral, Daily HYDROmorphone, 1 mg= 1 mL, IV Push, Q3H, PRN lisinopril, 20 mg= 1 Tab, Oral, Daily Lovenox, 40 mg= 0.4 mL, SubCutaneous, [id number] morphine, 2 mg= 1 mL, IV Push, Q3H, PRN ondansetron, 4 mg= 2 mL, IV Push, Q6H, PRN oxyCODONE, 10 mg= 2 Tab, Oral, Q6H, PRN Home Ambien 10 mg oral tablet, 10 mg= 1 Tab, Oral, At Bedtime, PRN amphetamine-dextroamphetamine 30 mg oral capsule, extended release hydroCHLOROthiazide-lisinopril 25 mg-20 mg oral tablet, 1 Tab Routine Labs - Last 24 Hours FEBRUARY 27 06:37 138 106 12 / H 113 3.9 24 1.00 \ FEBRUARY 27 06:37 \ L 9.6 / H 11.6 210 / L 28.9 \ No qualifying data available. Imaging Results (Last 24 Hours) No Radiology Results Found Problem List/Past Medical History Ongoing Bowel obstruction Hypertension Lung nodule Historical No qualifying data Procedure/Surgical History RELEASE LARGE INTESTINE, PERCUTANEOUS ENDOSCOPIC APPROACH (11/19/2018), RELEASE SMALL INTESTINE, PERCUTANEOUS ENDOSCOPIC APPROACH (11/19/2018), FLUOROSCOPY OF UPPER GI AND SMALL BOWEL USING OTHER CONTRAST (10/11/2018), DRAINAGE OF STOMACH WITH DRAINAGE DEVICE, VIA OPENING (10/10/2018), bowel sugery, LUNG CANCER WORKUP. Allergies ketorolac (Rash, Rash) Electronically signed by Pancho, [facility] Conversion Retail Aide Cerner at 01/22/2023 6:54 PM CDT documented in this encounter Plan of Treatment Not on file documented as of this encounter Visit Diagnoses Not on filedocumented in this encounter
--- OUTSIDE RECORDS SUMMARY | 2025-06-09 09:44 | XMS_ITS | Encounter Summary ---
Author Organization [employer] ([place], [place], [place], [place]) Address [address] [place] [address] Care Team Providers Care Business And Financial Counsel Name Role Phone Unavailable Primary Care Provider Unavailenrike e Encounter Details Date Type Department Care Team (Late st Contact Info) Description 10/12/2018 Transcribed Document [facility] [place] [address] [place] [address] ProviderYoli MD [address] [place], [place] [id number] Social History Tobacco Use Types Packs/Day Years Used Date Smoking Tobacco: Never Assessed Sex and Gender Information Value Date Recorded Sex Assigned at Not on file Legal Sex Male 6:25 PM CDT Gender Identity Not on file Sexual Orientation Not on file documented as of this encounter Miscellaneous Notes * Cerner Conversion Note - Historical ProviderMD - 10/12/2018 5:00 AM MORNING NEWS ANCHOR Chart Check - Review Order Profile Entered On: 10/12/2018 4:17 EST Performed On: 10/12/2018 5:00 EST by Salima Ramos RN Chart Check Chart Reviewed Date and Time : 10/12/2018 4:17 EST Powerplans Initiated/Discontinued as Appropriate : Not applicable All Active Orders Reviewed : Yes Salima Ramos RN - 10/12/2018 4:17 EST Electronically signed by Pancho [facility] Conversion Advertising Analyst Cerner at 01/22/2023 6:53 PM CDT documented in this encounter Plan of Treatment Not on file documented as of this encounter Visit Diagnoses Not on filedocumented in this encounter
--- OUTSIDE RECORDS SUMMARY | 2025-06-09 09:44 | XMS_ITS | Encounter Summary ---
Author Organization [employer] ([place], [place], [place], [place]) Address [address] [place] [address] Care Team Providers Care Cardiac Tech Name Role Phone Unavailable Primary Care Provider Unavailenrike e Encounter Details Date Type Department Care Team (Late st Contact Info) Description 03/05/2019 Transcribed Document [facility] [place] [address] [place] [address] ProviderYoli MD [address] [place] [address] Social History Tobacco Use Types Packs/Day Years Used Date Smoking Tobacco: Never Assessed Sex and Gender Information Value Date Recorded Sex Assigned at Not on file Legal Sex Male 6:25 PM CDT Gender Identity Not on file Sexual Orientation Not on file documented as of this encounter Miscellaneous Notes * Cerner Conversion Note - Yoli ProviderMD - 03/05/2019 12:35 PM CDT UM Authorization Entered On: 03/05/2019 12:36 EDT Performed On: 03/05/2019 12:35 EDT by CARLOS MANUEL CAMACHO RN Primary Insurance Authorization Authorization and Policy Numbers : Insurance 1 Health Plan: [employer] Policy Number: [id number] Authorization Number: NPR Insurance Primary Name : Bran [id number] Authorization Status-Primary : Pending Reference Number-Primary : [id number] Number of Days Authorized-Primary : 5 Authorized Service Begin Date-Primary : 02/26/2019 EDT Authorized Service End Date-Primary : 03/02/2019 EDT Authorization Comments-Primary : Clinicals faxed via ITN for reconsideration, notified Linnea with Dr Camilo office, p2p no given Historical Authorization Comments-Primary : Comment 1: email to re: denial (ANA PAULA GONZALEZ RN-Utilization Review 03/05/2019 12:14) Comment 2: rec'd call from [employer]- approval for IP 02/26-03/02/19 and cont stay denial starting 03/03/19 and forward due to pt stable. Can do P2P within 14 days, call [phone] and option 1. If substantial change in condition, can fax additional clinicals for reconsideration. (ANA PAULA GONZALEZ, RN-Utilization Review 03/05/2019 12:09) Comment 3: Case pended per website, clinicals faxed via ITN (CARLOS MANUEL ACMACHO RN 03/05/2019 10:27) Comment 4: Clinicals submitted via [employer] website (CARLOS MANUEL CAMACHO RN 03/02/2019 08:52) Comment 5: No authorization for this visit, OP or IP found in [employer]. (MARCIA DELGADILLO RN 02/27/2019 10:39) Comment 6: Per [facility] notes no auth required. Submitted for OP (?). MD wants patient to stay 5 days. Note to UR team to f/u on 03/02 re: authorizatin (MARCIA DELGADILLO RN 02/27/2019 10:36) CARLOS MANUEL CAMACHO, BLUE - 03/05/2019 12:35 EDT documented in this encounter Plan of Treatment Not on file documented as of this encounter Visit Diagnoses Not on filedocumented in this encounter
--- OUTSIDE RECORDS SUMMARY | 2025-06-09 09:44 | XMS_ITS | Encounter Summary ---
Author Organization [employer] ([place], [place], [place], [place]) Address [address] [place] [address] Care Team Providers Care News Correspondent Name Role Phone Unavailable Primary Care Provider Unavailabl e Encounter Details Date Type Department Care Team (Late st Contact Info) Description 03/01/2019 Transcribed Document [facility] Family Medicine [address] [place] [address] ProviderYoli MD [address] [place] [address] Social History Tobacco Use Types Packs/Day Years Used Date Smoking Tobacco: Never Assessed Sex and Gender Information Value Date Recorded Sex Assigned at Not on file Legal Sex Male 6:25 PM CDT Gender Identity Not on file Sexual Orientation Not on file documented as of this encounter Miscellaneous Notes * Cerner Conversion Note - Historical ProviderMD - 03/01/2019 2:00 AM CDT Prosthetic Dentist Details Entered On: 03/01/2019 4:24 EDT Performed On: 03/01/2019 2:00 EDT by Zoe Murray, BLUE Order Details Transport Mode Order Detail : Ambulatory Isolation Precautions Order Detail : Standard Precautions Order Detail : N/A IV Order Detail : 1 Oxygen Order Detail : 0 Nurse Collect Order Detail : 0 Lift/Transfer : Independent Central Line Order Detail : No Room Service : Appropriate Arterial Line : No Zoe Murray, BLUE - 03/01/2019 4:24 EDT documented in this encounter Plan of Treatment Not on file documented as of this encounter Visit Diagnoses Not on filedocumented in this encounter
--- OUTSIDE RECORDS SUMMARY | 2025-06-09 09:44 | XMS_ITS | Encounter Summary ---
Author Organization [employer] ([place], [place], [place], [place]) Address [address] [place] [address] Care Team Providers Care Pharmaceutical Officer Name Role Phone Unavailable Primary Care Provider Unavailenrike e Encounter Details Date Type Department Care Team (Late st Contact Info) Description 03/02/2019 Transcribed Document [facility] [place] [address] [place] [address] ProviderYoli MD [address] [place] [address] Social History Tobacco Use Types Packs/Day Years Used Date Smoking Tobacco: Never Assessed Sex and Gender Information Value Date Recorded Sex Assigned at Not on file Legal Sex Male 6:25 PM CDT Gender Identity Not on file Sexual Orientation Not on file documented as of this encounter Miscellaneous Notes * Cerner Conversion Note - Yoli ProviderMD - 03/02/2019 7:49 AM CDT Stroke/Warfarin Instructions Entered On: 03/02/2019 7:49 EDT Performed On: 03/02/2019 7:49 EDT by Ronda Colin RN Stroke/Warfarin Instructions Stroke/TIA Discharge Ins : N/A Warfarin Discharge Ins : N/A Ronda Colin RN - 03/02/2019 7:49 EDT documented in this encounter Plan of Treatment Not on file documented as of this encounter Visit Diagnoses Not on filedocumented in this encounter
--- OUTSIDE RECORDS SUMMARY | 2025-06-09 09:44 | XMS_ITS | Encounter Summary ---
Author Organization [employer] ([place], [place], [place], [place]) Address [address] [place] [address] Care Team Providers Care Vascular Surgery Physician Name Role Phone Unavailable Primary Care Provider Unavailabl e Encounter Details Date Type Department Care Team (Late st Contact Info) Description 11/17/2018 Transcribed Document [facility] [place] [facility] [place] [address] ProviderYoli MD [address] [place] [address] Social History Tobacco Use Types Packs/Day Years Used Date Smoking Tobacco: Never Assessed Sex and Gender Information Value Date Recorded Sex Assigned at Not on file Legal Sex Male 6:25 PM CDT Gender Identity Not on file Sexual Orientation Not on file documented as of this encounter Miscellaneous Notes * Cerner Conversion Note - Yoli ProviderMD - 11/17/2018 12:06 PM SYSTEM DEVELOPMENT ENGINEER ED Triage Entered On: 11/17/2018 12:17 EST Performed On: 11/17/2018 12:06 EST by WILLIE CRAWFORD ED Triage Across the Room Triage Date/Time : 11/17/2018 12:06 EST Trauma Room Arrival Date and Time : 11/17/2018 12:06 EST Chief Complaint : from lobby, c/o LUQ abdominal pain, with nausea. hx SBO last month. pt reports watery bowel movement yesterday. WILLIE CRAWFORD - 11/17/2018 12:15 EST DCP GENERIC CODE Tracking Acuity : 3 - Urgent Tracking Group : [facility] ED WILLIE CRAWFORD - 11/17/2018 12:15 EST Mode of Arrival : Ambulatory Transported to ED by : Private vehicle To Room Via : Ambulate Accompanied By : Unaccompanied ED Vital Signs : Document Height & Weight : Document ED Allergies : Document ED Reason for Visit : Document Tetanus Immunization : Unknown WILLIE CRAWFORD - 11/17/2018 12:15 EST Infectious Disease History Infectious Disease History : None Fever/Chills Last 48 Hours : No Travel To Regions with Travel Advisories : No Travel Outside [place] Within Last 30 Days : No Contact With Traveler to Advisory Region : No Tuberculosis Symptoms : None WILLIE CRAWFORD - 11/17/2018 12:15 EST Vital Signs ED Temperature Source : Oral Temperature Mode : Fahrenheit Temperature, Fahrenheit : 97.4 Deg F Clinical Temperature, C : 36.3 Deg C Oxygen Therapy Mode : Room air Peripheral Pulse Rate : 102 bpm (HI) Respiratory Rate : 20 Breaths/Min Systolic Blood Pressure : 162 mmHg (HI) Diastolic Blood Pressure : 101 mmHg (HI) Oxygen Saturation : 99 % WILLIE CRAWFORD - 11/17/2018 12:15 EST Allergy (As Of: 11/17/2018 12:17:30 EST) Allergies (Active) ketorolac Estimated Onset Date: Unspecified ; Reactions: Rash, Rash ; Created By: Contributor_system, HIST_GIGI; Reaction Status: Active ; Category: Drug ; Substance: ketorolac ; Type: Allergy ; Updated By: Contributor_system, HIST_CERMARINA; Reviewed Date: 11/17/2018 12:15 EST Diagnosis Control ED (As Of: 11/17/2018 12:17:30 EST) Problems(Active) No Chronic Problems (Cerner :NKP ) Name of Problem: No Chronic Problems ; Recorder: TOMI JEFFERS RN; Cancel Reason: <not entered> ; Code: NKP ; Contributor System: Humagade ; Last Updated: 10/10/2018 9:46 EST ; Life Cycle Date: 10/10/2018 ; Life Cycle Status: Active ; Responsible Provider: TOMI JEFFERS RN; Vocabulary: Cerner Diagnoses(Active) Abdominal pain Date: 11/17/2018 ; Diagnosis Type: Reason For Visit ; Confirmation: Complaint of ; Clinical Dx: Abdominal pain ; Classification: Medical ; Clinical Service: Emergency medicine ; Code: PNED ; Probability: 0 ; Diagnosis Code: [id number] ED Height and Weight Height Source : Stated Height Entry Format : [place] Height, Feet : 5 ft(Converted to: 152 cm, 60 Inch) Height, Inches : 7 Inch(Converted to: 0 ft 7 Inch, 17.78 cm) Clinical Height : 170.18 cm Weight Source, ED : Critical estimated dosing weight Weight Entry Format : [place] Weight, Pounds : 170 lb Clinical Dosing Weight : 77.27 kg Body Surface Area (BSA) : 1.89 m2 Body Mass Index : 26.7 kg/m2 (HI) [place] Body Weight (IBW) : 65.16 kg WILLIE CRAWFORD - 11/17/2018 12:15 EST documented in this encounter Plan of Treatment Not on file documented as of this encounter Visit Diagnoses Not on filedocumented in this encounter
--- OUTSIDE RECORDS SUMMARY | 2025-06-09 09:44 | XMS_ITS | Encounter Summary ---
Author Organization [employer] ([place], [place], [place], [place]) Address [address] [place] [address] Care Team Providers Care Citrus Fruit Colorer Name Role Phone Unavailable Primary Care Provider Unavailabl e Encounter Details Date Type Department Care Team (Late st Contact Info) Description 02/26/2019 Transcribed Document [facility] [place] Family Medicine [address] [place] [address] ProviderYoli MD [address] [id number] Social History Tobacco Use Types Packs/Day Years Used Date Smoking Tobacco: Never Assessed Sex and Gender Information Value Date Recorded Sex Assigned at Not on file Legal Sex Male 6:25 PM CDT Gender Identity Not on file Sexual Orientation Not on file documented as of this encounter Miscellaneous Notes * Cerner Conversion Note - Yoli ProviderMD - 02/26/2019 8:27 AM CDT [facility] Main OR Preop Summary Primary Physician: KATHY HERNANDEZ MD-SUR Finalized Date/Time: 02/26/19 13:09:00 Pt. Name: CALEB MATTHEWS/Sex: 1970 Male Med Rec #: [id number] Physician: KATHY HERNANDEZ MD-SUR Financial #: [id number] Pt. Type: O Room/Bed: 350/1 Admit/Disch: 02/26/19 05:55:00 - Institution: [facility] PreOp Case Times Entry 1 In Preop 02/26/19 06:05:00 Ready for Holding n/a Room Patient Ready for 02/26/19 07:40:00 Surgery Patient Out of Preop 02/26/19 07:59:00 Patient Out of n/a Holding Room Last Modified By: MATT MANZANO RN 02/26/19 13:08:59 [facility] PreOp Case Times Audit 02/26/19 13:08:59 Bulb Farmworker: CLEMENTE Modifier: CLEMENTE <+> 1 Patient Out of Preop Finalized By: MATT MANZANO, RN Document Signatures Signed By: MATT MANZANO RN 02/26/19 13:09 Electronically signed by Pancho [facility] Conversion Oracle Technical Architect Cerner at 01/22/2023 6:51 PM CDT documented in this encounter Plan of Treatment Not on file documented as of this encounter Visit Diagnoses Not on filedocumented in this encounter
--- OUTSIDE RECORDS SUMMARY | 2025-06-09 09:44 | XMS_ITS | Encounter Summary ---
Author Organization [employer] ([place], [place], [place], [place]) Address [address] [place] [address] Care Team Providers Care Devulcanizer Operator Name Role Phone Unavailable Primary Care Provider Unavailenrike e Encounter Details Date Type Department Care Team (Late st Contact Info) Description 11/19/2018 Transcribed Document [facility] [place] Medicine [facility] [place] [address] ProviderYoli MD [address] [place] [address] Social History Tobacco Use Types Packs/Day Years Used Date Smoking Tobacco: Never Assessed Sex and Gender Information Value Date Recorded Sex Assigned at Not on file Legal Sex Male 6:25 PM CDT Gender Identity Not on file Sexual Orientation Not on file documented as of this encounter Miscellaneous Notes * Cerner Conversion Note - Yoli ProviderMD - 11/19/2018 11:42 AM BAIT MAKER Care Management Assessment/Plan Entered On: 11/19/2018 11:43 EST Performed On: 11/19/2018 11:42 EST by SAM RUANO Care Management Note Care Management Note : Met with Pt and his on IDT rounds. Resting quietly. IVF's infusing. NG remains intact to LWS. Per BLUE Schmid, Pt will be going to OR in abour 30 minutes. CM will follow. Care Management Note Report : SAM RUANO - 11/18/18 13:12:54 Received from the ED with c/o abdominal pain and nausea, being admitted with same. Pt with hx. of multiple abdominal procedures in the past. Pt recently hospitalized 10/10/18-10/12/18 for a partial small bowel obstruction. Met with Pt and his on IDT rounds. Role of CM explained. Resting quietly. IVF's infusing. Pt currently NPO. NG tube has just been placed to LWS. Per Sharmaine RN, Pt is scheduled for OR tomorrow. Pt is ADL independent, denies DME/HH/Rehab. Plans are to return home with his at discharge. No needs anticipated/verbalized at this time. RRS is moderate @ 48. CM will follow. Documentation Status Complete : Yes ALDEN SAM - 11/19/2018 11:42 EST Electronically signed by [facility] Conversion Energy Infrastructure Engineer Cerner at 01/22/2023 6:48 PM CDT documented in this encounter Plan of Treatment Not on file documented as of this encounter Visit Diagnoses Not on filedocumented in this encounter
--- OUTSIDE RECORDS SUMMARY | 2025-06-09 09:44 | XMS_ITS | Encounter Summary ---
Author Organization [employer] ([place], [place], [place]) Address [address] [place] [address] Care Team Providers Care Customer Operations Intern Name Role Phone Unavailable Primary Care Provider Unavailabl e Encounter Details Date Type Department Care Team (Late st Contact Info) Description 03/02/2019 Transcribed Document [facility] [place] [address] [place] [address] ProviderYoli MD [address] [place] [address] Social History Tobacco Use Types Packs/Day Years Used Date Smoking Tobacco: Never Assessed Sex and Gender Information Value Date Recorded Sex Assigned at Not on file Legal Sex Male 6:25 PM CDT Gender Identity Not on file Sexual Orientation Not on file documented as of this encounter Miscellaneous Notes * Cerner Conversion Note - Historical ProviderMD - 03/02/2019 2:00 AM CDT Forest Patrolman Details Entered On: 03/02/2019 2:14 EDT Performed On: 03/02/2019 2:00 EDT by Zoe Murray, BLUE Order Details Transport Mode Order Detail : Ambulatory Isolation Precautions Order Detail : Standard Precautions Order Detail : N/A IV Order Detail : 1 Oxygen Order Detail : 0 Nurse Collect Order Detail : 0 Lift/Transfer : Independent Central Line Order Detail : No Room Service : Appropriate Arterial Line : No Zoe Murray, BLUE - 03/02/2019 2:13 EDT documented in this encounter Plan of Treatment Not on file documented as of this encounter Visit Diagnoses Not on filedocumented in this encounter
--- OUTSIDE RECORDS SUMMARY | 2025-06-09 09:44 | XMS_ITS | Encounter Summary ---
Author Organization [employer] ([place], [place], [place], [place]) Address [address] [place] [address] Care Team Providers Care Clinical Reimbursement Specialist Name Role Phone Unavailable Primary Care Provider Unavailenrike e Encounter Details Date Type Department Care Team (Late st Contact Info) Description 02/28/2019 Transcribed Document [facility] [place] Family Medicine [address] [place] [address] ProviderYoli MD [address] [place] [address] Social History Tobacco Use Types Packs/Day Years Used Date Smoking Tobacco: Never Assessed Sex and Gender Information Value Date Recorded Sex Assigned at Not on file Legal Sex Male 6:25 PM CDT Gender Identity Not on file Sexual Orientation Not on file documented as of this encounter Miscellaneous Notes * Cerner Conversion Note - Historical ProviderMD - 02/28/2019 2:00 AM CDT Winter Intern Details Entered On: 02/28/2019 1:27 EDT Performed On: 02/28/2019 2:00 EDT by MARINA COTE RN Order Details Transport Mode Order Detail : Wheelchair Isolation Precautions Order Detail : Standard Precautions Order Detail : N/A IV Order Detail : 1 Oxygen Order Detail : 0 Nurse Collect Order Detail : 0 Lift/Transfer : Independent Central Line Order Detail : No Room Service : Appropriate Arterial Line : No MARINA COTE RN - 02/28/2019 1:27 EDT documented in this encounter Plan of Treatment Not on file documented as of this encounter Visit Diagnoses Not on filedocumented in this encounter
--- OUTSIDE RECORDS SUMMARY | 2025-06-09 09:44 | XMS_ITS | Encounter Summary ---
Author Organization [employer] ([place], [place], [place], [place]) Address [address] [place] [address] Care Team Providers Care Feller Operator Name Role Phone Unavailable Primary Care Provider Sai e Encounter Details Date Type Department Care Team (Late st Contact Info) Description 10/12/2018 Transcribed Document [facility] [place] Family Medicine [address] [place] [address] ProviderYoli MD [address] [place] [address] Social History Tobacco Use Types Packs/Day Years Used Date Smoking Tobacco: Never Assessed Sex and Gender Information Value Date Recorded Sex Assigned at Not on file Legal Sex Male 6:25 PM CDT Gender Identity Not on file Sexual Orientation Not on file documented as of this encounter Miscellaneous Notes * Cerner Conversion Note - Yoli ProviderMD - 10/12/2018 10:47 AM 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 [address] [place] [address] Patient Copy Patient Information: Name: CALEB MATTHEWS Current Date: 10/12/2018 10:47:21 : 1970 Patient Address: [address] [place] [id number] Patient Attending Physician: KEMAR ACOSTA MD Primary Care Provider: RITCHIE UPTON (REF)MD-[facility] Primary Care Provider Discharge Diagnosis: Small bowel obstruction Weight on Admission: 175 lb, 0 oz Comment: Follow-up Instructions: With: Address: When: [place] [address] Business (1) Within 1 week Comments: Call in the AM Call for follow up appointment Discharge Instructions: Immunizations Documented During Stay: influenza virus vaccine, inactivated 10/12/2018 Special Instructions: STOP taking the following medication: 1) acetaminophen (tylenol) Heart Failure Discharge Instructions (if any): Stroke Related Discharge Instructions (if any): Warfarin Related Discharge Instructions (if any): Final Medication List: Printed Prescriptions omeprazole (PriLOSEC OTC 20 mg oral delayed release tablet) 1 Tablet(s) Oral Every Day. Refills: 0. oxyCODONE (oxyCODONE 5 mg oral capsule) 1 Capsule(s) Oral Every Day as needed as needed for pain for 3 Day(s). Refills: 0. polyethylene glycol 3350 (MiraLax oral powder for reconstitution) 17 Gram(s) Oral Every Day for 14 Day(s). Refills: 0. Patient Allergies: ketorolac Medication Instructions: Take your medications faithfully. Do NOT skip [...] cramping, rapid heartbeat, difficulty sleeping, and nervousness. Patient education materials: Small Bowel Obstruction A small bowel obstruction means that something is blocking the small bowel. The small bowel is also called the small intestine. It is the long tube that connects the stomach to the colon. An obstruction will stop food and fluids from passing through the small bowel. Treatment depends on what is causing the problem and how bad the problem is. Follow these instructions at home: ??? Get a lot of rest. ??? Follow your diet as told by your doctor. You may need to: ? Only drink clear liquids until you start to get better. ? Avoid solid foods as told by your doctor. ??? Take ymrh-cjw-tqgasmh and prescription medicines only as told by your doctor. ??? Keep all follow-up visits as told by your doctor. This is important. Contact a doctor if: ??? You have a fever. ??? You have chills. Get help right away if: ??? You have pain or cramps that get worse. ??? You throw up (vomit) blood. ??? You have a feeling of being sick to your stomach (nausea) that does not go away. ??? You cannot stop throwing up. ??? You cannot drink fluids. ??? You feel confused. ??? You feel dry or thirsty (dehydrated). ??? Your belly gets more bloated. ??? You feel weak or you pass out (faint). This information is not intended to replace advice given to you by your health care provider. Make sure you discuss any questions you have with your health care provider. Document Released: 10/30/2005 Document Revised: 05/19/2017 Document Reviewed: 11/16/2015 [employer] Patient Education ? 2017 [employer]. Medication Leaflets: polyethylene glycol 3350 (yohannes ee ETH il een GLYE kol) ClearLax, GaviLAX, Gialax, GlycoLax, MiraLax, [id number], [employer] ClearLax What is the most important [...] may report side effects to FDA at 6-098-FST-1940. What other drugs will affect polyethylene glycol 3350? Other drugs may interact with polyethylene glycol 3350, including prescription and esii-rdc-uxcfoxb medicines, vitamins, and herbal products. Tell each [...] to ensure that the information provided by [employer]') is accurate, up-to-date, and complete, but no guarantee is made to that effect. Drug information contained herein may be time sensitive. [employer] information has been compiled for use by healthcare practitioners and consumers in the [place] and therefore [employer] does not warrant that uses outside of the [place] are appropriate, unless specifically indicated otherwise. [employer] drug information does not endorse drugs, diagnose patients or recommend therapy. [employer] drug information is an informational resource designed [...] effective or appropriate for any given patient. [facility] does not assume any responsibility for any aspect of healthcare administered with the aid of information [facility] provides. The information contained herein is not intended to cover all possible uses, directions, precautions, warnings, drug interactions, allergic reactions, or adverse effects. If you have questions about the drugs you are taking, check with your doctor, nurse or pharmacist. Copyright 4613-[address] [facility] Easy. Version: 2.04. Revision Date: 01/08/2017. oxycodone (ox i KOE done) Oxaydo, OxyCONTIN, Oxyfast, [...] The extended-release form of oxycodone is for hgvcgj-nrw-bbpdg treatment of pain and should not be [...] against the law. Stop taking all other fjxljj-avb-omucf narcotic pain medicines when you start taking [...] may report side effects to FDA at 2-481-BPX-6558. What other drugs will affect oxycodone? You [...] doctor knows if you also use: ? other narcotic medications--opioid pain medicine or prescription cough medicine; ?? a sedative like Valium--diazepam, alprazolam, lorazepam, Ativan, Klonopin, Restoril, Tranxene, Versed, Xanax, and others; ?? drugs that make you sleepy or slow your breathing--a sleeping pill, muscle relaxer, tranquilizer, antidepressant, or antipsychotic medicine; or ?? drugs that affect serotonin levels in your body--medicine for depression, Parkinson's disease, migraine headaches, serious infections, or prevention of nausea and vomiting. This list is not complete and many other drugs may affect oxycodone. This includes prescription and vwkz-dbl-eignzdu medicines, vitamins, and herbal products. Not all [...] to ensure that the information provided by [employer]') is accurate, up-to-date, and complete, but no guarantee is made to that effect. Drug information contained herein may be time sensitive. [employer] information has been compiled for use by healthcare practitioners and consumers in the [place] and therefore [employer] does not warrant that uses outside of the [place] are appropriate, unless specifically indicated otherwise. [employer]'s drug information does not endorse drugs, diagnose patients or recommend therapy. [employer] drug information is an informational resource designed [...] effective or appropriate for any given patient. [facility] does not assume any responsibility for any aspect of healthcare administered with the aid of information [facility] provides. The information contained herein is not intended to cover all possible uses, directions, precautions, warnings, drug interactions, allergic reactions, or adverse effects. If you have questions about the drugs you are taking, check with your doctor, nurse or pharmacist. Copyright 4871-9172 [employer] Version: 13.. Revision Date: 07/17/2018. omeprazole (oh MEP ra zol) FIRST Omeprazole, Omeprazole + SyrSpend SF Cyn, PriLOSEC, PriLOSEC OTC What is the most important information I should know about omeprazole? Omeprazole can cause kidney problems. Tell your doctor if you are urinating less than usual, or if you have blood in your urine. Diarrhea may be a sign of a new infection. Call your doctor if you have diarrhea that is watery or has blood in it. Omeprazole may cause new or worsening symptoms of lupus. Tell your doctor if you have joint pain and a skin rash on your cheeks or arms that worsens in sunlight. 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 What is omeprazole? Omeprazole is a proton pump inhibitor that decreases the amount of acid produced in the stomach. Omeprazole is used to treat symptoms of gastroesophageal reflux disease (GERD) and other conditions caused by excess stomach acid. Omeprazole is also used to promote healing of erosive esophagitis (damage to your esophagus caused by stomach acid). Omeprazole may also be given together with antibiotics to treat gastric ulcer caused by infection with Helicobacter pylori (H. pylori). Psrn-psr-ksaesep (OTC) omeprazole is used to help control heartburn that occurs 2 or more days per week. This medicine not for immediate relief of heartburn symptoms. OTC omeprazole must be taken on a regular basis for 14 days in a row. Omeprazole may also be used for purposes not listed in this medication guide. What should I discuss with my healthcare provider before taking omeprazole? Heartburn can mimic early symptoms of a heart attack. Get emergency medical help if you have chest pain that spreads to your jaw or shoulder and you feel anxious or light-headed. You should not use omeprazole if you are allergic to it, or if: ? you are also allergic to medicines like omeprazole, such as esomeprazole, lansoprazole, pantoprazole, rabeprazole, Nexium, Prevacid, Protonix, and others; or ?? you also take HIV medication that contains rilpivirine (such as Complera, Edurant, Odefsey, Juluca). Ask a doctor or pharmacist if it is safe for you to use omeprazole if you have other medical conditions, especially: ? trouble or pain with swallowing; ?? bloody or black stools, vomit that looks like blood or coffee grounds; ?? heartburn that has lasted for over 3 months; ?? frequent chest pain, heartburn with wheezing; ?? unexplained weight loss; ?? nausea or vomiting, stomach pain; ?? liver disease; ?? low levels of magnesium in your blood; or ?? osteoporosis or low bone mineral density (osteopenia). You may be more likely to have a broken bone in your hip, wrist, or spine while taking a proton pump inhibitor long-term or more than once per day. Talk with your doctor about ways to keep your bones healthy. Ask a doctor before using this medicine if you are or breast-feeding. Do not give this medicine to a child without medical advice. How should I take omeprazole? Follow all directions on your prescription label and read all medication guides or instruction sheets. Use the medicine exactly as directed. Use Prilosec OTC (shqm-ynh-gdztyjk) exactly as directed on the label, or as prescribed by your doctor. Read and carefully follow any Instructions for Use provided with your medicine. Ask your doctor or pharmacist if you do not understand these instructions. Shake the oral suspension (liquid) before you measure a dose. Use the dosing syringe provided, or use a medicine dose-measuring device (not a kitchen spoon). If you cannot swallow a capsule whole, open it and sprinkle the medicine into a spoonful of applesauce. Swallow the mixture right away without chewing. Do not save it for later use. You must dissolve omeprazole powder in a small amount of water. This mixture can either be swallowed or given through a nasogastric (NG) feeding tube using a catheter-tipped syringe. OTC omeprazole should be taken for only 14 days in a row. Allow at least 4 months to pass before you start a new 14-day course of treatment. Use this medicine for the full prescribed length of time, even if your symptoms quickly improve. Call your doctor if your symptoms do not improve, or if they get worse. Some conditions are treated with a combination of omeprazole and antibiotics. Use all medications as directed. This medicine can affect the results of certain medical tests. Tell any doctor who treats you that you are using omeprazole. Store at room temperature away from moisture and heat. What happens if I miss a dose? Take the medicine as soon as you can, but skip the missed dose if it is almost time for your next dose. Do not take two doses at one time. What happens if I overdose? Seek emergency medical attention or call the Poison Help line at . What should I avoid while taking omeprazole? This medicine can cause diarrhea, which may be a sign of a new infection. If you have diarrhea that is watery or bloody, call your doctor before using anti-diarrhea medicine. What are the possible side effects of omeprazole? Get emergency medical help if you have signs of an allergic reaction: hives; difficulty breathing; swelling of your face, lips, tongue, or throat. Stop using omeprazole and call your doctor at once if you have: ? severe stomach pain, diarrhea that is watery or bloody; ?? new or unusual pain in your wrist, thigh, hip, or back; ?? seizure (convulsions); ?? kidney problems--little or no urination, blood in your urine, swelling, rapid weight gain; ?? low magnesium--dizziness, fast or irregular heart rate, tremors (shaking) or jerking muscle movements, feeling jittery, muscle cramps, muscle spasms in your hands and feet, cough or choking feeling; or ?? new or worsening symptoms of lupus--joint pain, and a skin rash on your cheeks or arms that worsens in sunlight. Taking omeprazole long-term may cause you to develop stomach growths called fundic gland polyps. Talk with your doctor about this risk. If you use omeprazole for longer than 3 years, you could develop a vitamin B-12 deficiency. Talk to your doctor about how to manage this condition if you develop it. Common side effects may include: ? stomach pain, gas; ?? nausea, vomiting, diarrhea; or ?? headache. This is not a complete list of side effects and others may occur. Call your doctor for medical advice about side effects. You may report side effects to FDA at 2-362-AWW-1330. What other drugs will affect omeprazole? Sometimes it is not safe to use certain medications at the same time. Some drugs can affect your blood levels of other drugs you take, which may increase side effects or make the medications less effective. Tell your doctor about all your current medicines. Many drugs can affect omeprazole, especially: ? clopidogrel; ?? methotrexate; ?? Bethesda's wort; or ?? an antibiotic--amoxicillin, clarithromycin, rifampin. This list is not complete and many other drugs may affect omeprazole. This includes prescription and ldrv-ecp-khfxwft medicines, vitamins, and herbal products. Not all possible drug interactions are listed here. Where can I get more information? Your pharmacist can provide more information about omeprazole. Remember, keep this and all other medicines out of the reach of children, never share your medicines with others, and use this medication only for the indication prescribed. Every effort has been made to ensure that the information provided by [employer]') is accurate, up-to-date, and complete, but no guarantee is made to that effect. Drug information contained herein may be time sensitive. [employer] information has been compiled for use by healthcare practitioners and consumers in the [place] and therefore [employer] does not warrant that uses outside of the [place] are appropriate, unless specifically indicated otherwise. [employer] drug information does not endorse drugs, diagnose patients or recommend therapy. [employer] drug information is an informational resource designed [...] effective or appropriate for any given patient. [employer] does not assume any responsibility for any aspect of healthcare administered with the aid of information [employer] provides. The information contained herein is not intended to cover all possible uses, directions, precautions, warnings, drug interactions, allergic reactions, or adverse effects. If you have questions about the drugs you are taking, check with your doctor, nurse or pharmacist. Copyright 2826-0411 [employer]. Version: 19.. Revision Date: 03/30/2018. CIGARETTE SMOKING: The facts are clear, cigarette smoking will shorten your life. Smoking can cause many illnesses along the way. As a healthcare provider, we recommend that you stop smoking. Assistance with quitting is available by contacting 2-472-OGXN-NOW. This is a free resource providing counseling, support, and referral. Or you may contact your personal physician. STROKE is an EMERGENCY Every [employer] ACT F.A.S.T! FACE ?? Facial droop ?? Uneven smile ARM ?? Arm numbness ?? Arm weakness SPEECH ?? Slurred speech ?? Difficulty speaking or understanding TIME ?? Call 911 and get to the hospital immediately Have the ambulance go to the nearest stroke center. STROKE Risk Factors High blood pressure High cholesterol Heart Disease Diabetes Smoking Heavy alcohol use Physical inactivity and obesity Atrial Fibrillation (irregular heartbeat) Family history of stroke Reminder: Be sure to sign up for the [employer] patient portal, which gives you 28/04 access to your medical information ??? including these discharge instructions ??? using your computer, smartphone, or tablet. Just go to Gert[employer]ude to get started. Questions? Call . [facility] would like to thank you for allowing us to assist you with your healthcare needs. IISAURA ERVIN E, (or national sales representative) have received the above patient education materials/instructions and have verbalized understanding: Patient Signature _ Date/Time Patient Sports Marketing Coordinator Signature (if needed) Date/Time Clinician/Hospital Sports Marketing Coordinator Signature (if needed) Date/Time Electronically signed by Pancho, [facility] Conversion Fire Captain Marine Cerner at 01/22/2023 6:39 PM CDT documented in this encounter Plan of Treatment Not on file documented as of this encounter Visit Diagnoses Not on filedocumented in this encounter
--- OUTSIDE RECORDS SUMMARY | 2025-06-09 09:44 | XMS_ITS | Encounter Summary ---
Author Organization [employer] ([place], [place], [place], [place]) Address [address] [place] [address] Care Team Providers Care Data Center Operator Name Role Phone Unavailable Primary Care Provider Sai e Encounter Details Date Type Department Care Team (Late st Contact Info) Description 11/19/2018 Transcribed Document [facility] [place] Family Medicine [address] [place] [address] Provider, MD Yoli [address] [place] [address] Social History Tobacco Use Types Packs/Day Years Used Date Smoking Tobacco: Never Assessed Sex and Gender Information Value Date Recorded Sex Assigned at Not on file Legal Sex Male 6:25 PM CDT Gender Identity Not on file Sexual Orientation Not on file documented as of this encounter Miscellaneous Notes * Cerner Conversion Note - Yoli ProviderMD - 11/19/2018 1:57 PM 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 Name: CALEB MATTHEWS D.O.B./Sex: 1970 Male Med Rec #: [id number] Physician: EVAN GIRALDO MD-[facility] Financial #: [id number] Pt. Type: I Room/Bed: 336/1 Admit/Disch: 11/17/18 16:04:00 - Institution: [facility] PreOp Case Times Entry 1 In Preop 11/19/18 11:20:00 Ready for Holding n/a Room Patient Ready for 11/19/18 12:19:00 Surgery Patient Out of Preop 11/19/18 13:14:00 Patient Out of n/a Holding Room Last Modified By: Jacqueline Clinton, RN 11/19/18 15:34:08 [facility] PreOp Case Times Audit 11/19/18 15:34:08 Thermostat Mechanic: PROCTOML Modifier: WRIGHTVP <+> 1 Patient Out of Preop Finalized By: Jacqueline Clinton, RN Document Signatures Signed By: Jacqueline Clinton RN 11/19/18 15:34 Electronically signed by Pancho [facility] Conversion Compliance Project Manager Cerner at 01/22/2023 6:38 PM CDT documented in this encounter Plan of Treatment Not on file documented as of this encounter Visit Diagnoses Not on filedocumented in this encounter
--- OUTSIDE RECORDS SUMMARY | 2025-06-09 09:44 | XMS_ITS | Encounter Summary ---
Author Organization [employer] ([place], [place], [place], [place]) Address [address] [place] [address] Care Team Providers Care Catering Convention Services Manager Name Role Phone Unavailable Primary Care Provider Sai e Encounter Details Date Type Department Care Team (Late st Contact Info) Description 10/12/2018 Transcribed Document [facility] [place] Family Medicine [address] [place] [address] ProviderYoli MD [address] [place] [address] Social History Tobacco Use Types Packs/Day Years Used Date Smoking Tobacco: Never Assessed Sex and Gender Information Value Date Recorded Sex Assigned at Not on file Legal Sex Male 6:25 PM CDT Gender Identity Not on file Sexual Orientation Not on file documented as of this encounter Miscellaneous Notes * Cerner Conversion Note - Yoli ProviderMD - 10/12/2018 10:45 AM LIBRARY HELPER [address] [place] [address] Patient Copy Patient Information: Name: CALEB MATTHEWS Current Date: 10/12/2018 10:45:01 : 1970 Patient Address: [address] [place] [id number] Patient Attending Physician: KEMAR ACOSTA MD Primary Care Provider: RITCHIE UPTON (REF[facility] Primary Care Provider Discharge Diagnosis: Small bowel obstruction Weight on Admission: 175 lb, 0 oz Comment: Follow-up Instructions: With: Address: When: [place] [address] Business (1) Within 1 week [...] as told by your doctor. ??? Take lhhw-nti-oxgewqs and prescription medicines only as told by [...] 10/30/2005 Document Revised: 05/19/2017 Document Reviewed: 11/16/2015 [employer] Patient Education ? 2017 [employer]. Medication Leaflets: polyethylene glycol 3350 (yohannes ee ETH il een GLYE kol) ClearLax, GaviLAX, Gialax, GlycoLax, MiraLax, [id number], SunMark ClearLax What is the most important [...] may report side effects to FDA at 9-942-CWC-1973. What other drugs will affect polyethylene glycol 3350? Other drugs may interact with polyethylene glycol 3350, including prescription and pgqy-wdj-dbblpgi medicines, vitamins, and herbal products. Tell each [...] to ensure that the information provided by [employer]. ('Mult[employer]') is accurate, up-to-date, and complete, but no guarantee is made to that effect. Drug information contained herein may be time sensitive. [employer] information has been compiled for use by healthcare practitioners and consumers in the [place] and therefore [employer] does not warrant that uses outside of the [place] are appropriate, unless specifically indicated otherwise. [employer] drug information does not endorse drugs, diagnose patients or recommend therapy. [employer]ats drug information is an informational resource designed [...] effective or appropriate for any given patient. [facility] does not assume any responsibility for any aspect of healthcare administered with the aid of information [facility] provides. The information contained herein is not intended to cover all possible uses, directions, precautions, warnings, drug interactions, allergic reactions, or adverse effects. If you have questions about the drugs you are taking, check with your doctor, nurse or pharmacist. Copyright 7283-0791 [employer]. Version: 2.04. Revision Date: 01/08/2017. oxycodone (ox [...] The extended-release form of oxycodone is for yijiyq-ybm-lmpme treatment of pain and should not be [...] against the law. Stop taking all other kzzrvz-eys-zcjgw narcotic pain medicines when you start taking [...] may report side effects to FDA at 1-026-UQL-1040. What other drugs will affect oxycodone? You [...] may affect oxycodone. This includes prescription and pfxr-kro-gliyuip medicines, vitamins, and herbal products. Not all [...] to ensure that the information provided by [employer]. ('Mult[employer]') is accurate, up-to-date, and complete, but no guarantee is made to that effect. Drug information contained herein may be time sensitive. [employer] information has been compiled for use by healthcare practitioners and consumers in the [place] and therefore [employer] does not warrant that uses outside of the [place] are appropriate, unless specifically indicated otherwise. [employer]'s drug information does not endorse drugs, diagnose patients or recommend therapy. [employer] drug information is an informational resource designed [...] effective or appropriate for any given patient. [facility] does not assume any responsibility for any aspect of healthcare administered with the aid of information [facility] provides. The information contained herein is not intended to cover all possible uses, directions, precautions, warnings, drug interactions, allergic reactions, or adverse effects. If you have questions about the drugs you are taking, check with your doctor, nurse or pharmacist. Copyright 5182-1836 [employer]. Version: 13.. Revision Date: 07/17/2018. omeprazole (oh [...] a broken bone while taking this medicine nursing home or more than once per day. What [...] by infection with Helicobacter pylori (H. pylori). Ipac-qoy-bgnczxk (OTC) omeprazole is used to help control [...] medicine exactly as directed. Use Prilosec OTC (wuxu-mga-hyhqlef) exactly as directed on the label, or [...] may report side effects to FDA at 6-975-SGI-6866. What other drugs will affect omeprazole? Sometimes it is not safe to use certain medications at the same time. Some drugs can affect your blood levels of other drugs you take, which may increase side effects or make the medications less effective. Tell your doctor about all your current medicines. Many drugs can affect omeprazole, especially: ? clopidogrel; ?? methotrexate; ?? Juntura's wort; or ?? an antibiotic--amoxicillin, clarithromycin, rifampin. This list is not complete and many other drugs may affect omeprazole. This includes prescription and pjja-ior-wjaqhrp medicines, vitamins, and herbal products. Not all [...] to ensure that the information provided by [employer]. ('Multum') is accurate, up-to-date, and complete, but no guarantee is made to that effect. Drug information contained herein may be time sensitive. [employer] information has been compiled for use by healthcare practitioners and consumers in the [place] and therefore [employer] does not warrant that uses outside of the [place] are appropriate, unless specifically indicated otherwise. [employer]ats drug information does not endorse drugs, diagnose patients or recommend therapy. [employer]ats drug information is an informational resource designed [...] effective or appropriate for any given patient. [employer] does not assume any responsibility for any aspect of healthcare administered with the aid of information [employer] provides. The information contained herein is not intended to cover all possible uses, directions, precautions, warnings, drug interactions, allergic reactions, or adverse effects. If you have questions about the drugs you are taking, check with your doctor, nurse or pharmacist. Copyright 9775-3188 [facility], [employer]. Version: 19.. Revision Date: 03/30/2018. CIGARETTE SMOKING: The facts are clear, cigarette smoking will shorten your life. Smoking can cause many illnesses along the way. As a healthcare provider, we recommend that you stop smoking. Assistance with quitting is available by contacting 6-589-JZVT-NOW. This is a free resource providing counseling, [...] Be sure to sign up for the [employer] patient portal, which gives you 28/04 access to your medical information ??? including these discharge instructions ??? using your computer, smartphone, or tablet. Just go to [employer] to get started. Questions? Call . [facility] would like to thank you for allowing us to assist you with your healthcare needs. IISAURA ERVIN E, (or major account representative) have received the above patient education materials/instructions and have verbalized understanding: Patient Signature _ Date/Time Patient Elevated Motorman Signature (if needed) Date/Time Clinician/Hospital Elevated Motorman Signature (if needed) Date/Time Electronically signed by Pancho, [facility] Conversion Tree Fruit And Nut Crops Farmer Cerner at 01/22/2023 6:33 PM CDT documented in this encounter Plan of Treatment Not on file documented as of this encounter Visit Diagnoses Not on filedocumented in this encounter
--- OUTSIDE RECORDS SUMMARY | 2025-06-09 09:44 | XMS_ITS | Encounter Summary ---
Author Organization [employer] ([place], [place], [place], [place]) Address [address] [place] [address] Care Team Providers Care Supervisor Fish Processing Name Role Phone Unavailable Primary Care Provider Unavailenrike e Encounter Details Date Type Department Care Team (Late st Contact Info) Description 11/19/2018 Transcribed Document [facility] [place] [address] [place] [address] ProviderYoli MD [address] [place] [address] Social History Tobacco Use Types Packs/Day Years Used Date Smoking Tobacco: Never Assessed Sex and Gender Information Value Date Recorded Sex Assigned at Not on file Legal Sex Male 6:25 PM CDT Gender Identity Not on file Sexual Orientation Not on file documented as of this encounter Miscellaneous Notes * Cerner Conversion Note - Historical ProviderMD - 11/19/2018 4:09 PM MAGNET MAKER Pain Assessment Entered On: 11/19/2018 23:42 EST Performed On: 11/19/2018 23:19 EST by Reese Chawla RN Intervention Information: oxyCODONE Performed by Reese Chawla RN on 11/19/2018 22:19:00 EST oxyCODONE,5mg OroGAStric Tube,Abdominal Pain Pain Assessment Pain Assessment : Follow-up assessment Pain Scale Goal : 3 Pain Scale Used : 0-10 Scale Pain Improved by Intervention : Yes Reese Chawla RN - 11/19/2018 23:42 EST Pain Scale Intensity : 3 Reese Chawla RN - 11/19/2018 23:42 EST Image 4 - Images currently included in the form version of this document have not been included in the text rendition version of the form. documented in this encounter Plan of Treatment Not on file documented as of this encounter Visit Diagnoses Not on filedocumented in this encounter
--- OUTSIDE RECORDS SUMMARY | 2025-06-09 09:44 | XMS_ITS | Encounter Summary ---
Author Organization [employer] ([place], [place], [place], [place]) Address [address] [place] [address] Care Team Providers Care Cloth Winding Supervisor Name Role Phone Unavailable Primary Care Provider Unavailenrike e Encounter Details Date Type Department Care Team (Late st Contact Info) Description 11/19/2018 Transcribed Document [facility] [place] [address] [place] [address] ProviderYoli MD [address] [place] [address] Social History Tobacco Use Types Packs/Day Years Used Date Smoking Tobacco: Never Assessed Sex and Gender Information Value Date Recorded Sex Assigned at Not on file Legal Sex Male 6:25 PM CDT Gender Identity Not on file Sexual Orientation Not on file documented as of this encounter Miscellaneous Notes * Cerner Conversion Note - Historical ProviderMD - 11/19/2018 12:00 AM WHEEL BLOCKER Pain Assessment Entered On: 11/19/2018 3:49 EST Performed On: 11/19/2018 3:15 EST by Reese Chawla RN Intervention Information: acetaminophen Performed by Reese Chawla RN on 11/19/2018 03:10:00 EST acetaminophen,650mg + sterile empty bag,1Each IV Piggyback,Left Lower Forearm Pain Assessment Pain Assessment : Follow-up assessment Pain Scale Goal : 3 Pain Scale Used : 0-10 Scale Pain Improved by Intervention : Yes Reese Chawla RN - 11/19/2018 3:49 EST Pain Scale Intensity : 3 Reese Chawla RN - 11/19/2018 3:49 EST Image 4 - Images currently included in the form version of this document have not been included in the text rendition version of the form. Electronically signed by Nena Deleon Conversion General Utility Machine Operator Tommie at 01/22/2023 6:28 PM CDT documented in this encounter Plan of Treatment Not on file documented as of this encounter Visit Diagnoses Not on filedocumented in this encounter
--- OUTSIDE RECORDS SUMMARY | 2025-06-09 09:44 | XMS_ITS | Encounter Summary ---
Author Organization [employer] ([place], [place], [place], [place]) Address [address] [place] [address] Care Team Providers Care Recorder Of Deeds Name Role Phone Unavailable Primary Care Provider Unavailabl e Encounter Details Date Type Department Care Team (Late st Contact Info) Description 02/28/2019 Transcribed Document [facility] [place] [address] [place] [address] ProviderYoli MD [address] [place] [address] Social History Tobacco Use Types Packs/Day Years Used Date Smoking Tobacco: Never Assessed Sex and Gender Information Value Date Recorded Sex Assigned at Not on file Legal Sex Male 6:25 PM CDT Gender Identity Not on file Sexual Orientation Not on file documented as of this encounter Miscellaneous Notes * Cerner Conversion Note - Yoli ProviderMD - 02/28/2019 9:00 AM CDT RX Interventions Entered On: 03/02/2019 13:17 EDT Performed On: 03/02/2019 13:16 EDT by YASMIN FREITAS [facility] Clinical Interventions Clarify Drug Order : Yes YASMIN FREITAS [facility] - 03/02/2019 13:16 EDT Clarify Drug Order Clarify Drug Order, Notes : I s/w BLUE Gauthier 3A, 03/03/19 @ 0915. She will ask pt. if he was able to have someone bring in his own supply - YASMIN Gonzalez [facility] - 03/03/2019 9:16 EDT Clarify Drug Order, Order : BLUE Burris 3A< called 03/02/19 1316 about patient's adderall. Patient takes 30 mg ER at home. Order entered on 02/28 as immediate release. [facility] does not stock ER, patient will need to use own supply. YASMIN FREITAS [facility] - 03/02/2019 13:18 EDT Clarify Drug Order, Value : 0 Dollar Clarify Drug Order, Time : 10 Minute(s) YASMIN FREITAS, [facility] - 03/02/2019 13:16 EDT Electronically signed by Pancho [facility] Conversion Environmental Services Associate Cerner at 01/22/2023 6:35 PM CDT documented in this encounter Plan of Treatment Not on file documented as of this encounter Visit Diagnoses Not on filedocumented in this encounter
--- OUTSIDE RECORDS SUMMARY | 2025-06-09 09:44 | XMS_ITS | Encounter Summary ---
Author Organization [facility] ([place], [place], [place], [place]) Address [address] [place] [address] Care Team Providers Care Cashiers Bussers Food Runners Name Role Phone Unavailable Primary Care Provider Unavailenrike e Encounter Details Date Type Department Care Team (Late st Contact Info) Description 11/17/2018 Transcribed Document [facility] [place] [address] [place] [address] ProviderYoli MD [address] [place] [address] Social History Tobacco Use Types Packs/Day Years Used Date Smoking Tobacco: Never Assessed Sex and Gender Information Value Date Recorded Sex Assigned at Not on file Legal Sex Male 6:25 PM CDT Gender Identity Not on file Sexual Orientation Not on file documented as of this encounter Miscellaneous Notes * Cerner Conversion Note - Historical ProviderMD - 11/17/2018 3:11 PM BUILDING EQUIPMENT OPERATOR Pain Assessment Entered On: 11/18/2018 8:03 EST Performed On: 11/18/2018 6:17 EST by Reese Chawla RN Intervention Information: morphine Performed by Reese Chawla RN on 11/18/2018 05:47:00 EST morphine,2mg IV Push,Left Lower Forearm,Pain (Severe 7-10) Pain Assessment Pain Assessment : Follow-up assessment Pain Scale Goal : 3 Pain Scale Used : 0-10 Scale Pain Improved by Intervention : Yes Reese Chawla RN - 11/18/2018 8:03 EST Pain Scale Intensity : 4 Reese Chawla RN - 11/18/2018 8:03 EST Image 4 - Images currently included in the form version of this document have not been included in the text rendition version of the form. documented in this encounter Plan of Treatment Not on file documented as of this encounter Visit Diagnoses Not on filedocumented in this encounter
--- OUTSIDE RECORDS SUMMARY | 2025-06-09 09:44 | XMS_ITS | Encounter Summary ---
Author Organization [employer] ([place], [place], [place], [place]) Address [address] [place] [address] Care Team Providers Care Electric Milkers Installer Name Role Phone Unavailable Primary Care Provider Sai e Encounter Details Date Type Department Care Team (Late st Contact Info) Description 10/12/2018 Transcribed Document [facility] [place] [address] [place] [address] ProviderYoli MD [address] [place] [address] Social History Tobacco Use Types Packs/Day Years Used Date Smoking Tobacco: Never Assessed Sex and Gender Information Value Date Recorded Sex Assigned at Not on file Legal Sex Male 6:25 PM CDT Gender Identity Not on file Sexual Orientation Not on file documented as of this encounter Miscellaneous Notes * Cerner Conversion Note - Yoli ProviderMD - 10/12/2018 8:21 AM LEADING FIREFIGHTER Patient: CALEB MATTHEWS Age: 47 Years Sex: Male : 1970 Subjective Pt doing well. Rossi diet. +Bms. anxious to go home Intake & Output Intake & Output Totals Last 24 Hours (7a-7a) Intake (9 Events) Medications (548.5 mL) Oral Intake (1531 mL) Output (1 Events) Urine Voided (Volume) (400 mL) Input Total: 2079.5 mL Output Total: 400 mL Balance: 1679.5 mL Vital Signs T: 36.6 ??C HR: 68 (Monitored) RR: 17 BP: 137/97 MAP: 110 SpO2: 97% Physical Exam abd soft, NT, ND. VTE Risk Total Score VTE Prophylaxis - Surgical Heparin 5,000 Units, SubCutaneous, Inj, Q12H, Routine, Start 10/10/18 11:30:00 EST (KEMAR ACOSTA MD) Assessment/Plan Small bowel obstruction K56.609 - resolved - advance diet as tolerated - OK to DC from surgical perspective Abdominal pain [id number] Other intestinal obstruction unspecified as to partial versus complete obstruction K56.699, Other intestinal obstruction unspecified as to partial versus complete obstruction K56.699 Small bowel obstruction K56.609 Medications Inpatient Colace, 100 mg, 1 Cap, Oral, BID Dilaudid, 0.5 mg, 0.5 mL, IV Push, Q4H, PRN heparin, 5000 Units, 1 mL, SubCutaneous, Q12H MiraLax, 17 Gram, 1 Packet, Oral, Daily oxyCODONE, 5 mg, 1 Tab, Oral, Q4H, PRN Protonix, 40 mg, IV Push, Daily Sodium Chloride 0.9% intravenous solution 1,000 mL, 1000 mL, IntraVENous Tylenol, 500 mg, 1 Tab, Oral, Q6H, PRN Zofran, 4 mg, 2 mL, IV Push, Q4H, PRN Home acetaminophen Routine Labs - Last 24 Hours OCT 12 07:15 140 110 8 / 101 4.0 22 0.70 \ Anion Gap: 12 Calcium Level: 8.6 mg/dL Imaging Results (Last 24 Hours) Radiology Results (Last 48 hours) [id number] -- 10/10/2018 11:30 CR Small Bowel Series (10/11/2018 10:36) Result: SMALL BOWEL FOLLOW-THROUGHHISTORY: Epigastric pain. Abnormal CT.PROCEDURE: Gastrografin was gently injected through the patient'sexisting nasogastric tube. 9 overhead films were obtained.FINDINGS: Preliminary electricians top helper film demonstrates nasogastric tubeterminating within the stomach. There is a single loop of mildly dilatedbowel within the left abdomen. The transit time to the colon is normalat 45 minutes. The mucosal fold pattern is normal.IMPRESSION: No obstruction identified.Images reviewed, interpreted, and dictated by Dr. Natalie Youngblood.Transcribed by Jovon Ladd, MARTY have personally viewed, interpreted and dictated the examination. Ihave read and agree with the above final transcribed report. Problem List/Past Medical History No chronic problems Historical No historical problems Procedure/Surgical History LUNG CANCER WORKUP. Allergies ketorolac (Rash, Rash) documented in this encounter Plan of Treatment Not on file documented as of this encounter Visit Diagnoses Not on filedocumented in this encounter
--- OUTSIDE RECORDS SUMMARY | 2025-06-09 09:44 | XMS_ITS | Encounter Summary ---
Author Organization [employer] ([place], [place], [place], [place]) Address [address] [place] [address] Care Team Providers Care Apartment Groundskeeper Name Role Phone Unavailable Primary Care Provider Unavailenrike e Encounter Details Date Type Department Care Team (Late st Contact Info) Description 02/27/2019 Transcribed Document [facility] [place] [address] [place] [address] ProviderYoli MD [address] [id number] Social History Tobacco Use Types Packs/Day Years Used Date Smoking Tobacco: Never Assessed Sex and Gender Information Value Date Recorded Sex Assigned at Not on file Legal Sex Male 6:25 PM CDT Gender Identity Not on file Sexual Orientation Not on file documented as of this encounter Miscellaneous Notes * Cerner Conversion Note - Yoli ProviderMD - 02/27/2019 12:54 PM CDT Patient: CALEB MATTHEWS Age: 48 Years Sex: Male : 1970 Assessment/Plan Status post exploratory laparotomy for chronic partial small bowel obstructions. Postop day 1 Scheduled Tylenol, when necessary by mouth oxycodone 10 mg and IV Dilaudid Lisinopril and HCTZ for hypertension When necessary diazepam for abdominal cramps Encourage ambulation Nothing by mouth for abdominal distention. Patient is passing flatus at this time Maintenance IV fluids DC Burgos Patient has completed perioperative antibiotics Slowly restart diet once abdominal distention has resolved VTE Prophylaxis - Medical Enoxaparin 40 mg, SubCutaneous, Inj, [id number], Routine, Start 02/26/19 11:00:00 EDT (KATHY HERNANDEZ) Subjective Pain control poor Patient endorses flatus multiple times Vital Signs T: 37.3 ??C TMIN: 36.7 ??C TMAX: 37.3 ??C HR: 79(Monitored) RR: 16 BP: 100/66 SpO2: 97% Oxygen Settings (Last) Oxygen Therapy Mode: Room air (02/27/19 07:00:00 EDT) Oxygen Flow Rate: 2 Liter/Min (02/26/19 21:20:00 EDT) Intake & Output Totals Last 24 Hours (7a-7a) Input Total: 4530.1633 mL Output Total: 2150 mL Balance: 2380.1633 mL Physical Exam Gen: NAD Resp:Nonlabored respirations CV:Normal peripheral perfusion Ab: Distended, incision dressing clean dry and intact Medications alvimopan, 12 mg= 1 Cap, Nasogastric Tube, BID cloNIDine 50 mcg + dexamethasone 4 mg + bupivacaine-EPINEPHrine 0.25%-1:200,000 injectable solution cloNIDine 50 mcg + dexamethasone 4 mg + bupivacaine-EPINEPHrine 0.25%-1:200,000 injectable solution diazePAM, 2.5 mg= 0.5 Tab, Oral, Q6H, PRN hydroCHLOROthiazide, 25 mg= 1 Tab, Oral, Daily HYDROmorphone, 1 mg= 1 mL, IV Push, Q3H, PRN lisinopril, 20 mg= 1 Tab, Oral, Daily Lovenox, 40 mg= 0.4 mL, SubCutaneous, L25HQsf morphine, 2 mg= 1 mL, IV Push, Q3H, PRN ondansetron, 4 mg= 2 mL, IV Push, Q6H, PRN oxyCODONE, 10 mg= 2 Tab, Oral, Q6H, PRN Tylenol, 1000 mg= 100 mL, IV Piggyback, Q6H Lab Results Test Name Test Result Date/Time Sodium Level 138 mmol/L 02/27/2019 06:37 EDT Potassium Level 3.9 mmol/L 02/27/2019 06:37 EDT Chloride Level 106 mmol/L 02/27/2019 06:37 EDT Carbon Dioxide Level 24 mmol/L 02/27/2019 06:37 EDT Anion Gap 12 02/27/2019 06:37 EDT Glucose Level 113 mg/dL (High) 02/27/2019 06:37 EDT Blood Urea Nitrogen 12 mg/dL 02/27/2019 06:37 EDT Creatinine Level 1.00 mg/dL 02/27/2019 06:37 EDT eGFR >60 mL/min/1.73m2 02/27/2019 06:37 EDT eGFR NonAfrican >60 mL/min/1.73m2 02/27/2019 06:37 EDT Bun/Creatinine 12.0 02/27/2019 06:37 EDT Calcium Level 8.9 mg/dL 02/27/2019 06:37 EDT Magnesium Level 2.1 mg/dL 02/27/2019 06:37 EDT WBC 11.6 K/uL (High) 02/27/2019 06:37 EDT RBC 2.90 Million/uL (Low) 02/27/2019 06:37 EDT Hgb 9.6 g/dL (Low) 02/27/2019 06:37 EDT Hct 28.9 % (Low) 02/27/2019 06:37 EDT MCV 99.7 fL (High) 02/27/2019 06:37 EDT MCH 33.1 pg (High) 02/27/2019 06:37 EDT MCHC 33.2 Gram/dL 02/27/2019 06:37 EDT Platelet Count 210 K/uL 02/27/2019 06:37 EDT MPV 8.9 fL (Low) 02/27/2019 06:37 EDT RDW 12.1 % 02/27/2019 06:37 EDT Slide Review No 02/27/2019 06:37 EDT documented in this encounter Plan of Treatment Not on file documented as of this encounter Visit Diagnoses Not on filedocumented in this encounter
--- OUTSIDE RECORDS SUMMARY | 2025-06-09 09:44 | XMS_ITS | Encounter Summary ---
Author Organization [employer] ([place], [place], [place], [place]) Address [address] [place] [address] Care Team Providers Care Personal Care Assistant Name Role Phone Unavailable Primary Care Provider Sai e Encounter Details Date Type Department Care Team (Late st Contact Info) Description 10/12/2018 Transcribed Document [facility] [place] Family Medicine [address] [place] [address] ProviderYoli MD [address] [place] [address] Social History Tobacco Use Types Packs/Day Years Used Date Smoking Tobacco: Never Assessed Sex and Gender Information Value Date Recorded Sex Assigned at Not on file Legal Sex Male 6:25 PM CDT Gender Identity Not on file Sexual Orientation Not on file documented as of this encounter Miscellaneous Notes * Cerner Conversion Note - Yoli ProviderMD - 10/12/2018 10:58 AM PATIENT ACCOUNT REPRESENTATIVE [address] [place] [address] Patient Copy Patient Information: Name: CALEB MATTHEWS Current Date: 10/12/2018 10:58:01 : 1970 Patient Address: [address] [place] [id number] Patient Attending Physician: KEMAR ACOSTA MD Primary Care Provider: RITCH[facility]PTON (REF[facility] Primary Care Provider Discharge Diagnosis: Small bowel obstruction Weight on Admission: 175 lb, 0 oz Comment: Follow-up Instructions: With: Address: When: [place] [address] Business (1) Within 1 week [...] as told by your doctor. ??? Take cufh-hik-hukiuhs and prescription medicines only as told by [...] 10/30/2005 Document Revised: 05/19/2017 Document Reviewed: 11/16/2015 [employer] Interactive Patient Education ? 2017 SOHM. Medication Leaflets: polyethylene glycol 3350 (yohannes ee ETH il een GLYE kol) ClearLax, GaviLAX, Gialax, GlycoLax, MiraLax, [id number], SunMark ClearLax What is the most important [...] may report side effects to FDA at 9-451-LMF-2661. What other drugs will affect polyethylene glycol 3350? Other drugs may interact with polyethylene glycol 3350, including prescription and goag-krn-moblfdo medicines, vitamins, and herbal products. Tell each [...] to ensure that the information provided by [employer]. ('Mult[employer]') is accurate, up-to-date, and complete, but no guarantee is made to that effect. Drug information contained herein may be time sensitive. [employer] information has been compiled for use by healthcare practitioners and consumers in the [place] and therefore [employer] does not warrant that uses outside of the [place] are appropriate, unless specifically indicated otherwise. [employer] drug information does not endorse drugs, diagnose patients or recommend therapy. [employer] drug information is an informational resource designed [...] with your doctor, nurse or pharmacist. Copyright 9023-4782 [employer]. Version: 2.04. Revision Date: 01/08/2017. oxycodone (ox [...] The extended-release form of oxycodone is for ydekji-vxk-uqnwr treatment of pain and should not be [...] against the law. Stop taking all other bblbur-ljn-esibd narcotic pain medicines when you start taking [...] may report side effects to FDA at 0-960-FJZ-1782. What other drugs will affect oxycodone? You [...] may affect oxycodone. This includes prescription and bwlb-bif-aovcjpu medicines, vitamins, and herbal products. Not all [...] to ensure that the information provided by [employer]. ('Multum') is accurate, up-to-date, and complete, but no guarantee is made to that effect. Drug information contained herein may be time sensitive. [employer] information has been compiled for use by healthcare practitioners and consumers in the [place] and therefore [employer] does not warrant that uses outside of the [place] are appropriate, unless specifically indicated otherwise. [employer]'s drug information does not endorse drugs, diagnose patients or recommend therapy. [employer] drug information is an informational resource designed [...] with your doctor, nurse or pharmacist. Copyright 0941-1724 [employer]. Version: 13.. Revision Date: 07/17/2018. omeprazole (oh [...] a broken bone while taking this medicine half-way or more than once per day. What [...] by infection with Helicobacter pylori (H. pylori). Amzj-kek-fdmaflh (OTC) omeprazole is used to help control [...] medicine exactly as directed. Use Prilosec OTC (wynh-dvk-uuhpjws) exactly as directed on the label, or [...] may report side effects to FDA at 7-482-UWS-1345. What other drugs will affect omeprazole? Sometimes it is not safe to use certain medications at the same time. Some drugs can affect your blood levels of other drugs you take, which may increase side effects or make the medications less effective. Tell your doctor about all your current medicines. Many drugs can affect omeprazole, especially: ? clopidogrel; ?? methotrexate; ?? Wartburg's wort; or ?? an antibiotic--amoxicillin, clarithromycin, rifampin. This list is not complete and many other drugs may affect omeprazole. This includes prescription and vkwt-qqp-ogwfycm medicines, vitamins, and herbal products. Not all [...] to ensure that the information provided by [employer]. ('Multum') is accurate, up-to-date, and complete, but no guarantee is made to that effect. Drug information contained herein may be time sensitive. [employer] information has been compiled for use by healthcare practitioners and consumers in the [place] and therefore [employer] does not warrant that uses outside of the [place] are appropriate, unless specifically indicated otherwise. [employer] drug information does not endorse drugs, diagnose patients or recommend therapy. [employer] drug information is an informational resource designed [...] effective or appropriate for any given patient. [employer] does not assume any responsibility for any aspect of healthcare administered with the aid of information Mult[employer] provides. The information contained herein is not intended to cover all possible uses, directions, precautions, warnings, drug interactions, allergic reactions, or adverse effects. If you have questions about the drugs you are taking, check with your doctor, nurse or pharmacist. Copyright 5103-0221 [facility] [employer]. Version: 19.. Revision Date: 03/30/2018. CIGARETTE SMOKING: The facts are clear, cigarette smoking will shorten your life. Smoking can cause many illnesses along the way. As a healthcare provider, we recommend that you stop smoking. Assistance with quitting is available by contacting 8-416-QPSQ-NOW. This is a free resource providing counseling, [...] Be sure to sign up for the [employer] patient portal, which gives you 28/04 access to your medical information ??? including these discharge instructions ??? using your computer, smartphone, or tablet. Just go to [employer] to get started. Questions? Call . [facility] would like to thank you for allowing us to assist you with your healthcare needs. IISAURA ERVIN E, (or vendor representatives) have received the above patient education materials/instructions and have verbalized understanding: Patient Signature _ Date/Time Patient Whirley Operator Signature (if needed) Date/Time Clinician/Hospital Whirley Operator Signature (if needed) Date/Time documented in this encounter Plan of Treatment Not on file documented as of this encounter Visit Diagnoses Not on filedocumented in this encounter
--- OUTSIDE RECORDS SUMMARY | 2025-06-09 09:44 | XMS_ITS | Encounter Summary ---
Author Organization [employer] ([place], [place], [place], [place]) Address [address] [place] [address] Care Team Providers Care Cardiovascular Invasive Specialist Name Role Phone Unavailable Primary Care Provider Unavailenrike e Encounter Details Date Type Department Care Team (Late st Contact Info) Description 02/27/2019 Transcribed Document [facility] [place] Family Medicine [address] [place] [address] ProviderYoli MD [address] [place] [address] Social History Tobacco Use Types Packs/Day Years Used Date Smoking Tobacco: Never Assessed Sex and Gender Information Value Date Recorded Sex Assigned at Not on file Legal Sex Male 6:25 PM CDT Gender Identity Not on file Sexual Orientation Not on file documented as of this encounter Miscellaneous Notes * Cerner Conversion Note - Historical ProviderMD - 02/27/2019 11:10 AM CDT Pain Assessment Entered On: 03/01/2019 12:40 EDT Performed On: 03/01/2019 13:24 EDT by Sylvie Mcmanus RN Intervention Information: oxyCODONE Performed by Sylvie Mcmanus RN on 03/01/2019 12:24:00 EDT oxyCODONE,10mg Oral,Abdominal Pain Pain Assessment Pain Assessment : Follow-up assessment Pain Scale Goal : 4 Pain Scale Used : FACES Sylvie Mcmanus RN - 03/01/2019 12:40 EDT Pain Scale Intensity : 3 Sylvie Mcmanus RN - 03/01/2019 12:40 EDT Image 4 - Images currently included in the form version of this document have not been included in the text rendition version of the form. documented in this encounter Plan of Treatment Not on file documented as of this encounter Visit Diagnoses Not on filedocumented in this encounter
--- OUTSIDE RECORDS SUMMARY | 2025-06-09 09:44 | XMS_ITS | Encounter Summary ---
Author Organization [employer] ([place], [place], [place], [place]) Address [address] [place] [address] Care Team Providers Care Snowsport Instructor Name Role Phone Unavailable Primary Care Provider Unavailenrike e Encounter Details Date Type Department Care Team (Late st Contact Info) Description 03/05/2019 Transcribed Document [facility] [place] Family Medicine [address] [place] [address] ProviderYoli MD [address] [place] [address] Social History Tobacco Use Types Packs/Day Years Used Date Smoking Tobacco: Never Assessed Sex and Gender Information Value Date Recorded Sex Assigned at Not on file Legal Sex Male 6:25 PM CDT Gender Identity Not on file Sexual Orientation Not on file documented as of this encounter Miscellaneous Notes * Cerner Conversion Note - Historical ProviderMD - 03/05/2019 7:10 PM CDT Pain Assessment Entered On: 03/07/2019 3:17 EDT Performed On: 03/06/2019 20:42 EDT by Judy Conroy Lpn Intervention Information: morphine Performed by Judy Conroy Lpn on 03/06/2019 20:12:00 EDT morphine,2mg IV Push,Left Mid Forearm,Abdominal Pain Pain Assessment Pain Assessment : Follow-up assessment Pain Scale Goal : 4 Pain Scale Used : 0-10 Scale Judy Conroy Lpn - 03/07/2019 3:17 EDT Pain Scale Intensity : 1 Judy Conroy Lpn - 03/07/2019 3:17 EDT Image 4 - Images currently included in the form version of this document have not been included in the text rendition version of the form. documented in this encounter Plan of Treatment Not on file documented as of this encounter Visit Diagnoses Not on filedocumented in this encounter
--- OUTSIDE RECORDS SUMMARY | 2025-06-09 09:44 | XMS_ITS | Encounter Summary ---
Author Organization [employer] ([place], [place], [place], [place]) Address [address] [place] [address] Care Team Providers Care Seed Potato Cutter Name Role Phone Unavailable Primary Care Provider Unavailenrike e Encounter Details Date Type Department Care Team (Late st Contact Info) Description 02/28/2019 Transcribed Document [facility] [place] [address] [place] [address] ProviderYoli MD [address] [place], [place] [id number] Social History Tobacco Use Types Packs/Day Years Used Date Smoking Tobacco: Never Assessed Sex and Gender Information Value Date Recorded Sex Assigned at Not on file Legal Sex Male 6:25 PM CDT Gender Identity Not on file Sexual Orientation Not on file documented as of this encounter Miscellaneous Notes * Cerner Conversion Note - Yoli ProviderMD - 02/28/2019 9:18 AM CDT Patient: CALEB DELAROSA Age: 48 Years Sex: Male : 1970 Subjective +flatus Intake & Output Intake & Output Totals Last 24 Hours (7a-7a) Intake (20 Events) Continuous Infusions (200 mL) Medications (413.17 mL) Output (3 Events) Urine Voided (Volume) (900 mL) Input Total: 613.17 mL Output Total: 900 mL Balance: -286.83 mL Vital Signs T: 37.7 ??C TMIN: 37.3 ??C TMAX: 37.7 ??C HR: 102(Monitored) RR: 18 BP: 109/66 SpO2: 97% Physical Exam abdomen softly distended. Dressings dry VTE Risk Total Score VTE Prophylaxis - Surgical Enoxaparin 40 mg, SubCutaneous, Inj, Q48LOdh, Routine, Start 02/26/19 11:00:00 EDT (KATHY HERNANDEZ) Assessment/Plan POD#2 OFELIA. Doing well. Start cl. liqs Other intestinal obstruction unspecified as to partial versus complete obstruction K56.699, Other intestinal obstruction unspecified as to partial versus complete obstruction K56.699 Medications Inpatient alvimopan, 12 mg= 1 Cap, Nasogastric Tube, [...] Daily Lovenox, 40 mg= 0.4 mL, SubCutaneous, K75PAau morphine, 2 mg= 1 mL, IV Push, [...]
--- OUTSIDE RECORDS SUMMARY | 2025-06-09 09:44 | XMS_ITS | Encounter Summary ---
Author Organization [employer] ([place], [place], [place], [place]) Address [address] [place] [address] Care Team Providers Care Virginia Line Attendant Name Role Phone Unavailable Primary Care Provider Sai e Encounter Details Date Type Department Care Team (Late st Contact Info) Description 11/19/2018 Transcribed Document [facility] [place] [address] [place] [address] ProviderYoli MD [address] [place] [address] Social History Tobacco Use Types Packs/Day Years Used Date Smoking Tobacco: Never Assessed Sex and Gender Information Value Date Recorded Sex Assigned at Not on file Legal Sex Male 6:25 PM CDT Gender Identity Not on file Sexual Orientation Not on file documented as of this encounter Miscellaneous Notes * Cerner Conversion Note - Historical ProviderMD - 11/19/2018 4:10 PM SADDLE CUTTER Pain Assessment Entered On: 11/19/2018 16:25 EST Performed On: 11/19/2018 16:42 EST by Lacie Patrick RN Intervention Information: fentaNYL Performed by Lacie Patrick RN on 11/19/2018 16:12:00 EST fentaNYL,25mcg IV Push,Forearm Left,Pain (Severe 7-10) Pain Assessment Pain Assessment : Follow-up assessment Pain Scale Goal : 3 Lacie Patrick RN - 11/19/2018 16:25 EST documented in this encounter Plan of Treatment Not on file documented as of this encounter Visit Diagnoses Not on filedocumented in this encounter
--- OUTSIDE RECORDS SUMMARY | 2025-06-09 09:44 | XMS_ITS | Encounter Summary ---
Author Organization [employer] ([place], [place], [place], [place]) Address [address] [place] [address] Care Team Providers Care French Drawer Name Role Phone Unavailable Primary Care Provider Unavailenrike e Encounter Details Date Type Department Care Team (Late st Contact Info) Description 03/01/2019 Transcribed Document [facility] [place] Family Medicine [address] [place] [address] ProviderYoli MD [address] [place] [address] Social History Tobacco Use Types Packs/Day Years Used Date Smoking Tobacco: Never Assessed Sex and Gender Information Value Date Recorded Sex Assigned at Not on file Legal Sex Male 6:25 PM CDT Gender Identity Not on file Sexual Orientation Not on file documented as of this encounter Miscellaneous Notes * Cerner Conversion Note - Historical ProviderMD - 03/01/2019 5:00 AM CDT Chart Check - Review Order Profile Entered On: 03/01/2019 4:26 EDT Performed On: 03/01/2019 5:00 EDT by Zoe Murrya RN Chart Check Powerplans Initiated/Discontinued as Appropriate : Yes All Active Orders Reviewed : Yes Zoe Murray RN - 03/01/2019 4:26 EDT documented in this encounter Plan of Treatment Not on file documented as of this encounter Visit Diagnoses Not on filedocumented in this encounter
--- OUTSIDE RECORDS SUMMARY | 2025-06-09 09:44 | XMS_ITS | Encounter Summary ---
Author Organization [employer] ([place], [place], [place], [place]) Address [address] [place] [address] Care Team Providers Care Physics And Astronomy Professor Name Role Phone Unavailable Primary Care Provider Unavailenrike e Encounter Details Date Type Department Care Team (Late st Contact Info) Description 02/28/2019 Transcribed Document [facility] [place] [address] [place] [address] ProviderYoli MD [address], [place] [id number] Social History Tobacco Use Types Packs/Day Years Used Date Smoking Tobacco: Never Assessed Sex and Gender Information Value Date Recorded Sex Assigned at Not on file Legal Sex Male 6:25 PM CDT Gender Identity Not on file Sexual Orientation Not on file documented as of this encounter Miscellaneous Notes * Cerner Conversion Note - Historical ProviderMD - 02/28/2019 5:00 AM CDT Chart Check - Review Order Profile Entered On: 02/28/2019 3:12 EDT Performed On: 02/28/2019 5:00 EDT by MARINA COTE RN Chart Check Powerplans Initiated/Discontinued as Appropriate : Yes All Active Orders Reviewed : Yes MARINA COTE RN - 02/28/2019 3:12 EDT documented in this encounter Plan of Treatment Not on file documented as of this encounter Visit Diagnoses Not on filedocumented in this encounter
--- OUTSIDE RECORDS SUMMARY | 2025-06-09 09:44 | XMS_ITS | Encounter Summary ---
Author Organization [employer] ([place], [place], [place], [place]) Address [address] [place] [address] Care Team Providers Care Saturation Equipment Operator Name Role Phone Unavailable Primary Care Provider Unavailabl e Encounter Details Date Type Department Care Team (Late st Contact Info) Description 03/01/2019 Transcribed Document [facility] [place] Family Medicine [address] [place] [address] ProviderYoli MD [address] [place] [address] Social History Tobacco Use Types Packs/Day Years Used Date Smoking Tobacco: Never Assessed Sex and Gender Information Value Date Recorded Sex Assigned at Not on file Legal Sex Male 6:25 PM CDT Gender Identity Not on file Sexual Orientation Not on file documented as of this encounter Miscellaneous Notes * Cerner Conversion Note - Historical ProviderMD - 03/01/2019 5:00 PM CDT Chart Check - Review Order Profile Entered On: 03/01/2019 16:19 EDT Performed On: 03/01/2019 17:00 EDT by Sylvie Mcmanus RN Chart Check Powerplans Initiated/Discontinued as Appropriate : Yes All Active Orders Reviewed : Yes Sylvie Mcmanus RN - 03/01/2019 16:19 EDT Electronically signed by [facility] Conversion Merchandise Planning Manager Cerner at 01/22/2023 6:54 PM CDT documented in this encounter Plan of Treatment Not on file documented as of this encounter Visit Diagnoses Not on filedocumented in this encounter
--- OUTSIDE RECORDS SUMMARY | 2025-06-09 09:44 | XMS_ITS | Encounter Summary ---
Author Organization [employer] ([place], [place], [place], [place]) Address [address] [place] [address] Care Team Providers Care Delivery Person Name Role Phone Unavailable Primary Care Provider Unavailenrike e Encounter Details Date Type Department Care Team (Late st Contact Info) Description 11/17/2018 Transcribed Document [facility] [place] Family Medicine [address] [place] [address] ProviderYoli MD [address] [place] [address] Social History Tobacco Use Types Packs/Day Years Used Date Smoking Tobacco: Never Assessed Sex and Gender Information Value Date Recorded Sex Assigned at Not on file Legal Sex Male 6:25 PM CDT Gender Identity Not on file Sexual Orientation Not on file documented as of this encounter Miscellaneous Notes * Cerner Conversion Note - Historical ProviderMD - 11/17/2018 5:54 PM LICENSED MORTICIAN Nutrition Assessment Entered On: 11/18/2018 10:27 EST Performed On: 11/18/2018 10:24 EST by CHRISTINE ROSA RD, LD Nutrition Assessment Nutrition Assessment Reason : Automatic referral CHRISTINE ROSA RD, LD - 11/18/2018 10:24 EST Current Nutrition Regimen Comment : 11/18: Nsg consult ie: 2-# wt loss. Pt reports decreased appetite; NGT in place. States has lost 5-10# over the past 2 months. Has drank Ensure in the past and agreed to have it sent once diet advanced. No physical signs of malnutrition observed. Dx: abd pain, PSBO PMH: lung mass LBM: +11/16 Skin: wnls Meds: ivf Labs: (11/17) Alb 4.1, AST 74, ALT 104, LAC 2.2 Diet: NPO Ht: 71 , Admit wt: 170# UBW: 175-180# 2 months ago IBW: 172#/98% BMI 23.[address], LD - 11/18/2018 14:54 EST Nutrition Learning Needs : None at this time CHRISTINE ROSA RD, LD - 11/18/2018 10:24 EST Nutrition Diagnoses Weight : Unintended weight loss Weight Related to : PMH Weight As Evidenced by : 5-10# (3-6%) x 2 months Weight Status : Active CHRISTINE ROSA RD, LD - 11/18/2018 14:54 EST Oral or Nutrition Support Intake : Inadequate oral intake Oral or Nutr Support Intake Related To : PSBO Oral or Nutr Support Intake Evidenced by : NPO x 1 day Oral or Nutrition Support Intake Status : Active CHRISTINE ROSA RD, LD - 11/18/2018 10:24 EST Nutrition Interventions Meals and Snacks : General/Healthful diet Nutrition Supplement Therapy : Commercial beverage CHRISTINE ROSA RD, LD - 11/18/2018 10:24 EST Monitoring/Evaluation Energy Intake : Total energy intake Food Intake : Amount of food Weight Status : Weight gain, Weight loss, Weight Maintanence CHRISTINE ROSA RD, LD - 11/18/2018 10:24 EST Nutrition Recommendations Dietitian Recommendations : 1. As medical condition allows, initiate and adv diet as amena (gi soft) and provide Thelma Ensure BID Goal: utilize gi tract, meet est needs 2. Check wt 2 x weekly Goal: no significant unplanned wt loss high risk - f/u 2 x weekly [address], CARLI - 11/18/2018 14:54 EST Nutrition Care Level : High CHRISTINE ROSA RD, LD 11/18/2018 10:24 EST Electronically signed by Nena Deleon Conversion Potato Peeling Machine Operator Cerner at 01/22/2023 6:33 PM CDT documented in this encounter Plan of Treatment Not on file documented as of this encounter Visit Diagnoses Not on filedocumented in this encounter
--- OUTSIDE RECORDS SUMMARY | 2025-06-09 09:44 | XMS_ITS | Encounter Summary ---
Author Organization [employer] ([place], [place], [place], [place]) Address [address] [place] [address] Care Team Providers Care Wax Pourer Name Role Phone Unavailable Primary Care Provider Unavailabl e Encounter Details Date Type Department Care Team (Late st Contact Info) Description 02/27/2019 Transcribed Document [facility] [place] [address] [place] [address] ProviderYoli MD [address] [place] [address] Social History Tobacco Use Types Packs/Day Years Used Date Smoking Tobacco: Never Assessed Sex and Gender Information Value Date Recorded Sex Assigned at Not on file Legal Sex Male 6:25 PM CDT Gender Identity Not on file Sexual Orientation Not on file documented as of this encounter Miscellaneous Notes * Cerner Conversion Note - Historical ProviderMD - 02/27/2019 5:00 PM CDT Chart Check - Review Order Profile Entered On: 02/27/2019 18:33 EDT Performed On: 02/27/2019 17:00 EDT by Sylvie Mcmanus RN Chart Check Powerplans Initiated/Discontinued as Appropriate : Yes All Active Orders Reviewed : Yes Sylvie Mcmanus RN - 02/27/2019 18:33 EDT Electronically signed by [facility] Conversion Office Runner Cerner at 01/22/2023 6:43 PM CDT documented in this encounter Plan of Treatment Not on file documented as of this encounter Visit Diagnoses Not on filedocumented in this encounter
--- OUTSIDE RECORDS SUMMARY | 2025-06-09 09:44 | XMS_ITS | Encounter Summary ---
Author Organization [employer] ([place], [place], [place], [place]) Address [address] [place] [address] Care Team Providers Care Radio Announcer Name Role Phone Unavailable Primary Care Provider Sai e Encounter Details Date Type Department Care Team (Late st Contact Info) Description 10/12/2018 Transcribed Document [facility] Radiology [address] [place] [address] Nina Man MD [address] [place] [address] [address] [id number] Social History Tobacco Use Types Packs/Day Years Used Date Smoking Tobacco: Never Assessed Sex and Gender Information Value Date Recorded Sex Assigned at Not on file Legal Sex Male 6:25 PM CDT Gender Identity Not on file Sexual Orientation Not on file documented as of this encounter Miscellaneous Notes * Cerner Conversion Note - Nina Man MD - 10/12/2018 4:46 PM EST DATE OF ADMISSION: 10/10/2018 DATE OF DISCHARGE: 10/12/2018 PRIMARY CARE PROVIDER: Dr. Kevin Wisdom. PRINCIPAL DISCHARGE DIAGNOSES: 1. Partial small bowel obstruction, resolved. 2. Gastroesophageal reflux disease. PRINCIPAL CONSULTATIONS: Surgical consult with Dr. Valdez. PRINCIPAL PROCEDURES: 1. Patient had a CT scan of the abdomen and pelvis on 10/10/2018 with findings of mildly dilated loops of small bowel without distinct transition point that was noted. 2. Small bowel follow-through did not reveal any evidence of obstruction performed on 10/11/2018. ADMISSION HISTORY AND HOSPITAL COURSE: This is a 47-year-old white male, who has had multiple abdominal surgeries in the past. Evidently, he did have some hernia repair with a mesh placement and more recently had a laparoscopic adhesion lysis approximately three to four years ago. He stated that in the past three to four years, he was doing well until the pain recurred with sharp intermittent in the left side without any accompanying urinary symptoms. He did not have any vomiting. He noticed that he was becoming more constipated and did not pass any flatus and arrived in the emergency room. At the time of admission, patient was noted to be afebrile. His blood pressure was 162/104 likely secondary to pain and discomfort. His BUN and creatinine were 11 and 0.9. His white count was at 9.5. His lactic acid level was unremarkable. He underwent a CT scan of the abdomen and pelvis with finding as above. Later on, patient did have an NG tube inserted with drainage of small amount of bilious material. Surgical consult was requested. The patient did well with conservative management initially, and after the small bowel follow-through, started to have improvement in his bowel symptoms. He did have multiple bowel movements and his diet has been advanced gradually. On the day of discharge, patient is doing well. Awake, alert, and oriented and afebrile with a blood pressure of 137/97. Lung exam is clear to auscultation and abdomen exam is benign and soft. He does have some resolving colicky pain from his recent partial small bowel obstruction. Patient was also seen and evaluated by Surgical Services and cleared for discharge. He will continue with his MiraLAX as an outpatient on a daily basis and he has also had some symptoms of GERD and so he will be on Prilosec. DISCHARGE DIET: Would be regular with high-fiber as tolerated. DISCHARGE MEDICATIONS: 1. Prilosec 20 mg daily. 2. MiraLAX 1 packet daily. 3. Oxycodone 5 mg daily p.r.n. 5 pills with no refills given. DISCHARGE FOLLOWUP: 1. Follow up with his primary care provider, Dr. Kevin Wisdom, in one week. 2. Follow up with Surgery only will be on an as needed basis. TIME SPENT: Time taken in the entirety towards the discharge dispositioning including discussion with the patient with management plan as outlined above totals at 30 minutes. Nina Man M.D. Dict: 10/12/2018 15:46:58 Trans: 10/13/2018 11:19:23 CC1: Nina Man M.D. documented in this encounter Plan of Treatment Not on file documented as of this encounter Visit Diagnoses Not on filedocumented in this encounter
--- OUTSIDE RECORDS SUMMARY | 2025-06-09 09:44 | XMS_ITS | Encounter Summary ---
Author Organization [employer] ([place], [place], [place], [place]) Address [address] [place] [address] Care Team Providers Care Applications Systems Engineer Name Role Phone Unavailable Primary Care Provider Unavailabl e Encounter Details Date Type Department Care Team (Late st Contact Info) Description 10/12/2018 Transcribed Document [facility] [place] Family Medicine [address] [place] [address] ProviderYoli MD [address], [place] [id number] Social History Tobacco Use Types Packs/Day Years Used Date Smoking Tobacco: Never Assessed Sex and Gender Information Value Date Recorded Sex Assigned at Not on file Legal Sex Male 6:25 PM CDT Gender Identity Not on file Sexual Orientation Not on file documented as of this encounter Miscellaneous Notes * Cerner Conversion Note - Historical ProviderMD - 10/12/2018 10:45 AM EDITOR MAP Nursing Discharge Summary Entered On: 10/12/2018 10:46 EST Performed On: 10/12/2018 10:45 EST by Renetta Gunn Lpn Discharge Documentation Discharge Date/Time : 10/12/2018 10:57 EST Renetta Gunn Lpn - 10/12/2018 10:57 EST Patient Disposition, General : Discharge Discharge To : Home with ambulatory/outpatient follow-up Mode Of Departure, General Discharge : Public transportation, Other: patient stated that he drove Accompanied By, Discharge : Unaccompanied IV Discontinued : Not applicable Medications Given to Patient : No Personal Belongings With Patient : Yes Prescriptions Given to Patient : Yes Discharge Instructions Reviewed With, Opportunity For Questions Given : Patient Patient Education Completed : Yes Number of Prescriptions Given : 3 Teaching Method : Explanation Teaching Evaluation : Verbalizes understanding Education Comment : pt verbalized understanding of POC Renetta Gunn Lpn - 10/12/2018 10:45 EST Electronically signed by Pancho, [facility] Conversion Entertainment Usher Cerner at 01/22/2023 6:50 PM CDT documented in this encounter Plan of Treatment Not on file documented as of this encounter Visit Diagnoses Not on filedocumented in this encounter
--- OUTSIDE RECORDS SUMMARY | 2025-06-09 09:44 | XMS_ITS | Encounter Summary ---
Author Organization [employer] ([place], [place], [place], [place]) Address [address] [place] [address] Care Team Providers Care Assembly Line Upholsterer Name Role Phone Unavailable Primary Care Provider Unavailenrike e Encounter Details Date Type Department Care Team (Late st Contact Info) Description 10/11/2018 Transcribed Document [facility] [place] Family Medicine [address] [place] [address] ProviderYoli MD [address] [place], [place] [id number] Social History Tobacco Use Types Packs/Day Years Used Date Smoking Tobacco: Never Assessed Sex and Gender Information Value Date Recorded Sex Assigned at Not on file Legal Sex Male 6:25 PM CDT Gender Identity Not on file Sexual Orientation Not on file documented as of this encounter Miscellaneous Notes * Cerner Conversion Note - Historical ProviderMD - 10/11/2018 2:00 AM POLYETHYLENE BAG MACHINE OPERATOR Supervisor Lump Room Details Entered On: 10/11/2018 6:10 EST Performed On: 10/11/2018 2:00 EST by Eileen Sun Rn Order Details Transport Mode Order Detail : Wheelchair Isolation Precautions Order Detail : Standard Precautions Order Detail : N/A IV Order Detail : 1 Oxygen Order Detail : 0 Lift/Transfer : Independent Central Line Order Detail : No Room Service : Appropriate Arterial Line : No Eileen Sun Rn - 10/11/2018 6:10 EST documented in this encounter Plan of Treatment Not on file documented as of this encounter Visit Diagnoses Not on filedocumented in this encounter
--- OUTSIDE RECORDS SUMMARY | 2025-06-09 09:44 | XMS_ITS | Encounter Summary ---
Author Organization [employer] ([place], [place], [place], [place]) Address [address] [place] [address] Care Team Providers Care Senior Salesforce Developer Name Role Phone Unavailable Primary Care Provider Unavailenrike e Encounter Details Date Type Department Care Team (Late st Contact Info) Description 03/03/[address] [facility] [place] Family Medicine [address] [place] [address] ProviderYoli MD [address] [place] [address] Social History Tobacco Use Types Packs/Day Years Used Date Smoking Tobacco: Never Assessed Sex and Gender Information Value Date Recorded Sex Assigned at Not on file Legal Sex Male 6:25 PM CDT Gender Identity Not on file Sexual Orientation Not on file documented as of this encounter Miscellaneous Notes * Cerner Conversion Note - Historical ProviderMD - 03/03/2019 10:27 AM CDT Pain Assessment Entered On: 03/05/2019 19:27 EDT Performed On: 03/05/2019 6:10 EDT by Judy Conroy Lpn Intervention Information: morphine Performed by Judy Conroy Lpn on 03/05/2019 05:40:00 EDT morphine,2mg IV Push,Right Lower Forearm,Abdominal Pain Pain Assessment Pain Assessment : Follow-up assessment Pain Scale Goal : 4 Pain Scale Used : 0-10 Scale Judy Conroy Lpn - 03/05/2019 19:27 EDT Pain Scale Intensity : 1 Judy Conroy Lpn - 03/05/2019 19:27 EDT Image 4 - Images currently included in the form version of this document have not been included in the text rendition version of the form. Electronically signed by Nena Deleon Conversion Executive Director [employer] at 01/24/2023 11:33 AM CDT documented in this encounter Plan of Treatment Not on file documented as of this encounter Visit Diagnoses Not on filedocumented in this encounter
--- OUTSIDE RECORDS SUMMARY | 2025-06-09 09:44 | XMS_ITS | Encounter Summary ---
Author Organization [employer] ([place], [place], [place], [place]) Address [address] [place] [address] Care Team Providers Care Supervisor Scrap Preparation Name Role Phone Unavailable Primary Care Provider Unavailabl e Encounter Details Date Type Department Care Team (Late st Contact Info) Description 02/27/2019 Transcribed Document [facility] [place] [address] [place] [address] ProviderYoli MD [address] [place] [address] Social History Tobacco Use Types Packs/Day Years Used Date Smoking Tobacco: Never Assessed Sex and Gender Information Value Date Recorded Sex Assigned at Not on file Legal Sex Male 6:25 PM CDT Gender Identity Not on file Sexual Orientation Not on file documented as of this encounter Miscellaneous Notes * Cerner Conversion Note - Yoli ProviderMD - 02/27/2019 10:36 AM CDT UM Authorization Entered On: 02/27/2019 10:38 EDT Performed On: 02/27/2019 10:36 EDT by MARCIA DELGADILLO RN Primary Insurance Authorization Authorization and Policy Numbers : Insurance 1 Health Plan: AET Policy Number: [id number] Authorization Number: [employer] Insurance Primary Name : Bran [id number] Authorization Comments-Primary : Per [facility] notes no auth required. Submitted for OP (?). wants patient to stay 5 days. Note to UR team to f/u on 03/02 re: authorizatin Historical Authorization Comments-Primary : No Authorization Comments Found MARCIA DELGADILLO RN - 02/27/2019 10:36 EDT documented in this encounter Plan of Treatment Not on file documented as of this encounter Visit Diagnoses Not on filedocumented in this encounter
--- OUTSIDE RECORDS SUMMARY | 2025-06-09 09:44 | XMS_ITS | Encounter Summary ---
Author Organization [employer] ([place], [place], [place], [place]) Address [address] [place] [address] Care Team Providers Care Locks Inspector Name Role Phone Unavailable Primary Care Provider Unavailenrike e Encounter Details Date Type Department Care Team (Late st Contact Info) Description 10/12/2018 Transcribed Document [facility] [address] [place] [address] ProviderYoli MD [address] [place], [place] [id number] Social History Tobacco Use Types Packs/Day Years Used Date Smoking Tobacco: Never Assessed Sex and Gender Information Value Date Recorded Sex Assigned at Not on file Legal Sex Male 6:25 PM CDT Gender Identity Not on file Sexual Orientation Not on file documented as of this encounter Miscellaneous Notes * Cerner Conversion Note - Historical ProviderMD - 10/12/2018 2:00 AM GEOSCIENCE SPECIALIST Circuit Board Assembler Details Entered On: 10/12/2018 1:27 EST Performed On: 10/12/2018 2:00 EST by Salima Ramos RN Order Details Transport Mode Order Detail : Wheelchair Isolation Precautions Order Detail : Standard Precautions Order Detail : N/A IV Order Detail : 1 Oxygen Order Detail : 0 Nurse Collect Order Detail : 0 Lift/Transfer : Independent Central Line Order Detail : No Room Service : Appropriate Arterial Line : No Salima Ramos RN - 10/12/2018 1:27 EST documented in this encounter Plan of Treatment Not on file documented as of this encounter Visit Diagnoses Not on filedocumented in this encounter
--- OUTSIDE RECORDS SUMMARY | 2025-06-09 09:44 | XMS_ITS | Encounter Summary ---
Author Organization [employer] ([place], [place], [place], [place]) Address [address] [place] [address] Care Team Providers Care Event Set Up Specialist Name Role Phone Unavailable Primary Care Provider Unavailenrike e Encounter Details Date Type Department Care Team (Late st Contact Info) Description 10/12/2018 Transcribed Document [facility] Radiology [address] [place] [address] Kemar Man MD [address] [place], [place] [id number] Social History Tobacco Use Types Packs/Day Years Used Date Smoking Tobacco: Never Assessed Sex and Gender Information Value Date Recorded Sex Assigned at Not on file Legal Sex Male 6:25 PM CDT Gender Identity Not on file Sexual Orientation Not on file documented as of this encounter Miscellaneous Notes * Cerner Conversion Note - Kemar Man MD - 10/12/2018 4:50 PM EST Patient: CALEB DELAROSA Age: 47 years Sex: Male : 1970 Associated Diagnoses: None Author: KEMAR MAN MD Discharge dictated. #[id number]. documented in this encounter Plan of Treatment Not on file documented as of this encounter Visit Diagnoses Not on filedocumented in this encounter
--- OUTSIDE RECORDS SUMMARY | 2025-06-09 09:44 | XMS_ITS | Encounter Summary ---
Author Organization [employer] ([place], [place], [place], [place]) Address [address] [place] [address] Care Team Providers Care Splitter Tender Name Role Phone Unavailable Primary Care Provider Unavailenrike e Encounter Details Date Type Department Care Team (Late st Contact Info) Description 03/05/2019 Transcribed Document [facility] [place] Family Medicine [address] [place] [address] ProviderYoli MD [address] [place] [address] Social History Tobacco Use Types Packs/Day Years Used Date Smoking Tobacco: Never Assessed Sex and Gender Information Value Date Recorded Sex Assigned at Not on file Legal Sex Male 6:25 PM CDT Gender Identity Not on file Sexual Orientation Not on file documented as of this encounter Miscellaneous Notes * Cerner Conversion Note - Historical ProviderMD - 03/05/2019 7:12 PM CDT Pain Assessment Entered On: 03/05/2019 23:29 EDT Performed On: 03/05/2019 21:05 EDT by Judy Conroy Lpn Intervention Information: acetaminophen Performed by Judy Conroy Lpn on 03/05/2019 20:05:00 EDT acetaminophen,650mg Oral Pain Assessment Pain Assessment : Follow-up assessment Pain Scale Goal : 4 Pain Scale Used : 0-10 Scale Judy Conroy Lpn - 03/05/2019 23:29 EDT Pain Scale Intensity : 1 Judy Conroy Lpn - 03/05/2019 23:29 EDT Image 4 - Images currently included in the form version of this document have not been included in the text rendition version of the form. documented in this encounter Plan of Treatment Not on file documented as of this encounter Visit Diagnoses Not on filedocumented in this encounter
--- OUTSIDE RECORDS SUMMARY | 2025-06-09 09:44 | XMS_ITS | Encounter Summary ---
Author Organization [employer] ([place], [place], [place], [place]) Address [address] [place] [address] Care Team Providers Care Plant Quality Manager Name Role Phone Unavailable Primary Care Provider Sai e Encounter Details Date Type Department Care Team (Late st Contact Info) Description 10/12/2018 Transcribed Document [facility] [place] Family Medicine [address] [place] [address] ProviderYoli MD [address], [place] [id number] Social History Tobacco Use Types Packs/Day Years Used Date Smoking Tobacco: Never Assessed Sex and Gender Information Value Date Recorded Sex Assigned at Not on file Legal Sex Male 6:25 PM CDT Gender Identity Not on file Sexual Orientation Not on file documented as of this encounter Miscellaneous Notes * [employer]ner Conversion Note - Historical ProviderMD - 10/12/2018 12:02 PM GENERAL PRODUCTION MANAGER Care Management Assessment/Plan Entered On: 10/12/2018 12:04 EST Performed On: 10/12/2018 12:02 EST by Asher Foley RN Care Management Note Anticipated Discharge Date : 10/12/2018 15:00 EST Care Management Note : RRS-33-low Pt for dc home. No cm needs assessed. Documentation Status Complete : Yes Asher Foley RN - 10/12/2018 12:02 EST Patient History Emergency Contact #1 : ADEEL MEJIAS Emergency Contact #1 Emergency Contact #1 Relationship : GIRLFRIEND Emergency Contact #2 : LORRIE FRAGOSO Emergency Contact #2 Emergency Contact #2 Relationship : DAUGHTER Living Situation : Home Patient Lives With : Child/Children Current Home Treatments : None Asher Foley RN - 10/12/2018 12:02 EST Discharge Planning Details Discharge Home : Home with spouse/significant other Home Caregiver Name/Relationship : paul--girlfriend Home Caregiver Discharge Placement Needs : Home Persons Assisting Patient at Home, PSY : Significant other(s) Transportation Needs : Car Discharge Dialysis Arrangements : No Asher Foley, BLUE - 10/12/2018 12:02 EST Final Discharge Disposition Note-CM Final Discharge Disposition Note-CM : RRS-33-low Pt for dc home. No cm needs assessed. Discharge To Care Management : Home/Residential/Care Home or Self Care -01 Asher Foley, BLUE - 10/12/2018 12:02 EST Electronically signed by Pancho [facility] Conversion Film Spooler Cerner at 01/22/2023 6:40 PM CDT documented in this encounter Plan of Treatment Not on file documented as of this encounter Visit Diagnoses Not on filedocumented in this encounter
--- OUTSIDE RECORDS SUMMARY | 2025-06-09 09:44 | XMS_ITS | Encounter Summary ---
Author Organization [employer] ([place], [place], [place], [place]) Address [address] [place] [address] Care Team Providers Care Asphalt Surface Heater Operator Name Role Phone Unavailable Primary Care Provider Sai wagner Encounter Details Date Type Department Care Team (Late st Contact Info) Description 11/17/2018 Transcribed Document [facility] [place] [facility] [address] [place] [address] ProviderYoli MD [address] [place] [address] Social History Tobacco Use Types Packs/Day Years Used Date Smoking Tobacco: Never Assessed Sex and Gender Information Value Date Recorded Sex Assigned at Not on file Legal Sex Male 6:25 PM CDT Gender Identity Not on file Sexual Orientation Not on file documented as of this encounter Miscellaneous Notes * Cerner Conversion Note - Yoli ProviderMD - 11/17/2018 5:11 PM PRESS READER [address] [place] [address] Patient Information Name: CALEB MATTHEWS Age: 47 Years Date of : 1970 Arrival Time: 11/17/2018 12:06:00 Diagnosis Abdominal pain Primary Care Physician: ROSA, NOT LISTED Provider Information Primary Provider: YASMIN TREJO Secondary Provider: CALEB MATTHEWS has been given the following list of patient education materials, prescriptions and follow-up instructions: Follow-up Instructions: With: Address: When: [facility] Within 2 to 3 days Comments: For further assistance with your Primary Care Physician please contact the Patient Resource Center at [phone]. With: Address: When: NOT LISTED PHY Within 2 to 3 days Patient Education Materials: Allergies: ketorolac Medication Information: Laboratory or Other Results This Visit (last charted value for your 11/17/2018 visit) Hematology 11/17/18 15:00:00 WBC: 7.8 K/uL -- Normal range between ( 3.6 and 9.5 ) RBC: 4.68 Million/uL -- Normal range between ( 4.20 and 5.70 ) Hct: 44.6 % -- Normal range between ( 40.1 and 51.0 ) Hgb: 15.3 g/dL -- Normal range between ( 13.5 and 17.3 ) Platelet Count: 212 K/uL -- Normal range between ( 163 and 369 ) MCH: 32.7 pg -- Normal range between ( 25.6 and 32.2 ) MCHC: 34.3 Gram/dL -- Normal range between ( 32.2 and 36.5 ) MCV: 95.3 fL -- Normal range between ( 79.0 and 94.8 ) Slide Review: No Eos %: 2.2 % -- Normal range between ( 0.0 and 7.0 ) [place] #: 0.83 K/uL -- Normal range between ( 0.16 and 1.00 ) Eos #: 0.17 x10(3)/uL -- Normal range between ( 0.00 and 0.80 ) [place] %: 10.6 % -- Normal range between ( 3.0 and 9.0 ) Baso %: 0.5 % -- Normal range between ( 0.0 and 1.5 ) Baso #: 0.04 x10(3)/uL -- Normal range between ( 0.00 and 0.20 ) RDW: 11.9 % -- Normal range between ( 11.7 and 14.9 ) Neut %: 64.9 % -- Normal range between ( 34.0 and 71.0 ) Neut #: 5.08 K/uL -- Normal range between ( 1.56 and 6.13 ) Lymph %: 21.5 % -- Normal range between ( 19.3 and 53.1 ) Lymph #: 1.68 x10(3)/uL -- Normal range between ( 1.00 and 3.90 ) MPV: 8.4 fL -- Normal range between ( 9.4 and 12.4 ) IG#: 0.02 x10(3)/uL -- Normal range between ( 0.00 and 0.05 ) IG%: 0.30 % -- Normal range between ( 0.00 and 0.60 ) General Chemistry 11/17/18 14:07:00 Lactic Acid Level: 1.4 mmol/L -- Normal range between ( 0.4 and 2.0 ) 11/17/18 12:37:00 Creatinine Level: 0.80 mg/dL -- Normal range between ( 0.70 and 1.30 ) Sodium Level: 138 mmol/L -- Normal range between ( 136 and 146 ) Potassium Level: 4.2 mmol/L -- Normal range between ( 3.5 and 5.1 ) Chloride Level: 107 mmol/L -- Normal range between ( 102 and 112 ) Carbon Dioxide Level: 21 mmol/L -- Normal range between ( 21 and 32 ) Anion Gap: 14 -- Normal range between ( 9 and 20 ) Bilirubin Total: 0.6 mg/dL -- Normal range between ( 0.2 and 1.2 ) A/G Ratio: 1.2 -- Normal range between ( 1.1 and 2.5 ) ALT: 104 Units/Liter -- Normal range between ( 16 and 61 ) AST: 74 Units/Liter -- Normal range between ( 5 and 37 ) Globulin: 3.5 Gram/dL -- Normal range between ( 1.5 and 4.5 ) Alk Phos: 51 Units/Liter -- Normal range between ( 27 and 136 ) Bun/Creatinine: 7.5 -- Normal range between ( 8.0 and 20.0 ) Calcium Level: 8.8 mg/dL -- Normal range between ( 8.4 and 10.1 ) eGFR : >60 mL/min/1.73m2 eGFR NonAfrican: >60 mL/min/1.73m2 Glucose Level: 83 mg/dL -- Normal range between ( 74 and 106 ) Blood Urea Nitrogen: 6 mg/dL -- Normal range between ( 7 and 22 ) Protein Total: 7.6 Gram/dL -- Normal range between ( 6.4 and 8.2 ) Albumin Level: 4.1 Gram/dL -- Normal range between ( 3.4 and 5.0 ) Lipase Level: 104 Units/Liter -- Normal range between ( 73 and 393 ) Cardiac Specific Markers 11/17/18 12:37:00 Troponin I Ultra: <0.015 ng/mL -- Normal range between ( 0.015 and 0.045 ) Medication Comment: Procedures: Laboratory Orders Name Status AutoDiff Completed CBCD Completed CMP Completed LAC Completed LACTREFL Completed LIPASE Completed TROPIULT Completed Radiology Orders Name Status CT Abdomen Pelvis W Ordered Cardiology Orders Name Status ECG Completed This statement is to verify that CALEB MATTHEWS was seen at [facility] on ,11/17/2018 17:11:30. This is not a work excuse, if a work excuse was needed it will be in addition to this statement as a separate form. IMPORTANT: The examination and treatment you have received in the Emergency Department has been done to provide an appropriate evaluation and stabilizing treatment on an emergency basis only. Given the limited resources, it is not meant to be a substitute for complete medical care. The follow-up doctor you named will receive a copy of your records and all test reports. IT IS IMPORTANT THAT YOU SCHEDULE A FOLLOW-UP APPOINTMENT AND ARE RE-EVALUATED. You should report any new complaints, symptoms, or remaining problems at that time. IT IS IMPOSSIBLE FOR THE EMERGENCY DEPARTMENT TO RECOGNIZE AND TREAT ALL ELEMENTS OF INJURY OR ILLNESS IN A SINGLE VISIT. If you have been referred to a specialist physician, it means that we believe you may have a condition that requires the expertise of a specialist. KEEP IN MIND THAT THE SPECIALIST HAS HIS/HER OWN OFFICE POLICIES WHICH MAY REQUIRE PROPER INSURANCE OR PAYMENT UP FRONT BEFORE THE SPECIALIST WILL SEE YOU. It is your responsibility to call the specialist physician to make an appointment. We do not have the ability to identify specialists/physicians that work with specific insurance companies. Please be advised that all financial charges or billing practices are determined by that practice, not the hospital. If your insurance company requires that you see a specialist from their approved list, it is your responsibility to contact your insurance company to make those arrangements. It is also your responsibility to follow any other requirements of your insurance company necessary to obtain coverage for claims submitted. If you had special tests, such as EKG???s or X-rays, the interpretation of your tests given to you by the Emergency Dept. Physician is a preliminary report. Some fractures and illnesses fail to show up on preliminary tests. We will review them again within 24-48 hours. We will call you if there are any new suggestions. If your symptoms continue notify your physician. After you leave, you should follow the instructions below. In all events, you may obtain a copy of your Emergency Department visit from Medical Records. Please call to be directed to this department. We will bill your insurance; however, you are responsible today for any co-pay amounts. You will receive a separate bill for any services you may have received including: emergency, radiology, or pathology physicians. Please be sure we have an accurate contact phone number and address, should we need to call you for any reason. CIGARETTE SMOKING: The facts are clear; cigarette smoking will shorten your life. Smoking can cause many illnesses along the way. As a healthcare provider, [facility] recommends that you stop smoking. Assistance with quitting is available by contacting 7-731-OKOD-NOW. This is a free resource providing counseling, support, and referral. Or you may contact your personal physician. As part of your treatment plan, [...] cramping, rapid heartbeat, difficulty sleeping, and nervousness. The home medications listed are only as accurate as the information you provided. Please continue taking all of your medications prescribed by your Primary Care Provider unless specifically told to change or discontinue the medication. Please direct any questions regarding your home medications to your Primary Care Provider. YOU ARE THE MOST IMPORTANT FACTOR IN YOUR RECOVERY. ?? Follow your instructions carefully ?? Take your medicines as prescribed ?? Most important, see a provider as discussed. If you do not have a provider, we can provide a list of clinics Confidential This message and accompanying documents are covered by Electronic Communications Privacy Act 18 U.S.C. ???Sections 7191-8696,?? and contain information intended for the specified individual(s) only. This information is confidential. If you are not the intended recipient or an agent responsible for delivering it to the intended recipient, you are hereby notified that you have received the document in error and that any review, dissemination, copying, or the taking of any action based on the contents of this information is strictly prohibited. If you have received this communication in error, please notify us immediately by email, and delete the original message. 4 WAYS TO GET AHEAD OF SEPSIS SEPSIS is a MEDICAL EMERGENCY. Time matters! Infections put you and your family at risk for a life-threatening condition called sepsis. Sepsis is the body???s extreme response to an infection. It is life-threatening, and without timely treatment, sepsis can rapidly lead to tissue damage, organ failure, and . Sepsis happens when an infection you already have???in your skin, lungs, urinary tract or somewhere else???triggers a chain reaction throughout your body. 1 [...] sepsis or if you have an infection that???s not getting better or is getting worse. To learn more about sepsis and how to prevent infections, visit www.cdc.gov/sepsis. STROKE is an EMERGENCY Every Minute Counts [...] Fibrillation (irregular heartbeat) Family history of stroke Acknowledgment I hereby acknowledge receipt of these instructions and information above. I understand that I have received Emergency Treatment only which is not a substitute for complete medical care and acknowledge that all of my medical problems may not be known, identified, or treated prior to my release. I UNDERSTAND THE NEED TO ARRANGE FOLLOW-UP CARE WITH THE PHYSICIAN INDICATED. I UNDERSTAND THAT I SHOULD CONTACT MY PHYSICIAN IMMEDIATELY OR RETURN TO THE EMERGENCY DEPARTMENT IF MY CONDITION WORSENS, FAILS TO IMPROVE, OR NEW SYMPTOMS APPEAR. Vital Signs B/P PULSE RESP. RATE TEMPERATURE PULSE OX Signature of Emergency Provider Date / Time Signature of Emergency Nurse Date / Time Reminder: Be sure to sign up for the [facility] patient portal, which gives you 28/04 access to your medical information ??? including these discharge instructions ??? using your computer, smartphone, or tablet. Just go to [employer] to get started. Questions? Call . Acknowledgment I hereby acknowledge receipt of these instructions and information above. I understand that I have received Emergency Treatment only which is not a substitute for complete medical care and acknowledge that all of my medical problems may not be known, identified, or treated prior to my release. I UNDERSTAND THE NEED TO ARRANGE FOLLOW-UP CARE WITH THE PHYSICIAN INDICATED. I UNDERSTAND THAT I SHOULD CONTACT MY PHYSICIAN IMMEDIATELY OR RETURN TO THE EMERGENCY DEPARTMENT IF MY CONDITION WORSENS, FAILS TO IMPROVE, OR NEW SYMPTOMS APPEAR. Signature of Patient / Responsible Person Date / Time Please provide a telephone number where you can be reached. The best time to call is between: It is permissable to leave a message if no answer: Yes____ No____ Nurse Providing Instructions: Emergency Physician: documented in this encounter Plan of Treatment Not on file documented as of this encounter Visit Diagnoses Not on filedocumented in this encounter
--- OUTSIDE RECORDS SUMMARY | 2025-06-09 09:44 | XMS_ITS | Encounter Summary ---
Author Organization [employer] ([place], [place], [place], [place]) Address [address] [place] [address] Care Team Providers Care Dough Raiser Name Role Phone Unavailable Primary Care Provider Unavailenrike e Encounter Details Date Type Department Care Team (Late st Contact Info) Description 10/12/2018 Transcribed Document [facility] [place] Family Medicine [address] [place] [address] ProviderYoli MD [address] [place] [address] Social History Tobacco Use Types Packs/Day Years Used Date Smoking Tobacco: Never Assessed Sex and Gender Information Value Date Recorded Sex Assigned at Not on file Legal Sex Male 6:25 PM CDT Gender Identity Not on file Sexual Orientation Not on file documented as of this encounter Miscellaneous Notes * Cerner Conversion Note - Yoli Luna MD - 10/12/2018 10:[address]ER Patient Education Materials Follows: Small Bowel Obstruction A small bowel obstruction [...] as told by your doctor. ??? Take [id number] and prescription medicines only as told by [...] 10/30/2005 Document Revised: 05/19/2017 Document Reviewed: 11/16/2015 Elsevier Interactive Patient Education ? 2017 [employer] Electronically signed by Nena Deleon Conversion Human Resources Manager Manufacturing Cerner at 01/22/2023 6:33 PM CDT documented in this encounter Plan of Treatment Not on file documented as of this encounter Visit Diagnoses Not on filedocumented in this encounter
--- OUTSIDE RECORDS SUMMARY | 2025-06-09 09:44 | XMS_ITS | Encounter Summary ---
Author Organization [employer] ([place], [place], [place], [place]) Address [address] [place] [address] Care Team Providers Care Christian Science Reader Name Role Phone Unavailable Primary Care Provider Unavailenrike e Encounter Details Date Type Department Care Team (Late st Contact Info) Description 11/17/2018 Transcribed Document [facility] [place] Family Medicine [address] [place] [address] ProviderYoli MD [address] [place] [address] Social History Tobacco Use Types Packs/Day Years Used Date Smoking Tobacco: Never Assessed Sex and Gender Information Value Date Recorded Sex Assigned at Not on file Legal Sex Male 6:25 PM CDT Gender Identity Not on file Sexual Orientation Not on file documented as of this encounter Miscellaneous Notes * Cerner Conversion Note - Yoli ProviderMD - 11/17/2018 5:54 PM GEOGRAPHIC AREA INTELLIGENCE OFFICER Care Management Assessment/Plan Entered On: 11/18/2018 13:12 EST Performed On: 11/18/2018 13:07 EST by SAM RUANO Care Management Note Care Management Note : Received from the ED with c/o abdominal pain and nausea, being admitted with same. Pt with hx. of multiple abdominal procedures in the past. Pt recently hospitalized 10/10/18-10/12/18 for a partial small bowel obstruction. Met with Pt and his on IDT rounds. Role of CM explained. Resting quietly. IVF's infusing. Pt currently NPO. NG tube has just been placed to LWS. Per BLUE Schmid, Pt is scheduled for OR tomorrow. Pt is ADL independent, denies DME/HH/Rehab. Plans are to return home with his at discharge. No needs anticipated/verbalized at this time. RRS is moderate @ 48. CM will follow. Documentation Status Complete : Yes SAM RUANO - 11/18/2018 13:07 EST Patient History Information Obtained from, Care Mgt : Patient, Medical Record Current Primary Care Physician : Dwaine Ma Emergency Contact #1 : christy plasencia Emergency Contact #1 Emergency Contact #1 Relationship : Emergency Contact #2 : ghazal lacey Emergency Contact #2 Emergency Contact #2 Relationship : daughter Living Situation : Home Patient Lives With : Child/Children, Spouse Mobility Assistance Prior to Admission : Independent Current Daily Living Assistance : None Sensory Deficits : None Professional Skilled Services : None Current Home Treatments : None Home Equipment : None SAM RUANO 11/18/2018 13:07 EST Discharge Planning Details Discharge Home : Home with spouse/significant other Home Caregiver Name/Relationship : Christy, Home Caregiver SAM RUANO 11/18/2018 13:07 EST documented in this encounter Plan of Treatment Not on file documented as of this encounter Visit Diagnoses Not on filedocumented in this encounter
--- OUTSIDE RECORDS SUMMARY | 2025-06-09 09:44 | XMS_ITS | Encounter Summary ---
Author Organization [employer] ([place], [place], [place], [place]) Address [address] [place] [address] Care Team Providers Care Repair Technician Name Role Phone Unavailable Primary Care Provider Unavailenrike e Encounter Details Date Type Department Care Team (Late st Contact Info) Description 03/02/2019 Transcribed Document [facility] [place] Family Medicine [address] [place] [address] ProviderYoli MD [address] [place] [address] Social History Tobacco Use Types Packs/Day Years Used Date Smoking Tobacco: Never Assessed Sex and Gender Information Value Date Recorded Sex Assigned at Not on file Legal Sex Male 6:25 PM CDT Gender Identity Not on file Sexual Orientation Not on file documented as of this encounter Miscellaneous Notes * Cerner Conversion Note - Historical ProviderMD - 03/02/2019 5:00 AM CDT Chart Check - Review Order Profile Entered On: 03/02/2019 4:59 EDT Performed On: 03/02/2019 5:00 EDT by Zoe Murray RN Chart Check Powerplans Initiated/Discontinued as Appropriate : Yes All Active Orders Reviewed : Yes Zoe Murray RN - 03/02/2019 4:59 EDT documented in this encounter Plan of Treatment Not on file documented as of this encounter Visit Diagnoses Not on filedocumented in this encounter
--- OUTSIDE RECORDS SUMMARY | 2025-06-09 09:44 | XMS_ITS | Encounter Summary ---
Author Organization [employer] ([place], [place], [place], [place]) Address [address] [place] [address] Care Team Providers Care Locomotive Oiler Name Role Phone Unavailable Primary Care Provider Unavailenrike e Encounter Details Date Type Department Care Team (Late st Contact Info) Description 10/12/2018 Transcribed Document [facility] [place] Family Medicine [address] [place] [address] ProviderYoli MD [address], [place] [address] Social History Tobacco Use Types Packs/Day Years Used Date Smoking Tobacco: Never Assessed Sex and Gender Information Value Date Recorded Sex Assigned at Not on file Legal Sex Male 6:25 PM CDT Gender Identity Not on file Sexual Orientation Not on file documented as of this encounter Miscellaneous Notes * Cerner Conversion Note - Historical ProviderMD - 10/12/2018 10:58 AM JOURNEYMAN ELECTRICIAN Event Note Entered On: 10/12/2018 11:01 EST Performed On: 10/12/2018 10:58 EST by Renetta Gunn Lpn Event Note Event Date/Time : 10/12/2018 10:55 EST Event Location : Assigned room Description of Event : Patient was discharged home per MD orders. Patient was given scripts per MD. Patient showed no signs or symptoms of distress at the time of discharge. Discharge instructions were discussed with patient and patient denied any questions or concerns. [facility] fleet dispatch manager directed patient to elevators. Renetta Gunn Lpn - 10/12/2018 10:58 EST Electronically signed by [facility] Conversion Test Equipment Mechanic Cerner at 01/22/2023 6:45 PM CDT documented in this encounter Plan of Treatment Not on file documented as of this encounter Visit Diagnoses Not on filedocumented in this encounter
--- OUTSIDE RECORDS SUMMARY | 2025-06-09 09:44 | XMS_ITS | Encounter Summary ---
Author Organization [employer] ([place], [place], [place], [place]) Address [address] [place] [address] Care Team Providers Care Manager Sharepoint Name Role Phone Unavailable Primary Care Provider Unavailenrike e Encounter Details Date Type Department Care Team (Late st Contact Info) Description 03/02/2019 Transcribed Document [facility] [place] Family Medicine [address] [place] [address] ProviderYoli MD [address] [place], [place] [id number] Social History Tobacco Use Types Packs/Day Years Used Date Smoking Tobacco: Never Assessed Sex and Gender Information Value Date Recorded Sex Assigned at Not on file Legal Sex Male 6:25 PM CDT Gender Identity Not on file Sexual Orientation Not on file documented as of this encounter Miscellaneous Notes * Cerner Conversion Note - Historical ProviderMD - 03/02/2019 7:41 AM CDT Pain Assessment Entered On: 03/03/2019 10:39 EDT Performed On: 03/03/2019 7:49 EDT by PAOLO BATISTA RN Intervention Information: oxyCODONE Performed by Zoe Murray RN on 03/03/2019 06:49:00 EDT oxyCODONE,10mg Oral,Abdominal Pain Pain Assessment Pain Assessment : Follow-up assessment Pain Scale Goal : 4 PAOLO BATISTA RN - 03/03/2019 10:39 EDT documented in this encounter Plan of Treatment Not on file documented as of this encounter Visit Diagnoses Not on filedocumented in this encounter
--- OUTSIDE RECORDS SUMMARY | 2025-06-09 09:45 | XMS_ITS | Encounter Summary ---
Author Organization [employer] ([place], [place], [place], [place]) Address [address] [place] [address] Care Team Providers Care Site Leasing Agent Name Role Phone Unavailable Primary Care Provider Unavailenrike e Encounter Details Date Type Department Care Team (Late st Contact Info) Description 03/05/2019 Transcribed Document [facility] [place] Family Medicine [address] [place] [address] ProviderYoli MD [address] [place] [address] Social History Tobacco Use Types Packs/Day Years Used Date Smoking Tobacco: Never Assessed Sex and Gender Information Value Date Recorded Sex Assigned at Not on file Legal Sex Male 6:25 PM CDT Gender Identity Not on file Sexual Orientation Not on file documented as of this encounter Miscellaneous Notes * Cerner Conversion Note - Historical ProviderMD - 03/05/2019 9:00 PM CDT Pain Assessment Entered On: 03/05/2019 23:30 EDT Performed On: 03/05/2019 23:04 EDT by Judy Conroy Lpn Intervention Information: oxyCODONE Performed by Judy Conroy Lpn on 03/05/2019 22:04:00 EDT oxyCODONE,15mg Oral Pain Assessment Pain Assessment : Follow-up assessment Pain Scale Goal : 4 Pain Scale Used : 0-10 Scale Judy Conroy Lpn - 03/05/2019 23:30 EDT Pain Scale Intensity : 1 Judy Conroy Lpn - 03/05/2019 23:30 EDT Image 4 - Images currently included in the form version of this document have not been included in the text rendition version of the form. documented in this encounter Plan of Treatment Not on file documented as of this encounter Visit Diagnoses Not on filedocumented in this encounter
--- OUTSIDE RECORDS SUMMARY | 2025-06-09 09:45 | XMS_ITS | Encounter Summary ---
Author Organization [employer] ([place], [place], [place], [place]) Address [address] [place] [address] Care Team Providers Care Safe And Vault Installer Name Role Phone Unavailable Primary Care Provider Unavailabl e Encounter Details Date Type Department Care Team (Late st Contact Info) Description 03/03/2019 Transcribed Document [facility] [place] Family Medicine [address] [place] [address] ProviderYoli MD [address] [place] [address] Social History Tobacco Use Types Packs/Day Years Used Date Smoking Tobacco: Never Assessed Sex and Gender Information Value Date Recorded Sex Assigned at Not on file Legal Sex Male 6:25 PM CDT Gender Identity Not on file Sexual Orientation Not on file documented as of this encounter Miscellaneous Notes * Cerner Conversion Note - Historical ProviderMD - 03/03/2019 2:00 AM CDT [employer] Developer Details Entered On: 03/03/2019 1:07 EDT Performed On: 03/03/2019 2:00 EDT by Zoe Murray, BLUE Order Details Transport Mode Order Detail : Ambulatory Isolation Precautions Order Detail : Standard Precautions Order Detail : N/A IV Order Detail : 1 Oxygen Order Detail : 0 Nurse Collect Order Detail : 0 Lift/Transfer : Independent Central Line Order Detail : No Room Service : Appropriate Arterial Line : No Zoe Murray, BLUE - 03/03/2019 1:07 EDT documented in this encounter Plan of Treatment Not on file documented as of this encounter Visit Diagnoses Not on filedocumented in this encounter
--- OUTSIDE RECORDS SUMMARY | 2025-06-09 09:45 | XMS_ITS | Encounter Summary ---
Author Organization [employer] ([place], [place], [place], [place]) Address [address] [place] [address] Care Team Providers Care Geophysical Drafter Name Role Phone Unavailable Primary Care Provider Unavailabl e Encounter Details Date Type Department Care Team (Late st Contact Info) Description 03/05/2019 Transcribed Document [facility] [place] [address] [place] [address] ProviderYoli MD [address] [place], [place] [id number] Social History Tobacco Use Types Packs/Day Years Used Date Smoking Tobacco: Never Assessed Sex and Gender Information Value Date Recorded Sex Assigned at Not on file Legal Sex Male 6:25 PM CDT Gender Identity Not on file Sexual Orientation Not on file documented as of this encounter Miscellaneous Notes * [employer]ner Conversion Note - Historical ProviderMD - 03/05/2019 2:00 AM CDT Board Member Details Entered On: 03/05/2019 6:02 EDT Performed On: 03/05/2019 2:00 EDT by Judy Conroy Lpn Order Details Transport Mode Order Detail : Ambulatory Isolation Precautions Order Detail : Standard Precautions Order Detail : N/A IV Order Detail : 1 Oxygen Order Detail : 0 Nurse Collect Order Detail : 0 Lift/Transfer : Independent Central Line Order Detail : No Room Service : Appropriate Arterial Line : No Judy Conroy Lpn - 03/05/2019 6:02 EDT documented in this encounter Plan of Treatment Not on file documented as of this encounter Visit Diagnoses Not on filedocumented in this encounter
--- OUTSIDE RECORDS SUMMARY | 2025-06-09 09:45 | XMS_ITS | Encounter Summary ---
Author Organization [employer] ([place], [place], [place], [place]) Address [address] [place] [address] Care Team Providers Care Tyre Finisher And Examiner Name Role Phone Unavailable Primary Care Provider Unavailenrike e Encounter Details Date Type Department Care Team (Late st Contact Info) Description 11/19/2018 Transcribed Document [facility] [place] [address] [place] [address] ProviderYoli MD [address] [place] [address] Social History Tobacco Use Types Packs/Day Years Used Date Smoking Tobacco: Never Assessed Sex and Gender Information Value Date Recorded Sex Assigned at Not on file Legal Sex Male 6:25 PM CDT Gender Identity Not on file Sexual Orientation Not on file documented as of this encounter Miscellaneous Notes * [employer]ner Conversion Note - Historical ProviderMD - 11/19/2018 5:00 AM CONSTRUCTION EQUIPMENT TECHNICIAN Chart Check - Review Order Profile Entered On: 11/19/2018 4:27 EST Performed On: 11/19/2018 5:00 EST by Reese Chawla RN Chart Check Chart Reviewed Date and Time : 11/19/2018 5:00 EST Powerplans Initiated/Discontinued as Appropriate : Yes All Active Orders Reviewed : Yes Reese Chawla RN - 11/19/2018 4:27 EST Electronically signed by Pancoh [facility] Conversion Outside Property Agent Cerner at 01/22/2023 6:49 PM CDT documented in this encounter Plan of Treatment Not on file documented as of this encounter Visit Diagnoses Not on filedocumented in this encounter
--- OUTSIDE RECORDS SUMMARY | 2025-06-09 09:45 | XMS_ITS | Encounter Summary ---
Author Organization [employer] ([place], [place], [place], [place]) Address [address] [place] [address] Care Team Providers Care Advertising Account Executive Name Role Phone Unavailable Primary Care Provider Unavailenrike e Encounter Details Date Type Department Care Team (Late st Contact Info) Description 11/20/2018 Transcribed Document [facility] [place] Family Medicine [address] [place] [address] ProviderYoli MD [address] [place] [address] Social History Tobacco Use Types Packs/Day Years Used Date Smoking Tobacco: Never Assessed Sex and Gender Information Value Date Recorded Sex Assigned at Not on file Legal Sex Male 6:25 PM CDT Gender Identity Not on file Sexual Orientation Not on file documented as of this encounter Miscellaneous Notes * [employer]ner Conversion Note - Historical ProviderMD - 11/20/2018 2:00 AM COSMETOLOGY TEACHER Paint Tinter Details Entered On: 11/20/2018 0:47 EST Performed On: 11/20/2018 2:00 EST by Reese Chawla RN Order Details Transport Mode Order Detail : Ambulatory Isolation Precautions Order Detail : Standard Precautions Order Detail : N/A IV Order Detail : 1 Oxygen Order Detail : 1 Nurse Collect Order Detail : 0 Lift/Transfer : Independent Central Line Order Detail : No Room Service : Not Appropriate Arterial Line : No Reese Chawla RN - 11/20/2018 0:47 EST documented in this encounter Plan of Treatment Not on file documented as of this encounter Visit Diagnoses Not on filedocumented in this encounter
--- OUTSIDE RECORDS SUMMARY | 2025-06-09 09:45 | XMS_ITS | Encounter Summary ---
Author Organization [employer] ([place], [place], [place], [place]) Address [address] [place] [address] Care Team Providers Care Editor Newspaper Name Role Phone Unavailable Primary Care Provider Unavailenrike e Encounter Details Date Type Department Care Team (Late st Contact Info) Description 11/20/2018 Transcribed Document [facility] [place] [address] [place] [address] ProviderYoli MD [address] [place], [place] [id number] Social History Tobacco Use Types Packs/Day Years Used Date Smoking Tobacco: Never Assessed Sex and Gender Information Value Date Recorded Sex Assigned at Not on file Legal Sex Male 6:25 PM CDT Gender Identity Not on file Sexual Orientation Not on file documented as of this encounter Miscellaneous Notes * Cerner Conversion Note - Historical ProviderMD - 11/20/2018 6:00 PM WAGON WASHER Pain Assessment Entered On: 11/20/2018 18:18 EST Performed On: 11/20/2018 18:04 EST by Jennifer Weldon Rn-Traveler Intervention Information: acetaminophen Performed by Jennifer Weldon Rn-Traveler on 11/20/2018 17:04:00 EST acetaminophen,500mg Oral Pain Assessment Pain Assessment : Follow-up assessment Pain Scale Goal : 3 Pain Improved by Intervention : Yes Jennifer Weldon Rn-Traveler - 11/20/2018 18:18 EST documented in this encounter Plan of Treatment Not on file documented as of this encounter Visit Diagnoses Not on filedocumented in this encounter
--- OUTSIDE RECORDS SUMMARY | 2025-06-09 09:45 | XMS_ITS | Encounter Summary ---
Author Organization [employer] ([place], [place], [place], [place]) Address [address] [place] [address] Care Team Providers Care Silverware Buffer Name Role Phone Unavailable Primary Care Provider Unavailenrike e Encounter Details Date Type Department Care Team (Late st Contact Info) Description 11/20/2018 Transcribed Document [facility] [place] [facility] [place] [address] ProviderYoli MD [address] [place] [address] Social History Tobacco Use Types Packs/Day Years Used Date Smoking Tobacco: Never Assessed Sex and Gender Information Value Date Recorded Sex Assigned at Not on file Legal Sex Male 6:25 PM CDT Gender Identity Not on file Sexual Orientation Not on file documented as of this encounter Miscellaneous Notes * Cerner Conversion Note - Yoli ProviderMD - 11/20/2018 2:26 PM CAR PARKER Care Management Assessment/Plan Entered On: 11/20/2018 14:28 EST Performed On: 11/20/2018 14:26 EST by SAM RUANO Care Management Note Care Management Note : Chart reviewed. Pt had surgery yesterday. IVF's infusing. NG tube has been dc' and Pt has been started on clear liquids. Pt is passing gas, but no BM. No needs anticipated for discharge. CM will follow. Care Management Note Report : SAM RUANO - 11/19/18 11:43:17 Met with Pt and his on IDT rounds. Resting quietly. IVF's infusing. NG remains intact to LWS. Per BLUE Schmid, Pt will be going to OR in abour 30 minutes. CM will follow. SAM RUANO - 11/18/18 13:12:54 Received from [...] Status Complete : Yes SAM RUANO - 11/20/2018 14:26 EST documented in this encounter Plan of Treatment Not on file documented as of this encounter Visit Diagnoses Not on filedocumented in this encounter
--- OUTSIDE RECORDS SUMMARY | 2025-06-09 09:45 | XMS_ITS | Encounter Summary ---
Author Organization [employer] ([place], [place], [place], [place]) Address [address] [place] [address] Care Team Providers Care Fur Stylist Name Role Phone Unavailable Primary Care Provider Unavailenrike e Encounter Details Date Type Department Care Team (Late st Contact Info) Description 11/20/2018 Transcribed Document [facility] [place] [address] [place] [address] ProviderYoli MD [address] [place], [place] [id number] Social History Tobacco Use Types Packs/Day Years Used Date Smoking Tobacco: Never Assessed Sex and Gender Information Value Date Recorded Sex Assigned at Not on file Legal Sex Male 6:25 PM CDT Gender Identity Not on file Sexual Orientation Not on file documented as of this encounter Miscellaneous Notes * Cerner Conversion Note - Historical ProviderMD - 11/20/2018 9:06 AM RADIO ELECTRONICS OFFICER Pain Assessment Entered On: 11/20/2018 12:18 EST Performed On: 11/20/2018 10:32 EST by Jennifer Weldon Rn-Traveler Intervention Information: oxyCODONE Performed by Jennifer Weldon Rn-Traveler on 11/20/2018 09:32:00 EST oxyCODONE,5mg Oral,Abdominal Pain Pain Assessment Pain Assessment : Follow-up assessment Pain Scale Goal : 3 Pain Improved by Intervention : Yes Jennifer Weldon Rn-Traveler - 11/20/2018 12:18 EST Electronically signed by Nena Deleon Conversion Space Systems Operations Manager Cerner at 01/22/2023 6:47 PM CDT documented in this encounter Plan of Treatment Not on file documented as of this encounter Visit Diagnoses Not on filedocumented in this encounter
--- OUTSIDE RECORDS SUMMARY | 2025-06-09 09:45 | XMS_ITS | Encounter Summary ---
Author Organization [employer] ([place], [place], [place], [place]) Address [address] [place] [address] Care Team Providers Care Traveling Construction Superintendent Name Role Phone Unavailable Primary Care Provider Unavailenrike e Encounter Details Date Type Department Care Team (Late st Contact Info) Description 03/05/2019 Transcribed Document [facility] [place] [address] [place] [address] ProviderYoli MD [address] [place] [address] Social History Tobacco Use Types Packs/Day Years Used Date Smoking Tobacco: Never Assessed Sex and Gender Information Value Date Recorded Sex Assigned at Not on file Legal Sex Male 6:25 PM CDT Gender Identity Not on file Sexual Orientation Not on file documented as of this encounter Miscellaneous Notes * [employer]ner Conversion Note - Historical ProviderMD - 03/05/2019 6:00 AM CDT Pain Assessment Entered On: 03/05/2019 17:07 EDT Performed On: 03/05/2019 9:15 EDT by Sylvie Mcmanus RN Intervention Information: oxyCODONE Performed by Sylvie Mcmanus RN on 03/05/2019 08:15:00 EDT oxyCODONE,10mg OroGAStric Tube Pain Assessment Pain Assessment : Follow-up assessment Pain Scale Goal : 4 Pain Scale Used : FACES Sylvie Mcmanus RN - 03/05/2019 17:07 EDT Pain Scale Intensity : 3 Sylvie Mcmanus RN - 03/05/2019 17:07 EDT Image 4 - Images currently included in the form version of this document have not been included in the text rendition version of the form. documented in this encounter Plan of Treatment Not on file documented as of this encounter Visit Diagnoses Not on filedocumented in this encounter
--- OUTSIDE RECORDS SUMMARY | 2025-06-09 09:45 | XMS_ITS | Encounter Summary ---
Author Organization [employer] ([place], [place], [place], [place]) Address [address] [place] [address] Care Team Providers Care Vegetable Harvest Worker Name Role Phone Unavailable Primary Care Provider Unavailabl e Encounter Details Date Type Department Care Team (Late st Contact Info) Description 03/05/2019 Transcribed Document [facility] [address] [place] [address] ProviderYoli MD [address] [place] [address] Social History Tobacco Use Types Packs/Day Years Used Date Smoking Tobacco: Never Assessed Sex and Gender Information Value Date Recorded Sex Assigned at Not on file Legal Sex Male 6:25 PM CDT Gender Identity Not on file Sexual Orientation Not on file documented as of this encounter Miscellaneous Notes * Cerner Conversion Note - Historical ProviderMD - 03/05/2019 5:00 PM CDT Chart Check - Review Order Profile Entered On: 03/05/2019 17:07 EDT Performed On: 03/05/2019 17:00 EDT by Sylvie Mcmanus RN Chart Check Powerplans Initiated/Discontinued as Appropriate : Yes All Active Orders Reviewed : Yes Sylvie Mcmanus RN - 03/05/2019 17:07 EDT Electronically signed by Panch[facility] Conversion Transportation Manager Cerner at 01/22/2023 6:52 PM CDT documented in this encounter Plan of Treatment Not on file documented as of this encounter Visit Diagnoses Not on filedocumented in this encounter
--- OUTSIDE RECORDS SUMMARY | 2025-06-09 09:45 | XMS_ITS | Encounter Summary ---
Author Organization [employer] ([place], [place], [place], [place]) Address [address] [place] [address] Care Team Providers Care Board Mixer Tender Name Role Phone Unavailable Primary Care Provider Unavailenrike e Encounter Details Date Type Department Care Team (Late st Contact Info) Description 11/21/2018 Transcribed Document [facility] [place] [address] [place] [address] ProviderYoli MD [address] [place] [address] Social History Tobacco Use Types Packs/Day Years Used Date Smoking Tobacco: Never Assessed Sex and Gender Information Value Date Recorded Sex Assigned at Not on file Legal Sex Male 6:25 PM CDT Gender Identity Not on file Sexual Orientation Not on file documented as of this encounter Miscellaneous Notes * [employer]ner Conversion Note - Historical ProviderMD - 11/21/2018 5:00 AM SILHOUETTE ARTIST Chart Check - Review Order Profile Entered On: 11/21/2018 4:59 EST Performed On: 11/21/2018 5:00 EST by Carmella Steele Rn Chart Check Chart Reviewed Date and Time : 11/21/2018 5:00 EST Powerplans Initiated/Discontinued as Appropriate : Yes All Active Orders Reviewed : Yes Carmella Steele, Mandi - 11/21/2018 4:59 EST Electronically signed by Pancho [facility] Conversion Patient Support Associate Cerner at 01/22/2023 6:44 PM CDT documented in this encounter Plan of Treatment Not on file documented as of this encounter Visit Diagnoses Not on filedocumented in this encounter
--- OUTSIDE RECORDS SUMMARY | 2025-06-09 09:45 | XMS_ITS | Encounter Summary ---
Author Organization [employer] ([place], [place], [place], [place]) Address [address] [place] [address] Care Team Providers Care Steel Rule Die Maker Name Role Phone Unavailable Primary Care Provider Unavailenrike e Encounter Details Date Type Department Care Team (Late st Contact Info) Description 11/20/2018 Transcribed Document [facility] [place] [address] [place] [address] ProviderYoli MD [address] [place] [address] Social History Tobacco Use Types Packs/Day Years Used Date Smoking Tobacco: Never Assessed Sex and Gender Information Value Date Recorded Sex Assigned at Not on file Legal Sex Male 6:25 PM CDT Gender Identity Not on file Sexual Orientation Not on file documented as of this encounter Miscellaneous Notes * [employer]ner Conversion Note - Historical ProviderMD - 11/20/2018 5:00 AM PRINT LINE INSPECTOR Chart Check - Review Order Profile Entered On: 11/20/2018 4:27 EST Performed On: 11/20/2018 5:00 EST by Reese Chawla RN Chart Check Chart Reviewed Date and Time : 11/20/2018 5:00 EST Powerplans Initiated/Discontinued as Appropriate : Yes All Active Orders Reviewed : Yes Reese Chawla RN - 11/20/2018 4:26 EST Electronically signed by Pancho [facility] Conversion Piano Case Maker Cerner at 01/22/2023 6:58 PM CDT documented in this encounter Plan of Treatment Not on file documented as of this encounter Visit Diagnoses Not on filedocumented in this encounter
--- OUTSIDE RECORDS SUMMARY | 2025-06-09 09:45 | XMS_ITS | Encounter Summary ---
Author Organization [employer] ([place], [place], [place], [place]) Address [address] [place] [address] Care Team Providers Care Hub Lead Name Role Phone Unavailable Primary Care Provider Unavailenrike e Encounter Details Date Type Department Care Team (Late st Contact Info) Description 11/20/2018 Transcribed Document [facility] [place] [address] [place] [address] ProviderYoli MD [address] [place] [address] Social History Tobacco Use Types Packs/Day Years Used Date Smoking Tobacco: Never Assessed Sex and Gender Information Value Date Recorded Sex Assigned at Not on file Legal Sex Male 6:25 PM CDT Gender Identity Not on file Sexual Orientation Not on file documented as of this encounter Miscellaneous Notes * Cerner Conversion Note - Historical ProviderMD - 11/20/2018 6:00 AM SLAG SKIMMER Pain Assessment Entered On: 11/20/2018 8:00 EST Performed On: 11/20/2018 6:20 EST by Reese Chawla RN Intervention Information: acetaminophen Performed by Reese Chawla RN on 11/20/2018 06:15:00 EST acetaminophen,1000mg IV Piggyback,Left Lower Forearm Pain Assessment Pain Assessment : Follow-up assessment Pain Scale Goal : 3 Pain Scale Used : 0-10 Scale Pain Improved by Intervention : Yes Reese Chawla RN - 11/20/2018 7:59 EST Pain Scale Intensity : 4 Reese Chawla RN - 11/20/2018 7:59 EST Image 4 - Images currently included in the form version of this document have not been included in the text rendition version of the form. documented in this encounter Plan of Treatment Not on file documented as of this encounter Visit Diagnoses Not on filedocumented in this encounter
--- OUTSIDE RECORDS SUMMARY | 2025-06-09 09:45 | XMS_ITS | Encounter Summary ---
Author Organization [employer] ([place], [place], [place], [place]) Address [address] [place] [address] Care Team Providers Care Centrifugal Casting Machine Operator Name Role Phone Unavailable Primary Care Provider Sai e Encounter Details Date Type Department Care Team (Late st Contact Info) Description 11/17/2018 Transcribed Document [facility] [place] [facility] [place] [address] ProviderYoli MD [address], [place] [id number] Social History Tobacco Use Types Packs/Day Years Used Date Smoking Tobacco: Never Assessed Sex and Gender Information Value Date Recorded Sex Assigned at Not on file Legal Sex Male 6:25 PM CDT Gender Identity Not on file Sexual Orientation Not on file documented as of this encounter Miscellaneous Notes * Cerner Conversion Note - Yoli ProviderMD - 11/17/2018 3:06 PM PAPERBOARD MACHINE OPERATOR Patient: CALEB DELAROSA Age: 47 Years Sex: Male : 1970 Chief Complaint from [facility], c/o LUQ abdominal pain, with nausea. hx SBO last month. pt reports watery bowel movement yesterday. Reason for Consultation abdominal pain History of Present Illness This is a 47-year-old gentleman with left-sided abdominal pain for the past two days. Reports yesterday morning he had a small watery BM and has had no bowel function since . He has a history of multiple abdominal surgeries beginning with the exploratory laparotomy followed by abdominal wall hernia repair. His last surgery was a laparoscopic lysis of adhesions 4 years ago. He is admitted 1 month ago for a partial small bowel obstruction which resolved nonoperatively. He endorses a sharp, intermittent pain up to the left of his umbilicus. He currently endorses nausea but denies vomiting. The patient states he does not think he would be able to tolerate by mouth. Review of Systems Complete review of systems was performed and negative except as stated in history of present illness Physical Exam Vitals & Measurements T: 36.3 ??C HR: 94(Monitored) RR: 20 BP: 162/101 SpO2: 97% HT: 170.18 cm WT: 77.27 kg BMI: 26.7 General: Alert and oriented, well nourished, no acute distress Neurologic: Awake, alert, and oriented X3 Eye: EOMI, normal conjuctiva HENT: Normocephalic, normal hearing, moist oral mucosa, no scleral icterus, no sinus tenderness Neck: Supple, non-tender, no lymphadenopathy Lungs: Clear to auscultation, non-labored respiration Heart: Normal rate, regular rhythm, no murmur, gallop or edema Abdomen: Soft, non-distended, decreased bowel sounds, no masses. Periumbilical tenderness extending to the LUQ Musculoskeletal: Normal range of motion and strength, no tenderness or swelling, Skin: Skin is warm, dry and pink, no rashes or lesions Psychiatric: Cooperative, appropriate mood and affect Assessment/Plan Abdominal pain Partial small bowel obstruction Personally reviewed the patient's CT scan which shows mildly dilated loop of small bowel in the left upper quadrant with contrast going into the colon. I suspect the patient's pain is from adhesions and given he has had multiple episodes for small bowel obstruction the past few months this warrants a diagnostic laparoscopy with lysis of adhesions. I discussed the risks and benefits of the procedure which include but not limited to bleeding, bowel injury, conversion to laparotomy and infection. The patient will be admitted for IV fluid resuscitation and nasogastric decompression. Labs have been reviewed and are within normal limits with the exception of an elevated lactate which resolved with IV fluids. Problem List/Past Medical History right lung mass Procedure/Surgical History LUNG CANCER WORKUP. 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
--- OUTSIDE RECORDS SUMMARY | 2025-06-09 09:45 | XMS_ITS | Encounter Summary ---
Author Organization [employer] ([place], [place], [place], [place]) Address [address] [place] [address] Care Team Providers Care Vice President Of Talent Management Name Role Phone Unavailable Primary Care Provider Unavailenrike e Encounter Details Date Type Department Care Team (Late st Contact Info) Description 11/20/2018 Transcribed Document [facility] [place] [address] [place] [address] ProviderYoli MD [address] [place], [place] [id number] Social History Tobacco Use Types Packs/Day Years Used Date Smoking Tobacco: Never Assessed Sex and Gender Information Value Date Recorded Sex Assigned at Not on file Legal Sex Male 6:25 PM CDT Gender Identity Not on file Sexual Orientation Not on file documented as of this encounter Miscellaneous Notes * [employer] Conversion Note - Historical ProviderMD - 11/20/2018 6:02 PM AEROSPACE PROJECT MANAGER Pain Assessment Entered On: 11/22/2018 15:44 EST Performed On: 11/22/2018 13:13 EST by Esther Vega RN Intervention Information: morphine Performed by Esther Vega RN on 11/22/2018 12:43:00 EST morphine,2mg IV Push,Left Hand,Pain (Severe 7-10) Pain Assessment Pain Assessment : Follow-up assessment Pain Scale Goal : 3 Location : Abdominal Onset : Acute Esther Vega RN - 11/22/2018 15:44 EST documented in this encounter Plan of Treatment Not on file documented as of this encounter Visit Diagnoses Not on filedocumented in this encounter
--- OUTSIDE RECORDS SUMMARY | 2025-06-09 09:45 | XMS_ITS | Encounter Summary ---
Author Organization [employer] ([place], [place], [place], [place]) Address [address] [place] [address] Care Team Providers Care Director Of Operations Name Role Phone Unavailable Primary Care Provider Unavailenrike e Encounter Details Date Type Department Care Team (Late st Contact Info) Description 03/06/2019 Transcribed Document [facility] [place] [address] [place] [address] ProviderYoli MD [address] [place] [address] Social History Tobacco Use Types Packs/Day Years Used Date Smoking Tobacco: Never Assessed Sex and Gender Information Value Date Recorded Sex Assigned at Not on file Legal Sex Male 6:25 PM CDT Gender Identity Not on file Sexual Orientation Not on file documented as of this encounter Miscellaneous Notes * Cerner Conversion Note - Historical ProviderMD - 03/06/2019 9:00 PM CDT Pain Assessment Entered On: 03/07/2019 3:17 EDT Performed On: 03/06/2019 22:59 EDT by Judy Conroy Lpn Intervention Information: oxyCODONE Performed by Judy Conroy Lpn on 03/06/2019 21:59:00 EDT oxyCODONE,15mg Oral Pain Assessment Pain Assessment [...]
--- OUTSIDE RECORDS SUMMARY | 2025-06-09 09:45 | XMS_ITS | Encounter Summary ---
Author Organization [facility] ([place], [place], [place], [place]) Address [address] [place] [address] Care Team Providers Care State Farm Agent Name Role Phone Unavailable Primary Care Provider Unavailenrike e Encounter Details Date Type Department Care Team (Late st Contact Info) Description 11/20/2018 Transcribed Document [facility] [place] [address] [place] [address] ProviderYoli MD [address] [id number] Social History Tobacco Use Types Packs/Day Years Used Date Smoking Tobacco: Never Assessed Sex and Gender Information Value Date Recorded Sex Assigned at Not on file Legal Sex Male 6:25 PM CDT Gender Identity Not on file Sexual Orientation Not on file documented as of this encounter Miscellaneous Notes * Cerner Conversion Note - Historical ProviderMD - 11/20/2018 6:04 PM DELIMER Pain Assessment Entered On: 11/22/2018 4:38 EST Performed On: 11/21/2018 19:53 EST by Carmella Steele Rn Intervention Information: ibuprofen Performed by Esther Vega RN on 11/21/2018 18:53:00 EST ibuprofen,600mg Oral,Abdominal Pain Pain Assessment Pain Assessment : Follow-up assessment Pain Scale Goal : 3 Pain Scale Used : 0-10 Scale Pain Intervention, Drug : Medicated Pain Improved by Intervention : Yes Carmella Steele Rn - 11/22/2018 4:37 EST Pain Scale Intensity : 2 Carmella Steele Rn - 11/22/2018 4:37 EST Image 4 - Images currently included in the form version of this document have not been included in the text rendition version of the form. documented in this encounter Plan of Treatment Not on file documented as of this encounter Visit Diagnoses Not on filedocumented in this encounter
--- OUTSIDE RECORDS SUMMARY | 2025-06-09 09:45 | XMS_ITS | Encounter Summary ---
Author Organization [employer] ([place], [place], [place], [place]) Address [address] [place] [address] Care Team Providers Care Quality Control Tester Name Role Phone Unavailable Primary Care Provider Unavailenrike e Encounter Details Date Type Department Care Team (Late st Contact Info) Description 03/03/2019 Transcribed Document [facility] [place] [address] [place] [address] ProviderYoli MD [address] [place] [address] Social History Tobacco Use Types Packs/Day Years Used Date Smoking Tobacco: Never Assessed Sex and Gender Information Value Date Recorded Sex Assigned at Not on file Legal Sex Male 6:25 PM CDT Gender Identity Not on file Sexual Orientation Not on file documented as of this encounter Miscellaneous Notes * Cerner Conversion Note - Historical ProviderMD - 03/03/2019 5:00 AM CDT Chart Check - Review Order Profile Entered On: 03/03/2019 5:04 EDT Performed On: 03/03/2019 5:00 EDT by Zoe Murray RN Chart Check Powerplans Initiated/Discontinued as Appropriate : Yes All Active Orders Reviewed : Yes Zoe Murray RN - 03/03/2019 5:04 EDT documented in this encounter Plan of Treatment Not on file documented as of this encounter Visit Diagnoses Not on filedocumented in this encounter
--- OUTSIDE RECORDS SUMMARY | 2025-06-09 09:45 | XMS_ITS | Encounter Summary ---
Author Organization [employer] ([place], [place], [place], [place]) Address [address] [place] [address] Care Team Providers Care Angiographer Name Role Phone Unavailable Primary Care Provider Unavailenrike e Encounter Details Date Type Department Care Team (Late st Contact Info) Description 03/06/2019 Transcribed Document [facility] [place] [address] [place] [address] ProviderYoli MD [address] [place], [place] [id number] Social History Tobacco Use Types Packs/Day Years Used Date Smoking Tobacco: Never Assessed Sex and Gender Information Value Date Recorded Sex Assigned at Not on file Legal Sex Male 6:25 PM CDT Gender Identity Not on file Sexual Orientation Not on file documented as of this encounter Miscellaneous Notes * Cerner Conversion Note - Historical ProviderMD - 03/06/2019 5:00 AM CDT Chart Check - Review Order Profile Entered On: 03/06/2019 5:10 EDT Performed On: 03/06/2019 5:00 EDT by Judy Conroy Lpn Chart Check Powerplans Initiated/Discontinued as Appropriate : Yes All Active Orders Reviewed : Yes Judy Conroy Lpn - 03/06/2019 5:10 EDT documented in this encounter Plan of Treatment Not on file documented as of this encounter Visit Diagnoses Not on filedocumented in this encounter
--- OUTSIDE RECORDS SUMMARY | 2025-06-09 09:45 | XMS_ITS | Encounter Summary ---
Author Organization [employer] ([place], [place], [place]) Address [address] [place] [address] Care Team Providers Care Discotheque Dancer Name Role Phone Unavailable Primary Care Provider Unavailenrike e Encounter Details Date Type Department Care Team (Late st Contact Info) Description 11/17/2018 Transcribed Document [facility] [place] [address] [place] [address] ProviderYoli MD [address] [place] [address] Social History Tobacco Use Types Packs/Day Years Used Date Smoking Tobacco: Never Assessed Sex and Gender Information Value Date Recorded Sex Assigned at Not on file Legal Sex Male 6:25 PM CDT Gender Identity Not on file Sexual Orientation Not on file documented as of this encounter Miscellaneous Notes * Cerner Conversion Note - Historical ProviderMD - 11/17/2018 2:14 PM ASSISTED LIVING HOME DIRECTOR Pain Assessment Entered On: 11/17/2018 15:33 EST Performed On: 11/17/2018 14:51 EST by MARCIA MAZARIEGOS RN Intervention Information: fentaNYL Performed by MARCIA MAZARIEGOS RN on 11/17/2018 14:21:00 EST fentaNYL,50mcg IV Push,Left Lower Forearm Pain Assessment Pain Assessment : Follow-up assessment Pain Scale Used : 0-10 Scale Location : Abdominal MARCIA MAZARIEGOS RN - 11/17/2018 15:32 EST Pain Scale Intensity : 4 MARCIA MAZARIEGOS RN - 11/17/2018 15:32 EST Image 4 - Images currently included in the form version of this document have not been included in the text rendition version of the form. documented in this encounter Plan of Treatment Not on file documented as of this encounter Visit Diagnoses Not on filedocumented in this encounter
--- OUTSIDE RECORDS SUMMARY | 2025-06-09 09:45 | XMS_ITS | Encounter Summary ---
Author Organization [employer] ([place], [place], [place], [place]) Address [address] [place] [address] Care Team Providers Care Client Leader Name Role Phone Unavailable Primary Care Provider Unavailenrike e Encounter Details Date Type Department Care Team (Late st Contact Info) Description 03/05/2019 Transcribed Document [facility] [place] [address] [place] [address] ProviderYoli MD [address] [place] [address] Social History Tobacco Use Types [...] On: 03/05/2019 19:28 EDT Performed On: 03/05/2019 6:45 EDT by Judy Conroy Lpn Intervention Information: acetaminophen Performed by Judy Conroy Lpn on 03/05/2019 06:40:00 EDT acetaminophen,1000mg IV Piggyback,Right Mid Forearm Pain [...]
--- OUTSIDE RECORDS SUMMARY | 2025-06-09 09:45 | XMS_ITS | Encounter Summary ---
Author Organization [facility] ([place], [place], [place], [place]) Address [address] [place] [address] Care Team Providers Care Tax Analyst Name Role Phone Unavailable Primary Care Provider Unavailabl e Encounter Details Date Type Department Care Team (Late st Contact Info) Description 03/06/2019 Transcribed Document [facility] [place] [address] [place] [address] ProviderYoli MD [address] [place], [place] [id number] Social History Tobacco Use Types Packs/Day Years Used Date Smoking Tobacco: Never Assessed Sex and Gender Information Value Date Recorded Sex Assigned at Not on file Legal Sex Male 6:25 PM CDT Gender Identity Not on file Sexual Orientation Not on file documented as of this encounter Miscellaneous Notes * Cerner Conversion Note - Historical ProviderMD - 03/06/2019 2:00 AM CDT Prison Librarian Details Entered On: 03/06/2019 3:40 EDT Performed On: 03/06/2019 2:00 EDT by Judy Conroy Lpn Order Details Transport Mode Order Detail : Ambulatory Isolation Precautions Order Detail : Standard Precautions Order Detail : N/A IV Order Detail : 1 Oxygen Order Detail : 0 Nurse Collect Order Detail : 0 Lift/Transfer : Independent Central Line Order Detail : No Room Service : Appropriate Arterial Line : No Judy Conroy Lpn - 03/06/2019 3:40 EDT documented in this encounter Plan of Treatment Not on file documented as of this encounter Visit Diagnoses Not on filedocumented in this encounter
--- OUTSIDE RECORDS SUMMARY | 2025-06-09 09:45 | XMS_ITS | Encounter Summary ---
Author Organization [employer] ([place], [place], [place]) Address [address] [place] [address] Care Team Providers Care Fleet Service Manager Name Role Phone Unavailable Primary Care Provider Unavailenrike e Encounter Details Date Type Department Care Team (Late st Contact Info) Description 03/03/2019 Transcribed Document [facility] [place] [address] [place] [address] ProviderYoli MD [address] [id number] Social History Tobacco Use Types Packs/Day Years Used Date Smoking Tobacco: Never Assessed Sex and Gender Information Value Date Recorded Sex Assigned at Not on file Legal Sex Male 6:25 PM CDT Gender Identity Not on file Sexual Orientation Not on file documented as of this encounter Miscellaneous Notes * Cerner Conversion Note - Yoli ProviderMD - 03/03/2019 9:50 AM CDT Patient: CALEB MATTHEWS Age: 48 Years Sex: Male : 1970 Assessment/Plan s/p lysis of adhesions - continued pain. cont PO tylenol, cont PO oxy - restart IVF VTE Prophylaxis - Medical Enoxaparin 40 mg, SubCutaneous, Inj, [id number], Routine, Start 02/26/19 11:00:00 EDT (KATHY HERNANDEZ) Subjective pt with new nausea and vomiting overnight. +BM and flatus. abd still distended Vital Signs T: 37 ??C TMIN: 36.7 ??C TMAX: 37.1 ??C HR: 98(Monitored) RR: 18 BP: 96/62 SpO2: 98% Oxygen Settings (Last) Oxygen Therapy Mode: Room air (03/02/19 21:00:00 EDT) Oxygen Flow Rate: 2 Liter/Min (02/26/19 21:20:00 EDT) Intake & Output Totals Last 24 Hours (7a-7a) Input Total: 962 mL Output Total: 0 mL Balance: 962 mL Physical Exam Gen: NAD Resp: Nonlabored respirations CV: Normal peripheral perfusion Ab: soft, nontender, distended Medications Adderall 10 mg oral tablet, 30 mg= 3 Tab, Oral, Daily alvimopan, 12 mg= 1 Cap, Nasogastric Tube, BID cloNIDine 50 mcg + dexamethasone 4 mg + bupivacaine-EPINEPHrine 0.25%-1:200,000 injectable solution cloNIDine 50 mcg + dexamethasone 4 mg + bupivacaine-EPINEPHrine 0.25%-1:200,000 injectable solution diazePAM, 5 mg= 1 Tab, Oral, Q6H, PRN docusate sodium, 100 mg= 1 Cap, Oral, BID hydroCHLOROthiazide, 25 mg= 1 Tab, Oral, Daily lisinopril, 20 mg= 1 Tab, Oral, Daily Lovenox, 40 mg= 0.4 mL, SubCutaneous, [id number] MiraLax, 17 Gram= 1 Packet, Oral, Daily ondansetron, 4 mg= 2 mL, IV Push, Q6H, PRN oxyCODONE, 10 mg= 2 Tab, Oral, Q4H, PRN Tylenol, 500 mg= 1 Tab, Oral, Q6H documented in this encounter Plan of Treatment Not on file documented as of this encounter Visit Diagnoses Not on filedocumented in this encounter
--- OUTSIDE RECORDS SUMMARY | 2025-06-09 09:45 | XMS_ITS | Encounter Summary ---
Author Organization [employer] ([place], [place], [place], [place]) Address [address] [place] [address] Care Team Providers Care Sap Pi Developer Name Role Phone Unavailable Primary Care Provider Sai e Encounter Details Date Type Department Care Team (Late st Contact Info) Description 03/05/2019 Transcribed Document [facility] [place] [address] [place] [address] ProviderYoli MD [address] [place], [place] [id number] Social History Tobacco Use Types Packs/Day Years Used Date Smoking Tobacco: Never Assessed Sex and Gender Information Value Date Recorded Sex Assigned at Not on file Legal Sex Male 6:25 PM CDT Gender Identity Not on file Sexual Orientation Not on file documented as of this encounter Miscellaneous Notes * Cerner Conversion Note - Yoli ProviderMD - 03/05/2019 2:05 PM CDT UM Authorization Entered On: 03/05/2019 14:07 EDT Performed On: 03/05/2019 14:05 EDT by CARLOS MANUEL CAMACHO RN Primary Insurance Authorization Authorization and Policy Numbers : Insurance 1 Health Plan: [employer] Policy Number: [id number] Authorization Number: NPR Insurance Primary Name : Bran [id number] Authorization Status-Primary : Pending Reference Number-Primary : [id number] Number of Days Authorized-Primary : 5 Authorized Service Begin Date-Primary : 02/26/2019 EDT Authorized Service End Date-Primary : 03/04/2019 EDT Authorization Comments-Primary : Brian irby overturned and contd stay approved till 03/04, NRD 03/05. May fax clinicals on 03/09 9friday) Historical Authorization Comments-Primary : Comment 1: Clinicals faxed via [employer] for reconsideration, notified Linnea with Dr Camilo office, p2p no given (CARLOS MANUEL CAMACHO RN 03/05/2019 12:35) Comment 2: email to re: denial (ANA PAULA GONZALEZ, RN-Utilization Review 03/05/2019 12:14) Comment 3: rec'd call from [employer]- approval for IP 02/26-03/02/19 and cont stay denial starting 03/03/19 and forward due to pt stable. Can do P2P within 14 days, call [phone] and option 1. If substantial change in condition, can fax additional clinicals for reconsideration. (ANA PAULA GONZALEZ, RN-Utilization Review 03/05/2019 12:09) Comment 4: Case pended per website, clinicals faxed via [employer] (CARLOS MANUEL CAMACHO RN 03/05/2019 10:27) Comment 5: Clinicals submitted via [employer] website (CARLOS MANUEL CAMACHO RN 03/02/2019 08:52) Comment 6: No authorization for this visit, OP or IP found in [employer]. (MARCIA DELGADILLO RN 02/27/2019 10:39) Comment 7: Per [facility] notes no auth required. Submitted for OP (?). MD wants patient to stay 5 days. Note to UR team to f/u on 03/02 re: authorizatin (MARCIA DELGADILLO RN 02/27/2019 10:36) CARLOS MANUEL CAMACHO RN - 03/05/2019 14:05 EDT documented in this encounter Plan of Treatment Not on file documented as of this encounter Visit Diagnoses Not on filedocumented in this encounter
--- OUTSIDE RECORDS SUMMARY | 2025-06-09 09:45 | XMS_ITS | Encounter Summary ---
Author Organization [employer] ([place], [place], [place], [place]) Address [address] [place] [address] Care Team Providers Care Planting Machine Crewman Name Role Phone Unavailable Primary Care Provider Unavailenrike e Encounter Details Date Type Department Care Team (Late st Contact Info) Description 03/06/2019 Transcribed Document [facility] [place] [address] [place] [address] ProviderYoli MD [address] [id number] Social History Tobacco Use Types Packs/Day Years Used Date Smoking Tobacco: Never Assessed Sex and Gender Information Value Date Recorded Sex Assigned at Not on file Legal Sex Male 6:25 PM CDT Gender Identity Not on file Sexual Orientation Not on file documented as of this encounter Miscellaneous Notes * Cerner Conversion Note - Yoli ProviderMD - 03/06/2019 12:46 PM CDT Patient: CALEB MATTHEWS Age: 48 Years Sex: Male : 1970 Assessment/Plan Status post exploratory laparotomy and lysis of adhesions. Ileus resolving Continue pain regimen Continue clears. We will slowly advance diet VTE Prophylaxis - Medical Enoxaparin 40 mg, SubCutaneous, Inj, [id number], Routine, Start 02/26/19 11:00:00 EDT (KATHY HERNANDEZ) Subjective Passing flatus Pain controlled Vital Signs T: 36.6 ??C TMIN: 36.5 ??C TMAX: 37.1 ??C HR: 80(Monitored) RR: 16 BP: 112/71 SpO2: 96% Oxygen Settings (Last) Oxygen Therapy Mode: Room air (03/06/19 07:00:00 EDT) Oxygen Flow Rate: 2 Liter/Min (02/26/19 21:20:00 EDT) Intake & Output Totals Last 24 Hours (7a-7a) Input Total: 2445 mL Output Total: 0 mL Balance: 2445 mL Physical Exam Gen: NAD Resp:Nonlabored respirations CV:Normal peripheral perfusion Ab:soft, NTND. Incisions c/d/i Medications Adderall 10 mg oral tablet, 30 mg= 3 Tab, Oral, Daily cloNIDine 50 mcg + dexamethasone 4 mg + bupivacaine-EPINEPHrine 0.25%-1:200,000 injectable solution cloNIDine 50 mcg + dexamethasone 4 mg + bupivacaine-EPINEPHrine 0.25%-1:200,000 injectable solution Dextrose 5% with 0.9% NaCl intravenous solution 1,000 mL, 1000 mL, IntraVENous docusate sodium, 100 mg= 1 Cap, Oral, BID hydroCHLOROthiazide, 25 mg= 1 Tab, Oral, Daily lisinopril, 20 mg= 1 Tab, Oral, Daily Lovenox, 40 mg= 0.4 mL, SubCutaneous, [id number] MiraLax, 17 Gram= 1 Packet, Oral, Daily morphine, 2 mg= 1 mL, IV Push, Q6H, PRN ondansetron, 4 mg= 2 mL, IV Push, Q6H, PRN oxyCODONE, 5 mg= 1 Tab, Oral, Q6H, PRN OxyCONTIN, 15 mg= 1 Tab, Oral, Q12H Phenergan, 12.5 mg= 0.5 mL, IV Push, Q6H, PRN sodium chloride 0.9% injectable solution, 10 mL, IV Push, See Comment, PRN Tylenol, 650 mg= 2 Tab, Oral, Q4H Valium, 5 mg= 1 Tab, Oral, Q6H, PRN Lab Results Test Name Test Result Date/Time Platelet Count 386 K/uL (High) 03/06/2019 07:39 EDT documented in this encounter Plan of Treatment Not on file documented as of this encounter Visit Diagnoses Not on filedocumented in this encounter
--- OUTSIDE RECORDS SUMMARY | 2025-06-09 09:45 | XMS_ITS | Encounter Summary ---
Author Organization [employer] ([place], [place], [place], [place]) Address [address] [place] [address] Care Team Providers Care Sheet Sorter Name Role Phone Unavailable Primary Care Provider Unavailenrike e Encounter Details Date Type Department Care Team (Late st Contact Info) Description 11/21/2018 Transcribed Document [facility] [place] [address] [place] [address] ProviderYoli MD [address] [place] [address] Social History Tobacco Use Types Packs/Day Years Used Date Smoking Tobacco: Never Assessed Sex and Gender Information Value Date Recorded Sex Assigned at Not on file Legal Sex Male 6:25 PM CDT Gender Identity Not on file Sexual Orientation Not on file documented as of this encounter Miscellaneous Notes * Cerner Conversion Note - Historical ProviderMD - 11/21/2018 6:00 AM 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 Pain Assessment Entered On: 11/21/2018 10:28 EST Performed On: 11/21/2018 7:55 EST by Esther Vega RN Intervention Information: acetaminophen Performed by Carmella Steele Rn on 11/21/2018 06:55:00 EST acetaminophen,500mg Oral Pain Assessment Pain Assessment : Initial assessment Pain Scale Goal : 3 Pain Scale Used : 0-10 Scale Location : Abdominal Onset : Acute Quality : Sharp Esther Vega RN - 11/21/2018 10:27 EST Pain Scale Intensity : 7 Esther Vega RN - 11/21/2018 10:27 EST Image 4 - Images currently included in the form version of this document have not been included in the text rendition version of the form. documented in this encounter Plan of Treatment Not on file documented as of this encounter Visit Diagnoses Not on filedocumented in this encounter
--- OUTSIDE RECORDS SUMMARY | 2025-06-09 09:45 | XMS_ITS | Encounter Summary ---
Author Organization [employer] ([place], [place], [place], [place]) Address [address] [place] [address] Care Team Providers Care Television And Radio Repairer Name Role Phone Unavailable Primary Care Provider Sai e Encounter Details Date Type Department Care Team (Late st Contact Info) Description 11/19/2018 Transcribed Document [facility] [place] [facility] [address] [place] [address] ProviderYoli MD [address], [place] [id number] Social History Tobacco Use Types Packs/Day Years Used Date Smoking Tobacco: Never Assessed Sex and Gender Information Value Date Recorded Sex Assigned at Not on file Legal Sex Male 6:25 PM CDT Gender Identity Not on file Sexual Orientation Not on file documented as of this encounter Miscellaneous Notes * Cerner Conversion Note - Yoli ProviderMD - 11/19/2018 1:57 PM ASSISTANT SITE MANAGER [facility] Main OR IntraOp Summary Primary Physician: KATHY HERNANDEZ MD-SUR Finalized Date/Time: 11/21/18 14:53:49 Pt. Name: CALEB MATTHEWS.O.B./Sex: 1970 Male Med Rec #: [id number] Physician: EVAN GIRALDO MD-[employer] Financial #: [id number] Pt. Type: I Room/Bed: [facility]/1 Admit/Disch: 11/17/18 16:04:00 - Institution: [facility] IntraOp Case Attendance Entry 1 Entry 2 Entry 3 Case Attendee KATHY HERNANDEZ MD-ADITYA CUELLO MD Friend, Bruce B Rn Role Performed Surgeon/Proceduralist, Anesthesiologist Managing Cognitive Engineer, First First Time In 11/19/18 13:18:00 11/19/18 13:18:00 11/19/18 13:18:00 Time Out 11/19/18 15:55:00 11/19/18 14:00:00 11/19/18 14:57:00 Procedure Laparoscopy Diagnostic, Laparoscopy Diagnostic, Laparoscopy Diagnostic, Laparotomy Exploratory, Laparotomy Exploratory, Laparotomy Exploratory, Lysis Adhesions Lysis Adhesions Lysis Adhesions Other Attendee Superficial Wound Closed By: Last Modified By: Eileen Alba Rn Hart, Kayla, Rn Hart, Kayla, Rn 11/19/18 15:55:21 11/19/18 15:55:21 11/19/18 15:55:21 Entry 4 Entry 5 Entry 6 Case Attendee Lissette Cuello, Zayra Capellan CONWAY, CANDY L. Air Carrier Maintenance Inspector Role Performed Managing Cognitive Engineer, Second SYSTEM ADMINISTRATION ADVISOR/Nurse Clock And Watch Hands Painter Line Up Machine Operator, First Time In 11/19/18 13:18:00 11/19/18 13:18:00 11/19/18 13:18:00 Time Out 11/19/18 14:57:00 11/19/18 15:05:00 11/19/18 15:55:00 Procedure Laparoscopy Diagnostic, Laparoscopy Diagnostic, Laparoscopy Diagnostic, Laparotomy Exploratory, Laparotomy Exploratory, Laparotomy Exploratory, Lysis Adhesions Lysis Adhesions Lysis Adhesions Other Attendee orientee Superficial Wound Closed By: Last Modified By: Eileen Alba Rn Hart, Kayla, Rn Hart, Kayla, Rn 11/19/18 15:55:21 11/19/18 15:55:21 11/19/18 15:55:21 Entry 7 Entry 8 Entry 9 Case Attendee Annmarie Moreno Shannon, Patrick GHANSAH, DIANA RIVERA MD Systems Administration Analyst Role Performed Scrub, First Classifier Operator, Ancillary Anesthesiologist of Record Time In 11/19/18 13:18:00 11/19/18 13:18:00 11/19/18 13:18:00 Time Out 11/19/18 15:03:00 11/19/18 15:55:00 11/19/18 15:55:00 Procedure Lysis Adhesions Lysis Adhesions Lysis Adhesions Other Attendee Superficial Wound Closed By: Last Modified By: Eileen Alba Rn Hart, Kayla, Rn Hart, Kayla, Rn 11/19/18 15:55:21 11/19/18 15:55:21 11/19/18 15:55:21 Entry 10 Entry 11 Entry 12 Case Attendee Eileen Alba Rn TODD, Cecile Alas, Germination Testing Manager Role Performed Managing Cognitive Engineer, First Scrub, First SYSTEM ADMINISTRATION ADVISOR/Nurse Clock And Watch Hands Painter Time In 11/19/18 14:54:00 11/19/18 14:56:00 11/19/18 15:05:00 Time Out 11/19/18 15:55:00 11/19/18 15:55:00 11/19/18 15:55:00 Procedure Laparoscopy Diagnostic, Laparoscopy Diagnostic, Laparoscopy Diagnostic, Laparotomy Exploratory, Laparotomy Exploratory, Laparotomy Exploratory, Lysis Adhesions Lysis Adhesions Lysis Adhesions Other Attendee RN RELIEF ST RELIEF Superficial Wound Closed By: Last Modified By: Eileen Alba Rn Hart, Kayla, Rn Hart, Kayla, Rn 11/19/18 15:55:21 11/19/18 15:55:21 11/19/18 15:55:21 [facility] IntraOp Case Attendance Audit 11/19/18 15:55:21 Clerical Proofreader: [email or web address] DELIA Modifier: [email or web address] DELIA 1 <+> Time Out 1 <*> Procedure Laparoscopy Diagnostic, Laparotomy Exploratory, Lysis Adhesions 2 <*> Procedure Laparoscopy Diagnostic, Laparotomy Exploratory, Lysis Adhesions 3 <*> Procedure Laparoscopy Diagnostic, Laparotomy Exploratory, Lysis Adhesions 4 <*> Procedure Laparoscopy Diagnostic, Laparotomy Exploratory, Lysis Adhesions 5 <*> Procedure Laparoscopy Diagnostic, Laparotomy Exploratory, Lysis Adhesions 6 <+> Time Out 6 <*> Procedure Laparoscopy Diagnostic, Laparotomy Exploratory, Lysis Adhesions 7 <*> Procedure Lysis Adhesions 8 <+> Time Out 8 <*> Procedure Lysis Adhesions 9 <+> Time Out 9 <*> Procedure Lysis Adhesions 10 <+> Time Out 10 <*> Procedure Laparoscopy Diagnostic, Laparotomy Exploratory, Lysis Adhesions 11 <+> Time Out 11 <*> Procedure Laparoscopy Diagnostic, Laparotomy Exploratory, Lysis Adhesions 12 <+> Time Out 12 <*> Procedure Laparoscopy Diagnostic, Laparotomy Exploratory, Lysis Adhesions 11/19/18 15:16:52 Clerical Proofreader: [email or web address] Modifier: [email or web address] <+> Time Out 5 <*> Procedure Laparoscopy Diagnostic, Laparotomy Exploratory, Lysis Adhesions <+> 12 Case Attendee <+> 12 Role Performed <+> 12 Time In <+> 12 Procedure 11/19/18 15:06:43 Clerical Proofreader: [id number] Modifier: [email or web address] <+> Time Out 3 <*> Procedure Laparoscopy Diagnostic, Laparotomy Exploratory, Lysis Adhesions 4 <+> Time Out 4 <*> Procedure Laparoscopy Diagnostic, Laparotomy Exploratory, Lysis Adhesions 7 <+> Time Out 7 <*> Procedure Lysis Adhesions <+> 11 Case Attendee <+> 11 Role Performed <+> 11 Time In <+> 11 Procedure <+> 11 Other Attendee 11/19/18 14:54:56 Clerical Proofreader: [id number] Modifier: [id number] <+> 10 Case Attendee <+> 10 Role Performed <+> 10 Time In <+> 10 Procedure <+> 10 Other Attendee 11/19/18 14:46:19 Clerical Proofreader: [id number] Modifier: [id number] 1 <*> Procedure Laparoscopy Diagnostic, Laparotomy Exploratory 2 <*> Procedure Laparoscopy Diagnostic, Laparotomy Exploratory 3 <*> Procedure Laparoscopy Diagnostic, Laparotomy Exploratory 4 <*> Procedure Laparoscopy Diagnostic, Laparotomy Exploratory 5 <*> Procedure Laparoscopy Diagnostic, Laparotomy Exploratory 6 <*> Procedure Laparoscopy Diagnostic, Laparotomy Exploratory <+> 7 Procedure <+> 8 Procedure <+> 9 Procedure 11/19/18 14:10:26 Clerical Proofreader: [id number] Modifier: [id number] 1 <*> Procedure Laparoscopy Diagnostic, Laparotomy Exploratory 2 <*> Procedure Laparoscopy Diagnostic, Laparotomy Exploratory 3 <*> Procedure Laparoscopy Diagnostic, Laparotomy Exploratory 4 <*> Procedure Laparoscopy Diagnostic, Laparotomy Exploratory 5 <*> Procedure Laparoscopy Diagnostic, Laparotomy Exploratory 6 <*> Procedure Laparoscopy Diagnostic, Laparotomy Exploratory <+> 9 Time In 11/19/18 14:06:49 Clerical Proofreader: [id number] Modifier: [id number] 1 <*> Procedure Laparoscopy Diagnostic, Laparotomy Exploratory 2 <+> Time Out 2 <*> Procedure Laparoscopy Diagnostic, Laparotomy Exploratory 3 <*> Procedure Laparoscopy Diagnostic, Laparotomy Exploratory 4 <*> Procedure Laparoscopy Diagnostic, Laparotomy Exploratory 5 <*> Procedure Laparoscopy Diagnostic, Laparotomy Exploratory 6 <*> Procedure Laparoscopy Diagnostic, Laparotomy Exploratory <+> 8 Time In <+> 9 Case Attendee <+> 9 Role Performed 11/19/18 14:04:08 Clerical Proofreader: [id number] Modifier: [id number] 1 <*> Procedure Laparoscopy Diagnostic, Laparotomy Exploratory 2 <*> Procedure Laparoscopy Diagnostic, Laparotomy Exploratory 3 <*> Procedure Laparoscopy Diagnostic, Laparotomy Exploratory 4 <*> Procedure Laparoscopy Diagnostic, Laparotomy Exploratory 5 <*> Procedure Laparoscopy Diagnostic, Laparotomy Exploratory 6 <*> Procedure Laparoscopy Diagnostic, Laparotomy Exploratory <+> 7 Time In <+> 8 Case Attendee <+> 8 Role Performed 11/19/18 14:03:11 Clerical Proofreader: [id number] Modifier: [id number] 1 <+> Time In 1 <*> Procedure Laparoscopy Diagnostic, Laparotomy Exploratory 2 <+> Time In 2 <*> Procedure Laparoscopy Diagnostic, Laparotomy Exploratory 3 <+> Time In 3 <*> Procedure Laparoscopy Diagnostic, Laparotomy Exploratory 4 <+> Time In 4 <*> Procedure Laparoscopy Diagnostic, Laparotomy Exploratory 5 <+> Time In 5 <*> Procedure Laparoscopy Diagnostic, Laparotomy Exploratory 6 <+> Time In 6 <*> Procedure Laparoscopy Diagnostic, Laparotomy Exploratory <+> 7 Case Attendee <+> 7 Role Performed [facility] IntraOp Case Times Entry 1 Patient In Room Time 11/19/18 13:18:00 Out Room Time 11/19/18 15:55:00 Anesthesia Start Time 11/19/18 13:18:00 Stop Time 11/19/18 15:55:00 Anesthesia Ready 11/19/18 13:18:00 Surgery / Procedure Times Start Time 11/19/18 13:57:00 Stop Time 11/19/18 15:44:00 Last Modified By: Eileen Alba Rn 11/19/18 15:55:20 [facility] IntraOp Case Times Audit 11/19/18 15:55:20 Clerical Proofreader: [id number] Modifier: ALMA DELIA <+> 1 Out Room Time <+> 1 Stop Time <+> 1 Stop Time 11/19/18 13:58:04 Clerical Proofreader: [id number] Modifier: [id number] <+> 1 Start Time <+> 1 Start Time <+> 1 Anesthesia Ready [facility] IntraOp Cautery Entry 1 ESU Identification Cautery Type Monopolar ESU ID Number [id number] ID Type Hospital Number Cautery Settings Cut Setting 1 Coag Setting 30 ESU Grounding Pad Ground Pad Type Adult Grounding Pad Site Right thigh Grounding Pad HODAN PEARSONY Summer. Applied By Grounding Pad Site Warm, dry and intact Skin Condition Before Cautery Grounding Pad Site Unchanged Skin Condition After Cautery Last Modified By: Tyler Sanchez Rn 11/19/18 13:59:34 [facility] IntraOp Cautery Audit 11/19/18 13:59:34 Clerical Proofreader: [id number] Modifier: [id number] <+> 1 Ground Pad Type <+> 1 Grounding Pad Site <+> 1 Grounding Pad Applied By <+> 1 Grounding Pad Site Skin Condition Before Cautery <+> 1 Grounding Pad Site Skin Condition After Cautery [facility] IntraOp Communication Entry 1 Entry 2 Communication To Family/Significant other Family/Significant other Comment start CLOSING Communication By Lissette Cuello RN Hart, Kayla, Rn Date and Time 11/19/18 14:00:00 11/19/18 15:37:00 Last Modified By: Tyler Sanchez Rn Hart, Kayla, Rn 11/19/18 14:00:13 11/19/18 15:38:10 [facility] IntraOp Communication Audit 11/19/18 15:38:10 Clerical Proofreader: [id number] Modifier: ALMA DELIA <+> 2 Communication By <+> 2 Date and Time <+> 2 Communication To <+> 2 Comment [facility] IntraOp Counts Verification Entry 1 Procedure Laparoscopy Diagnostic, Laparotomy Exploratory, Lysis Adhesions Count Info Count Type Sponge, Sharps, Instrument, Miscellaneous Counts Verification Baseline/pre-procedure Sequence Counts Performed By Count Performed By Annmarie Moreno (Scrub) Systems Administration Analyst Count Performed By Lissette Cuello RN (RN) Last Modified By: Tyler Sanchez Rn 11/19/18 14:46:22 [facility] IntraOp Counts Verification Audit 11/19/18 14:46:22 Clerical Proofreader: [id number] Modifier: [id number] 1 <*> Procedure Laparoscopy Diagnostic, Laparotomy Exploratory 11/19/18 14:03:32 Clerical Proofreader: [id number] Modifier: [id number] 1 <*> Procedure Laparoscopy Diagnostic, Laparotomy Exploratory 1 <+> Count Performed By (Scrub) [facility] IntraOp Counts Final Entry 1 Procedure Laparoscopy Diagnostic, Laparotomy Exploratory, Lysis Adhesions Final Count Info Count Type Sponge, Sharps Counts Verification Skin Closure/end of Sequence procedure Count Results Correct, surgeon notified Counts Performed By Count Performed By STACEY VANN (Scrub) Count Performed By Eileen Alba Rn (RN) Last Modified By: Eileen Alba Rn 11/19/18 15:39:33 [facility] IntraOp Counts Final Audit 11/19/18 15:39:33 Clerical Proofreader: [id number] Modifier: ALMA DELIA 1 <*> Procedure Laparoscopy Diagnostic, Laparotomy Exploratory, Lysis Adhesions 1 <+> Count Performed By (Scrub) 1 <+> Count Performed By (RN) 11/19/18 14:46:24 Clerical Proofreader: [id number] Modifier: [id number] 1 <*> Procedure Laparoscopy Diagnostic, Laparotomy Exploratory [facility] IntraOp Departure from OR Entry 1 Integumentary Assessment Integumentary WDL Assessment WDL Transfer/Handoff Transfer to PACU Phase I Handoff Method Bedside/Face to face, Online nursing summary Post-op Transport Stretcher/Gurney Via Patient Transport Zayra Ayala, Accompanied by Air Carrier Maintenance Inspector, GLADYS PEARSON Last Modified By: Tyler Sanchez Rn 11/19/18 14:29:01 [facility] IntraOp Dressing and Packing Entry 1 Type Dressing Wound Dressing Item Skin Closure Glue Applied By GLADYS PEARSON Last Modified By: Tyler Sanchez Rn 11/19/18 14:28:16 [facility] IntraOp Fire Risk Assessment Entry 1 Fire Info Surgical Site or 0- No Incision Above the Xyphoid Open O2 Source 0- No (Mask or Cannula) Available Ignition 1- Yes (ESU, Laser, Light Source) Fire Risk 1 Assessment Score Fire Score Fire Risk Yes Assessment Complete Fire Risk Lissette Cuello RN Assessment Verified By Fire Risk 11/19/18 13:56:00 Assessment Verified Date/Time Fire Risk Standard Fire Yes Safety Precautions Followed Last Modified By: Tyler Sanchez Rn 11/19/18 14:04:54 [facility] IntraOp Fire Risk Assessment Audit 11/19/18 14:04:54 Clerical Proofreader: [id number] Modifier: [id number] <+> 1 Fire Risk Assessment Score [facility] IntraOp General Case Audiometrist 1 Case Information OR OR 06 [facility] Case Level 1 Room Verified Yes Wound Class I - Clean Specialty SN General Anesthesia Type General ASA Class 2 Diagnosis Preop Diagnosis SMALL BOWEL OBSTUCTION Postop Same As Preop No Postop Diagnosis SEE DR NOTES Last Modified By: Tyler Sanchez Rn 11/19/18 14:11:47 [facility] IntraOp General Case Data Audit 11/19/18 14:11:47 Clerical Proofreader: [id number] Modifier: [id number] <+> 1 Postop Diagnosis 11/19/18 14:07:33 Clerical Proofreader: [id number] Modifier: [id number] <+> 1 Preop Diagnosis 11/19/18 14:06:08 Clerical Proofreader: [id number] Modifier: [id number] <+> 1 ASA Class <+> 1 Anesthesia Type <+> 1 Postop Same As Preop <+> 1 Room Verified [facility] IntraOp Intraoperative Assessment Entry 1 Handoff Method Bedside/Face to face, Online nursing summary Valid History / Yes Physical in Chart Preoperative Yes Checklist Reviewed/Evaluated Allergies Reviewed Yes Patient is Latex No Sensitive Isolation Not applicable Precautions Noted Level of WDL Consciousness (WDL = Alert, Oriented to Person, Place, and Time) Skin Assessment No Verified Present Upon IVs Arrival to OR Last Modified By: Tyler Sanchez Rn 11/19/18 14:02:23 [facility] IntraOp Intraoperative Equipment Entry 1 Type Equipment Equipment Equipment Michaela Suction System ID Number [id number] Setting LOW Intraop Monitoring Antiembolic Devices Antiembolic Devices Sequential compression device, knee high Antiembolic Device Bilateral Location Antiembolic Device [id number] ID Number Scopes Photo/Video Documentation Last Modified By: Tyler Sanchez Rn 11/19/18 14:09:51 [facility] IntraOp Medication Admin Entry 1 Medication/Irrigant Marcaine 0.5% w/ epinephrine 1:200,000 30ml vial - [id number] Dose Administered By KATHY HERNANDEZ MD-SUR Procedure Irrigation Last Modified By: Tyler Sanchez Rn 11/19/18 14:27:43 [facility] IntraOp Patient Positioning Entry 1 Procedure Laparoscopy Diagnostic, Laparotomy Exploratory, Lysis Adhesions Body Position Supine Left Arm Position Tucked and padded at side Right Arm Position Tucked and padded at side Left Leg Position Uncrossed, parallel Right Leg Position Uncrossed, parallel Feet Uncrossed Yes Pressure Points Yes Checked Positioning Devices Head Rest, Pad, Arm, Pad, Heel, Safety Strap, Chest, Safety Strap, Leg(s) Positioned By KATHY HERNANDEZ MD-SUR, Lissette Cuello RN, Tyler Sanchez, Mandi, GLADYS PEARSON Position Verified Positioning Yes Verified by Anesthesia Positioning Yes Verified by Surgeon Last Modified By: Tyler Sanchez Rn 11/19/18 14:46:22 [facility] IntraOp Patient Positioning Audit 11/19/18 14:46:22 Clerical Proofreader: [id number] Modifier: [id number] 1 <*> Procedure Laparoscopy Diagnostic, Laparotomy Exploratory 11/19/18 14:15:56 Clerical Proofreader: [id number] Modifier: [id number] 1 <*> Procedure Laparoscopy Diagnostic, Laparotomy Exploratory 1 <*> Positioned By KATHY HERNANDEZ MD-SUR [facility] IntraOp Sign In Entry 1 Patient, Site, Yes Procedure Identified Surgical Consent Yes Confirmed Relevant Surgical Yes Documents Available Surgical Site Yes Marked by person performing procedure Anesthesia Machine Yes Check Completed Medication Checks Yes Completed Allergies Yes Airway Difficult Yes Airway/Aspiration Risk Difficult Yes Airway/Aspiration Intervention Equipment Available Blood Loss Risk Yes Blood Loss Yes Intervention Equipment Prepared and Ready Blood Identifiers Not applicable Verified Per Policy Hypothermia Risk Yes Warming Measures Yes Taken Last Modified By: Tyler Sanchez Rn 11/19/18 14:16:49 [facility] IntraOp Sign Out Entry 1 RN Confirmation Surgical Yes Procedure(s) Identified Instrument, Sponge Yes and Sharps Counts Correct/Documented Equipment Problems Yes Documented Specimen Labeled N/A Correctly Urinary Catheter Yes Documented in IView Diego Patient Yes Recovery Concerns Reviewed with Anesthesia Provider, Surgeon and RN Diego Patient Yes Management Concerns Reviewed with Anesthesia Provider, Surgeon and RN Safety Checklist Yes Elements Complete? RN Sign Out Eileen Alba Rn Signature RN Sign Out 11/19/18 15:55:00 Signature Date/Time Plan of Care Outcome - [...] related to extraneous objects Last Modified By: Eileen Alba Rn 11/19/18 15:55:32 [facility] IntraOp Sign Out Audit 11/19/18 15:55:32 Clerical Proofreader: [id number] Modifier: ALMA DELIA <+> 1 RN Sign Out Signature <+> 1 RN Sign Out Signature Date/Time [facility] IntraOp Skin Prep Entry 1 Procedure Laparoscopy Diagnostic, Laparotomy Exploratory, Lysis Adhesions Prescribed Yes Pre-Surgical Prep Completed Prep Area ABDOMEN Intraop Prep Prep Agents Chloraprep Prep by Lissette Cuello RN Hair Removal Last Modified By: Tyler Sanchez Rn 11/19/18 14:46:23 General Comments: PT ARRIVED IN OR WITH HAIR REMOVED. [facility] IntraOp Skin Prep Audit 11/19/18 14:46:23 Clerical Proofreader: [id number] Modifier: [id number] 1 <*> Procedure 1 <*> Procedure Laparoscopy Diagnostic, Laparotomy Exploratory 1 <*> Procedure Laparoscopy Diagnostic, Laparotomy Exploratory [facility] IntraOp Surgical Procedures Entry 1 Entry 2 Entry 3 Procedure Laparoscopy Diagnostic Laparotomy Exploratory Lysis Adhesions Modifiers Additional (DIAGNOSTIC Procedure LAPAROSCOPY, POSS Description EXPLORATORY LAPAROTOMY) Primary Procedure Yes No No Primary Surgeon KATHY HERNANDEZ MD-SUR NISBETT, DARYL, MD-SUR NISBETT, DARYL, MD-SUR Start 11/19/18 13:57:00 11/19/18 13:57:00 11/19/18 13:57:00 Stop 11/19/18 15:44:00 11/19/18 15:44:00 11/19/18 15:44:00 Physician States Cecum Reached Anesthesia Type General General General Specialty SN General SN General SN General Wound Class II - Clean-Contaminated I - Clean II - Clean-Contaminated Last Modified By: Eileen Alba Rn Hart, Kayla, Rn Hart, Kayla, Rn 11/19/18 15:55:24 11/19/18 15:55:24 11/19/18 15:55:24 [facility] IntraOp Surgical Procedures Audit 11/19/18 15:55:24 Clerical Proofreader: [id number] Modifier: ALMA DELIA <+> 1 Stop <+> 2 Stop <+> 3 Stop 11/19/18 14:46:14 Clerical Proofreader: [id number] Modifier: [id number] <+> 3 Procedure <+> 3 Primary Procedure <+> 3 Primary Surgeon <+> 3 Specialty <+> 3 Start <+> 3 Wound Class <+> 3 Anesthesia Type [facility] IntraOP Time Out Entry 1 Procedure to be Laparoscopy Diagnostic, Performed Laparotomy Exploratory, Lysis Adhesions Time Out Time Out Pause Time 11/19/18 13:56:00 All activity Yes suspended (unless life threatening emergency) Team Verbally Correct patient Confirms Information identity, Consent form is present and accurate, Agreement on the procedure to be done, Correct patient position, Relevant images/results properly labeled/appropriately displayed, Confirm antibiotics have been administered, Confirm the skin prep has dried, Confirm prosthesis/implant/devic e is present, Performed in location of procedure after prepped/draped Antibiotic Yes Prophylaxis Administered Or In Progress Within the Last 60 Minutes Beta Edgar N/A Administered Venous Yes Thromboembolism Prophylaxis Required Anticipated Critical Events Surgeon None expected Anesthesia Provider None expected Nursing Assures Sterility of instruments Essential Imaging Yes Labeled and Displayed Last Modified By: Tyler Sanchez Rn 11/19/18 14:46:23 General Comments: ANCEF 2G IV GIVIN PER ANESTHESIA AT 1337 [facility] IntraOP Time Out Audit 11/19/18 14:46:23 Clerical Proofreader: [id number] Modifier: [id number] 1 <*> Procedure to be Performed 1 <*> Procedure to be Performed Laparoscopy Diagnostic, Laparotomy Exploratory 1 <*> Procedure to be Performed Laparoscopy Diagnostic, Laparotomy Exploratory Case Comments <None> Finalized By: ANUP PARMAR Document Signatures Signed By: Eileen Alba Rn 11/19/18 15:55 ANUP PARMAR 11/21/18 14:53 Unfinalized History Date/Time Username Reason for Unfinalizing Freetext Reason for Unfinalizing 11/21/18 14:49 WATCHRISTINADR Correct Billing documented in this encounter Plan of Treatment Not on file documented as of this encounter Visit Diagnoses Not on filedocumented in this encounter
--- OUTSIDE RECORDS SUMMARY | 2025-06-09 09:45 | XMS_ITS | Encounter Summary ---
Author Organization [email or web address] ([place], [place], [place], [place]) Address [address] [place] [address] Care Team Providers Care Apartment Community Assistant Manager Name Role Phone Unavailable Primary Care Provider Unavailenrike e Encounter Details Date Type Department Care Team (Late st Contact Info) Description 03/04/2019 Transcribed Document [facility] [place] Family Medicine [address] [place] [address] ProviderYoli MD [address] [place] [address] Social History Tobacco Use Types Packs/Day Years Used Date Smoking Tobacco: Never Assessed Sex and Gender Information Value Date Recorded Sex Assigned at Not on file Legal Sex Male 6:25 PM CDT Gender Identity Not on file Sexual Orientation Not on file documented as of this encounter Miscellaneous Notes * Cerner Conversion Note - Historical ProviderMD - 03/04/2019 10:00 PM CDT Pain Assessment Entered On: 03/05/2019 1:29 EDT Performed On: 03/05/2019 0:52 EDT by Judy Conroy Lpn Intervention Information: oxyCODONE Performed by Judy Conroy Lpn on 03/04/2019 23:52:00 EDT oxyCODONE,10mg [employer]ric Tube Pain Assessment Pain Assessment : Follow-up assessment Pain Scale Goal : 4 Pain Scale Used : 0-10 Scale Judy Conroy Lpn - 03/05/2019 1:29 EDT Pain Scale Intensity : 1 Judy Conroy Lpn - 03/05/2019 1:29 EDT Image 4 - Images currently included in the form version of this document have not been included in the text rendition version of the form. documented in this encounter Plan of Treatment Not on file documented as of this encounter Visit Diagnoses Not on filedocumented in this encounter
--- OUTSIDE RECORDS SUMMARY | 2025-06-09 09:45 | XMS_ITS | Encounter Summary ---
Author Organization [employer] ([place], [place], [place], [place]) Address [address] [place] [address] Care Team Providers Care Physics Faculty Member Name Role Phone Unavailable Primary Care Provider Unavailenrike e Encounter Details Date Type Department Care Team (Late st Contact Info) Description 11/18/2018 Transcribed Document [facility] [place] Family Medicine [address] [place] [address] ProviderYoli MD [address] [place] [address] Social History Tobacco Use Types Packs/Day Years Used Date Smoking Tobacco: Never Assessed Sex and Gender Information Value Date Recorded Sex Assigned at Not on file Legal Sex Male 6:25 PM CDT Gender Identity Not on file Sexual Orientation Not on file documented as of this encounter Miscellaneous Notes * Cerner Conversion Note - Historical ProviderMD - 11/18/2018 2:00 AM SALT WASHER Lamp Stack Developer Details Entered On: 11/18/2018 1:36 EST Performed On: 11/18/2018 2:00 EST by Reese Chawla RN Order Details Transport Mode Order Detail : Ambulatory Isolation Precautions Order Detail : Standard Precautions Order Detail : N/A IV Order Detail : 1 Oxygen Order Detail : 0 Nurse Collect Order Detail : 0 Lift/Transfer : Independent Central Line Order Detail : No Room Service : Not Appropriate Arterial Line : No Reese Chawla RN - 11/18/2018 1:36 EST documented in this encounter Plan of Treatment Not on file documented as of this encounter Visit Diagnoses Not on filedocumented in this encounter
--- OUTSIDE RECORDS SUMMARY | 2025-06-09 09:45 | XMS_ITS | Encounter Summary ---
Author Organization [employer] ([place], [place], [place], [place]) Address [address] [place] [address] Care Team Providers Care Iphone Developer Name Role Phone Unavailable Primary Care Provider Unavailenrike e Encounter Details Date Type Department Care Team (Late st Contact Info) Description 11/18/2018 Transcribed Document [facility] [place] [address] [place] [address] ProviderYoli MD [address] [place] [address] Social History Tobacco Use Types Packs/Day Years Used Date Smoking Tobacco: Never Assessed Sex and Gender Information Value Date Recorded Sex Assigned at Not on file Legal Sex Male 6:25 PM CDT Gender Identity Not on file Sexual Orientation Not on file documented as of this encounter Miscellaneous Notes * Cerner Conversion Note - Historical ProviderMD - 11/18/2018 5:00 AM RAINBOW TROUT FARM MANAGER Chart Check - Review Order Profile Entered On: 11/18/2018 4:24 EST Performed On: 11/18/2018 5:00 EST by Reese Chawla RN Chart Check Chart Reviewed Date and Time : 11/18/2018 5:00 EST Powerplans Initiated/Discontinued as Appropriate : Yes All Active Orders Reviewed : Yes Reese Chawla RN - 11/18/2018 4:24 EST Electronically signed by Pancho [facility] Conversion Farmworker Livestock Cerner at 01/22/2023 6:51 PM CDT documented in this encounter Plan of Treatment Not on file documented as of this encounter Visit Diagnoses Not on filedocumented in this encounter
--- OUTSIDE RECORDS SUMMARY | 2025-06-09 09:45 | XMS_ITS | Encounter Summary ---
Author Organization [employer] ([place], [place], [place], [place]) Address [address] [place] [address] Care Team Providers Care Hydroelectric Component Machinist Name Role Phone Unavailable Primary Care Provider Unavailenrike e Encounter Details Date Type Department Care Team (Late st Contact Info) Description 03/03/2019 Transcribed Document [facility] [place] [address] [place] [address] ProviderYoli MD [address] [place] [address] Social History Tobacco Use Types Packs/Day Years Used Date Smoking Tobacco: Never Assessed Sex and Gender Information Value Date Recorded Sex Assigned at Not on file Legal Sex Male 6:25 PM CDT Gender Identity Not on file Sexual Orientation Not on file documented as of this encounter Miscellaneous Notes * Cerner Conversion Note - Yoli ProviderMD - 03/03/2019 2:48 PM CDT On Going Discharge Planning Entered On: 03/03/2019 14:49 EDT Performed On: 03/03/2019 14:48 EDT by ELEONORA ARMAS Core Stripper Care Management Progress Note Discharge Arrangements : Patient Post-Acute Information Patient Name: CALEB MATTHEWS Gender: Male : [birth year] Age: 48 Years No Post-Acute Placement(s) Listed No Post-Acute Service(s) Listed No Curaspan Referral(s) Listed ELEONORA ARMAS Core Stripper - 03/03/2019 14:48 EDT Narrative Progress Note Narrative Progress Note : Per Dr Bo, pt with continued pain and he will restart IVFs. ELEONORA ARMAS Core Stripper - 03/03/2019 14:48 EDT Electronically signed by Interface, Sj Conversion Offset Plate Preparation Supervisor Cerner at 01/22/2023 6:56 PM CDT documented in this encounter Plan of Treatment Not on file documented as of this encounter Visit Diagnoses Not on filedocumented in this encounter
--- OUTSIDE RECORDS SUMMARY | 2025-06-09 09:45 | XMS_ITS | Encounter Summary ---
Author Organization [employer] ([place], [place], [place], [place]) Address [address] [place] [address] Care Team Providers Care Certified Nurse Practitioner Name Role Phone Unavailable Primary Care Provider Unavailabl e Encounter Details Date Type Department Care Team (Late st Contact Info) Description 11/20/2018 Transcribed Document [facility] [place] Medicine [address] [place] [address] ProviderYoli MD [address] [place] [address] Social History Tobacco Use Types Packs/Day Years Used Date Smoking Tobacco: Never Assessed Sex and Gender Information Value Date Recorded Sex Assigned at Not on file Legal Sex Male 6:25 PM CDT Gender Identity Not on file Sexual Orientation Not on file documented as of this encounter Miscellaneous Notes * Cerner Conversion Note - Historical ProviderMD - 11/20/2018 5:00 PM PERSONNEL PLACEMENT SPECIALIST Chart Check - Review Order Profile Entered On: 11/20/2018 16:18 EST Performed On: 11/20/2018 17:00 EST by Jennifer Weldon Rn-Traveler Chart Check Chart Reviewed Date and Time : 11/20/2018 16:18 EST Powerplans Initiated/Discontinued as Appropriate : Yes All Active Orders Reviewed : Yes Jennifer Weldon Rn-Traveler - 11/20/2018 16:18 EST Electronically signed by Pancho [facility] Conversion Auto Polisher Cerner at 01/22/2023 6:50 PM CDT documented in this encounter Plan of Treatment Not on file documented as of this encounter Visit Diagnoses Not on filedocumented in this encounter
--- OUTSIDE RECORDS SUMMARY | 2025-06-09 09:45 | XMS_ITS | Encounter Summary ---
Author Organization [employer] ([place], [place], [place], [place]) Address [address] [place] [address] Care Team Providers Care Online Producer Name Role Phone Unavailable Primary Care Provider Unavailenrike e Encounter Details Date Type Department Care Team (Late st Contact Info) Description 03/05/2019 Transcribed Document [facility] [place] Family Medicine [address] [place] [address] ProviderYoli MD [address] [id number] Social History Tobacco Use Types Packs/Day Years Used Date Smoking Tobacco: Never Assessed Sex and Gender Information Value Date Recorded Sex Assigned at Not on file Legal Sex Male 6:25 PM CDT Gender Identity Not on file Sexual Orientation Not on file documented as of this encounter Miscellaneous Notes * Cerner Conversion Note - Yoli ProviderMD - 03/05/2019 10:27 AM CDT UM Authorization Entered On: 03/05/2019 10:28 EDT Performed On: 03/05/2019 10:27 EDT by CARLOS MANUEL CAMACHO RN Primary Insurance Authorization Authorization and Policy Numbers : Insurance 1 [facility] Policy Number: [id number] Authorization Number: NPR Insurance Primary Name : [facility] [id number] Authorization Status-Primary : Pending Reference Number-Primary : [id number] Authorized Service Begin Date-Primary : 02/26/2019 EDT Authorization Comments-Primary : Case pended per website, clinicals faxed via [employer] Historical Authorization Comments-Primary : Comment 1: Clinicals submitted via [facility] website (CARLOS MANUEL CAMACHO RN 03/02/2019 08:52) Comment 2: No authorization for this visit, OP or IP found in [employer]. (MARCIA DELGADILLO RN 02/27/2019 10:39) Comment 3: Per [facility] notes no auth required. Submitted for OP (?). MD wants patient to stay 5 days. Note to UR team to f/u on 03/02 re: authorizatin (MARCIA DELGADILLO RN 02/27/2019 10:36) CARLOS MANUEL CAMACHO RN - 03/05/2019 10:27 EDT Electronically signed by [facility] Conversion Provisioning Analyst Cerner at 01/22/2023 6:48 PM CDT documented in this encounter Plan of Treatment Not on file documented as of this encounter Visit Diagnoses Not on filedocumented in this encounter
--- OUTSIDE RECORDS SUMMARY | 2025-06-09 09:45 | XMS_ITS | Encounter Summary ---
Author Organization [employer] ([place], [place], [place]) Address [address] [place] [address] Care Team Providers Care Plastic Cutter Name Role Phone Unavailable Primary Care Provider Unavailenrike e Encounter Details Date Type Department Care Team (Late st Contact Info) Description 11/18/2018 Transcribed Document [facility] [place] [address] [place] [address] ProviderYoli MD [address] [place] [address] Social History Tobacco Use Types Packs/Day Years Used Date Smoking Tobacco: Never Assessed Sex and Gender Information Value Date Recorded Sex Assigned at Not on file Legal Sex Male 6:25 PM CDT Gender Identity Not on file Sexual Orientation Not on file documented as of this encounter Miscellaneous Notes * Cerner Conversion Note - Historical ProviderMD - 11/18/2018 9:49 AM RN PHYSICIAN OFFICE Pain Assessment Entered On: 11/20/2018 4:26 EST Performed On: 11/20/2018 1:06 EST by Reese Chawla RN Intervention Information: morphine Performed by Reese Chawla RN on 11/20/2018 00:36:00 EST morphine,2mg IV Push,Left Lower Forearm,Pain (Severe 7-10) Pain Assessment Pain Assessment : Follow-up assessment Pain Scale Goal : 3 Pain Scale Used : 0-10 Scale Pain Improved by Intervention : Yes Reese Chawla RN - 11/20/2018 4:26 EST Pain Scale Intensity : 3 Reese Chawla RN - 11/20/2018 4:26 EST Image 4 - Images currently included in the form version of this document have not been included in the text rendition version of the form. documented in this encounter Plan of Treatment Not on file documented as of this encounter Visit Diagnoses Not on filedocumented in this encounter
--- OUTSIDE RECORDS SUMMARY | 2025-06-09 09:45 | XMS_ITS | Encounter Summary ---
Author Organization [employer] ([place], [place], [place], [place]) Address [address] [place] [address] Care Team Providers Care Power Project Manager Name Role Phone Unavailable Primary Care Provider Unavailenrike e Encounter Details Date Type Department Care Team (Late st Contact Info) Description 03/05/2019 Transcribed Document [facility] [place] Family Medicine [address] [place] [address] ProviderYoli MD [address] [id number] Social History Tobacco Use Types Packs/Day Years Used Date Smoking Tobacco: Never Assessed Sex and Gender Information Value Date Recorded Sex Assigned at Not on file Legal Sex Male 6:25 PM CDT Gender Identity Not on file Sexual Orientation Not on file documented as of this encounter Miscellaneous Notes * Cerner Conversion Note - Yoli ProviderMD - 03/05/2019 4:57 PM CDT On Going Discharge Planning Entered On: 03/05/2019 16:58 EDT Performed On: 03/05/2019 16:57 EDT by VY FLORES, Rn-It Telecom Technician ED Care Management Progress Note Discharge Arrangements : Patient Post-Acute Information Patient Name: CALEB MATTHEWS Gender: Male : [birth year] Age: 48 Years No Post-Acute Placement(s) Listed No Post-Acute Service(s) Listed No Curaspan Referral(s) Listed VY FLORES, Rn-It Telecom Technician ED - 03/05/2019 16:57 EDT Narrative Progress Note Narrative Progress Note : Pt with post-op ileus. NGT removed, now on CLD. morphine changed to iv q4hr prn. LBM 5/29. Pt will likely d/c to home soon with . VY FLORES, Rn-It Telecom Technician ED - 03/05/2019 16:57 EDT documented in this encounter Plan of Treatment Not on file documented as of this encounter Visit Diagnoses Not on filedocumented in this encounter
--- OUTSIDE RECORDS SUMMARY | 2025-06-09 09:45 | XMS_ITS | Encounter Summary ---
Author Organization [employer] ([place], [place], [place], [place]) Address [address] [place] [address] Care Team Providers Care Tester Vibrator Equipment Name Role Phone Unavailable Primary Care Provider Unavailenrike e Encounter Details Date Type Department Care Team (Late st Contact Info) Description 11/21/2018 Transcribed Document [facility] [place] Family Medicine [address] [place] [address] ProviderYoli MD [address] [place] [address] Social History Tobacco Use Types Packs/Day Years Used Date Smoking Tobacco: Never Assessed Sex and Gender Information Value Date Recorded Sex Assigned at Not on file Legal Sex Male 6:25 PM CDT Gender Identity Not on file Sexual Orientation Not on file documented as of this encounter Miscellaneous Notes * Cerner Conversion Note - Historical ProviderMD - 11/21/2018 12:00 PM LOADER UNLOADER Pain Assessment Entered On: 11/21/2018 13:47 EST Performed On: 11/21/2018 13:16 EST by Esther Vega RN Intervention Information: acetaminophen Performed by Esther Vega RN on 11/21/2018 12:16:00 EST acetaminophen,500mg Oral Pain Assessment Pain Assessment : Follow-up assessment Pain Scale Goal : 3 Pain Scale Used : 0-10 Scale Location : Abdominal Onset : Acute Quality : Sharp Esther Vega RN - 11/21/2018 13:47 EST Pain Scale Intensity : 7 Esther Vega RN - 11/21/2018 13:47 EST Image 4 - Images currently included in the form version of this document have not been included in the text rendition version of the form. documented in this encounter Plan of Treatment Not on file documented as of this encounter Visit Diagnoses Not on filedocumented in this encounter
--- OUTSIDE RECORDS SUMMARY | 2025-06-09 09:45 | XMS_ITS | Encounter Summary ---
Author Organization [employer] ([place], [place], [place], [place]) Address [address] [place] [address] Care Team Providers Care Filter Press Operator Name Role Phone Unavailable Primary Care Provider Unavailenrike e Encounter Details Date Type Department Care Team (Late st Contact Info) Description 03/04/2019 Transcribed Document [facility] [place] Family Medicine [address] [place] [address] ProviderYoli MD [address] [place] [address] Social History Tobacco Use Types Packs/Day Years Used Date Smoking Tobacco: Never Assessed Sex and Gender Information Value Date Recorded Sex Assigned at Not on file Legal Sex Male 6:25 PM CDT Gender Identity Not on file Sexual Orientation Not on file documented as of this encounter Miscellaneous Notes * Cerner Conversion Note - Historical ProviderMD - 03/04/2019 6:00 PM CDT Pain Assessment Entered On: 03/05/2019 1:28 EDT Performed On: 03/04/2019 21:45 EDT by Judy Conroy Lpn Intervention Information: oxyCODONE Performed by Judy Conroy Lpn on 03/04/2019 20:45:00 EDT oxyCODONE,10mg OroGAStric Tube Pain Assessment Pain Assessment : Follow-up assessment Pain Scale Goal : 4 Pain Scale Used : 0-10 Scale Judy Conroy Lpn - 03/05/2019 1:28 EDT Pain Scale Intensity : 1 Judy Conroy Lpn - 03/05/2019 1:28 EDT Image 4 - Images currently included in the form version of this document have not been included in the text rendition version of the form. documented in this encounter Plan of Treatment Not on file documented as of this encounter Visit Diagnoses Not on filedocumented in this encounter
--- OUTSIDE RECORDS SUMMARY | 2025-06-09 09:45 | XMS_ITS | Encounter Summary ---
Author Organization [email or web address] ([place], [place], [place], [place]) Address [address] [place] [address] Care Team Providers Care Embedded Processor Name Role Phone Unavailable Primary Care Provider Unavailenrike e Encounter Details Date Type Department Care Team (Late st Contact Info) Description 11/21/2018 Transcribed Document [facility] [place] Family Medicine [address] [place] [address] ProviderYoli MD [address] [id number] Social History Tobacco Use Types Packs/Day Years Used Date Smoking Tobacco: Never Assessed Sex and Gender Information Value Date Recorded Sex Assigned at Not on file Legal Sex Male 6:25 PM CDT Gender Identity Not on file Sexual Orientation Not on file documented as of this encounter Miscellaneous Notes * Cerner Conversion Note - Historical ProviderMD - 11/21/2018 5:00 PM CURBSTONE SETTER Chart Check - Review Order Profile Entered On: 11/21/2018 18:07 EST Performed On: 11/21/2018 17:00 EST by Esther Vega RN Chart Check Chart Reviewed Date and Time : 11/21/2018 18:07 EST Powerplans Initiated/Discontinued as Appropriate : Yes All Active Orders Reviewed : Yes Esther Vega RN - 11/21/2018 18:07 EST Electronically signed by Pancho [facility] Conversion Porcelain Enamel Repairer Cerner at 01/22/2023 6:31 PM CDT documented in this encounter Plan of Treatment Not on file documented as of this encounter Visit Diagnoses Not on filedocumented in this encounter
--- OUTSIDE RECORDS SUMMARY | 2025-06-09 09:45 | XMS_ITS | Encounter Summary ---
Author Organization [employer] ([place], [place], [place], [place]) Address [address] [place] [address] Care Team Providers Care Hog Tender Name Role Phone Unavailable Primary Care Provider Unavailenrike e Encounter Details Date Type Department Care Team (Late st Contact Info) Description 03/06/2019 Transcribed Document [facility] [place] Family Medicine [address] [place] [address] ProviderYoli MD [address] [place] [address] Social History Tobacco Use Types Packs/Day Years Used Date Smoking Tobacco: Never Assessed Sex and Gender Information Value Date Recorded Sex Assigned at Not on file Legal Sex Male 6:25 PM CDT Gender Identity Not on file Sexual Orientation Not on file documented as of this encounter Miscellaneous Notes * Cerner Conversion Note - Historical ProviderMD - 03/06/2019 10:00 PM CDT Pain Assessment Entered On: 03/07/2019 3:17 EDT Performed On: 03/06/2019 23:01 EDT by Judy Conroy Lpn Intervention Information: acetaminophen Performed by Judy Conroy Lpn on 03/06/2019 22:01:00 EDT acetaminophen,650mg Oral Pain Assessment Pain Assessment [...]
--- OUTSIDE RECORDS SUMMARY | 2025-06-09 09:45 | XMS_ITS | Encounter Summary ---
Author Organization [employer] ([place], [place], [place], [place]) Address [address] [place] [address] Care Team Providers Care Director Transportation Name Role Phone Unavailable Primary Care Provider Unavailabl e Encounter Details Date Type Department Care Team (Late st Contact Info) Description 03/05/2019 Transcribed Document [facility] [place] Family Medicine [address] [place] [address] ProviderYoli MD [address] [place] [address] Social History Tobacco Use Types Packs/Day Years Used Date Smoking Tobacco: Never Assessed Sex and Gender Information Value Date Recorded Sex Assigned at Not on file Legal Sex Male 6:25 PM CDT Gender Identity Not on file Sexual Orientation Not on file documented as of this encounter Miscellaneous Notes * Cerner Conversion Note - Yoli ProviderMD - 03/05/2019 12:09 PM CDT UM Authorization Entered On: 03/05/2019 12:14 EDT Performed On: 03/05/2019 12:09 EDT by ANA PAULA GONZALEZ, RN-Utilization Review Primary Insurance Authorization Authorization and Policy Numbers : Insurance 1 Health Plan: [employer] Policy Number: [id number] Authorization Number: NPR Insurance [id number] Authorization Status-Primary : Pending Reference Number-Primary : [id number] Number of Days Authorized-Primary : 5 Authorized Service Begin Date-Primary : 02/26/2019 EDT Authorized Service End Date-Primary : 03/02/2019 EDT Authorization Comments-Primary : rec'd call from Lydia- approval for IP 02/26-03/02/19 and cont stay denial starting 03/03/19 and forward due to pt stable. Can do P2P within 14 days, call [phone] and option 1. If substantial change in condition, can fax additional clinicals for reconsideration. Historical Authorization Comments-Primary : Comment 1: Case pended per website, clinicals faxed via [employer] (CARLOS MANUEL CAMACHO RN 03/05/2019 10:27) Comment 2: Clinicals submitted via [employer] website (CARLOS MANUEL CAMACHO RN 03/02/2019 08:52) Comment 3: No authorization for this visit, OP or IP found in [employer]. (MARCIA DELGADILLO RN 02/27/2019 10:39) Comment 4: Per [facility] notes no auth required. Submitted for OP (?). MD wants patient to stay 5 days. Note to UR team to f/u on 03/02 re: authorizatin (MARCIA DELGADILLO RN 02/27/2019 10:36) ANA PAULA GONZALEZ, RN-Utilization Review - 03/05/2019 12:09 EDT documented in this encounter Plan of Treatment Not on file documented as of this encounter Visit Diagnoses Not on filedocumented in this encounter
--- OUTSIDE RECORDS SUMMARY | 2025-06-09 09:45 | XMS_ITS | Encounter Summary ---
Author Organization [employer] ([place], [place], [place], [place]) Address [address] [place] [address] Care Team Providers Care Electronic Service Technician Name Role Phone Unavailable Primary Care Provider Unavailenrike e Encounter Details Date Type Department Care Team (Late st Contact Info) Description 03/06/2019 Transcribed Document [facility] [place] Family Medicine [address] [place] [address] ProviderYoli MD [address] [place], [place] [id number] Social History Tobacco Use Types Packs/Day Years Used Date Smoking Tobacco: Never Assessed Sex and Gender Information Value Date Recorded Sex Assigned at Not on file Legal Sex Male 6:25 PM CDT Gender Identity Not on file Sexual Orientation Not on file documented as of this encounter Miscellaneous Notes * Cerner Conversion Note - Historical ProviderMD - 03/06/2019 6:00 AM CDT Pain Assessment Entered On: 03/06/2019 15:41 EDT Performed On: 03/06/2019 7:35 EDT by Sylvie Mcmanus RN Intervention Information: acetaminophen Performed by Judy Conroy Lpn on 03/06/2019 06:35:00 EDT acetaminophen,650mg Oral Pain Assessment Pain Assessment : Follow-up assessment Pain Scale Goal : 4 Pain Scale Used : FACES Sylvie Mcmanus RN - 03/06/2019 15:40 EDT Pain Scale Intensity : 3 Sylvie Mcmanus RN - 03/06/2019 15:40 EDT Image 4 - Images currently included in the form version of this document have not been included in the text rendition version of the form. documented in this encounter Plan of Treatment Not on file documented as of this encounter Visit Diagnoses Not on filedocumented in this encounter
--- OUTSIDE RECORDS SUMMARY | 2025-06-09 09:45 | XMS_ITS | Encounter Summary ---
Author Organization [employer] ([place], [place], [place], [place]) Address [address] [place] [address] Care Team Providers Care Production Zone Leader Name Role Phone Unavailable Primary Care Provider Sai e Encounter Details Date Type Department Care Team (Late st Contact Info) Description 03/05/2019 Transcribed Document [facility] [place] [address] [place] [address] ProviderYoli MD [address], [place] [id number] Social History Tobacco Use Types Packs/Day Years Used Date Smoking Tobacco: Never Assessed Sex and Gender Information Value Date Recorded Sex Assigned at Not on file Legal Sex Male 6:25 PM CDT Gender Identity Not on file Sexual Orientation Not on file documented as of this encounter Miscellaneous Notes * Cerner Conversion Note - Yoli ProviderMD - 03/05/2019 2:08 PM CDT UM Authorization Entered On: 03/05/2019 14:08 EDT Performed On: 03/05/2019 14:08 EDT by CARLOS MANUEL CAMACHO RN Primary Insurance Authorization Authorization and Policy Numbers : Insurance 1 Health Plan: [facility] Policy Number: [id number] Authorization Number: NPR Insurance Primary Name : Bran [id number] Authorization Status-Primary : Admit approved Auth/Referral Contact Name-Primary : Davina Reference Number-Primary : [id number] Number of Days Authorized-Primary : 7 Authorized Service Begin Date-Primary : 02/26/2019 EDT Authorized Service End Date-Primary : 03/04/2019 EDT Historical Authorization Comments-Primary : Comment 1: Brian Ghosh denial overturned and contd stay approved till 03/04, NRD 03/05. February fax clinicals on 03/09) (CARLOS MANUEL CAMACHO RN 03/05/2019 14:05) Comment 2: Clinicals faxed via [employer] for reconsideration, notified Linnea with Dr Camilo office, p2p no given (CARLOS MANUEL CAMACHO RN 03/05/2019 12:35) Comment 3: email to re: denial (ANA PAULA GONZALEZ, RN-Utilization Review 03/05/2019 12:14) Comment 4: rec'd call from Davina/[employer]- approval for IP 02/26-03/02/19 and cont stay denial starting 03/03/19 and forward due to pt stable. Can do P2P within 14 days, call [phone] and option 1. If substantial change in condition, can fax additional clinicals for reconsideration. (ANA PAULA GONZALEZ, RN-Utilization Review 03/05/2019 12:09) Comment 5: Case pended per website, clinicals faxed via [employer] (CARLOS MANUEL CAMACHO RN 03/05/2019 10:27) Comment 6: Clinicals submitted via [employer] website (CARLOS MANUEL CAMACHO RN 03/02/2019 08:52) [...] 10:36) CARLOS MANUEL CAMACHO RN - 03/05/2019 14:08 EDT Electronically signed by Nena Deleon Conversion Document Improvement Specialist Cerner at 01/22/2023 6:44 PM CDT documented in this encounter Plan of Treatment Not on file documented as of this encounter Visit Diagnoses Not on filedocumented in this encounter
--- OUTSIDE RECORDS SUMMARY | 2025-06-09 09:45 | XMS_ITS | Encounter Summary ---
Author Organization [employer] ([place], [place], [place], [place]) Address [address] [place] [address] Care Team Providers Care Windows Support Engineer Name Role Phone Unavailable Primary Care Provider Unavailenrike e Encounter Details Date Type Department Care Team (Late st Contact Info) Description 03/06/2019 Transcribed Document [facility] [place] [address] [place] [address] ProviderYoli MD [address] [place], [place] [id number] Social History Tobacco Use Types Packs/Day Years Used Date Smoking Tobacco: Never Assessed Sex and Gender Information Value Date Recorded Sex Assigned at Not on file Legal Sex Male 6:25 PM CDT Gender Identity Not on file Sexual Orientation Not on file documented as of this encounter Miscellaneous Notes * Cerner Conversion Note - Historical ProviderMD - 03/06/2019 2:00 PM CDT Pain Assessment Entered On: 03/06/2019 15:41 EDT Performed On: 03/06/2019 14:31 EDT by Sylvie Mcmanus RN Intervention Information: acetaminophen Performed by Sylvie Mcmanus RN on 03/06/2019 13:31:00 EDT acetaminophen,650mg Oral Pain Assessment Pain Assessment [...]
--- OUTSIDE RECORDS SUMMARY | 2025-06-09 09:45 | XMS_ITS | Encounter Summary ---
Author Organization [employer] ([place], [place], [place], [place]) Address [address] [place] [address] Care Team Providers Care Shaft Headman Name Role Phone Unavailable Primary Care Provider Unavailenrike e Encounter Details Date Type Department Care Team (Late st Contact Info) Description 11/20/2018 Transcribed Document [facility] [place] [address] [place] [address] ProviderYoli MD [address] [id number] Social History Tobacco Use Types Packs/Day Years Used Date Smoking Tobacco: Never Assessed Sex and Gender Information Value Date Recorded Sex Assigned at Not on file Legal Sex Male 6:25 PM CDT Gender Identity Not on file Sexual Orientation Not on file documented as of this encounter Miscellaneous Notes * Cerner Conversion Note - Historical ProviderMD - 11/20/2018 11:54 AM DISH PERSON Pain Assessment Entered On: 11/22/2018 4:46 EST Performed On: 11/21/2018 23:44 EST by Carmella Steele Rn Intervention Information: oxyCODONE Performed by Carmella Steele Rn on 11/21/2018 22:44:00 EST oxyCODONE,10mg Oral,Abdominal Pain Pain Assessment Pain Assessment : Follow-up assessment Pain Scale Goal : 3 Pain Scale Used : 0-10 Scale Pain Intervention, Drug : Medicated Pain Improved by Intervention : Yes Carmella Steele Rn - 11/22/2018 4:45 EST Pain Scale Intensity : Alternate pain scale used Carmella Steele Rn - 11/22/2018 4:45 EST Image 4 - Images currently included in the form version of this document have not been included in the text rendition version of the form. documented in this encounter Plan of Treatment Not on file documented as of this encounter Visit Diagnoses Not on filedocumented in this encounter
--- OUTSIDE RECORDS SUMMARY | 2025-06-09 09:45 | XMS_ITS | Encounter Summary ---
Author Organization [employer] ([place], [place], [place], [place]) Address [address] [place] [address] Care Team Providers Care Agri Business Agent Name Role Phone Unavailable Primary Care Provider Unavailenrike e Encounter Details Date Type Department Care Team (Late st Contact Info) Description 03/05/2019 Transcribed Document [facility] [place] [address] [place] [address] ProviderYoli MD [address] [place] [address] Social History Tobacco Use Types [...] On: 03/05/2019 17:07 EDT Performed On: 03/05/2019 12:04 EDT by Sylvie Mcmanus RN Intervention Information: morphine Performed by Sylvie Mcmanus RN on 03/05/2019 11:34:00 EDT morphine,2mg IV Push,Right Lower Forearm,Abdominal Pain [...]
--- OUTSIDE RECORDS SUMMARY | 2025-06-09 09:45 | XMS_ITS | Encounter Summary ---
Author Organization [email or web address] ([place], [place], [place], [place]) Address [address] [place] [address] Care Team Providers Care Automotive Assembler Name Role Phone Unavailable Primary Care Provider Unavailenrike e Encounter Details Date Type Department Care Team (Late st Contact Info) Description 11/17/2018 Transcribed Document [facility] [place] [address] [place] [address] ProviderYoli MD [address] [place], [place] [phone] Social History Tobacco Use Types Packs/Day Years Used Date Smoking Tobacco: Never Assessed Sex and Gender Information Value Date Recorded Sex Assigned at Not on file Legal Sex Male 6:25 PM CDT Gender Identity Not on file Sexual Orientation Not on file documented as of this encounter Miscellaneous Notes * Cerner Conversion Note - Historical ProviderMD - 11/17/2018 4:22 PM COUNTER DISH CARRIER Admission History, Adult Entered On: 11/17/2018 17:54 EST Performed On: 11/17/2018 16:22 EST by CESARIO LYNN RN Advance Directive Patient has Advance Directive *Q : No, patient refuses Advance Directive information CESARIO LYNN RN - 11/17/2018 17:46 EST Anesthesia/Transfusion History Family History of Anesthesia Reaction : No prior transfusion(s) Blood Transfusion Acceptable to Patient : Yes Transfusion History : Prior anesthesia reaction Type of Anesthesia Reaction : Excessive nausea/vomiting Family History of Anesthesia Reaction : None Anesthesia History Comment : significant nausea and vomiting with 1 st sx in 1993 CESARIO LYNN RN - 11/17/2018 17:46 EST Functional Assessment Living Situation : Home JOHNS Hx Falls Immediate/Within 3 Months : No Current Home Treatments : None CESARIO LYNN RN - 11/17/2018 17:46 EST General Info Mode of Arrival on Unit : Ambulatory Legal Guardian : Unaccompanied Want Family/Rep/Phys Notified of Admit : No Emergency Contact #1 : nany matthews Emergency Contact #1 Emergency Contact #1 Relationship : Emergency Contact #2 : ghazal lacey Emergency Contact #2 Emergency Contact #2 Relationship : daughter Chief Complaint : from lobby, c/o LUQ abdominal pain, with nausea. hx SBO last month. pt reports watery bowel movement yesterday. Primary Language : Guinean Preferred Communication Mode : Verbal Communication Barrier : None CESARIO LYNN RN - 11/17/2018 17:46 EST Fall Risk Scales [place] Fall Interventions : Adequate lighting, Assistive devices within reach, Bed in low position, Call device within reach, Fall prevention handout/education per facility policy, Hourly comfort/safety rounds, Non-slip footwear, Personal items within reach, Room free of clutter/spills, Wheels locked, Wires/Cords secured CESARIO LYNN RN - 11/17/2018 17:55 EST ABCs Fall Injury Risk Identification : None JOHNS Hx Falls Immediate/Within 3 Months : No Johns Secondary Diagnosis : No JOHNS Use of Ambulatory Aid : None JOHNS IV Therapy or IV Access : Yes Haley Gait/Transferring : Normal, bedrest, immobile Johns Mental Status : Oriented to own ability Johns Fall Risk Score : 20 JOHNS Fall Scale Risk Level : 0-24 Low Risk CESARIO LYNN RN - 11/17/2018 17:46 EST Health Histories Smoking Status : Never (less than 100 in lifetime; none in last 30 days) Smokeless Tobacco Status : Never CESARIO LYNN RN - 11/17/2018 17:46 EST Social History (As Of: 11/17/2018 17:54:14 EST) Height and Weight, Clinical Dosing Height Source : Stated Height Entry Format : [place] Height, Feet : 5 ft(Converted to: 152 cm, 60 Inch) Height, Inches : 11 Inch(Converted to: 0 ft 11 Inch, 27.94 cm) Clinical Height : 180.34 cm Weight Source : Standing scale Weight Entry Format : [place]rick Clinical Dosing Weight : 77.27 kg Weight, Pounds : 170 lb Body Surface Area (BSA) : 1.97 m2 Body Mass Index : 23.8 kg/m2 [place] Body Weight : 74 kg CESARIO LYNN RN - 11/17/2018 17:46 EST Infectious Disease History Infectious Disease History : Chicken pox/Shingles Fever/Chills Last 48 Hours : No Travel To Regions with Travel Advisories : No Travel Outside [place] Within Last 30 Days : No Contact With Traveler to Advisory Region : No Tuberculosis Symptoms : None CESARIO LYNN RN - 11/17/2018 17:46 EST Influenza Vaccine Asmt, Adult Previous Vaccines from Immunization Schedule : Previous Vaccines and Immunizations influenza virus vaccine, inactivated: 0.5 mL (10/12/18 08:41:00) Influenza Immunization, Current Season : Yes CESARIO LYNN RN - 11/17/2018 17:46 EST Pneumococcal Vaccine Previous Vaccines from Immunization Schedule : Previous Vaccines and Immunizations influenza virus vaccine, inactivated: 0.5 mL (10/12/18 08:41:00) Pneumonia Immunization Received : No Pneumococcal Risk Assessment < Age 65 : None CESARIO LYNN RN - 11/17/2018 17:46 EST Nutrition History Adaptive Feeding Equipment : Regular Eating Poorly Due to Decreased Appetite : Yes Unplanned Weight Loss in Past 3-6 Months : Yes Unplanned Weight Loss Amount : 2-13 lbs/0.9-5.9 kg Malnutrition Screening Tool Total(mal) : 2 Malnutrition Screening Tool Risk Level : Patient at risk CESARIO LYNN RN - 11/17/2018 17:46 EST Psychosocial History Currently in Unsafe Situation : No Tried to Harm Yourself in the Past? : No Thoughts of Harming/Killing Yourself : No CESARIO LYNN RN - 11/17/2018 17:46 EST Sleep Apnea Risk Assmt Hx of Obstructive Sleep Apnea Diagnosis : No Snore Loudly : No Tired, Fatigued, or Sleepy During Day : No Observed Stopping Breathing During Sleep : No Have/Are Being Treated for Hypertension : No STOP Sleep Apnea Risk Level Score : 0 STOP Sleep Apnea Risk Level : Low BMI Greater Than 35 kg/m2 : No Age over 50 Years Old : No Gender Male : Yes Neck Circumference Measured (cms) : 35 cm STOP-BANG Sleep Apnea Risk Level Score : 1 Neck Circumference Greater Than 40 cm : No CESARIO LYNN RN - 11/17/2018 17:46 EST Valuables and Belongings Valuables and Belongings : Clothing Clothing : Common streetwear Clothing Disposition : Bedside CESARIO LYNN RN - 11/17/2018 17:46 EST Electronically signed by [facility] Conversion Marketing Operations Specialist Cerner at 01/22/2023 6:52 PM CDT documented in this encounter Plan of Treatment Not on file documented as of this encounter Visit Diagnoses Not on filedocumented in this encounter
--- OUTSIDE RECORDS SUMMARY | 2025-06-09 09:45 | XMS_ITS | Encounter Summary ---
Author Organization [employer] ([place], [place], [place], [place]) Address [address] [place] [address] Care Team Providers Care Supervisor Tubing Name Role Phone Unavailable Primary Care Provider Unavailabl e Encounter Details Date Type Department Care Team (Late st Contact Info) Description 11/19/2018 Transcribed Document [facility] [place] [address] [place] [address] ProviderYoli MD [address] [place], [place] [phone] Social History Tobacco Use Types Packs/Day Years Used Date Smoking Tobacco: Never Assessed Sex and Gender Information Value Date Recorded Sex Assigned at Not on file Legal Sex Male 6:25 PM CDT Gender Identity Not on file Sexual Orientation Not on file documented as of this encounter Miscellaneous Notes * Cerner Conversion Note - Historical ProviderMD - 11/19/2018 9:40 AM BRANCH COORDINATOR Spiritual Care Short Form Entered On: 11/19/2018 15:56 EST Performed On: 11/19/2018 9:40 EST by HANNAH RODRIGUEZ General Information, Spiritual Care Intervention/Comment/Summary Points : Visit completed by Spiritual Tablet Repair Jimmy Camarillo; Pt having stomach surgery between 12-; Chit Chat visit; Tried open-ended questions, but not very talkative HANNAH RODRIGUEZ - 11/19/2018 15:55 EST documented in this encounter Plan of Treatment Not on file documented as of this encounter Visit Diagnoses Not on filedocumented in this encounter
--- OUTSIDE RECORDS SUMMARY | 2025-06-09 09:45 | XMS_ITS | Encounter Summary ---
Author Organization [employer] ([place], [place], [place], [place]) Address [address] [place] [address] Care Team Providers Care Manager Hydraulic Name Role Phone Unavailable Primary Care Provider Unavailenrike e Encounter Details Date Type Department Care Team (Late st Contact Info) Description 03/05/2019 Transcribed Document [facility] [place] [address] [place] [address] ProviderYoli MD [address] [place] [address] Social History Tobacco Use Types Packs/Day Years Used Date Smoking Tobacco: Never Assessed Sex and Gender Information Value Date Recorded Sex Assigned at Not on file Legal Sex Male 6:25 PM CDT Gender Identity Not on file Sexual Orientation Not on file documented as of this encounter Miscellaneous Notes * Cerner Conversion Note - Historical ProviderMD - 03/05/2019 12:00 AM CDT Pain Assessment Entered On: 03/05/2019 1:29 EDT Performed On: 03/04/2019 23:57 EDT by Judy Conroy Lpn Intervention Information: acetaminophen Performed by Judy Conroy Lpn on 03/04/2019 23:52:00 EDT acetaminophen,1000mg IV Piggyback,Right Lower Forearm Pain [...] form. Electronically signed by Nena Deleon Conversion Hand Booked Folder And Stitcher Tommie at 01/22/2023 6:37 PM CDT documented in this encounter Plan of Treatment Not on file documented as of this encounter Visit Diagnoses Not on filedocumented in this encounter
--- OUTSIDE RECORDS SUMMARY | 2025-06-09 09:45 | XMS_ITS | Encounter Summary ---
Author Organization [employer] ([place], [place], [place], [place]) Address [address] [place] [address] Care Team Providers Care Pulverizer Feeder Name Role Phone Unavailable Primary Care Provider Sai e Encounter Details Date Type Department Care Team (Late st Contact Info) Description 11/19/2018 Transcribed Document [facility] [place] [address] [place] [address] ProviderYoli MD [address] [place] [address] Social History Tobacco Use Types Packs/Day Years Used Date Smoking Tobacco: Never Assessed Sex and Gender Information Value Date Recorded Sex Assigned at Not on file Legal Sex Male 6:25 PM CDT Gender Identity Not on file Sexual Orientation Not on file documented as of this encounter Miscellaneous Notes * Cerner Conversion Note - Historical ProviderMD - 11/19/2018 4:10 PM COMMODITY BROKER Pain Assessment Entered On: 11/19/2018 16:25 EST Performed On: 11/19/2018 16:42 EST by Lacie Patrick RN Intervention Information: fentaNYL Performed by Lacie Patrick RN on 11/19/2018 16:12:00 EST fentaNYL,25mcg IV Push,Forearm Left,Pain (Moderate 4-6) Pain Assessment Pain Assessment : Follow-up assessment Pain Scale Goal : 3 Lacie Patrick RN - 11/19/2018 16:25 EST documented in this encounter Plan of Treatment Not on file documented as of this encounter Visit Diagnoses Not on filedocumented in this encounter
--- OUTSIDE RECORDS SUMMARY | 2025-06-09 09:45 | XMS_ITS | Encounter Summary ---
Author Organization [employer] ([place], [place], [place], [place]) Address [address] [place] [address] Care Team Providers Care Fur Polisher Name Role Phone Unavailable Primary Care Provider Sai e Encounter Details Date Type Department Care Team (Late st Contact Info) Description 11/19/2018 Transcribed Document [facility] [place] Medicine [facility] [place] [address] ProviderYoli MD [address] [place] [address] Social History Tobacco Use Types Packs/Day Years Used Date Smoking Tobacco: Never Assessed Sex and Gender Information Value Date Recorded Sex Assigned at Not on file Legal Sex Male 6:25 PM CDT Gender Identity Not on file Sexual Orientation Not on file documented as of this encounter Miscellaneous Notes * Cerner Conversion Note - Yoli Luna MD - 11/19/2018 3:56 PM LEAK OPERATOR PARA[employer]IN PLANT Patient: CALEB MATTHEWS Age: 47 Years Sex: Male : 1970 *Operation Diagnostic laparoscopy Laparoscopic lysis of adhesions Indication for Surgery 47-year-old gentleman with multiple admissions for partial small bowel obstructions. He complained of persistent left upper quadrant pain and his latest CT scan showed dilated loops of small bowel within that area with no sign of obstruction. *Preoperative Diagnosis Partial small bowel obstruction *Postoperative Diagnosis Same *Surgeon(s) Primary Surgeon KATHY HERNANDEZ MD-WILMA (Surgeon/Proceduralist, First) *Procedure Narrative Patient was brought to operative suite and placed in supine position. After induction of general anesthesia patient a tap block was performed and the patient was prepped and draped in sterile fashion . Time out was preformed. Verified patient, procedures, yue-operative antibiotics, and correct site. I placed a Veress needle in the left upper quadrant to establish insufflation. Next using a 5 mm laparoscope entered the abdomen using the Optiview method, visualizing all the layers of the abdominal wall. The patient had diffuse adhesions of the small bowel and colon to his prior mesh repair on the anterior abdominal wall. I placed a 5 mm port under direct supervision on the left lateral abdominal wall. I then proceeded with sharp lysis of adhesions of greater than 1 hour, adding an additional left lateral port and 25 mm ports on the right lateral abdominal wall under direct supervision. Hemostasis was maintained with a [place] LigaSure. Once the bowel was completely freed from the patient's abdominal wall I then examined the bowel in standard fashion from the cecum proceeding retrograde to the ligament of Treitz. An umbilical port was added to assist in visualization. The patient had areas of dilated small bowel loops primarily in the left upper quadrant but the bowel was viable and showed signs of motility. There were no transition points or internal hernias. Once the bowel was examined abdomen was checked for hemostasis and ports were removed under direct supervision. All port sites were closed with 4-0 Monocryl. The patient tolerated the procedure well Anesthesia DIANA Rivera MD (Anesthesiologist of Record) ADITYA DALE MD (Anesthesiologist) DIANA Rivera MD (Anesthesiologist of Record) ADITYA DALE MD (Anesthesiologist) DIANA Rivera MD (Anesthesiologist of Record) ADITYA DALE MD (Anesthesiologist) Urine Output Urine Voided (Volume): 500 mL Urine Voided (Volume): 250 mL Urine Voided (Volume): 350 mL Urine Voided (Volume): 400 mL Urine Voided (Volume): 325 mL Urine Voided (Volume): 300 mL Urine Voided (Volume): 300 mL Urine Voided (Volume): 250 mL Urine Voided (Volume): 300 mL Urine Voided (Volume): 400 mL *Findings Dense adhesions of the small and large bowel to the anterior, wall. Dilated small bowel loops *Specimen(s) Not applicable Complications None Date of Service Date/Time of Service SN - Proc - Start Time: 11/19/18 13:57:00 (EST) (11/19/18 14:46:14 EST) documented in this encounter Plan of Treatment Not on file documented as of this encounter Visit Diagnoses Not on filedocumented in this encounter
--- OUTSIDE RECORDS SUMMARY | 2025-06-09 09:45 | XMS_ITS | Encounter Summary ---
Author Organization [employer] ([place], [place], [place], [place]) Address [address] [place] [address] Care Team Providers Care Human Performance Technologist Name Role Phone Unavailable Primary Care Provider Unavailenrike e Encounter Details Date Type Department Care Team (Late st Contact Info) Description 11/20/2018 Transcribed Document [facility] [place] [address] [place] [address] ProviderYoli MD [address] [place] [address] Social History Tobacco Use Types Packs/Day Years Used Date Smoking Tobacco: Never Assessed Sex and Gender Information Value Date Recorded Sex Assigned at Not on file Legal Sex Male 6:25 PM CDT Gender Identity Not on file Sexual Orientation Not on file documented as of this encounter Miscellaneous Notes * Cerner Conversion Note - Historical ProviderMD - 11/20/2018 12:00 AM RN LABOR AND DELIVERY Pain Assessment Entered On: 11/20/2018 0:47 EST Performed On: 11/20/2018 0:41 EST by Reese Chawla RN Intervention Information: acetaminophen Performed by Reese Chawla RN on 11/20/2018 00:36:00 EST acetaminophen,1000mg IV Piggyback,Left Upper Forearm Pain Assessment Pain Assessment : Follow-up assessment Pain Scale Goal : 3 Pain Scale Used : 0-10 Scale Pain Improved by Intervention : Yes Reese Chawla RN - 11/20/2018 0:47 EST Pain Scale Intensity : 3 Reese Chawla RN - 11/20/2018 0:47 EST Image 4 - Images currently included in the form version of this document have not been included in the text rendition version of the form. documented in this encounter Plan of Treatment Not on file documented as of this encounter Visit Diagnoses Not on filedocumented in this encounter
--- OUTSIDE RECORDS SUMMARY | 2025-06-09 09:45 | XMS_ITS | Encounter Summary ---
Author Organization [employer] ([place], [place], [place], [place]) Address [address] [place] [address] Care Team Providers Care Senior Pharmacy Technician Name Role Phone Unavailable Primary Care Provider Unavailenrike e Encounter Details Date Type Department Care Team (Late st Contact Info) Description 11/20/2018 Transcribed Document [facility] [place] Family Medicine [address] [place] [address] ProviderYoli MD [address] [place], [place] [id number] Social History Tobacco Use Types Packs/Day Years Used Date Smoking Tobacco: Never Assessed Sex and Gender Information Value Date Recorded Sex Assigned at Not on file Legal Sex Male 6:25 PM CDT Gender Identity Not on file Sexual Orientation Not on file documented as of this encounter Miscellaneous Notes * Cerner Conversion Note - Historical ProviderMD - 11/20/2018 12:00 PM PULLER THROUGH Pain Assessment Entered On: 11/20/2018 12:18 EST Performed On: 11/20/2018 12:18 EST by Jennifer Weldon Rn-Traveler Intervention Information: acetaminophen Performed by Jennifer Weldon Rn-Traveler on 11/20/2018 11:24:00 EST acetaminophen,500mg Oral Pain Assessment Pain Assessment : Follow-up assessment Pain Scale Goal : 3 Pain Improved by Intervention : Yes Jennifer Weldon Rn-Traveler - 11/20/2018 12:18 EST documented in this encounter Plan of Treatment Not on file documented as of this encounter Visit Diagnoses Not on filedocumented in this encounter
--- OUTSIDE RECORDS SUMMARY | 2025-06-09 09:45 | XMS_ITS | Encounter Summary ---
Author Organization [employer] ([place], [place], [place], [place]) Address [address] [place] [address] Care Team Providers Care Napkin Band Wrapper Name Role Phone Unavailable Primary Care Provider Unavailenrike e Encounter Details Date Type Department Care Team (Late st Contact Info) Description 11/18/2018 Transcribed Document [facility] [place] [address] [place] [address] ProviderYoli MD [address] [place], [place] [id number] Social History Tobacco Use Types Packs/Day Years Used Date Smoking Tobacco: Never Assessed Sex and Gender Information Value Date Recorded Sex Assigned at Not on file Legal Sex Male 6:25 PM CDT Gender Identity Not on file Sexual Orientation Not on file documented as of this encounter Miscellaneous Notes * Cerner Conversion Note - Historical ProviderMD - 11/18/2018 4:15 PM [employer] Spiritual Care Short Form Entered On: 11/18/2018 21:10 EST Performed On: 11/18/2018 16:15 EST by KATIE RITCHIE CHAPLAIN General Information, Spiritual Care Reason for Visit : Initial Ministry Provided to : Patient, Family/Significant other Intervention/Comment/Summary Points : made a pre surgery visit on patient. Patient's also at bedside. Patient not anxious about his surgery. Patient stated he is receiving eexcellent care. KATIE RITCHIE CHAPLAIN - 11/18/2018 21:09 EST Electronically signed by Darío Deleon Conversion Bilingual Customer Service Specialist Cerner at 01/22/2023 6:41 PM CDT documented in this encounter Plan of Treatment Not on file documented as of this encounter Visit Diagnoses Not on filedocumented in this encounter
--- OUTSIDE RECORDS SUMMARY | 2025-06-09 09:45 | XMS_ITS | Encounter Summary ---
Author Organization [employer] ([place], [place], [place], [place]) Address [address] [place] [address] Care Team Providers Care Clerical Adjuster Name Role Phone Unavailable Primary Care Provider Sai e Encounter Details Date Type Department Care Team (Late st Contact Info) Description 11/19/2018 Transcribed Document [facility] [place] [address] [place] [address] ProviderYoli MD [address] [place] [address] Social History Tobacco Use Types Packs/Day Years Used Date Smoking Tobacco: Never Assessed Sex and Gender Information Value Date Recorded Sex Assigned at Not on file Legal Sex Male 6:25 PM CDT Gender Identity Not on file Sexual Orientation Not on file documented as of this encounter Miscellaneous Notes * Cerner Conversion Note - Historical ProviderMD - 11/19/2018 6:00 PM SALES CONSULTANT Pain Assessment Entered On: 11/19/2018 16:23 EST Performed On: 11/19/2018 15:05 EST by Lacie Patrick RN Intervention Information: acetaminophen Performed by Cecile Rodriguez Crna on 11/19/2018 15:00:00 EST acetaminophen,1000mg IV Piggyback,Forearm Left Pain Assessment Pain Assessment : Follow-up assessment Pain Scale Goal : 3 Lacie Patrick RN - 11/19/2018 16:23 EST documented in this encounter Plan of Treatment Not on file documented as of this encounter Visit Diagnoses Not on filedocumented in this encounter
--- OUTSIDE RECORDS SUMMARY | 2025-06-09 09:45 | XMS_ITS | Encounter Summary ---
Author Organization [employer] ([place], [place], [place], [place]) Address [address] [place] [address] Care Team Providers Care K 9 Handler/ Deputy Name Role Phone Unavailable Primary Care Provider Unavailabl e Encounter Details Date Type Department Care Team (Late st Contact Info) Description 11/19/2018 Transcribed Document [facility] [place] Family Medicine [address] [place] [address] ProviderYoli MD [address] [place] [address] Social History Tobacco Use Types Packs/Day Years Used Date Smoking Tobacco: Never Assessed Sex and Gender Information Value Date Recorded Sex Assigned at Not on file Legal Sex Male 6:25 PM CDT Gender Identity Not on file Sexual Orientation Not on file documented as of this encounter Miscellaneous Notes * Cerner Conversion Note - Historical ProviderMD - 11/19/2018 8:32 PM FLAT OPTICAL ELEMENT MAKER Education-Wound Care Entered On: 11/19/2018 23:40 EST Performed On: 11/19/2018 20:32 EST by Reese Chawla RN Teaching/Learning Assessment Barriers To Learning : None evident Individuals Taught : Patient Readiness to Learn : Cooperative Highest Level of Education : High school Baseline Knowledge of Topic : None Readiness to Learn : Explanation Learning Style Preferences Patient : Demonstration, Verbal explanation Learning Style Preferences Family : Demonstration Reese Chawla RN - 11/19/2018 23:39 EST Electronically signed by Nena Deleon Conversion Lead Principal Technical Architect Cerner at 01/22/2023 6:49 PM CDT documented in this encounter Plan of Treatment Not on file documented as of this encounter Visit Diagnoses Not on filedocumented in this encounter
--- OUTSIDE RECORDS SUMMARY | 2025-06-09 09:45 | XMS_ITS | Encounter Summary ---
Author Organization [employer] ([place], [place], [place], [place]) Address [address] [place] [address] Care Team Providers Care Senior Front End Developer Name Role Phone Unavailable Primary Care Provider Unavailenrike e Encounter Details Date Type Department Care Team (Late st Contact Info) Description 03/04/2019 Transcribed Document [facility] Family Medicine [address] [place] [address] ProviderYoli MD [address], [place] [id number] Social History Tobacco Use Types Packs/Day Years Used Date Smoking Tobacco: Never Assessed Sex and Gender Information Value Date Recorded Sex Assigned at Not on file Legal Sex Male 6:25 PM CDT Gender Identity Not on file Sexual Orientation Not on file documented as of this encounter Miscellaneous Notes * Cerner Conversion Note - Yoli ProviderMD - 03/04/2019 9:13 AM CDT Patient: CALEB MATTHEWS Age: 48 Years Sex: Male : 1970 Assessment/Plan Status post lysis of adhesions Patient with postoperative ileus Nothing by mouth, continue nasogastric tube to low continuous suction Scheduled Tylenol and oxycodone Continue bowel regimen VTE Prophylaxis - Medical Enoxaparin 40 mg, SubCutaneous, Inj, [id number], Routine, Start 02/26/19 11:00:00 EDT (KATHY HERNANDEZ) Subjective NG tube placed yesterday afternoon. Patient inquired nausea medicine overnight. Continues to endorse flatus. Vital Signs T: 37.4 ??C TMIN: 36.9 ??C TMAX: 37.4 ??C HR: 87(Monitored) RR: 16 BP: 139/93 Oxygen Settings (Last) Oxygen Therapy Mode: Room air (03/04/19 08:42:00 EDT) Oxygen Flow Rate: 2 Liter/Min (02/26/19 21:20:00 EDT) Intake & Output Totals Last 24 Hours (7a-7a) Input Total: 1384 mL Output Total: 0 mL Balance: 1384 mL Physical Exam Gen: NAD Resp:Nonlabored respirations CV:Normal peripheral perfusion Ab:soft, nontender nondistended, incisions clean dry and intact Medications acetaminophen, 1000 mg= 100 mL, IV Piggyback, Q6H Adderall 10 mg oral tablet, 30 mg= 3 Tab, Oral, Daily cloNIDine 50 mcg + dexamethasone 4 mg + bupivacaine-EPINEPHrine 0.25%-1:200,000 injectable solution cloNIDine 50 mcg + dexamethasone 4 mg + bupivacaine-EPINEPHrine 0.25%-1:200,000 injectable solution Colace, 100 mg= 10 mL, OroGAStric Tube, BID Dextrose 5% with 0.45% NaCl and KCl 20 mEq/L 1,000 mL, 1000 mL, IntraVENous Dextrose 5% with 0.9% NaCl intravenous solution 1,000 mL, 1000 mL, IntraVENous diazePAM, 5 mg= 5 mL, OroGAStric Tube, Q6H, PRN hydroCHLOROthiazide, 25 mg= 1 Tab, Oral, Daily lisinopril, 20 mg= 1 Tab, Oral, Daily Lovenox, 40 mg= 0.4 mL, SubCutaneous, [id number] MiraLax, 17 Gram= 1 Packet, Oral, Daily morphine, 2 mg= 1 mL, IV Push, Q2H, PRN ondansetron, 4 mg= 2 mL, IV Push, Q6H, PRN oxyCODONE, 10 mg= 10 mL, OroGAStric Tube, Q4H Phenergan, 12.5 mg= 0.5 mL, IV Push, Q6H, PRN sodium chloride 0.9% injectable solution, 10 mL, IV Push, See Comment, PRN Lab Results Test Name Test Result Date/Time Sodium Level 132 mmol/L (Low) 03/03/2019 18:13 EDT Potassium Level 3.9 mmol/L 03/03/2019 18:13 EDT Chloride Level 99 mmol/L (Low) 03/03/2019 18:13 EDT Carbon Dioxide Level 25 mmol/L 03/03/2019 18:13 EDT Anion Gap 12 03/03/2019 18:13 EDT Glucose Level 127 mg/dL (High) 03/03/2019 18:13 EDT Blood Urea Nitrogen 18 mg/dL 03/03/2019 18:13 EDT Creatinine Level 1.00 mg/dL 03/03/2019 18:13 EDT eGFR >60 mL/min/1.73m2 03/03/2019 18:13 EDT eGFR NonAfrican >60 mL/min/1.73m2 03/03/2019 18:13 EDT Bun/Creatinine 18.0 03/03/2019 18:13 EDT Calcium Level 9.1 mg/dL 03/03/2019 18:13 EDT Protein Total 7.5 Gram/dL 03/03/2019 18:13 EDT Albumin Level 3.2 Gram/dL (Low) 03/03/2019 18:13 EDT Globulin 4.3 Gram/dL 03/03/2019 18:13 EDT A/G Ratio 0.7 (Low) 03/03/2019 18:13 EDT Bilirubin Total 2.0 mg/dL (High) 03/03/2019 18:13 EDT Alk Phos 45 Units/Liter 03/03/2019 18:13 EDT AST 16 Units/Liter 03/03/2019 18:13 EDT ALT 25 Units/Liter 03/03/2019 18:13 EDT WBC 12.4 K/uL (High) 03/03/2019 18:13 EDT RBC 3.67 Million/uL (Low) 03/03/2019 18:13 EDT Hgb 12.0 g/dL (Low) 03/03/2019 18:13 EDT Hct 34.4 % (Low) 03/03/2019 18:13 EDT MCV 93.7 fL 03/03/2019 18:13 EDT MCH 32.7 pg (High) 03/03/2019 18:13 EDT MCHC 34.9 Gram/dL 03/03/2019 18:13 EDT Platelet Count 435 K/uL (High) 03/03/2019 18:13 EDT MPV 8.9 fL (Low) 03/03/2019 18:13 EDT RDW 11.5 % (Low) 03/03/2019 18:13 EDT Slide Review No 03/03/2019 18:13 EDT documented in this encounter Plan of Treatment Not on file documented as of this encounter Visit Diagnoses Not on filedocumented in this encounter
--- OUTSIDE RECORDS SUMMARY | 2025-06-09 09:45 | XMS_ITS | Encounter Summary ---
Author Organization [employer] ([place], [place], [place], [place]) Address [address] [place] [address] Care Team Providers Care Bellows Filler Name Role Phone Unavailable Primary Care Provider Sai e Encounter Details Date Type Department Care Team (Late st Contact Info) Description 11/19/2018 Transcribed Document [facility] [place] Family Medicine [address] [place] [address] Provider, MD Yoli [address] [place] [address] Social History Tobacco Use Types Packs/Day Years Used Date Smoking Tobacco: Never Assessed Sex and Gender Information Value Date Recorded Sex Assigned at Not on file Legal Sex Male 6:25 PM CDT Gender Identity Not on file Sexual Orientation Not on file documented as of this encounter Miscellaneous Notes * Cerner Conversion Note - Yoli ProviderMD - 11/19/2018 1:57 PM SUPERVISOR ELECTRONICS PROCESSING [facility] Main OR PACU Summary Primary Physician: KATHY HERNANDEZ MD-[facility] Finalized Date/Time: 11/19/18 16:46:02 Pt. Name: CALEB MATTHEWS D.O.B./Sex: 1970 Male Med Rec #: [id number] Physician: EVAN GIRALDO MD-[facility] Financial #: [id number] Pt. Type: I Room/Bed: 336/1 Admit/Disch: 11/17/18 16:04:00 - Institution: [facility] Main OR PACU I Case Times Entry 1 In PACU I 11/19/18 15:55:00 Ready for PACU 11/19/18 16:45:00 Discharge Discharge from PACU 11/19/18 16:45:00 I Last Modified By: Lacie Patrick RN 11/19/18 16:46:01 Finalized By: Lacie Patrick RN Document Signatures Signed By: Lacie Patrick RN 11/19/18 16:46 Electronically signed by [facility] Conversion Tool Room Supervisor Cerner at 01/22/2023 6:36 PM CDT documented in this encounter Plan of Treatment Not on file documented as of this encounter Visit Diagnoses Not on filedocumented in this encounter
--- OUTSIDE RECORDS SUMMARY | 2025-06-09 09:45 | XMS_ITS | Encounter Summary ---
Author Organization [employer] ([place], [place], [place], [place]) Address [address] [place] [address] Care Team Providers Care Shank Stapler Name Role Phone Unavailable Primary Care Provider Unavailenrike e Encounter Details Date Type Department Care Team (Late st Contact Info) Description 11/18/2018 Transcribed Document [facility] [place] [address] [place] [address] ProviderYoli MD [address] [place] [address] Social History Tobacco Use Types Packs/Day Years Used Date Smoking Tobacco: Never Assessed Sex and Gender Information Value Date Recorded Sex Assigned at Not on file Legal Sex Male 6:25 PM CDT Gender Identity Not on file Sexual Orientation Not on file documented as of this encounter Miscellaneous Notes * Cerner Conversion Note - Historical ProviderMD - 11/18/2018 6:00 PM PIPELINE SUPERINTENDENT Pain Assessment Entered On: 11/19/2018 0:08 EST Performed On: 11/18/2018 20:03 EST by Reese Chawla RN Intervention Information: acetaminophen Performed by Reese Chawla RN on 11/18/2018 19:58:00 EST acetaminophen,650mg + sterile empty bag,1Each IV Piggyback,Left Hand Pain Assessment Pain Assessment : Follow-up assessment Pain Scale Goal : 3 Pain Scale Used : 0-10 Scale Pain Improved by Intervention : Yes Reese Chawla RN - 11/19/2018 0:08 EST Pain Scale Intensity : 3 Reese Chawla RN - 11/19/2018 0:08 EST Image 4 - Images currently included in the form version of this document have not been included in the text rendition version of the form. Electronically signed by Nena Deleon Conversion Envelope Sealing Machine Operator Tommie at 01/22/2023 6:53 PM CDT documented in this encounter Plan of Treatment Not on file documented as of this encounter Visit Diagnoses Not on filedocumented in this encounter
--- OUTSIDE RECORDS SUMMARY | 2025-06-09 09:45 | XMS_ITS | Encounter Summary ---
Author Organization [employer] ([place], [place], [place], [place]) Address [address] [place] [address] Care Team Providers Care Automatic Car Wash Attendant Name Role Phone Unavailable Primary Care Provider Unavailenrike e Encounter Details Date Type Department Care Team (Late st Contact Info) Description 03/04/2019 Transcribed Document [facility] [place] [address] [place] [address] ProviderYoli MD [address], [place] [id number] Social History Tobacco Use Types Packs/Day Years Used Date Smoking Tobacco: Never Assessed Sex and Gender Information Value Date Recorded Sex Assigned at Not on file Legal Sex Male 6:25 PM CDT Gender Identity Not on file Sexual Orientation Not on file documented as of this encounter Miscellaneous Notes * Cerner Conversion Note - Yoli ProviderMD - 03/04/2019 1:57 PM CDT On Going Discharge Planning Entered On: 03/04/2019 13:58 EDT Performed On: 03/04/2019 13:57 EDT by ELEONORA ARMAS Bean Picker Care Management Progress Note Discharge Arrangements : Patient Post-Acute Information Patient Name: CALEB MATTHEWS Gender: Male : [birth year] Age: 48 Years No Post-Acute Placement(s) Listed No Post-Acute Service(s) Listed No [place] Referral(s) Listed ELEONORA ARMAS Bean Picker - 03/04/2019 13:57 EDT Narrative Progress Note Narrative Progress Note : Pt with post op ileus and NPO with NGT. Plan is home with . ELEONORA ARMAS Bean Picker - 03/04/2019 13:57 EDT documented in this encounter Plan of Treatment Not on file documented as of this encounter Visit Diagnoses Not on filedocumented in this encounter
--- OUTSIDE RECORDS SUMMARY | 2025-06-09 09:46 | XMS_ITS | Encounter Summary ---
Author Organization [employer] ([place], [place], [place], [place]) Address [address] [place] [address] Care Team Providers Care Refractory Worker Name Role Phone Unavailable Primary Care Provider Unavailenrike e Encounter Details Date Type Department Care Team (Late st Contact Info) Description 11/23/2018 Transcribed Document [facility] [place] [facility] [place] [address] ProviderYoli MD [address] [place] [address] Social History Tobacco Use Types Packs/Day Years Used Date Smoking Tobacco: Never Assessed Sex and Gender Information Value Date Recorded Sex Assigned at Not on file Legal Sex Male 6:25 PM CDT Gender Identity Not on file Sexual Orientation Not on file documented as of this encounter Miscellaneous Notes * Cerner Conversion Note - Yoli ProviderMD - 11/23/2018 12:09 PM LOCATION MANAGER Patient Education Materials Follows: Small Bowel Obstruction A small bowel obstruction is a blockage in the small bowel. The small bowel, which is also called the small intestine, is a long, slender tube that connects the stomach to the colon. When a person eats and drinks, food and fluids go from the stomach to the small bowel. This is where most of the nutrients in the food and fluids are absorbed. A small bowel obstruction will prevent food and fluids from passing through the small bowel as they normally do during digestion. The small bowel can become partially or completely blocked. This can cause symptoms such as abdominal pain, vomiting, and bloating. If this condition is not treated, it can be dangerous because the small bowel could rupture. What are the causes? Common causes of this condition include: ??? Scar tissue from previous surgery or radiation treatment. ??? Recent surgery. This may cause the movements of the bowel to slow down and cause food to block the intestine. ??? Hernias. ??? Inflammatory bowel disease (colitis). ??? Twisting of the bowel (volvulus). ??? Tumors. ??? A foreign body. ??? Slipping of a part of the bowel into another part (intussusception). What are the signs or symptoms? Symptoms of this condition include: ??? Abdominal pain. This may be dull cramps or sharp pain. It may occur in one area, or it may be present in the entire abdomen. Pain can range from mild to severe, depending on the degree of obstruction. ??? Nausea and vomiting. Vomit may be greenish or a yellow bile color. ??? Abdominal bloating. ??? Constipation. ??? Lack of passing gas. ??? Frequent belching. ??? Diarrhea. This may occur if the obstruction is partial and runny stool is able to leak around the obstruction. How is this diagnosed? This condition may be diagnosed based on a physical exam, medical history, and X-rays of the abdomen. You may also have other tests, such as a CT scan of the abdomen and pelvis. How is this treated? Treatment for this condition depends on the cause and severity of the problem. Treatment options may include: ??? Bed rest along with fluids and pain medicines that are given through an IV tube inserted into one of your veins. Sometimes, this is all that is needed for the obstruction to improve. ??? Following a simple diet. In some cases, a clear liquid diet may be required for several days. This allows the bowel to rest. ??? Placement of a small tube (nasogastric tube) into the stomach. When the bowel is blocked, it usually swells up like a balloon that is filled with air and fluids. The air and fluids may be removed by suction through the nasogastric tube. This can help with pain, discomfort, and nausea. It can also help the obstruction to clear up faster. ??? Surgery. This may be required if other treatments do not work. Bowel obstruction from a hernia may require early surgery and can be an emergency procedure. Surgery may also be required for scar tissue that causes frequent or severe obstructions. Follow these instructions at home: ??? Get plenty of rest. ??? Follow instructions from your health care provider about eating restrictions. You may need to avoid solid foods and consume only clear liquids until your condition improves. ??? Take [id number] and prescription medicines only as told by your health care provider. ??? Keep all follow-up visits as told by your health care provider. This is important. Contact a health care provider if: ??? You have a fever. ??? You have chills. Get help right away if: ??? You have increased pain or cramping. ??? You vomit blood. ??? You have uncontrolled vomiting or nausea. ??? You cannot drink fluids because of vomiting or pain. ??? You develop confusion. ??? You begin feeling very dry or thirsty (dehydrated). ??? You have severe bloating. ??? You feel extremely weak or you faint. This information is not intended to replace advice given to you by your health care provider. Make sure you discuss any questions you have with your health care provider. Document Released: 12/09/2006 Document Revised: 05/19/2017 Document Reviewed: 11/16/2015 [employer] Patient Education ? 2017 [employer] documented in this encounter Plan of Treatment Not on file documented as of this encounter Visit Diagnoses Not on filedocumented in this encounter
--- OUTSIDE RECORDS SUMMARY | 2025-06-09 09:46 | XMS_ITS | Encounter Summary ---
Author Organization [employer] ([place], [place], [place], [place]) Address [address] [place] [address] Care Team Providers Care Solutions Developer Name Role Phone Unavailable Primary Care Provider Unavailabl e Encounter Details Date Type Department Care Team (Late st Contact Info) Description 03/06/2019 Transcribed Document [facility] [place] Family Medicine [address] [place] [address] ProviderYoli MD [address], [place] [id number] Social History Tobacco Use Types Packs/Day Years Used Date Smoking Tobacco: Never Assessed Sex and Gender Information Value Date Recorded Sex Assigned at Not on file Legal Sex Male 6:25 PM CDT Gender Identity Not on file Sexual Orientation Not on file documented as of this encounter Miscellaneous Notes * [employer] Conversion Note - Historical ProviderMD - 03/06/2019 5:00 PM CDT Chart Check - Review Order Profile Entered On: 03/06/2019 15:42 EDT Performed On: 03/06/2019 17:00 EDT by Sylvie Mcmanus RN Chart Check Powerplans Initiated/Discontinued as Appropriate : Yes All Active Orders Reviewed : Yes Sylvie Mcmanus RN - 03/06/2019 15:41 EDT documented in this encounter Plan of Treatment Not on file documented as of this encounter Visit Diagnoses Not on filedocumented in this encounter
--- OUTSIDE RECORDS SUMMARY | 2025-06-09 09:46 | XMS_ITS | Encounter Summary ---
Author Organization [employer] ([place], [place], [place], [place]) Address [address] [place] [address] Care Team Providers Care Any Commodity Buyer Name Role Phone Unavailable Primary Care Provider Unavailenrike e Encounter Details Date Type Department Care Team (Late st Contact Info) Description 11/22/2018 Transcribed Document [facility] [place] Family Medicine [address] [place] [address] ProviderYoli MD [address] [place] [address] Social History Tobacco Use Types Packs/Day Years Used Date Smoking Tobacco: Never Assessed Sex and Gender Information Value Date Recorded Sex Assigned at Not on file Legal Sex Male 6:25 PM CDT Gender Identity Not on file Sexual Orientation Not on file documented as of this encounter Miscellaneous Notes * Cerner Conversion Note - Historical ProviderMD - 11/22/2018 4:04 PM OPERATORS SCHOOL MANAGER Pain Assessment Entered On: 11/23/2018 2:50 EST Performed On: 11/22/2018 22:41 EST by Zoe Murray RN Intervention Information: morphine Performed by Judy Conroy Lpn on 11/22/2018 22:11:00 EST morphine,2mg IV Push,Left Lower Forearm,Breakthrough Pain Pain Assessment Pain Assessment : Follow-up assessment Pain Scale Goal : 3 Pain Scale Used : 0-10 Scale Location : Abdominal Onset : Acute Quality : Aching, Sharp, Tender Pain Radiation : No Pain Improved by : Medication Pain Worsened by : None Pain Intervention, Drug : Medicated Pain Improved by Intervention : Yes Zoe Murray RN - 11/23/2018 2:50 EST Pain Scale Intensity : 4 Zoe Murray RN - 11/23/2018 2:50 EST Image 4 - Images currently included in the form version of this document have not been included in the text rendition version of the form. Electronically signed by aPncho, [facility] Conversion Performance Improvement Coordinator Cerner at 01/22/2023 6:44 PM CDT documented in this encounter Plan of Treatment Not on file documented as of this encounter Visit Diagnoses Not on filedocumented in this encounter
--- OUTSIDE RECORDS SUMMARY | 2025-06-09 09:46 | XMS_ITS | Clinical Summary ---
Author Organization [facility] Address [address] [place] [address] Care Team Providers Care Desulfurizer Machine Name Role Phone Chuck Clinton MD Primary Care Provider [phone] Allergies Active Allergy Reactions Criticality Noted Date Comments Ketorolac Tromethamine Swelling,Rash High 01/30/2016 Medications butalbital-acet aminophen-caffe ine 50-325-40 MG tablet TAKE 1 TABLET BY MOUTH EVERY 4 TO 6 HOURS 3 Active zolpidem (Ambien) 5 MG tablet at night as needed. 3 Active methylPREDNISol one (Medrol Dospak) 4 MG tablets Follow schedule on package instructions 1 each 3 Active Additional Information Patient not taking.Reported on 01/28/2025 methocarbamol (Robaxin) 500 MG tablet Take 1 tablet (500 mg) by mouth 3 (three) times a day if needed for muscle spasms. 60 tablet 3 Active Additional Information Patient not taking.Reported on 01/28/2025 lisinopril-hydr oCHLOROthiazide 20-25 MG tablet Take 1 tablet by mouth daily. 4 Active pravastatin (Pravachol) 20 MG tablet Take 1 tablet (20 mg) by mouth daily. 4 Active Vitamin D3 1.25 MG (48205 UT) capsule TAKE 1 CAPSULE BY MOUTH 2 TIMES A WEEK ON SAME DAYS EACH WEEK 4 Active sildenafil (Viagra) 100 MG tablet 4 Active testosterone cypionate (Depo-Testoster one) 200 MG/ML injection 1 (one) time per week. 4 Active HYDROcodone-lindsay taminophen ([place]) 7.5-325 MG tablet Take 1 tablet by mouth every 6 hours as needed. 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 05/10/2021 Loosening of hardware in spine 04/11/2021 Fusion of spine 01/18/2021 Encounter for preoperative s creening laboratory testing for COVID-19 virus 11/23/2020 Pain in glenohumeral joint 10/12/2020 Lumbar burst fracture 06/30/2020 T8 vertebral fracture 06/30/2020 Lumbar vertebral fracture 06/28/2020 ADHD 05/18/2019 Heartburn 05/18/2019 HTN (hypertension) 05/18/2019 Pulmonary nodule 05/18/2019 Periumbilical abdominal pain 08/05/2016 Bowel obstruction 07/01/2016 Chronic pain 06/27/2016 Hearing loss on left 06/27/2016 Acute bronchitis 01/30/2016 Atopic rhinitis 01/30/2016 Atypical migraine 01/30/2016 Cough 01/30/2016 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 No recent problems Family History Medical History Relation Name Comments Heart disease Father Cancer Maternal Grandmother Carleen Torres Diabetes Maternal Grandmother Carleen Torres Heart disease Paternal Grandfather Relation Name Status Comments Father Maternal Grandmother Carleen Torres Paternal Grandfather Social History Tobacco Use Types Packs/Day Years Used Date Smoking Tobacco: Never Passive Smoke Exposure: Yes Smokeless Tobacco: Former Quit: 12/23/1992 Tobacco Cessation:Counseling Given: Not Answered Alcohol Use Standard Drinks/Week Comments Yes 2 (1 standard drink = 0.6 oz pur e alcohol) occassional PHQ-2 Answer Date Recorded Patient Health Questionnaire-2 Score 0 11/23/2024 PHQ-9 Answer Date Recorded Patient Health Questionnaire-9 Score 3 11/23/2024 Sex and Gender Information Value Date Recorded Sex Assigned at Male 08/15/2021 4:14 PM EST Legal Sex Male 8:50 PM EDT Gender Identity Male 05/21/2021 6:09 AM EDT Sexual Orientation Straight 05/21/2021 6: 09 AM EDT Last Filed Vital Signs Vital Sign Reading Time Taken Comments Blood Pressure 132/71 11/23/2024 11:00 AM EST Pulse 102 11/23/2024 11:00 AM EST Temperature 36.6 C (97.8 F) 11/23/2024 11:00 AM EST Respiratory Rate 16 07/01/2023 8:48 AM EDT Oxygen Saturation 95% 11/23/2024 11:00 AM EST Inhaled Oxygen Concentration - - Weight 81.6 kg (180 lb) 11/23/2024 11:00 AM EST Height 177.8 cm (5' 10 ) 11/23/2024 11:00 AM EST Body Mass Index 25.83 11/23/2024 11:00 AM EST Plan of Treatment Health Maintenance Due Date Last Done Comments [facility]-Hepatitis C Screening 1971 [facility]-Infant/Child/Adol SDOH Screenings 1971 [facility]- SDOH Screenings 1989 [facility]-Adult SDOH Screenings 1989 [facility]-Hepatitis B Vaccines (1 of 3 - 19+ 3-dose series) 1990 [facility]-Pneumococcal Vaccine: 50+ Years (1 of 2 - PCV) 1990 CT Colonography 2016 Colonoscopy 2016 FIT-DNA 2016 FIT 2016 FOBT 2016 Sigmoidoscopy 2016 [facility]-Colorectal Cancer Screening 2016 [facility]-Zoster Vaccines (1 of 2) 2021 JJD-KCDLA-25 Vaccine (3 - season) 2024 03/26/2021, 02/20/2021 [facility]-Influenza Vaccine (#1) 2025 05/22/2022, [facility]-Depression Screening 11/23/2025 11/23/2024, 11/06 [facility]-DTaP,Tdap,and Td Vaccines (2 - Td or Tdap) 11/25/2026 11/25/2016 [facility]-HIV Screening Completed 06/16/2020 [facility]-Obesity Intervention Completed 025, 09/28/2024, 08/02/2024, Additional history exists HPV Vaccines Aged Out No longer eligi ble based on patient's age to complete this topic [facility]-HIB Vaccines Aged Out No longer e ligible based on patient's age to complete this topic [facility]-Hepatitis A Vaccines Aged Out No longer eligible based on patient's age to complete this topic [facility]-IPV Vaccines Aged Out No longer e ligible based on patient's age to complete this topic [facility]-Rotavirus Vaccines Aged Out No lo nger eligible based on patient's age to complete this topic Medical Devices Implanted Type Area Cable Wirer Device Identifier Shelf Expiration Date Model / Serial / Lot Norm Norm Back Hook Ti Lamina Med Left - [id number] Implanted:Qty: 1 on 05/21/2021 by Jose Silverio MD at [facility] N/A: Spine Lumbar [id number] / / Hook Ti Lamina Med Right - [id number] Implanted:Qty: 1 on 05/21/2021 by Jose Silverio MD at [facility] N/A: Spine Lumbar [employer] [id number] 498.32 / / Collar Ti With Grooves - [id number] Implanted:Qty: 9 on 05/21/2021 by Jose Silverio MD at [facility] N/A: Spine Lumbar [employer] [id number] 498.011 / / Hook Ti Lamina Lg Right - [id number] Implanted:Qty: 1 on 05/21/2021 by Jose Silverio MD at [facility] N/A: Spine Lumbar [employer] [id number] 498.33 / / Hook Ti Lamina Lg Left - [id number] Implanted:Qty: 1 on 05/21/2021 by Jose Silverio MD at [facility] N/A: Spine Lumbar [employer] -[id number] 498.331 / / Chip Bone 10cc - [id number] - [id number] Implanted:Qty: 1 on 05/21/2021 by Jose Silverio MD at [facility] N/A: Spine Lumbar [id number] 09/21/2025 PCAN10 / [id number] / [id number] Chip Bone 10cc - [id number] Implanted:Qty: 1 on 05/21/2021 by Jose Silverio MD at [facility] N/A: Spine Lumbar [id number] 06/21/2025 PCAN10 / / [id number] Graft Vivigen 5cc - [id number] - [id number] Implanted:Qty: 1 on 05/21/2021 by Jose Silverio MD at [facility] N/A: Spine Lumbar [place] [id number] 04/26/2022 BL-1500-00 2 [id number] / [id number] Graft Vivigen 5cc - [id number] Implanted:Qty: 1 on 05/21/2021 by Jose Silverio MD at [facility] N/A: Spine Lumbar [id number] 04/26/2022 BL-1500-00 2 [id number] Graft Vivigen 5cc - [id number] Implanted:Qty: 1 on 05/21/2021 by Jose Silverio MD at [facility] N/A: Spine Lumbar [id number] 04/26/2022 BL-1500-00 2 [id number] Graft Vivigen 5cc - [id number] Implanted:Qty: 1 on 05/21/2021 by Jose Silverio MD at [facility] N/A: Spine Lumbar [id number] 04/26/2022 BL-1500-00 2 [id number] Screw Uss Ti Dual Core 7.0mm X 45mm - [id number] Implanted:Qty: 4 on 05/21/2021 by Jose Silverio MD at [facility] N/A: Spine Lumbar [employer] [id number] / / Nut Ti 11mm Width Across Flats - [id number] Implanted:Qty: 9 on 05/21/2021 by Jose Silverio MD at [facility] N/A: Spine Lumbar [employer] [id number] 498.003 / / Screw Uss Ti Dual Core 7.0mm X 50mm - [id number] Implanted:Qty: 3 on 05/21/2021 by Jose Silverio MD at [facility] N/A: Spine Lumbar [employer] [id number] / / Norm Hard Ti 6.0mm 200mm - [id number] Implanted:Qty: 2 on 05/21/2021 by Jose Silverio MD at [facility] N/A: Spine Lumbar [employer] [id number] 498.108 / / Procedures Procedure Name Priority Date/Time Associated Diagnosis Comments HIV 1/2 ANTIBODY/ANTIGEN SCREEN WITH REFLEX TO HIV I/II DIFFERENTIATION Routine 06/16/2020 2:55 AM EDT from Last 3 Months or Most Recently Relevant to Health Maintenance Results * HIV 1 & 2 Antibody/Antigen Screen (06/16/2020 2:55 AM EDT) HIV 1 Result NONREACTIVE Screening for HIV 1 and 2 antibodies is NONREACTIVE. No confirmatory testing is required. SUNQUEST 06/16/2020 2:55 AM EDT 06/16/2020 3:14 AM EDT David Andrea LAB BLOOD ORDERABLES Final Resul t SUNQUEST from Last 3 Months or Most Recently Relevant to Health Maintenance Insurance ANTH Care Teams Desulfurizer Machine Relationship Specialty Start Date End Date Chuck Clinton MD [address] [place] [address] [address] [place]SE [place] [id number] PCP - General 06/21/22
--- OUTSIDE RECORDS SUMMARY | 2025-06-09 09:46 | XMS_ITS | Encounter Summary ---
Author Organization [employer] ([place], [place], [place], [place]) Address [address] [place] [address] Care Team Providers Care Museum Director Name Role Phone Unavailable Primary Care Provider Unavailenrike e Encounter Details Date Type Department Care Team (Late st Contact Info) Description 11/22/2018 Transcribed Document [facility] [place] Family Medicine [address] [place] [address] ProviderYoli MD [address] [place] [address] Social History Tobacco Use Types Packs/Day Years Used Date Smoking Tobacco: Never Assessed Sex and Gender Information Value Date Recorded Sex Assigned at Not on file Legal Sex Male 6:25 PM CDT Gender Identity Not on file Sexual Orientation Not on file documented as of this encounter Miscellaneous Notes * [employer]ner Conversion Note - Historical ProviderMD - 11/22/2018 12:00 PM RETAIL OFFICE MANAGER Pain Assessment Entered On: 11/22/2018 15:08 EST Performed On: 11/22/2018 13:43 EST by Esther Vega RN Intervention Information: acetaminophen Performed by Esther Vega RN on 11/22/2018 12:43:00 EST acetaminophen,500mg Oral Pain Assessment Pain Assessment : Follow-up assessment Pain Scale Goal : 3 Pain Scale Used : 0-10 Scale Location : Abdominal Onset : Acute Quality : Sharp Esther Vega RN - 11/22/2018 15:07 EST Pain Scale Intensity : 8 Esther Vega RN - 11/22/2018 15:07 EST Image 4 - Images currently included in the form version of this document have not been included in the text rendition version of the form. documented in this encounter Plan of Treatment Not on file documented as of this encounter Visit Diagnoses Not on filedocumented in this encounter
--- OUTSIDE RECORDS SUMMARY | 2025-06-09 09:46 | XMS_ITS | Encounter Summary ---
Author Organization [employer] ([place], [place], [place], [place]) Address [address] [place] [address] Care Team Providers Care Polymer Chemist Name Role Phone Unavailable Primary Care Provider Unavailenrike e Encounter Details Date Type Department Care Team (Late st Contact Info) Description 11/21/2018 Transcribed Document [facility] [place] [address] [place] [address] ProviderYoli MD [address] [place], [place] [id number] Social History Tobacco Use Types Packs/Day Years Used Date Smoking Tobacco: Never Assessed Sex and Gender Information Value Date Recorded Sex Assigned at Not on file Legal Sex Male 6:25 PM CDT Gender Identity Not on file Sexual Orientation Not on file documented as of this encounter Miscellaneous Notes * Cerner Conversion Note - Historical ProviderMD - 11/21/2018 2:00 AM ANESTHESIA ASSISTANT Public Health Microbiologist Details Entered On: 11/21/2018 4:58 EST Performed On: 11/21/2018 2:00 EST by Carmella Steele, Rn Order Details Transport Mode Order Detail : Ambulatory Isolation Precautions Order Detail : Standard Precautions Order Detail : N/A IV Order Detail : 1 Nurse Collect Order Detail : 0 Lift/Transfer : Independent Central Line Order Detail : No Room Service : Not Appropriate Arterial Line : No Carmella Steele, Rn - 11/21/2018 4:58 EST documented in this encounter Plan of Treatment Not on file documented as of this encounter Visit Diagnoses Not on filedocumented in this encounter
--- OUTSIDE RECORDS SUMMARY | 2025-06-09 09:46 | XMS_ITS | Encounter Summary ---
Author Organization [employer] ([place], [place], [place], [place]) Address [address] [place] [address] Care Team Providers Care Android Framework Developer Name Role Phone Unavailable Primary Care Provider Unavailenrike e Encounter Details Date Type Department Care Team (Late st Contact Info) Description 10/10/2018 Transcribed Document [facility] [place] Family Medicine [address] [place] [address] ProviderYoli MD [address] [place] [address] Social History Tobacco Use Types Packs/Day Years Used Date Smoking Tobacco: Never Assessed Sex and Gender Information Value Date Recorded Sex Assigned at Not on file Legal Sex Male 6:25 PM CDT Gender Identity Not on file Sexual Orientation Not on file documented as of this encounter Miscellaneous Notes * Cerner Conversion Note - Historical ProviderMD - 10/10/2018 6:00 PM ARMAMENT INSTALLER Pain Assessment Entered On: 10/10/2018 21:24 EST Performed On: 10/10/2018 21:09 EST by Eileen Sun Rn Intervention Information: acetaminophen Performed by Eileen Sun Rn on 10/10/2018 21:04:00 EST acetaminophen,650mg + sterile empty bag,1Each IV Piggyback,Forearm Left Pain Assessment Pain Assessment : Follow-up assessment Pain Scale Goal : 3 Pain Scale Used : 0-10 Scale Eileen Sun Rn - 10/10/2018 21:23 EST Pain Scale Intensity : 5 Eileen Sun Rn - 10/10/2018 21:23 EST Image 4 - Images currently included in the form version of this document have not been included in the text rendition version of the form. Electronically signed by Nena Deleon Conversion Ribbon Hanking Machine Operator Cerner at 01/22/2023 6:34 PM CDT documented in this encounter Plan of Treatment Not on file documented as of this encounter Visit Diagnoses Not on filedocumented in this encounter
--- OUTSIDE RECORDS SUMMARY | 2025-06-09 09:46 | XMS_ITS | Encounter Summary ---
Author Organization [employer] ([place], [place], [place], [place]) Address [address] [place] [address] Care Team Providers Care Airline Hostess Name Role Phone Unavailable Primary Care Provider Unavailenrike e Encounter Details Date Type Department Care Team (Late st Contact Info) Description 03/06/2019 Transcribed Document [facility] [place] [address] [place] [address] ProviderYoli MD [address] [place], [place] [id number] Social History Tobacco Use Types Packs/Day Years Used Date Smoking Tobacco: Never Assessed Sex and Gender Information Value Date Recorded Sex Assigned at Not on file Legal Sex Male 6:25 PM CDT Gender Identity Not on file Sexual Orientation Not on file documented as of this encounter Miscellaneous Notes * Cerner Conversion Note - Historical ProviderMD - 03/06/2019 10:00 AM CDT Pain Assessment Entered On: 03/06/2019 15:41 EDT Performed On: 03/06/2019 10:56 EDT by Sylvie Mcmanus RN Intervention Information: acetaminophen Performed by Sylvie Mcmanus RN on 03/06/2019 09:56:00 EDT acetaminophen,650mg Oral Pain Assessment Pain Assessment [...]
--- OUTSIDE RECORDS SUMMARY | 2025-06-09 09:46 | XMS_ITS | Encounter Summary ---
Author Organization [employer] ([place], [place], [place], [place]) Address [address] [place] [address] Care Team Providers Care Occupational Health Manager Name Role Phone Unavailable Primary Care Provider Unavailenrike e Encounter Details Date Type Department Care Team (Late st Contact Info) Description 10/10/2018 Transcribed Document [facility] [place] Family Medicine [address] [place] [address] ProviderYoli MD [address], [place] [id number] Social History Tobacco Use Types Packs/Day Years Used Date Smoking Tobacco: Never Assessed Sex and Gender Information Value Date Recorded Sex Assigned at Not on file Legal Sex Male 6:25 PM CDT Gender Identity Not on file Sexual Orientation Not on file documented as of this encounter Miscellaneous Notes * [employer]ner Conversion Note - Historical ProviderMD - 10/10/2018 11:29 AM RELAY MOTORMAN Consult Phone Call Documentation Entered On: 10/10/2018 12:05 EST Performed On: 10/10/2018 11:29 EST by Esther Foster RN Phone Call for Consults Consult Phone Call/Page Attempt : First call Physician Requesting Consult : DAJUAN LOPEZ MD Physician Requested for Consult : KATHY HERNANDEZ MD-[facility] Provider Service Notified Name : Other: surgery Esther Foster RN - 10/10/2018 12:03 EST documented in this encounter Plan of Treatment Not on file documented as of this encounter Visit Diagnoses Not on filedocumented in this encounter
--- OUTSIDE RECORDS SUMMARY | 2025-06-09 09:46 | XMS_ITS | Encounter Summary ---
Author Organization [employer] ([place], [place], [place], [place]) Address [address] [place] [address] Care Team Providers Care Marble Setter Name Role Phone Unavailable Primary Care Provider Unavailenrike e Encounter Details Date Type Department Care Team (Late st Contact Info) Description 11/22/2018 Transcribed Document [facility] [place] [address] [place] [address] ProviderYoli MD [address] [place] [address] Social History Tobacco Use Types Packs/Day Years Used Date Smoking Tobacco: Never Assessed Sex and Gender Information Value Date Recorded Sex Assigned at Not on file Legal Sex Male 6:25 PM CDT Gender Identity Not on file Sexual Orientation Not on file documented as of this encounter Miscellaneous Notes * [employer]ner Conversion Note - Historical ProviderMD - 11/22/2018 5:00 AM FRENCH POLISHER Chart Check - Review Order Profile Entered On: 11/22/2018 4:39 EST Performed On: 11/22/2018 5:00 EST by Carmella Steele Rn Chart Check Chart Reviewed Date and Time : 11/22/2018 5:00 EST [employer] Initiated/Discontinued as Appropriate : Yes All Active Orders Reviewed : Yes Carmella Steele, Mandi - 11/22/2018 4:39 EST documented in this encounter Plan of Treatment Not on file documented as of this encounter Visit Diagnoses Not on filedocumented in this encounter
--- OUTSIDE RECORDS SUMMARY | 2025-06-09 09:46 | XMS_ITS | Encounter Summary ---
Author Organization [employer] ([place], [place], [place], [place]) Address [address] [place] [address] Care Team Providers Care Laser Beam Trim Operator Name Role Phone Unavailable Primary Care Provider Unavailenrike e Encounter Details Date Type Department Care Team (Late st Contact Info) Description 10/10/2018 Transcribed Document [facility] [place] Family Medicine [address] [place] [address] ProviderYoli MD [address] [place] [address] Social History Tobacco Use Types Packs/Day Years Used Date Smoking Tobacco: Never Assessed Sex and Gender Information Value Date Recorded Sex Assigned at Not on file Legal Sex Male 6:25 PM CDT Gender Identity Not on file Sexual Orientation Not on file documented as of this encounter Miscellaneous Notes * Cerner Conversion Note - Historical ProviderMD - 10/10/2018 4:36 AM SUPPORT ARCHITECT ED Triage Entered On: 10/10/2018 4:47 EST Performed On: 10/10/2018 4:45 EST by WILFREDO TEJADA RN ED Triage Across the Room Triage Date/Time : 10/10/2018 4:45 EST Chief Complaint : Pt c/o LUQ pain X 2 days with N/D. Denies vomiting. Hx of bowel obstructions WILFREDO TEJADA RN - 10/10/2018 4:45 EST DCP GENERIC CODE Tracking Acuity : 3 - Urgent Tracking Group : [facility] ED WILFREDO TEJADA RN - 10/10/2018 4:45 EST Mode of Arrival : Ambulatory Transported to ED by : Private vehicle To Room Via : Ambulate Accompanied By : Unaccompanied ED Vital Signs : Document Height & Weight : Document ED Allergies : Document ED Reason for Visit : Document WILFREDO TEJADA RN - 10/10/2018 4:45 EST Infectious Disease History Infectious Disease History : None Fever/Chills Last 48 Hours : No Travel To Regions with Travel Advisories : No Travel Outside [place] Within Last 30 Days : No Contact With Traveler to Advisory Region : No Tuberculosis Symptoms : None WILFREDO TEJADA RN - 10/10/2018 4:45 EST Vital Signs ED Temperature Source : Oral Temperature Mode : Fahrenheit Temperature, Fahrenheit : 97.0 Deg F ED Pain : Yes Clinical Temperature, C : 36.1 Deg C Oxygen Therapy Mode : Room air Peripheral Pulse Rate : 107 bpm (HI) Respiratory Rate : 18 Breaths/Min Systolic Blood Pressure : 162 mmHg (HI) Diastolic Blood Pressure : 104 mmHg (HI) Oxygen Saturation : 99 % WILFREDO TEJADA RN - 10/10/2018 4:45 EST Allergy (As Of: 10/10/2018 04:47:44 EST) Allergies (Active) ketorolac Estimated Onset Date: Unspecified ; Reactions: Rash, Rash ; Created By: Contributor_system, HIST_[employer]; Reaction Status: Active ; Category: Drug ; Substance: ketorolac ; Type: Allergy ; Updated By: Contributor_system, HIST_[employer]; Reviewed Date: 10/10/2018 4:46 EST Diagnosis Control ED (As Of: 10/10/2018 04:47:44 EST) Diagnoses(Active) Abdominal pain Date: 10/10/2018 ; Diagnosis Type: Reason For Visit ; Confirmation: Complaint of ; Clinical Dx: Abdominal pain ; Classification: Medical ; Clinical Service: Emergency medicine ; Code: PNED ; Probability: 0 ; Diagnosis Code: [id number] ED Height and Weight Height Source : Stated Height Entry Format : [place] Height, Feet : 5 ft(Converted to: 152 cm, 60 Inch) Height, Inches : 11 Inch(Converted to: 0 ft 11 Inch, 27.94 cm) Clinical Height : 180.34 cm Weight Source, ED : Critical estimated dosing weight Weight Entry Format : [place] Weight, Pounds : 175 lb Clinical Dosing Weight : 79.55 kg Body Surface Area (BSA) : 1.99 m2 Body Mass Index : 24.5 kg/m2 (HI) [place] Body Weight (IBW) : 74.31 kg WILFREDO TEJADA RN - 10/10/2018 4:45 EST Pain Assessment Pain Assessment : Initial assessment Pain Scale Used : 0-10 Scale WILFREDO TEJADA RN - 10/10/2018 4:45 EST Pain Scale Intensity : 9 WILFREDO TEJADA RN - 10/10/2018 4:45 EST Image 4 - Images currently included in the form version of this document have not been included in the text rendition version of the form. documented in this encounter Plan of Treatment Not on file documented as of this encounter Visit Diagnoses Not on filedocumented in this encounter
--- OUTSIDE RECORDS SUMMARY | 2025-06-09 09:46 | XMS_ITS | Encounter Summary ---
Author Organization [employer] ([place], [place], [place], [place]) Address [address] [place] [address] Care Team Providers Care Senior Security Architect Name Role Phone Unavailable Primary Care Provider Sai e Encounter Details Date Type Department Care Team (Late st Contact Info) Description 11/22/2018 Transcribed Document [facility] [place] [address] [place] [address] ProviderYoli MD [address] [place] [address] Social History Tobacco Use Types Packs/Day Years Used Date Smoking Tobacco: Never Assessed Sex and Gender Information Value Date Recorded Sex Assigned at Not on file Legal Sex Male 6:25 PM CDT Gender Identity Not on file Sexual Orientation Not on file documented as of this encounter Miscellaneous Notes * Cerner Conversion Note - Historical ProviderMD - 11/22/2018 12:00 AM FRUIT PACKER FACE AND FILL Pain Assessment Entered On: 11/22/2018 4:45 EST Performed On: 11/22/2018 1:28 EST by Carmella Steele Rn Intervention Information: acetaminophen Performed by Carmella Steele Rn on 11/22/2018 00:28:00 EST acetaminophen,500mg Oral Pain Assessment Pain Assessment [...]
--- OUTSIDE RECORDS SUMMARY | 2025-06-09 09:46 | XMS_ITS | Encounter Summary ---
Author Organization [employer] ([place], [place], [place], [place]) Address [address] [place] [address] Care Team Providers Care Sterilization Specialist Name Role Phone Unavailable Primary Care Provider Sai e Encounter Details Date Type Department Care Team (Late st Contact Info) Description 11/23/2018 Transcribed Document [facility] [place] Family Medicine [address] [place] [address] ProviderYoli MD [address] [place] [address] Social History Tobacco Use Types Packs/Day Years Used Date Smoking Tobacco: Never Assessed Sex and Gender Information Value Date Recorded Sex Assigned at Not on file Legal Sex Male 6:25 PM CDT Gender Identity Not on file Sexual Orientation Not on file documented as of this encounter Miscellaneous Notes * Cerner Conversion Note - Yoli ProviderMD - 11/23/2018 12:09 PM HARD TILE SETTER [address] [place] [address] Patient Copy Patient Information: Name: CALEB MATTHEWS Current Date: 11/23/2018 12:09:10 : 1970 Patient Address: [facility] [place] [address] Patient Attending Physician: EVAN GIRALDO MD-EMR Primary Care Provider: ROSA, NOT LISTED Primary Care Provider Phone: Discharge Diagnosis: Abdominal pain Weight on Admission: 170 lb, 0 oz Comment: Follow-up Instructions: With: Address: When: THAI MCLEAN [address] [facility] [place] [address] Business (1) 10:00 AM Comments: PCP With: Address: When: KATHY HERNANDEZ [address] [facility] [address] [place] [id number] 9:30 AM Discharge Instructions: Immunizations Documented During Stay: No Immunizations Found Heart Failure Discharge Instructions (if any): Stroke Related Discharge Instructions (if any): Warfarin Related Discharge Instructions (if any): Final Medication List: Printed Prescriptions diazePAM (Valium 5 mg oral tablet) 1 Tablet(s) Oral Every 8 Hours as needed Muscle Spasms. Refills: 0. Other Medications omeprazole (PriLOSEC OTC 20 mg oral delayed release tablet) 1 Tablet(s) Oral Every Day. oxyCODONE (oxyCODONE 7.5 mg oral tablet) 1 Tablet(s) Oral Every 6 Hours as needed Pain. Refills: 0. zolpidem (Ambien 10 mg oral tablet) 1 Tablet(s) Oral At Bedtime as needed sleep. Patient Allergies: ketorolac Medication Instructions: Take your [...] liquids until your condition improves. ??? Take [id number] and prescription medicines only as told by [...] 12/09/2006 Document Revised: 05/19/2017 Document Reviewed: 11/16/2015 [employer] Interactive Patient Education ? 2017 [employer] CIGARETTE SMOKING: The facts are clear, cigarette smoking will shorten your life. Smoking can cause many illnesses along the way. As a healthcare provider, we recommend that you stop smoking. Assistance with quitting is available by contacting 5-002-WHOM-NOW. This is a free resource providing counseling, support, and referral. Or you may contact your personal physician. 4 WAYS TO GET AHEAD OF SEPSIS [...] Be sure to sign up for the [employer] patient portal, which gives you 28/04 access to your medical information ??? including these discharge instructions ??? using your computer, smartphone, or tablet. Just go to [employer] to get started. Questions? Call . [facility] would like to thank you for allowing us to assist you with your healthcare needs. ISAURA Clemens ERVIN E, (or branch customer service representative) have received the above patient education materials/instructions and have verbalized understanding: Patient Signature _ Date/Time Patient Hand Booked Folder And Stitcher Signature (if needed) Date/Time Clinician/Hospital Hand Booked Folder And Stitcher Signature (if needed) Date/Time documented in this encounter Plan of Treatment Not on file documented as of this encounter Visit Diagnoses Not on filedocumented in this encounter
--- OUTSIDE RECORDS SUMMARY | 2025-06-09 09:46 | XMS_ITS | Encounter Summary ---
Author Organization [employer] ([place], [place], [place], [place]) Address [address] [place] [address] Care Team Providers Care Inspector Balance Truing Name Role Phone Unavailable Primary Care Provider Sai wagner Encounter Details Date Type Department Care Team (Late st Contact Info) Description 11/23/2018 Transcribed Document [facility] [place] Family Medicine [facility] [place] [address] ProviderYoli MD [address] [place] [address] Social History Tobacco Use Types Packs/Day Years Used Date Smoking Tobacco: Never Assessed Sex and Gender Information Value Date Recorded Sex Assigned at Not on file Legal Sex Male 6:25 PM CDT Gender Identity Not on file Sexual Orientation Not on file documented as of this encounter Miscellaneous Notes * Cerner Conversion Note - Yoli Luna MD - 11/23/2018 10:43 AM RAIL GRINDER Patient: CALEB DELAROSA Age: 47 Years Sex: Male : 1970 Admission Information A 47-year-old gentleman admitted after multiple small bowel instructions for the past few months. He was admitted for intractable pain and dilated small bowel loop a left upper quadrant on CT scan. Hospital Course Patient underwent diagnostic laparoscopy and lysis of adhesions. His postoperative course was uneventful. The time of discharge the patient's pain was controlled with oral pain medicine, he was tolerating diet and had return of bowel function. Significant Findings None Procedures and Treatment Provided SN - Proc - Procedure: Lysis Adhesions (11/19/18 14:46:14 EST) SN - Proc - Procedure: Laparoscopy Diagnostic (11/19/18 14:22:49 EST) SN - Proc - Procedure: Laparotomy Exploratory (11/19/18 14:22:49 EST) Physical Exam Vitals & Measurements T: 36.7 ??C TMIN: 36.5 ??C TMAX: 36.7 ??C HR: 57(Monitored) RR: 16 BP: 145/72 SpO2: 94% Discharge Plan Abdominal pain [id number] Abdominal pain R10.9, Unspecified abdominal pain R10.9, Unspecified abdominal pain R10.9 Orders: diazePAM, 5 mg, Oral, Tab, Q8H, PRN for Muscle Spasms, Routine, Start 11/22/18 22:18:00 EST diazePAM, 1 Tab, Oral, Tab, Q8H, PRN Muscle Spasms, # 10 Tab, 0 Refill(s) oxyCODONE, 1 Tab, Oral, Q6H, PRN Pain, # 24 Tab, 0 Refill(s), other reason (Rx) Discharge Orders No qualifying data available. Patient Discharge Condition Stable Discharge Disposition Home Discharge Medications Home Medications (4) Active Ambien 10 mg oral tablet 10 mg = 1 Tab, PRN, Oral, At Bedtime oxyCODONE 7.5 mg oral tablet 7.5 mg = 1 Tab, PRN, Oral, Q6H PriLOSEC OTC 20 mg oral delayed release tablet 20 mg = 1 Tab, Oral, Daily Valium 5 mg oral tablet 5 mg = 1 Tab, PRN, Oral, Q8H Blood Products No qualifying data available. Electronically signed by Nena Deleon Conversion Certified Ophthalmic Surgical Assistant Cerner at 01/22/2023 6:37 PM CDT documented in this encounter Plan of Treatment Not on file documented as of this encounter Visit Diagnoses Not on filedocumented in this encounter
--- OUTSIDE RECORDS SUMMARY | 2025-06-09 09:46 | XMS_ITS | Encounter Summary ---
Author Organization [employer] ([place], [place], [place], [place]) Address [address] [place] [address] Care Team Providers Care Computer Technology Trainer Name Role Phone Unavailable Primary Care Provider Unavailenrike e Encounter Details Date Type Department Care Team (Late st Contact Info) Description 10/11/[address] [facility] Radiology [address] [place] [address] Kemar Man MD [address] [place], [place] [id number] Social History Tobacco Use Types Packs/Day Years Used Date Smoking Tobacco: Never Assessed Sex and Gender Information Value Date Recorded Sex Assigned at Not on file Legal Sex Male 6:25 PM CDT Gender Identity Not on file Sexual Orientation Not on file documented as of this encounter Miscellaneous Notes * Cerner Conversion Note - Kemar Man MD - 10/11/2018 12:00 PM EST Patient: CALEB MATTHEWS Age: 47 years Sex: Male : 1970 Associated Diagnoses: None Author: KEMAR MAN MD Subjective Patient is awake and alert Just returned form SBFT and had a BM No abdominal pain now Has NG No chest pain No nausea Objective VS/Measurements Vital Measurements 10/11/2018 12:10 EST Temperature Source Oral Temperature Mode Fahrenheit Temperature, Fahrenheit 98.3 Deg F Clinical Temperature, C 36.8 Deg C Heart Rate Monitored 84 bpm Respiratory Rate 14 Breaths/Min Systolic Blood Pressure 140 mmHg Diastolic Blood Pressure 90 mmHg Mean Arterial Pressure (MAP)-BMDI 115 10/11/2018 7:59 EST Oxygen Therapy Mode Room air General: Alert and oriented, No acute distress. Eye: Pupils are equal, round and reactive to light. HENT: Normocephalic, has NG. Neck: Supple, Non-tender. Respiratory: Lungs are clear to auscultation, Respirations are non-labored, Breath sounds are equal, Symmetrical chest wall expansion. Cardiovascular: Normal rate, Regular rhythm. Gastrointestinal: Soft, Non-distended, hypoactive . Genitourinary: No costovertebral angle tenderness. Musculoskeletal: No tenderness, No swelling. Integumentary: Warm, Dry. Neurologic: Alert, Oriented, No focal deficits. Psychiatric: Cooperative, Appropriate mood & affect. Assessment Interpretation of Results Diagnostic tests. OCT 11 07:51 143 112 10 / L 72 4.0 22 0.80 \ OCT 11 07:51 \ 13.9 / 7.2 171 / 43.4 \ Plan SBO Patient with known prior abdominal surgeries and presented with pain Currnetly with NG and had SBFT Had a BM after Await surgical re evlauation and likely can resume diet and discontine NG Continue with IVF till po intake improves. Pulmoanry nodule Has reported history with [facility] DVT prophylaxis on sc heparin Disposition:Resolvign SBO If diet advanced adn tolerating home soon Discussed with patient Time spent with gian early 25 minutes documented in this encounter Plan of Treatment Not on file documented as of this encounter Visit Diagnoses Not on filedocumented in this encounter
--- OUTSIDE RECORDS SUMMARY | 2025-06-09 09:46 | XMS_ITS | Encounter Summary ---
Author Organization [employer] ([place], [place], [place], [place]) Address [address] [place] [address] Care Team Providers Care Immigration Guard Name Role Phone Unavailable Primary Care Provider Sai e Encounter Details Date Type Department Care Team (Late st Contact Info) Description 10/10/2018 Transcribed Document [facility] [place] [address] [place] [address] ProviderYoli MD [address] [place] [address] Social History Tobacco Use Types Packs/Day Years Used Date Smoking Tobacco: Never Assessed Sex and Gender Information Value Date Recorded Sex Assigned at Not on file Legal Sex Male 6:25 PM CDT Gender Identity Not on file Sexual Orientation Not on file documented as of this encounter Miscellaneous Notes * Cerner Conversion Note - Yoli ProviderMD - 10/10/2018 1:23 PM 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 Denies vomiting. Hx of bowel obstructions Reason for Consultation small bowel obstruction History of Present Illness 47-year-old gentleman with obstipation since yesterday afternoon. He is had a history of multiple abdominal surgeries beginning with the exposure laparotomy followed by abdominal wall hernia repair. This last surgery was a laparoscopic lysis of adhesions 4 years ago. He has not had a small bowel obstruction since then until today. He endorses a sharp, intermittent pain up to the left of his umbilicus. Endorses nausea but denies vomiting. General surgery was consult for dilated small bowel loops found on CT scan Review of Systems Complete review of systems was performed and negative except per history of present illness Physical Exam Vitals & Measurements T: 36.5 ??C HR: 79 (Monitored) HR: 107 (Peripheral) RR: 18 BP: 143/93 MAP: 125 SpO2: 97% HT: 180.34 cm WT: 79.55 kg BMI: 24.5 General: [Alert and oriented, well nourished, no acute distress]. Neurologic: [Awake, alert, and oriented X3, CN II-XII intact]. Eye: [PERRL, EOMI, normal conjuctiva]. HENT: [Normocephalic, clear tympanic membranes, normal hearing, moist oral mucosa, no scleral icterus, no sinus tenderness]. Neck: [Supple, non-tender, no carotid bruits, no JVD, no lymphadenopathy]. Lungs: [Clear to auscultation and percussion, non-labored respiration]. Heart: [Normal rate, regular rhythm, no murmur, gallop or edema]. Abdomen: [Soft, tender LUQ, no rebound or guarding. non-distended, ]. Musculoskeletal: [Normal range of motion and strength, no tenderness or swelling]. Skin: [Skin is warm, dry and pink, no rashes or lesions]. Psychiatric: [Cooperative, appropriate mood and affect]. Assessment/Plan Abdominal pain Other intestinal obstruction unspecified as to partial versus complete obstruction, Other intestinal obstruction unspecified as to partial versus complete obstruction Small bowel obstruction partial small bowel obstruction Continue nasogastric decompression Plan for small bowel follow-through in the morning if flatus has not returned Orders: Consult to Physician CR Small Bowel Series Problem List/Past Medical History right lung mass Procedure/Surgical History LUNG CANCER WORKUP. multiple left shoulder surgeries Multiple right inguinal hernia repairs exploratory laparotomy open ventral hernia with Mesh laparoscopic lysis of adhesions Medications Inpatient Dilaudid, 0.5 mg, 0.5 mL, IV Push, Q4H, PRN heparin, 5000 Units, 1 mL, SubCutaneous, Q12H influenza virus vaccine, inactivated, 0.5 mL, IntraMuscular, [id number] Protonix, 40 mg, IV Push, Daily Sodium Chloride 0.9% intravenous solution 1,000 mL, 1000 mL, IntraVENous Sodium Chloride 0.9% intravenous solution 1,000 mL, 1000 mL, IntraVENous Tylenol, 650 mg, 2 Tab, Oral, Q4H, PRN Zofran, 4 mg, 2 mL, IV Push, Q4H, PRN Home acetaminophen Allergies ketorolac (Rash, Rash) Social History 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[employer], 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 Denies smoking, drug use, alcohol Family History negative for malignancy Lab Results Blood Gases (Current Encounter/Past 24 Hours) No Blood Gas Results Found (Past 24 Hours) Electrolytes(BMP) Results (Current Encounter/Past 24 Hours) Sodium Level 139 mmol/L 10/10/2018 05:54 Potassium Level 3.9 mmol/L 10/10/2018 05:54 Chloride Level 109 mmol/L 10/10/2018 05:54 Carbon Dioxide Level 23 mmol/L 10/10/2018 05:54 Anion Gap 11 10/10/2018 05:54 Blood Urea Nitrogen 11 mg/dL 10/10/2018 05:54 Glucose Level 119 mg/dL HI 10/10/2018 05:54 Calcium Level 8.5 mg/dL 10/10/2018 05:54 Creatinine Level 0.90 mg/dL 10/10/2018 05:54 Cardiac Markers (Current Encounter/Past 24 Hours) No Cardiac Marker Results Found (Past 24 Hours) CBC Results (Current Encounter/Past 24 Hours) WBC 9.5 K/uL HI 10/10/2018 05:35 Hct 45.8 % 10/10/2018 05:35 Hgb 15.4 g/dL 10/10/2018 05:35 Platelet Count 214 K/uL 10/10/2018 05:35 CMP Results (Current Encounter/Past 24 Hours) Creatinine Level 0.90 mg/dL 10/10/2018 05:54 Protein Total 6.8 Gram/dL 10/10/2018 05:54 A/G Ratio 1.2 10/10/2018 05:54 eGFR 110 mL/min/1.73m2 10/10/2018 05:54 eGFR NonAfrican 91 mL/min/1.73m2 10/10/2018 05:54 Globulin 3.1 Gram/dL 10/10/2018 05:54 Bun/Creatinine 12.2 10/10/2018 05:54 Sodium Level 139 mmol/L 10/10/2018 05:54 Potassium Level 3.9 mmol/L 10/10/2018 05:54 Chloride Level 109 mmol/L 10/10/2018 05:54 Carbon Dioxide Level 23 mmol/L 10/10/2018 05:54 Anion Gap 11 10/10/2018 05:54 Alk Phos 45 Units/Liter 10/10/2018 05:54 ALT 45 Units/Liter 10/10/2018 05:54 AST 67 Units/Liter [place] 10/10/2018 05:54 Blood Urea Nitrogen 11 mg/dL 10/10/2018 05:54 Glucose Level 119 mg/dL [place] 10/10/2018 05:54 Albumin Level 3.7 Gram/dL 10/10/2018 05:54 Bilirubin Total 0.6 mg/dL 10/10/2018 05:54 Calcium Level 8.5 mg/dL 10/10/2018 05:54 Coagulation Results (Current Encounter/Past 24 Hours) No Coagulation Results Found (Past 24 Hours) Creatinine Clearance (Current Encounter/Past 24 Hours) Creatinine Level 0.90 mg/dL 10/10/2018 05:54 Bun/Creatinine 12.2 10/10/2018 05:54 Estimated Creatinine Clearance 109.23 mL/Min 10/10/2018 05:54 Diagnostic Results Radiology Results (Last 48 hours) [id number] -- 10/10/2018 08:29 CT Abdomen Pelvis W (10/10/2018 07:18) Result: [...] ileus. An early obstruction isnot entirely excluded. documented in this encounter Plan of Treatment Not on file documented as of this encounter Visit Diagnoses Not on filedocumented in this encounter
--- OUTSIDE RECORDS SUMMARY | 2025-06-09 09:46 | XMS_ITS | Encounter Summary ---
Author Organization [employer] ([place], [place], [place], [place]) Address [address] [place] [address] Care Team Providers Care Sr. Pricing Analyst Name Role Phone Unavailable Primary Care Provider Unavailabl e Encounter Details Date Type Department Care Team (Late st Contact Info) Description 10/10/2018 Transcribed Document [facility] [place] [address] [place] [address] ProviderYoli MD [address], [place] [id number] Social History Tobacco Use Types Packs/Day Years Used Date Smoking Tobacco: Never Assessed Sex and Gender Information Value Date Recorded Sex Assigned at Not on file Legal Sex Male 6:25 PM CDT Gender Identity Not on file Sexual Orientation Not on file documented as of this encounter Miscellaneous Notes * Cerner Conversion Note - Historical ProviderMD - 10/10/2018 9:14 AM SOFTWARE FIRMWARE ENGINEER ED Discharge Entered On: 10/10/2018 9:16 EST Performed On: 10/10/2018 9:14 EST by PATY RUBIO RN Discharge Process Patient Disposition : Admit/Observe Personal Belongings With Patient : Yes PATY RUBIO RN - 10/10/2018 9:14 EST Admission, ED Nurse Report Accepted By : Ronda Colin. RN Nurse Report Acceptance Time : 10/10/2018 9:16 EST `Nurse Report (Hand Off) : Called Accompanied By, Discharge : Unaccompanied Reason For Hold : Pending Bed Assignment Mode Of Departure : PATY Silverman RN - 10/10/2018 9:14 EST Electronically signed by [facility] Conversion Observatory Director Cerner at 01/22/2023 6:42 PM CDT documented in this encounter Plan of Treatment Not on file documented as of this encounter Visit Diagnoses Not on filedocumented in this encounter
--- OUTSIDE RECORDS SUMMARY | 2025-06-09 09:46 | XMS_ITS | Encounter Summary ---
Author Organization [employer] ([place], [place], [place], [place]) Address [address] [place] [address] Care Team Providers Care Production Superintendent Hydro Name Role Phone Unavailable Primary Care Provider Unavailenrike e Encounter Details Date Type Department Care Team (Late st Contact Info) Description 03/05/2019 Transcribed Document [facility] [place] [address] [place] [address] ProviderYoli MD [address] [place] [address] Social History Tobacco Use Types [...] PM CDT Pain Assessment Entered On: 03/07/2019 18:39 EDT Performed On: 03/07/2019 18:18 EDT by Sylvie Mcmanus RN Intervention Information: oxyCODONE Performed by Sylvie Mcmanus RN on 03/07/2019 17:18:00 EDT oxyCODONE,5mg Oral,Abdominal Pain Pain Assessment Pain Assessment [...]
--- OUTSIDE RECORDS SUMMARY | 2025-06-09 09:46 | XMS_ITS | Encounter Summary ---
Author Organization [employer] ([place], [place], [place], [place]) Address [address] [place] [address] Care Team Providers Care Electric Motor Controls Assembler Name Role Phone Unavailable Primary Care Provider Sai wagner Encounter Details Date Type Department Care Team (Late st Contact Info) Description 11/21/2018 Transcribed Document [facility] [place] [facility] [place] [address] ProviderYoli MD [address] [place] [address] Social History Tobacco Use Types Packs/Day Years Used Date Smoking Tobacco: Never Assessed Sex and Gender Information Value Date Recorded Sex Assigned at Not on file Legal Sex Male 6:25 PM CDT Gender Identity Not on file Sexual Orientation Not on file documented as of this encounter Miscellaneous Notes * Cerner Conversion Note - Yoli ProviderMD - 11/21/2018 10:08 AM PAWN SHOP KEEPER Patient: CALEB DELAROSA Age: 47 Years Sex: Male : 1970 Subjective Severe pain behind the right shoulder blade last night. Positive flatus and small bowel movement Intake & Output Intake & Output Totals Last 24 Hours (7a-7a) Intake (22 Events) Continuous Infusions (750 mL) Medications (11 mL) Oral Fluids (1420 mL) Output (3 Events) Urine Voided (Volume) (1440 mL) Input Total: 2181 mL Output Total: 1440 mL Balance: 741 mL Vital Signs T: 36.6 ??C HR: 65(Monitored) RR: 20 BP: 113/66 SpO2: 98% Physical Exam Gen: NAD Resp: Nonlabored respirations CV: Normal peripheral perfusion Ab: soft, nontender nondistended, incisions c/d/i VTE Risk Total Score VTE Prophylaxis - Surgical Enoxaparin 40 mg, SubCutaneous, Inj, [id number], Routine, Start 11/18/18 10:00:00 EST (MILAGROS DECKER) Sequential Compression Device Start: 11/19/18 7:17:00 EST, Bilateral, Length: Knee High, Apply in OR, Continuous Order (KATHY HERNANDEZ) Sequential Compression Device Start: 11/18/18 9:49:00 EST, Bilateral, Length: Knee High, While patient is in bed, Continuous Order (MILAGROS DECKER) Assessment/Plan Status post laparoscopic lysis of adhesions. Postop day 2 Continue to wean IV pain medications Right posterior chest wall pain. I suspect this is secondary to diaphragmatic irritation from retained CO2. Chest x-ray, EKG, lower extremity ultrasound to rule out cardiac, pulmonary and DVT as sources of pain. Full liquid diet. Advance as tolerated and the patient has return of bowel function Adequate urine output Patient has completed perioperative antibiotics SCDs, Lovenox Abdominal pain [id number] Abdominal pain R10.9, Unspecified abdominal pain R10.9, Unspecified abdominal pain R10.9 Orders: docusate, 100 mg, Oral, Cap, BID, Routine, Start 11/20/18 11:57:00 EST ibuprofen, 600 mg, Oral, Tab, Q6H, PRN for Abdominal Pain, Routine, Start 11/20/18 18:04:00 EST morphine, 2 mg, IV Push, Inj, Q3H, PRN for Pain (Severe 7-10), Routine, Start 11/20/18 18:02:00 EST oxyCODONE, 10 mg, Oral, Tab, Q4H, PRN for Abdominal Pain, Routine, Start 11/20/18 11:54:00 EST polyethylene glycol 3350, 17 Gram, Oral, Powder, Daily, Routine, Start 11/20/18 11:57:00 EST BMP Basic Metabolic Panel CBC no Diff (Hemogram) CR Chest 1 Vw Portable Diet, Adult ECG US Veins LE Duplex BILAT Medications Inpatient acetaminophen, 500 mg= 1 Tab, Oral, Q6H Colace, 100 mg= 1 Cap, Oral, BID Dextrose 5% with 0.45% NaCl and KCl 20 mEq/L 1,000 mL, 1000 mL, IntraVENous Dextrose 50% injection, 25 Gram= 50 mL, IntraVENous, Q15Min, PRN Dextrose 50% injection, 12.5 Gram= 25 mL, IntraVENous, Q15Min, PRN DuoNeb 0.5 mg-2.5 mg/3 mL inhalation solution, 3 mL, Nebulized Inhalation , 1-Time, PRN gabapentin, 300 mg= 1 Cap, OroGAStric Tube, TID glucagon, 1 mg= 1 mL, IntraMuscular, Q15Min, PRN glucose 4 g oral tablet, chewable, 16 Gram= 4 Tab, Chew, Q15Min, PRN glucose 40% oral gel, 15 Gram, Oral, Q15Min, PRN ibuprofen, 600 mg= 1 Tab, Oral, Q6H, PRN Lovenox, 40 mg= 0.4 mL, SubCutaneous, [id number] MiraLax, 17 Gram= 1 Packet, Oral, Daily morphine, 2 mg= 1 mL, IV Push, Q3H, PRN oxyCODONE, 10 mg= 2 Tab, Oral, Q4H, PRN Protonix, 40 mg= 1 Tab, Oral, Daily sodium chloride 0.9% injectable solution, 10 mL, IV Push, See Comment, PRN Zofran, 4 mg= 1 Tab, Oral, Q6H, PRN Home Ambien 10 mg oral tablet, 10 mg= 1 Tab, Oral, At Bedtime, PRN PriLOSEC OTC 20 mg oral delayed release tablet, 20 mg= 1 Tab, Oral, Daily Routine Labs - Last 24 Hours NOV 19 16:27 136 107 7 / H 115 4.8 L 18 0.80 \ No qualifying data available. Imaging Results (Last 24 Hours) No Radiology Results Found Problem List/Past Medical History Ongoing Bowel obstruction Lung nodule Historical No qualifying data Procedure/Surgical History FLUOROSCOPY OF UPPER GI AND SMALL BOWEL USING OTHER CONTRAST (10/11/2018), DRAINAGE OF STOMACH WITH DRAINAGE DEVICE, VIA OPENING (10/10/2018), bowel sugery, LUNG CANCER WORKUP. Allergies ketorolac (Rash, Rash) Electronically signed by Nena Deleon Conversion Solar Photovoltaic Systems Engineer Cerner at 01/22/2023 6:48 PM CDT documented in this encounter Plan of Treatment Not on file documented as of this encounter Visit Diagnoses Not on filedocumented in this encounter
--- OUTSIDE RECORDS SUMMARY | 2025-06-09 09:46 | XMS_ITS | Encounter Summary ---
Author Organization [employer] ([place], [place], [place], [place]) Address [address] [place] [address] Care Team Providers Care Dictating Machine Transcriber Name Role Phone Unavailable Primary Care Provider Unavailenrike e Encounter Details Date Type Department Care Team (Late st Contact Info) Description 03/07/2019 Transcribed Document [facility] [place] Medicine [address] [place] [address] ProviderYoli MD [address] [place], [place] [id number] Social History Tobacco Use Types Packs/Day Years Used Date Smoking Tobacco: Never Assessed Sex and Gender Information Value Date Recorded Sex Assigned at Not on file Legal Sex Male 6:25 PM CDT Gender Identity Not on file Sexual Orientation Not on file documented as of this encounter Miscellaneous Notes * Cerner Conversion Note - Historical ProviderMD - 03/07/2019 6:00 PM CDT Pain Assessment Entered On: 03/07/2019 18:39 EDT Performed On: 03/07/2019 18:18 EDT by Sylvie Mcmanus RN Intervention Information: acetaminophen Performed by Sylvie Mcmanus RN on 03/07/2019 17:18:00 EDT acetaminophen,650mg Oral Pain Assessment Pain Assessment [...]
--- OUTSIDE RECORDS SUMMARY | 2025-06-09 09:46 | XMS_ITS | Encounter Summary ---
Author Organization [employer] ([place], [place], [place], [place]) Address [address] [place] [address] Care Team Providers Care Aging Department Supervisor Name Role Phone Unavailable Primary Care Provider Unavailenrike e Encounter Details Date Type Department Care Team (Late st Contact Info) Description 03/07/2019 Transcribed Document [facility] [address] [place] [address] ProviderYoli MD [address] [id number] Social History Tobacco Use Types Packs/Day Years Used Date Smoking Tobacco: Never Assessed Sex and Gender Information Value Date Recorded Sex Assigned at Not on file Legal Sex Male 6:25 PM CDT Gender Identity Not on file Sexual Orientation Not on file documented as of this encounter Miscellaneous Notes * Cerner Conversion Note - Yoli ProviderMD - 03/07/2019 9:00 PM CDT Pain Assessment Entered On: 03/08/2019 2:30 EDT Performed On: 03/07/2019 21:45 EDT by Zoe Murray RN Intervention Information: oxyCODONE Performed by Zoe Murray RN on 03/07/2019 20:45:00 EDT oxyCODONE,15mg Oral Pain Assessment Pain Assessment [...]
--- OUTSIDE RECORDS SUMMARY | 2025-06-09 09:46 | XMS_ITS | Encounter Summary ---
Author Organization [employer] ([place], [place], [place], [place]) Address [address] [place] [address] Care Team Providers Care Mixing Machine Operator Name Role Phone Unavailable Primary Care Provider Sai e Encounter Details Date Type Department Care Team (Late st Contact Info) Description 11/22/2018 Transcribed Document [facility] [place] [address] [place] [address] ProviderYoli MD [address] [place] [address] Social History Tobacco Use Types Packs/Day Years Used Date Smoking Tobacco: Never Assessed Sex and Gender Information Value Date Recorded Sex Assigned at Not on file Legal Sex Male 6:25 PM CDT Gender Identity Not on file Sexual Orientation Not on file documented as of this encounter Miscellaneous Notes * Cerner Conversion Note - Yoli ProviderMD - 11/22/2018 4:02 PM MIMEOGRAPHER Patient: CALEB DELAROSA Age: 47 Years Sex: Male : 1970 Subjective Incisional pain aggravated after heavy coughing last night Tolerating diet and having bowel movements Intake & Output Intake & Output Totals Last 24 Hours (7a-7a) Intake (9 Events) Medications (7 mL) Oral Intake (840 mL) Output (3 Events) Urine Voided (Volume) (1280 mL) Input Total: 847 mL Output Total: 1280 mL Balance: -433 mL Vital Signs T: 36.5 ??C TMIN: 36.4 ??C TMAX: 37.2 ??C HR: 77(Monitored) RR: 16 BP: 132/92 SpO2: 99% Physical Exam Gen: NAD Resp:Nonlabored respirations CV:Normal peripheral perfusion Ab:soft, NTND. Incisions c/d/i VTE Risk Total Score VTE Prophylaxis - Surgical Enoxaparin 40 mg, SubCutaneous, Inj, [id number], Routine, Start 11/18/18 10:00:00 EST (MILAGROS DECKER) Sequential Compression Device Start: 11/19/18 7:17:00 EST, Bilateral, Length: Knee High, Apply in OR, Continuous Order (KATHY HERNANDEZ) Sequential Compression Device Start: 11/18/18 9:49:00 EST, Bilateral, Length: Knee High, While patient is in bed, Continuous Order (MILAGROS DECKER) Assessment/Plan Postop day 4 laparoscopic lysis of adhesions Advance to regular diet Wean IV pain medicine Abdominal pain [id number] Abdominal pain R10.9, Unspecified abdominal pain R10.9, Unspecified abdominal pain R10.9 Orders: Diet, Adult Medications Inpatient acetaminophen, 500 mg= 1 Tab, Oral, Q6H Colace, 100 mg= 1 Cap, Oral, BID Dextrose 50% injection, 25 Gram= 50 mL, [...] PRN Lovenox, 40 mg= 0.4 mL, SubCutaneous, [id number] MiraLax, 17 Gram= 1 Packet, Oral, Daily [...] Routine Labs - Last 24 Hours NOV 22 08:41 143 110 11 / 97 3.9 27 0.80 \ NOV 22 08:41 \ L 12.2 / 6.4 174 / L 37.0 \ Anion Gap: 10 Calcium Level: 8.2 mg/dL Low Imaging Results (Last 24 Hours) Radiology Results (Last 48 hours) [id number] -- 11/17/2018 16:04 CR Chest 1 Vw Portable (11/21/2018 10:11) Result: PROCEDURE: CR Chest 1 Vw Portable HISTORY: Chest pain.COMPARISON: None.FINDINGS: The heart is normal in size. The mediastinum is unremarkable.Atelectasis is present in the left lung base. The lungs are otherwiseclear. There is no pneumothorax. There are no acute osseousabnormalities. IMPRESSION: No acute cardiopulmonary process.Continued follow-up is recommended. US Veins LE Duplex BILAT (11/21/2018 11:56) Result: BILATERAL LOWER EXTREMITY VENOUS DUPLEX DOPPLER EXAMINATIONHISTORY: Lower extremity swelling.PROCEDURE: Multiple transverse and longitudinal scans were performed ofboth femoropopliteal deep venous system, with augmentation andcompression maneuvers.FINDINGS: Normal phasic flow was noted in the visualized deep venoussystem. No intraluminal increased echogenicity is noted to suggestthrombus. There is normal compression and augmentation of the venousstructures. No abnormal venous collaterals are seen. No venous reflux isdemonstrated.IMPRESSION: No evidence of left or right lower extremity DVT. Problem List/Past Medical History Ongoing Bowel obstruction [...]
--- OUTSIDE RECORDS SUMMARY | 2025-06-09 09:46 | XMS_ITS | Encounter Summary ---
Author Organization [employer] ([place], [place], [place], [place]) Address [address] [place] [address] Care Team Providers Care Dag Coater Name Role Phone Unavailable Primary Care Provider Unavailenrike e Encounter Details Date Type Department Care Team (Late st Contact Info) Description 03/05/2019 Transcribed Document [facility] [place] Family Medicine [address] [place] [address] ProviderYoli MD [address] [place] [address] Social History Tobacco Use Types Packs/Day Years Used Date Smoking Tobacco: Never Assessed Sex and Gender Information Value Date Recorded Sex Assigned at Not on file Legal Sex Male 6:25 PM CDT Gender Identity Not on file Sexual Orientation Not on file documented as of this encounter Miscellaneous Notes * Cerner Conversion Note - Historical ProviderMD - 03/05/2019 2:00 AM CDT Pain Assessment Entered On: 03/05/2019 6:02 EDT Performed On: 03/05/2019 4:51 EDT by Judy Conroy Lpn Intervention Information: oxyCODONE Performed by WILFREDO DAVISON LPN on 03/05/2019 03:51:00 EDT oxyCODONE,10mg OroGAStric Tube Pain Assessment Pain Assessment : Follow-up assessment Pain Scale Goal : 4 Pain Scale Used : 0-10 Scale Judy Conroy Lpn - 03/05/2019 6:02 EDT Pain Scale Intensity : 2 Judy Conroy Lpn - 03/05/2019 6:02 EDT Image 4 - Images currently included in the form version of this document have not been included in the text rendition version of the form. documented in this encounter Plan of Treatment Not on file documented as of this encounter Visit Diagnoses Not on filedocumented in this encounter
--- OUTSIDE RECORDS SUMMARY | 2025-06-09 09:46 | XMS_ITS | Encounter Summary ---
Author Organization [employer] ([place], [place], [place], [place]) Address [address] [place] [address] Care Team Providers Care Disability Representative Name Role Phone Unavailable Primary Care Provider Sai e Encounter Details Date Type Department Care Team (Late st Contact Info) Description 10/10/2018 Transcribed Document [facility] [place] [address] [place] [address] ProviderYoli MD [address] [place] [address] Social History Tobacco Use Types Packs/Day Years Used Date Smoking Tobacco: Never Assessed Sex and Gender Information Value Date Recorded Sex Assigned at Not on file Legal Sex Male 6:25 PM CDT Gender Identity Not on file Sexual Orientation Not on file documented as of this encounter Miscellaneous Notes * Cerner Conversion Note - Historical ProviderMD - 10/10/2018 11:28 AM SPORTS PSYCHOLOGIST Pain Assessment Entered On: 10/10/2018 21:24 EST Performed On: 10/10/2018 21:34 EST by Eileen Sun Rn Intervention Information: HYDROmorphone Performed by Eileen Sun Rn on 10/10/2018 21:04:00 EST HYDROmorphone,0.5mg IV Push,Forearm Left,Pain (Severe 7-10) Pain Assessment Pain Assessment : Follow-up assessment Pain Scale Goal : 3 Pain Scale Used : 0-10 Scale Eileen Sun Rn - 10/10/2018 21:24 EST Pain Scale Intensity : 5 Eileen Sun Rn - 10/10/2018 21:24 EST Image 4 - Images currently included in the form version of this document have not been included in the text rendition version of the form. documented in this encounter Plan of Treatment Not on file documented as of this encounter Visit Diagnoses Not on filedocumented in this encounter
--- OUTSIDE RECORDS SUMMARY | 2025-06-09 09:46 | XMS_ITS | Clinical Summary ---
Author Organization [facility] Address [address] [place] [id number] Care Team Providers Care Returner Name Role Phone Provider, No Known Primary Care Provider Unavail able Allergies Active Allergy Reactions Criticality Noted Date Comments Ketorolac Tromethamine Rash Low 01/30/2016 Medications HYDROcodone-acetami nophen (NORCO) 7.5-325 MG per tablet Take 1 tablet by mouth Every 6 (Six) Hours. Active lisinopril-hydrochl orothiazide (PRINZIDE,ZESTORETI C) 20-25 MG per tablet Take 1 tablet by mouth Daily As Needed. 5 Active Cholecalciferol (Vitamin D3) 1.25 MG (17694 UT) capsule Take 1 capsule by mouth 2 (Two) Times a Week. 5 Active Testosterone Cypionate (DEPOTESTOTERONE CYPIONATE) 200 MG/ML injection INJECT 1 ML IN THE MUSCLE ONCE WEEKLY 5 Active zolpidem (AMBIEN) 5 MG tablet Take 1 tablet by mouth every night at bedtime. 5 Active sildenafil (VIAGRA) 100 MG tablet Take 1 tablet by mouth Daily As Needed for Erectile Dysfunction. 5 Active ondansetron (Zofran) 4 MG tablet Take 1 tablet by mouth Every 8 (Eight) Hours As Needed for Nausea or Vomiting. 12 tablet 02/01/2025 5:03 PM EDT 5 Active docusate sodium (COLACE) 100 MG capsule Take 1 capsule by mouth 2 (Two) Times a Day. 20 capsule 02/01/2025 5:03 PM EDT Active oxyCODONE (ROXICODONE) 5 MG immediate release tabletIndications:P ost-traumatic osteoarthritis of left shoulder Take 1 tablet by mouth Every 6 (Six) Hours As Needed for Moderate Pain. 24 tablet 02/01/2025 5:03 PM EDT Active naloxone (NARCAN) 4 MG/0.1ML nasal spray Call 911. Don't prime. Coram in 1 nostril for overdose. Repeat in 2-3 minutes in other nostril if no or minimal breathing/re sponsiveness . 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 Family History Medical History Relation Name Comments Congenital heart disease Father Diabetes Maternal Grandmother Cancer Mother of unknown orig in Diabetes Mother Heart disease Mother Cancer Other Family hx of unknown orig in Congenital heart disease Other Family hx Cancer Paternal Grandmother Diabetes Paternal Grandmother Heart disease Paternal Grandmother Relation Name Status Comments Father Maternal Grandmother Mother Other Family hx Paternal Grandmother Social History Tobacco Use Types Packs/Day Years Used Date Smoking Tobacco: Never Alcohol Use Standard Drinks/Week Comments Yes 0 (1 standard drink = 0.6 oz pur e alcohol) Abuse Screen Answer Date Recorded Feels Unsafe at Home or Work/School no 02/01/2025 Feels Threatened by Someone no 01/05 Does Anyone Try to Keep You From Having Contact with Others or Doing Things Outside Your Home? no 02/01/2025 Physical Signs of Abuse Present no 02/01/2025 Housing Stability Answer Date Recorded Current Living Arrangements home 01/06 Potentially Unsafe Housing Conditions Not on tia e 02/02/2025 Disabilities Answer Date Recorded Difficulty Concentrating, Remembering or Making Decisions no 02/01/2025 Difficulty Managing Errands Independently no 02/01/2025 Education Answer Date Recorded Help with school or training? 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 on file Not on file Not on file Last Filed Vital Signs Vital Sign Reading Time Taken Comments Blood Pressure 143/79 02/02/2025 12:57 PM EDT Pulse 90 02/02/2025 12:57 PM EDT Temperature 37.1 C (98.8 F) 02/02/2025 12:57 PM EDT Respiratory Rate 16 02/02/2025 7:20 AM EDT Oxygen Saturation 98% 02/02/2025 7:20 AM EDT Inhaled Oxygen Concentration - - Weight 81.7 kg (180 lb 0.1 oz) 01/25/2025 9:11 A M EDT Height 177.8 cm (5' 10 ) 01/25/2025 9:11 AM EDT Body Mass Index 25.83 01/25/2025 9:11 AM EDT Plan of Treatment Health Maintenance Due Date Last Done Comments ANNUAL PHYSICAL 01/30/2016 HEPATITIS C SCREENING 01/30/2016 COLOGUARD 2016 COLON CANCER SCREENING 5 YEA R SIGMOIDOSCOPY 2016 COLONOSCOPY [address] CANCER SCREENING 2016 CT COLONOGRAPHY 2016 FECAL OCCULT BLOOD TEST 2016 FIT Testing (1 year) 2016 Pneumococcal Vaccine 50+ (1 of 1 - PCV) 2021 ZOSTER VACCINE (1 of 2) 2021 COVID-19 Vaccine (3 - season) 2025, 02/20/2021 INFLUENZA VACCINE 07/06/2025 05/22/2022, 10/12/2018 TDAP/TD VACCINES (2 - Td or Tdap) 11/25/2026 017 Goals Goal Patient Goal Type Associated Problems Recent Progress Patient-Stated? Author Autogenerat ed Goal Care Plan Autogenerated Problem No Roselyn Peng RN Medical Devices Implanted Type Area Airport Ramp Agent Device Identifier Shelf Expiration Date Model / Serial / Lot Sut Nonabs Bone Dynacord Uhmwpe W/Os/6 Ndl 2pk Strip/Norman - [id number] Implanted: Qty: 1 on 02/01/2025 by Mendoza Momin Jr., MD at [facility] Implant Left: Shoulder DEPUY MITEK 02/02/2027 [id number] / / [id number] Cmt Bone Palacos R Hi/Visc 1x40 - [id number] Implanted: Qty: 1 on 02/01/2025 by Mendoza Momin Jr., MD at [facility] Implant Left: Shoulder [employer] 06/05/2029 [id number] / / [id number] Papo Avelina Shldr Inhance 29mm Lg - [id number] Implanted: Qty: 1 on 02/01/2025 by Mendoza Momin Jr., MD at [facility] Implant Left: Shoulder DEPUY SYNTHES 09/04/2026 [id number] / / [id number] Sut/Anch Dynatape Br 2.5mm Blk/Norman - [id number] Implanted: Qty: 1 on 02/01/2025 by Mendoza Momin Jr., MD at [facility] Implant Left: Shoulder DEPUY MITEK 07/05/2026 [id number] / / [id number] Sut/Anch Dynatape Br 2.5mm Blk/Wht - [id number] Implanted: Qty: 2 on 02/01/2025 by Mendoza Momin Jr., MD at [facility] Implant Left: Shoulder DEPUY MITEK 07/05/2026 [id number] / / [id number] Adapt Avelina Inhance Tpr Offst - [id number] Implanted: Qty: 1 on 02/01/2025 by Mendoza Momin Jr., MD at [facility] Implant Left: Shoulder DEPUY SYNTHES 03/05/2027 [id number] / / [id number] Comp Hum/Shldr Inhance Nostem 36mm Md - [id number] Implanted: Qty: 1 on 02/01/2025 by Mendoza Momin Jr., MD at [facility] Implant Left: Shoulder DEPUY SYNTHES 03/05/2027 [id number] / / [id number] Hd Hum/Shldr Inhance 89s40ab - [id number] Implanted: Qty: 1 on 02/01/2025 by Mendoza Momin Jr., MD at [facility] Implant Left: Shoulder DEPUY 06/05/2028 [id number] / / [id number] Cp Depuy Shldr Rev Inhance Centrl/Scr w - [id number] Implanted: Qty: 1 on 02/01/2025 by Mendoza Momin Jr., MD at [facility] Implant Left: Shoulder DEPUY CAPSHLDREVINHANC ECENTRL SCRW / / Additional Health Concerns Active Problems Noted Date Diagnosed Date Autogenerated Problem 03/04/2025 Insurance [facility] PPO Care Teams Returner Relationship Specialty Start Date End Date Provider, [place] [address] PCP - General 02/01/25
--- OUTSIDE RECORDS SUMMARY | 2025-06-09 09:46 | XMS_ITS | Encounter Summary ---
Author Organization [employer] ([place], [place], [place], [place]) Address [address] [place] [address] Care Team Providers Care Roller Structural Mill Name Role Phone Unavailable Primary Care Provider Sai wagner Encounter Details Date Type Department Care Team (Late st Contact Info) Description 10/10/2018 Transcribed Document [facility] [place] Family Medicine [address] [place] [address] ProviderYoli MD [address] [place] [address] Social History Tobacco Use Types Packs/Day Years Used Date Smoking Tobacco: Never Assessed Sex and Gender Information Value Date Recorded Sex Assigned at Not on file Legal Sex Male 6:25 PM CDT Gender Identity Not on file Sexual Orientation Not on file documented as of this encounter Miscellaneous Notes * Cerner Conversion Note - Yoli ProviderMD - 10/10/2018 9:[address] SUPERVISOR [address] [place] [address] Patient Information Name: CALEB MATTHEWS Age: 47 Years Date of : 1970 Arrival Time: 10/10/2018 04:35:00 Diagnosis Small bowel obstruction Primary Care Physician: RITCHIE UPTON (REF)[facility] Provider Information Primary Provider: OMAR VERGARA Secondary Provider: CALEB MATTHEWS has been given the following list of patient education materials, prescriptions and follow-up instructions: Follow-up Instructions: Patient Education Materials: Allergies: ketorolac Medication Information: Home Meds Display acetaminophen 0 Refill(s) Laboratory or Other Results This Visit (last charted value for your 10/10/2018 visit) Hematology 10/10/18 05:25:00 WBC: 9.5 K/uL -- Normal range between ( 4.2 and 9.1 ) RBC: 4.80 Million/uL -- Normal range between ( 4.63 and 6.08 ) Hct: 45.8 % -- Normal range between ( 40.1 and 51.0 ) Hgb: 15.4 g/dL -- Normal range between ( 13.7 and 17.5 ) Platelet Count: 214 K/uL -- Normal range between ( 163 and 369 ) MCH: 32.1 pg -- Normal range between ( 25.6 and 32.2 ) MCHC: 33.6 Gram/dL -- Normal range between ( 32.2 and 36.5 ) MCV: 95.4 fL -- Normal range between ( 79.0 and 94.8 ) Slide Review: No Eos %: 1.9 % -- Normal range between ( 0.0 and 7.0 ) [place] #: 1.34 K/uL -- Normal range between ( 0.16 and 1.00 ) Eos #: 0.18 x10(3)/uL -- Normal range between ( 0.00 and 0.80 ) [place] %: 14.1 % -- Normal range between ( 3.0 and 9.0 ) Baso %: 0.5 % -- Normal range between ( 0.0 and 1.5 ) Baso #: 0.05 x10(3)/uL -- Normal range between ( 0.00 and 0.20 ) RDW: 11.7 % -- Normal range between ( 11.6 and 14.4 ) Neut %: 61.3 % -- Normal range between ( 34.0 and 71.0 ) Neut #: 5.80 K/uL -- Normal range between ( 1.56 and 6.13 ) Lymph %: 21.9 % -- Normal range between ( 19.3 and 53.1 ) Lymph #: 2.07 x10(3)/uL -- Normal range between ( 1.00 and 3.90 ) MPV: 8.8 fL -- Normal range between ( 9.4 and 12.4 ) IG#: 0.03 x10(3)/uL -- Normal range between ( 0.00 and 0.05 ) IG%: 0.30 % -- Normal range between ( 0.00 and 0.60 ) General Chemistry 10/10/18 05:25:00 Creatinine Level: 0.90 mg/dL -- Normal range between ( 0.70 and 1.30 ) Sodium Level: 139 mmol/L -- Normal range between ( 136 and 146 ) Potassium Level: 3.9 mmol/L -- Normal range between ( 3.5 and 5.1 ) Chloride Level: 109 mmol/L -- Normal range between ( 102 and 112 ) Carbon Dioxide Level: 23 mmol/L -- Normal range between ( 21 and 32 ) Anion Gap: 11 -- Normal range between ( 9 and 20 ) Bilirubin Total: 0.6 mg/dL -- Normal range between ( 0.0 and 1.2 ) A/G Ratio: 1.2 -- Normal range between ( 1.1 and 2.5 ) ALT: 45 Units/Liter -- Normal range between ( 12 and 78 ) AST: 67 Units/Liter -- Normal range between ( 5 and 37 ) Globulin: 3.1 Gram/dL -- Normal range between ( 1.5 and 4.5 ) Alk Phos: 45 Units/Liter -- Normal range between ( 27 and 136 ) Bun/Creatinine: 12.2 -- Normal range between ( 8.0 and 20.0 ) Calcium Level: 8.5 mg/dL -- Normal range between ( 8.4 and 10.1 ) eGFR : 110 mL/min/1.73m2 eGFR NonAfrican: 91 mL/min/1.73m2 Glucose Level: 119 mg/dL -- Normal range between ( 74 and 106 ) Blood Urea Nitrogen: 11 mg/dL -- Normal range between ( 7 and 22 ) Lactic Acid Level: 0.8 mmol/L -- Normal range between ( 0.4 and 2.0 ) Protein Total: 6.8 Gram/dL -- Normal range between ( 6.4 and 8.2 ) Albumin Level: 3.7 Gram/dL -- Normal range between ( 3.4 and 5.0 ) Lipase Level: 115 Units/Liter -- Normal range between ( 73 and 393 ) Cardiac Specific Markers 10/10/18 05:25:00 Troponin I Ultra: <0.015 ng/mL -- Normal range between ( 0.015 and 0.045 ) Computed Tomography 10/10/18 07:18:35 CT Abdomen Pelvis W: CT Abdomen Pelvis W Medication Comment: Procedures: Laboratory Orders Name Status AutoDiff Completed CBCD Completed CMP Completed LAC Completed LIPASE Completed TROPIULT Completed Radiology Orders Name Status CT Abdomen Pelvis W Completed Cardiology Orders No cardiology orders were placed. This statement is to verify that CALEB MATTHEWS was seen at [facility] Emergency Department on ,10/10/2018 09:26:25. This is not a work excuse, if [...] along the way. As a healthcare provider, [facility] recommends that you stop smoking. Assistance with quitting is available by contacting 0-108-TGSH-NOW. This is a free resource providing counseling, [...] Electronic Communications Privacy Act 18 U.S.C. ???Sections 9149-7257,?? and contain information intended for the specified [...] by email, and delete the original message. [facility] is an EMERGENCY Every Minute Counts [...] Be sure to sign up for the My [facility] patient portal, which gives you 28/04 access to your medical information ??? including these discharge instructions ??? using your computer, smartphone, or tablet. Just go to [employer] to get started. Questions? Call . Acknowledgment [...]
--- OUTSIDE RECORDS SUMMARY | 2025-06-09 09:46 | XMS_ITS | Encounter Summary ---
Author Organization [employer] ([place], [place], [place], [place]) Address [address] [place] [address] Care Team Providers Care Yardage Control Operator Name Role Phone Unavailable Primary Care Provider Unavailenrike e Encounter Details Date Type Department Care Team (Late st Contact Info) Description 11/22/2018 Transcribed Document [facility] [place] Family Medicine [address] [place] [address] ProviderYoli MD [address], [place] [id number] Social History Tobacco Use Types Packs/Day Years Used Date Smoking Tobacco: Never Assessed Sex and Gender Information Value Date Recorded Sex Assigned at Not on file Legal Sex Male 6:25 PM CDT Gender Identity Not on file Sexual Orientation Not on file documented as of this encounter Miscellaneous Notes * Cerner Conversion Note - Historical ProviderMD - 11/22/2018 5:00 PM BEH[employer] COUNSELORS Chart Check - Review Order Profile Entered On: 11/22/2018 15:58 EST Performed On: 11/22/2018 17:00 EST by Esther Vega RN Chart Check Chart Reviewed Date and Time : 11/22/2018 15:58 EST Power[employer]ans Initiated/Discontinued as Appropriate : Yes All Active Orders Reviewed : Yes Esther Vega RN - 11/22/2018 15:58 EST Electronically signed by Pancho [facility] Conversion Banquet Cook Cerner at 01/22/2023 6:46 PM CDT documented in this encounter Plan of Treatment Not on file documented as of this encounter Visit Diagnoses Not on filedocumented in this encounter
--- OUTSIDE RECORDS SUMMARY | 2025-06-09 09:46 | XMS_ITS | Encounter Summary ---
Author Organization [employer] ([place], [place], [place], [place]) Address [address] [place] [address] Care Team Providers Care Car Unloader Helper Name Role Phone Unavailable Primary Care Provider Unavailenrike e Encounter Details Date Type Department Care Team (Late st Contact Info) Description 11/23/2018 Transcribed Document [facility] [place] [address] [place] [address] ProviderYoli MD [address] [place] [address] Social History Tobacco Use Types Packs/Day Years Used Date Smoking Tobacco: Never Assessed Sex and Gender Information Value Date Recorded Sex Assigned at Not on file Legal Sex Male 6:25 PM CDT Gender Identity Not on file Sexual Orientation Not on file documented as of this encounter Miscellaneous Notes * Cerner Conversion Note - Historical ProviderMD - 11/23/2018 12:06 PM SUPERINTENDENT GENERATING PLANT Discharge Instructions Entered On: 11/23/2018 12:06 EST Performed On: 11/23/2018 12:06 EST by YANET WEIR REGISTERED_NURSE DC Instructions HWD Stroke/TIA Discharge Ins : N/A Heart Failure Discharge Ins : N/A Warfarin Discharge Ins : N/A YANET WEIR REGISTERED_NURSE - 11/23/2018 12:06 EST Electronically signed by Panch[facility] Conversion Appraiser Land Cerner at 01/22/2023 6:44 PM CDT documented in this encounter Plan of Treatment Not on file documented as of this encounter Visit Diagnoses Not on filedocumented in this encounter
--- OUTSIDE RECORDS SUMMARY | 2025-06-09 09:46 | XMS_ITS | Encounter Summary ---
Author Organization [employer] ([place], [place], [place], [place]) Address [address] [place] [address] Care Team Providers Care Roll Coating Machine Operator Name Role Phone Unavailable Primary Care Provider Sai e Encounter Details Date Type Department Care Team (Late st Contact Info) Description 10/10/2018 Transcribed Document [facility] [place] [address] [place] [address] ProviderYoli MD [address] [place] [address] Social History Tobacco Use Types Packs/Day Years Used Date Smoking Tobacco: Never Assessed Sex and Gender Information Value Date Recorded Sex Assigned at Not on file Legal Sex Male 6:25 PM CDT Gender Identity Not on file Sexual Orientation Not on file documented as of this encounter Miscellaneous Notes * Cerner Conversion Note - Yoli ProviderMD - 10/10/2018 9:26 AM ASSISTANT CREDIT MANAGER [address] [place] [address] PERSON INFORMATION Name CALEB MATTHEWS Age 47 Years 1970 Sex Male Language Belizean PCP RITCHIE UPTON (REF), -[facility] Marital Status Single Med Service Emergency Medicine Acct# Arrival 10/10/2018 04:35:00 Visit Reason Abdominal pain; ABD PAIN Acuity 3 - Urgent LOS 000 04:51 Depart Date: 00:00 AM Address: [address] [place] [id number] Comment: PROVIDER INFORMATION Provider Role Assigned Unassigned Linn Raya, WEB CONTENT DEVELOPER Nurse 10/10/2018 04:45:14 TERESA AHUMADA MD ED Physician 10/10/2018 04:50:03 OMAR VERGARA MD-[facility] ED Physician 10/10/2018 07:30:50 Cy Nichols, Emergency Room Taxonomy Teacher ED Nurse 10/10/2018 07:40:57 DIAGNOSIS Small bowel obstruction PHYS DOC NOTES VITALS INFORMATION Vital Sign Triage Latest Temp Source Oral Oral Temp Mode Fahrenheit Fahrenheit Temp Fahrenheit 97.0 Deg F 97.0 Deg F Temp Celsius 02 Sat 99 % 96 % Respiratory Rate 18 Breaths/Min 18 Breaths/Min Peripheral Pulse Rate 107 bpm 107 bpm Apical Heart Rate Blood Pressure 162 mmHg / 104 mmHg 134 mmHg / 85 mmHg Comment: MEDICAL INFORMATION Allergy Info: ketorolac Medications: Home Meds Display acetaminophen 0 Refill(s) Comment: DISCHARGE INFORMATION Discharge Disposition: Admitted as Inpatient Discharge Location: PATIENT EDUCATION INFORMATION Instructions: Follow up: Comment: documented in this encounter Plan of Treatment Not on file documented as of this encounter Visit Diagnoses Not on filedocumented in this encounter
--- OUTSIDE RECORDS SUMMARY | 2025-06-09 09:46 | XMS_ITS | Encounter Summary ---
Author Organization [employer] ([place], [place], [place], [place]) Address [address] [place] [address] Care Team Providers Care Egg Trayer Name Role Phone Unavailable Primary Care Provider Sai e Encounter Details Date Type Department Care Team (Late st Contact Info) Description 10/10/2018 Transcribed Document [facility] Radiology [address] [place] [address] Nina Man MD [address] [place] [address] [address] [place] [id number] Social History Tobacco Use Types Packs/Day Years Used Date Smoking Tobacco: Never Assessed Sex and Gender Information Value Date Recorded Sex Assigned at Not on file Legal Sex Male 6:25 PM CDT Gender Identity Not on file Sexual Orientation Not on file documented as of this encounter Miscellaneous Notes * Cerner Conversion Note - Nina Man MD - 10/10/2018 5:26 PM EST DATE OF ADMISSION: 10/10/2018 PRIMARY CARE PROVIDER: Dr. Ma from [place], [place]. CHIEF COMPLAINT: I have been having pain in my belly. HISTORY OF PRESENT ILLNESS: This is a 47-year-old white male with prior past medical history of multiple abdominal surgeries, who has had previous history of small-bowel obstruction. He presented to the emergency room with one day complaint of abdominal pain and discomfort. It was mainly on the left side of the abdomen. He states this started yesterday. He did have some nausea with it, but did not have any vomiting. He also had some few bowel movements yesterday, which was initially watery and later on that quit and he has not passed any flatus since last evening. He denies any urinary symptoms. Particularly, he denies any hematuria, dysuria, or flank pain at this time. He also denies any recent history of fever or chills. Upon further questioning, patient reports that he has had multiple abdominal surgeries, which initially started with an exploratory laparotomy. Then, he has had an abdominal wall hernia repair with a mesh. He states that some of his small-bowel obstructions have been managed conservatively, but approximately three years ago, he had to undergo exploratory lap for small bowel obstruction when he had scar tissue that was resected. He states that he was pain free up until yesterday after the surgery. Patient presented to the emergency room with the above complaints and he was noted to be afebrile on arrival with a blood pressure of 162/104. His renal function was unremarkable. His white count was at 9.5. Lactic acid level was 0.8. He underwent a CT scan of the abdomen and pelvis, which showed some mildly dilated loops of small bowel without any distinctive transition point. Early obstruction was unable to be excluded in its entirety. Subsequently, he was hospitalized. PAST MEDICAL HISTORY: 1. Small-bowel obstruction with need for exploration and also episodes that have been managed conservatively. 2. Lung nodule. According to the patient, he was discovered with right-sided lung nodule during one of his emergency room visit and he has had a referral to Pulmonology and he is awaiting followup and starting workup on the same. PAST SURGICAL HISTORY: 1. Hernia repair with mesh placement approximately 10 years ago. 2. Initial exploratory laparotomy for abdominal pain and hernia and subsequent recent exploratory lap approximately three years ago with adhesiolysis. 3. Inguinal hernia repair. He states that he had to have nearly five different surgeries on the right side. 4. Left shoulder surgery x5. 5. Right shoulder surgery x1. 6. Appendectomy. 7. Salivary gland removal on the left submandibular. MEDICATIONS: He only takes the Tylenol on a p.r.n. basis. ALLERGIES: TORADOL, he states that he developed a red burning spot when he had been administered an intramuscular TORADOL once. PERSONAL HISTORY: 1. Does not smoke. Never did smoke per the patient. 2. He states he takes an occasional alcohol. Denies any history of active prior drug abuse. SOCIAL HISTORY: He is , he does have three children. Patient works for a [employer]. FAMILY HISTORY: He has no contact with his father and mother evidently is alive and doing well. REVIEW OF SYSTEMS: CONSTITUTIONAL: Patient denies any fever or chills. VISION: He wears glasses. No problems with hearing. No problems with swallowing. RESPIRATORY: Denies cough. He has had been noted to have a lung nodule. Evidently, he has been advised to follow up with Pulmonology and he is awaiting the same for further evaluation. CARDIOVASCULAR: Denies active chest pain, palpitations. GASTROINTESTINAL: As above, he did have some nausea without any vomiting. Has had upper abdominal pain and discomfort without any particular aggravating or relieving factor, it is mostly on the left side of the abdomen. He has not passed any flatus since last evening, although prior to that, he had a few loose stools. He has had a previous history of small-bowel obstructions with multiple surgeries and need for conservative managements also in the past. GENITOURINARY: Denies dysuria. MUSCULOSKELETAL: Denies arthritis. NEUROLOGIC: Denies any focal weakness or numbness. PSYCHIATRIC: Negative. INTEGUMENTARY: Negative. PHYSICAL EXAMINATION: GENERAL: Reveals a middle-aged white male, who currently is not in any acute distress. He is awake, alert, and oriented. He is currently afebrile. VITAL SIGNS: His blood pressure is now 143/93, pulse ox is 97% on room air. HEENT: Pupils about 3 mm bilaterally equal, round, and reactive to light. No evidence of scleral icterus noted. Ears within normal limits. Oral mucosa is dry appearing. Tongue in midline. NECK: Supple. No JVD noted. No palpable adenopathy. RESPIRATORY SYSTEM: Bilaterally clear to auscultation. No rales or rhonchi heard. Breathing is not labored. CARDIOVASCULAR SYSTEM: S1, S2 regular. No significant murmur heard. No palpable thrill. ABDOMEN: Currently soft without any significant distention. He has some mild discomfort in the mid abdomen. He does have old scars that seemed to be well healed. Bowel sounds are slightly hypoactive. No guarding. No rebound noted. EXTREMITIES: No edema. SKIN: Warm and dry. No rash noted. NEUROLOGICAL: Power of upper and lower extremities 4/5. PSYCHIATRIC: He is in a normal mood and affect. LABORATORY DATA: Today, his white count was 9.5 with hemoglobin and hematocrit of 15.4 and 45.8, platelet count of 214. Troponin was 0.01. BUN and creatinine were 11 and 0.9. LFTs were unremarkable, except for AST that was mildly elevated at 67. CT scan of the abdomen did reveal finding as outlined above. ASSESSMENT AND PLAN: 1. Abdominal pain likely related to early partial small bowel obstruction, given the patient's significant history in the past. He did have an nasogastric tube placed in the emergency room, but unfortunately he has not had any significant drainage from it. Surgical consult has been requested for further evaluation. We will continue with intravenous fluid hydration and replace electrolytes as appropriate. 2. History of pulmonary nodule. As per the patient, this is under evaluation already and he has a followup with the Pulmonology and he has been advised to keep the same. 3. Gastroesophageal reflux disease. According to the patient, more recently, he has become symptomatic with it and will continue with the proton pump inhibitor. 4. Code status: He is a FULL CODE. 5. Deep venous thrombosis prophylaxis will be with subcutaneous heparin. At this time, unless any surgery is anticipated, then we will have to withhold the same. 6. Plan of care has been discussed with patient. TIME SPENT: In entirety towards this history and physical, review of data, management plan, and discussion with the emergency room physician totals at 45 minutes. Nina Man M.D. Dict: 10/10/2018 16:26:22 Trans: 10/10/2018 20:02:34 CC1: Nina Man M.D. documented in this encounter Plan of Treatment Not on file documented as of this encounter Visit Diagnoses Not on filedocumented in this encounter
--- OUTSIDE RECORDS SUMMARY | 2025-06-09 09:46 | XMS_ITS | Encounter Summary ---
Author Organization [employer] ([place], [place], [place], [place]) Address [address] [place] [address] Care Team Providers Care Parking Enforcement Manager Name Role Phone Unavailable Primary Care Provider Unavailenrike e Encounter Details Date Type Department Care Team (Late st Contact Info) Description 11/23/2018 Transcribed Document [facility] [place] [address] [place] [address] ProviderYoli MD [address] [place] [address] Social History Tobacco Use Types Packs/Day Years Used Date Smoking Tobacco: Never Assessed Sex and Gender Information Value Date Recorded Sex Assigned at Not on file Legal Sex Male 6:25 PM CDT Gender Identity Not on file Sexual Orientation Not on file documented as of this encounter Miscellaneous Notes * [employer]ner Conversion Note - Yoli ProviderMD - 11/23/2018 12:56 PM LIFE ENRICHMENT ASSISTANT Care Management Assessment/Plan Entered On: 11/23/2018 12:57 EST Performed On: 11/23/2018 12:56 EST by SAM RUANO Care Management Note Care Management Note Report : SAM RUANO - 11/20/18 14:28:08 Chart reviewed. Pt had surgery yesterday. IVF's infusing. NG tube has been dc' and Pt has been started on clear liquids. Pt is passing gas, but no BM. No needs anticipated for discharge. CM will follow. SAM RUANO - 11/19/18 11:43:17 Met with [...] Status Complete : Yes SAM RUANO - 11/23/2018 12:56 EST Final Discharge Disposition Note-CM Final Discharge Disposition Note-CM : Discharged to home, agreeable. here to transport home via private vehicle. RRS is moderate and follow-up appointments have been made. No needs verbalized during IDT rounds. Discharge To Care Management : Home/Residential/Half-Way or Self Care -01 SAM RUANO - 11/23/2018 12:56 EST Electronically signed by Nena Deleon Conversion Power Plant Operator Apprentice Cerner at 01/22/2023 6:28 PM CDT documented in this encounter Plan of Treatment Not on file documented as of this encounter Visit Diagnoses Not on filedocumented in this encounter
--- OUTSIDE RECORDS SUMMARY | 2025-06-09 09:46 | XMS_ITS | Encounter Summary ---
Author Organization [employer] ([place], [place], [place], [place]) Address [address] [place] [address] Care Team Providers Care Testing And Regulating Chief Name Role Phone Unavailable Primary Care Provider Unavailenrike e Encounter Details Date Type Department Care Team (Late st Contact Info) Description 10/10/2018 Transcribed Document [facility] [place] [address] [place] [address] ProviderYoli MD [address] [place] [address] Social History Tobacco Use Types Packs/Day Years Used Date Smoking Tobacco: Never Assessed Sex and Gender Information Value Date Recorded Sex Assigned at Not on file Legal Sex Male 6:25 PM CDT Gender Identity Not on file Sexual Orientation Not on file documented as of this encounter Miscellaneous Notes * [employer]ner Conversion Note - Historical ProviderMD - 10/10/2018 1:35 PM LITHOGRAPHIC CAMERA OPERATOR Pain Assessment Entered On: 10/10/2018 16:18 EST Performed On: 10/10/2018 16:01 EST by TOMI JEFFERS RN Intervention Information: acetaminophen Performed by TOMI JEFFERS RN on 10/10/2018 15:56:00 EST acetaminophen,650mg IV Piggyback,Left Lower Forearm Pain Assessment Pain Assessment : Follow-up assessment Pain Scale Goal : 3 Pain Scale Used : 0-10 Scale Location : Abdominal Onset : Acute Quality : Aching Pain Radiation : No Pain Improved by : Medication Pain Worsened by : Movement Pain Intervention, Drug : Medicated Pain Improved by Intervention : Yes TOMI JEFFERS RN - 10/10/2018 16:17 EST Pain Scale Intensity : 0 TOMI JEFFERS RN - 10/10/2018 16:17 EST Image 4 - Images currently included in the form version of this document have not been included in the text rendition version of the form. documented in this encounter Plan of Treatment Not on file documented as of this encounter Visit Diagnoses Not on filedocumented in this encounter
--- OUTSIDE RECORDS SUMMARY | 2025-06-09 09:46 | XMS_ITS | Encounter Summary ---
Author Organization [employer] ([place], [place], [place], [place]) Address [address] [place] [address] Care Team Providers Care Tractor Trailer Technician Name Role Phone Unavailable Primary Care Provider Unavailenrike e Encounter Details Date Type Department Care Team (Late st Contact Info) Description 03/07/2019 Transcribed Document [facility] [place] Family Medicine [address] [place] [address] ProviderYoli MD [address] [place] [address] Social History Tobacco Use Types Packs/Day Years Used Date Smoking Tobacco: Never Assessed Sex and Gender Information Value Date Recorded Sex Assigned at Not on file Legal Sex Male 6:25 PM CDT Gender Identity Not on file Sexual Orientation Not on file documented as of this encounter Miscellaneous Notes * Cerner Conversion Note - Historical ProviderMD - 03/07/2019 5:00 AM CDT Chart Check - Review Order Profile Entered On: 03/07/2019 5:21 EDT Performed On: 03/07/2019 5:00 EDT by Judy Conroy Lpn Chart Check Powerplans Initiated/Discontinued as Appropriate : Yes All Active Orders Reviewed : Yes Judy Conroy Lpn - 03/07/2019 5:21 EDT documented in this encounter Plan of Treatment Not on file documented as of this encounter Visit Diagnoses Not on filedocumented in this encounter
--- OUTSIDE RECORDS SUMMARY | 2025-06-09 09:46 | XMS_ITS | Encounter Summary ---
Author Organization [employer] ([place], [place], [place], [place]) Address [address] [place] [address] Care Team Providers Care Packaging Machine Operator Name Role Phone Unavailable Primary Care Provider Unavailenrike e Encounter Details Date Type Department Care Team (Late st Contact Info) Description 11/22/2018 Transcribed Document [facility] [place] [address] [place] [address] ProviderYoli MD [address] [place] [address] Social History Tobacco Use Types Packs/Day Years Used Date Smoking Tobacco: Never Assessed Sex and Gender Information Value Date Recorded Sex Assigned at Not on file Legal Sex Male 6:25 PM CDT Gender Identity Not on file Sexual Orientation Not on file documented as of this encounter Miscellaneous Notes * Cerner Conversion Note - Historical ProviderMD - 11/22/2018 2:00 AM CITY DISPATCHER Automotive Engineering Technician Details Entered On: 11/22/2018 4:43 EST Performed On: 11/22/2018 2:00 EST by Carmella Steele, Rn Order Details Transport Mode Order Detail : Ambulatory Isolation Precautions Order Detail : Standard Precautions Order Detail : N/A IV Order Detail : 1 Nurse Collect Order Detail : 0 Lift/Transfer : Independent Central Line Order Detail : No Room Service : Not Appropriate Arterial Line : No Carmella Steele, Rn - 11/22/2018 4:42 EST documented in this encounter Plan of Treatment Not on file documented as of this encounter Visit Diagnoses Not on filedocumented in this encounter
--- OUTSIDE RECORDS SUMMARY | 2025-06-09 09:46 | XMS_ITS | Encounter Summary ---
Author Organization [employer] ([place], [place], [place], [place]) Address [address] [place] [address] Care Team Providers Care Horse Breeder Name Role Phone Unavailable Primary Care Provider Unavailenrike e Encounter Details Date Type Department Care Team (Late st Contact Info) Description 10/10/2018 Transcribed Document [facility] [place] [address] [place] [address] ProviderYoli MD [address] [place], [place] [id number] Social History Tobacco Use Types Packs/Day Years Used Date Smoking Tobacco: Never Assessed Sex and Gender Information Value Date Recorded Sex Assigned at Not on file Legal Sex Male 6:25 PM CDT Gender Identity Not on file Sexual Orientation Not on file documented as of this encounter Miscellaneous Notes * Cerner Conversion Note - Historical ProviderMD - 10/10/2018 5:00 AM DIAMOND FINISHING SUPERVISOR Pain Assessment Entered On: 10/10/2018 6:30 EST Performed On: 10/10/2018 6:30 EST by Linn Raya RN Intervention Information: morphine Performed by Mariya Jerry RN on 10/10/2018 05:24:00 EST morphine,4mg IV Push,Peripheral Line 1 Pain Assessment Pain Assessment : Follow-up assessment Pain Scale Used : 0-10 Scale Linn Raya RN - 10/10/2018 6:30 EST Pain Scale Intensity : 1 Linn Raya RN - 10/10/2018 6:30 EST Image 4 - Images currently included in the form version of this document have not been included in the text rendition version of the form. documented in this encounter Plan of Treatment Not on file documented as of this encounter Visit Diagnoses Not on filedocumented in this encounter
--- OUTSIDE RECORDS SUMMARY | 2025-06-09 09:46 | XMS_ITS | Encounter Summary ---
Author Organization [employer] ([place], [place], [place]) Address [address] [place] [address] Care Team Providers Care Aerial Advertiser Name Role Phone Unavailable Primary Care Provider Sai e Encounter Details Date Type Department Care Team (Late st Contact Info) Description 11/23/2018 Transcribed Document [facility] [place] Family Medicine [address] [place] [address] ProviderYoli MD [address] [place] [address] Social History Tobacco Use Types Packs/Day Years Used Date Smoking Tobacco: Never Assessed Sex and Gender Information Value Date Recorded Sex Assigned at Not on file Legal Sex Male 6:25 PM CDT Gender Identity Not on file Sexual Orientation Not on file documented as of this encounter Miscellaneous Notes * Cerner Conversion Note - Yoli ProviderMD - 11/23/2018 9:41 AM WHITE WASHER Patient: CALBE MATTHEWS Age: 47 Years Sex: Male : 1970 Subjective +BM, amena diet. pain controlled Intake & Output Intake & Output Totals Last 24 Hours (7a-7a) Intake (7 Events) Medications (4 mL) Oral Fluids (980 mL) Output (2 Events) Urine Voided (Volume) (550 mL) Input Total: 984 mL Output Total: 550 mL Balance: 434 mL Vital Signs T: 36.7 ??C TMIN: 36.5 ??C TMAX: 36.7 ??C HR: 57(Monitored) RR: 16 BP: 145/72 SpO2: 94% Physical Exam abdomen soft, NT, ND VTE Risk Total Score VTE Prophylaxis - Surgical Enoxaparin 40 mg, SubCutaneous, Inj, [id number], Routine, Start 11/18/18 10:00:00 EST (MILAGROS DECKER) Sequential Compression Device Start: 11/19/18 7:17:00 EST, Bilateral, Length: Knee High, Apply in OR, Continuous Order (KATHY HERNANDEZ) Sequential Compression Device Start: 11/18/18 9:49:00 EST, Bilateral, Length: Knee High, While patient is in bed, Continuous Order (MILAGROS DECKER) Assessment/Plan Postop day 5 laparoscopic lysis of adhesions - OK to DC from surgical perspective - Rx Oxycodone and Valium for pain/muscle spasms. Advised alternating ibuprofen/tylenol also - no heavy lifting for 4 weeks - f/u within 2 weeks - can shower Abdominal pain [id number] Abdominal pain R10.9, Unspecified abdominal pain R10.9, Unspecified abdominal pain R10.9 Medications Inpatient acetaminophen, 500 mg= 1 Tab, Oral, Q6H Colace, 100 mg= 1 Cap, Oral, BID Dextrose 50% injection, 25 Gram= 50 mL, IntraVENous, Q15Min, PRN Dextrose 50% injection, 12.5 Gram= 25 mL, IntraVENous, Q15Min, PRN DuoNeb 0.5 mg-2.5 mg/3 mL inhalation solution, 3 mL, Nebulized Inhalation , 1-Time, PRN glucagon, 1 mg= 1 mL, IntraMuscular, Q15Min, PRN glucose 4 g oral tablet, chewable, 16 Gram= 4 Tab, Chew, Q15Min, PRN glucose 40% oral gel, 15 Gram, Oral, Q15Min, PRN ibuprofen, 600 mg= 1 Tab, Oral, Q6H, PRN Lovenox, 40 mg= 0.4 mL, SubCutaneous, [id number] MiraLax, 17 Gram= 1 Packet, Oral, Daily oxyCODONE, 10 mg= 2 Tab, Oral, Q4H, PRN Protonix, 40 mg= 1 Tab, Oral, Daily sodium chloride 0.9% injectable solution, 10 mL, IV Push, See Comment, PRN Valium, 5 mg= 1 Tab, Oral, Q8H, PRN Zofran, 4 mg= 1 Tab, Oral, Q6H, PRN Home Ambien 10 mg oral tablet, 10 mg= 1 Tab, Oral, At Bedtime, PRN oxyCODONE 7.5 mg oral tablet, 7.5 mg= 1 Tab, Oral, Q6H PriLOSEC OTC 20 mg oral delayed release tablet, 20 mg= 1 Tab, Oral, Daily Valium 5 mg oral tablet, 5 mg= 1 Tab, Oral, Q8H, PRN Routine Labs - Last 24 Hours NOV 22 08:41 143 110 11 / 97 3.9 27 0.80 \ NOV 22 08:41 \ L 12.2 / 6.4 174 / L 37.0 \ No qualifying data available. Imaging Results (Last 24 Hours) Radiology Results (Last 48 hours) [id number] -- 11/17/2018 16:04 CR Chest 1 Vw [...]
--- OUTSIDE RECORDS SUMMARY | 2025-06-09 09:46 | XMS_ITS | Encounter Summary ---
Author Organization [employer] ([place], [place], [place]) Address [address] [place] [address] Care Team Providers Care Balance Engineer Name Role Phone Unavailable Primary Care Provider Unavailenrike e Encounter Details Date Type Department Care Team (Late st Contact Info) Description 10/10/2018 Transcribed Document [facility] Radiology [address] [place] [address] Kemar Man MD [address] [place], [place] [id number] Social History Tobacco Use Types Packs/Day Years Used Date Smoking Tobacco: Never Assessed Sex and Gender Information Value Date Recorded Sex Assigned at Not on file Legal Sex Male 6:25 PM CDT Gender Identity Not on file Sexual Orientation Not on file documented as of this encounter Miscellaneous Notes * Cerner Conversion Note - Kemar Man MD - 10/10/2018 5:34 PM EST Patient: CALEB MATTHEWS Age: 47 years Sex: Male : 1970 Associated Diagnoses: None Author: KEMAR MAN MD H and P Dictated. #[id number]. documented in this encounter Plan of Treatment Not on file documented as of this encounter Visit Diagnoses Not on filedocumented in this encounter
--- OUTSIDE RECORDS SUMMARY | 2025-06-09 09:46 | XMS_ITS | Encounter Summary ---
Author Organization [employer] ([place], [place], [place]) Address [address] [place] [address] Care Team Providers Care Health Psychologist Name Role Phone Unavailable Primary Care Provider Unavailenrike e Encounter Details Date Type Department Care Team (Late st Contact Info) Description 11/21/2018 Transcribed Document [facility] [place] [address] [place] [address] ProviderYoli MD [address], [place] [id number] Social History Tobacco Use Types Packs/Day Years Used Date Smoking Tobacco: Never Assessed Sex and Gender Information Value Date Recorded Sex Assigned at Not on file Legal Sex Male 6:25 PM CDT Gender Identity Not on file Sexual Orientation Not on file documented as of this encounter Miscellaneous Notes * Cerner Conversion Note - Historical ProviderMD - 11/21/2018 12:00 AM FORGE HAND Pain Assessment Entered On: 11/21/2018 4:57 EST Performed On: 11/21/2018 1:22 EST by Carmella Steele Rn Intervention Information: acetaminophen Performed by Carmella Steele Rn on 11/21/2018 00:22:00 EST acetaminophen,500mg Oral Pain Assessment Pain Assessment : Follow-up assessment Pain Scale Goal : 3 Pain Scale Used : 0-10 Scale Pain Intervention, Drug : Medicated Pain Improved by Intervention : Yes Carmella Steele Rn - 11/21/2018 4:57 EST Pain Scale Intensity : Alternate pain scale used Carmella Steele Rn - 11/21/2018 4:57 EST Image 4 - Images currently included in the form version of this document have not been included in the text rendition version of the form. documented in this encounter Plan of Treatment Not on file documented as of this encounter Visit Diagnoses Not on filedocumented in this encounter
--- OUTSIDE RECORDS SUMMARY | 2025-06-09 09:46 | XMS_ITS | Encounter Summary ---
Author Organization [employer] ([place], [place]) Address [address] [place] [address] Care Team Providers Care Nuclear Physics Teacher Name Role Phone Unavailable Primary Care Provider Unavailenrike e Encounter Details Date Type Department Care Team (Late st Contact Info) Description 11/23/2018 Transcribed Document [facility] [place] Family Medicine [address] [place] [address] ProviderYoli MD [address] [place] [address] Social History Tobacco Use Types Packs/Day Years Used Date Smoking Tobacco: Never Assessed Sex and Gender Information Value Date Recorded Sex Assigned at Not on file Legal Sex Male 6:25 PM CDT Gender Identity Not on file Sexual Orientation Not on file documented as of this encounter Miscellaneous Notes * Cerner Conversion Note - Historical ProviderMD - 11/23/2018 5:00 AM OTR VAN CDL TRUCK DRIVER Chart Check - Review Order Profile Entered On: 11/23/2018 6:45 EST Performed On: 11/23/2018 5:00 EST by Zoe Murray RN Chart Check Chart Reviewed Date and Time : 11/23/2018 6:44 EST Powerplans Initiated/Discontinued as Appropriate : Yes All Active Orders Reviewed : Yes Zoe Murray RN - 11/23/2018 6:44 EST Electronically signed by [facility] Conversion Highway Maintenance Supervisor Cerner at 01/22/2023 6:35 PM CDT documented in this encounter Plan of Treatment Not on file documented as of this encounter Visit Diagnoses Not on filedocumented in this encounter
--- OUTSIDE RECORDS SUMMARY | 2025-06-09 09:46 | XMS_ITS | Encounter Summary ---
Author Organization [employer] ([place], [place], [place]) Address [address] [place] [address] Care Team Providers Care Traffic Control Specialist Name Role Phone Unavailable Primary Care Provider Unavailenrike e Encounter Details Date Type Department Care Team (Late st Contact Info) Description 10/10/[address] [facility] [place] Medicine [address] [place] [address] ProviderYoli MD [address] [place] [address] Social History Tobacco Use Types Packs/Day Years Used Date Smoking Tobacco: Never Assessed Sex and Gender Information Value Date Recorded Sex Assigned at Not on file Legal Sex Male 6:25 PM CDT Gender Identity Not on file Sexual Orientation Not on file documented as of this encounter Miscellaneous Notes * Mel[employer] Conversion Note - Yoli ProviderMD - 10/10/2018 10:06 AM SAP PROJECT MANAGER Pain Assessment Entered On: 10/10/2018 13:00 EST Performed On: 10/10/2018 10:42 EST by TOMI JEFFERS RN Intervention Information: morphine Performed by TOMI JEFFERS RN on 10/10/2018 10:12:00 EST morphine,2mg IV Push,Left Lower Forearm,Pain (Moderate 4-6) Pain Assessment Pain Assessment : Follow-up assessment Pain Scale Goal : 3 Pain Scale Used : 0-10 Scale Location : Abdominal Onset : Acute Quality : Aching Pain Radiation : No Pain Improved by : Medication Pain Worsened by : Movement Pain Intervention, Drug : Medicated Pain Improved by Intervention : Yes TOMI JEFFERS RN - 10/10/2018 13:00 EST Pain Scale Intensity : 0 TOMI JEFFERS RN - 10/10/2018 13:00 EST Image 4 - Images currently included in the form version of this document have not been included in the text rendition version of the form. documented in this encounter Plan of Treatment Not on file documented as of this encounter Visit Diagnoses Not on filedocumented in this encounter
--- OUTSIDE RECORDS SUMMARY | 2025-06-09 09:46 | XMS_ITS | Encounter Summary ---
Author Organization [employer] ([place], [place], [place], [place]) Address [address] [place] [address] Care Team Providers Care Bolt Man Name Role Phone Unavailable Primary Care Provider Unavailenrike e Encounter Details Date Type Department Care Team (Late st Contact Info) Description 03/06/2019 Transcribed Document [facility] [place] Family Medicine [address] [place] [address] ProviderYoli MD [address] [place] [address] Social History Tobacco Use Types Packs/Day Years Used Date Smoking Tobacco: Never Assessed Sex and Gender Information Value Date Recorded Sex Assigned at Not on file Legal Sex Male 6:25 PM CDT Gender Identity Not on file Sexual Orientation Not on file documented as of this encounter Miscellaneous Notes * Cerner Conversion Note - Historical ProviderMD - 03/06/2019 2:00 AM CDT Pain Assessment Entered On: 03/06/2019 3:40 EDT Performed On: 03/06/2019 2:32 EDT by Judy Conroy Lpn Intervention Information: acetaminophen Performed by Judy Conroy Lpn on 03/06/2019 01:32:00 EDT acetaminophen,650mg Oral Pain Assessment Pain Assessment : Follow-up assessment Pain Scale Goal : 4 Pain Scale Used : 0-10 Scale Judy Conroy Lpn - 03/06/2019 3:40 EDT Pain Scale Intensity : 1 Judy Conroy Lpn - 03/06/2019 3:40 EDT Image 4 - Images currently included in the form version of this document have not been included in the text rendition version of the form. documented in this encounter Plan of Treatment Not on file documented as of this encounter Visit Diagnoses Not on filedocumented in this encounter
--- OUTSIDE RECORDS SUMMARY | 2025-06-09 09:46 | XMS_ITS | Encounter Summary ---
Author Organization [employer] ([place], [place], [place], [place]) Address [address] [place] [address] Care Team Providers Care Auto Damage Appraiser Name Role Phone Unavailable Primary Care Provider Unavailenrike e Encounter Details Date Type Department Care Team (Late st Contact Info) Description 03/07/2019 Transcribed Document [facility] [place] [address] [place] [address] ProviderYoli MD [address] [id number] Social History Tobacco Use Types Packs/Day Years Used Date Smoking Tobacco: Never Assessed Sex and Gender Information Value Date Recorded Sex Assigned at Not on file Legal Sex Male 6:25 PM CDT Gender Identity Not on file Sexual Orientation Not on file documented as of this encounter Miscellaneous Notes * Cerner Conversion Note - Yoli ProviderMD - 03/07/2019 1:01 PM CDT Patient: CALEB MATTHEWS Age: 48 Years Sex: Male : 1970 Assessment/Plan Status post exploratory laparotomy and lysis of adhesions. Ileus resolving Continue pain regimen Full liquid diet. We will slowly advance diet VTE Prophylaxis - Medical Enoxaparin 40 mg, SubCutaneous, Inj, [id number], Routine, Start 02/26/19 11:00:00 EDT (KATHY HERNANDEZ) Subjective Tolerating clears Passing flatus Movements Pain well-controlled Vital Signs T: 37.3 ??C TMIN: 36.4 ??C TMAX: 37.3 ??C HR: 83(Monitored) RR: 17 BP: 118/77 SpO2: 100% Oxygen Settings (Last) Oxygen Therapy Mode: Room air (03/07/19 07:00:00 EDT) Oxygen Flow Rate: 2 Liter/Min (02/26/19 21:20:00 EDT) Intake & Output Totals Last 24 Hours (7a-7a) Input Total: 2643 mL Output Total: 450 mL Balance: 2193 mL Physical Exam Gen: NAD Resp:Nonlabored respirations [...] Daily Lovenox, 40 mg= 0.4 mL, SubCutaneous, [id number] MiraLax, 17 Gram= 1 Packet, Oral, Daily [...] 5 mg= 1 Tab, Oral, Q6H, PRN documented in this encounter Plan of Treatment Not on file documented as of this encounter Visit Diagnoses Not on filedocumented in this encounter
--- OUTSIDE RECORDS SUMMARY | 2025-06-09 09:46 | XMS_ITS | Encounter Summary ---
Author Organization [employer] ([place], [place], [place], [place]) Address [address] [place] [address] Care Team Providers Care Plate Inspector Name Role Phone Unavailable Primary Care Provider Sai e Encounter Details Date Type Department Care Team (Late st Contact Info) Description 10/10/2018 Transcribed Document [facility] [place] Family Medicine [address] [place] [address] ProviderYoli MD [address] [place], [place] [id number] Social History Tobacco Use Types Packs/Day Years Used Date Smoking Tobacco: Never Assessed Sex and Gender Information Value Date Recorded Sex Assigned at Not on file Legal Sex Male 6:25 PM CDT Gender Identity Not on file Sexual Orientation Not on file documented as of this encounter Miscellaneous Notes * Cerner Conversion Note - Yoli ProviderMD - 10/10/2018 4:50 AM MANAGER REHAB Patient: CALEB MATTHEWS Age: 47 years Sex: Male : 1970 Associated Diagnoses: Small bowel obstruction Author: TERESA AHUMADA MD Basic Information Time seen: Date & time 10/10/2018 04:50:00. History source: Patient. Arrival mode: Private vehicle. History limitation: None. Additional information: Chief Complaint from Nursing Triage Note : Chief Complaint 10/10/2018 4:45 EST Chief Complaint Pt c/o LUQ pain X 2 days with N/D. Denies vomiting. Hx of bowel obstructions . History of Present Illness patient presents with 2 days of left upper quadrant abdominal pain. She reports sharp left her quadrant pain that is constant, but waxing and waning in intensity.No aggravating or alleviating factors. Patient has had associated nausea but no vomiting. He has not had any flatulence forover 24 hours. Last bowel movement was watery and about 12 hours ago. No fevers. Patient reportsa history of several bowel obstructions in the past, reports they have typically resolved with nasogastric decompression.It is been several years since she last had a bowel obstruction.Patient states he was told he was having obstructions because of scar tissue associated with a prior hernia repair and mesh located in the upper abdominal wall.. Review of Systems Constitutional symptoms: Negative except as documented in HPI. Skin symptoms: Negative except as documented in HPI. Eye symptoms: Negative except as documented in HPI. Respiratory symptoms: Negative except as documented in HPI. Cardiovascular symptoms: Negative except as documented in HPI. Gastrointestinal symptoms: Abdominal pain, nausea, constipation, obstipation. Musculoskeletal symptoms: Negative except as documented in HPI. Neurologic symptoms: Negative except as documented in HPI. Psychiatric symptoms: Negative except as documented in HPI. Hematologic/Lymphatic symptoms: Negative except as documented in HPI. Health Status Allergies: Allergic Reactions (Selected) Severity Not Documented Ketorolac- Rash and rash.. Past Medical/ Family/ Social History Medical history Reviewed as documented in chart. Surgical history: No active procedure history items have been selected or recorded., Reviewed as documented in chart. Family history: No family history items have been selected or recorded., Reviewed as documented in chart. Social history: Social & Psychosocial Habits No Data Available , Reviewed as documented in chart. Problem list: No qualifying data available , per nurse's notes. Physical Examination Vital Signs Vital Signs/Vital Measures 10/10/2018 4:45 EST Temperature Source Oral Temperature Mode Fahrenheit Temperature, Fahrenheit 97.0 Deg F Clinical Temperature, C 36.1 Deg C Peripheral Pulse Rate 107 bpm HI Respiratory Rate 18 Breaths/Min Systolic Blood Pressure 162 mmHg HI Diastolic Blood Pressure 104 mmHg HI Oxygen Saturation 99 % Oxygen Therapy Mode Room air . Measurements 10/10/2018 4:45 EST Height Source Stated Height Entry Format [place] Height/Length, TRINIDADIAN (ft) 5 ft Height/Length TRINIDADIAN 11 Inch CLINICALHEIGHT 180.34 cm Bouton Body Weight 74.31 kg Weight Source, ED Critical estimated dosing weight Weight Entry Format [place] Weight Cameroonian lb 175 lb CLINICALWEIGHT 79.55 kg Body Surface Area (BSA) 1.99 m2 Body Mass Index 24.5 kg/m2 HI . Oxygen Saturation 10/10/2018 4:45 EST Oxygen Saturation 99 % . General: Alert, no acute distress. Skin: Warm, dry, pink. Head: Normocephalic, atraumatic. Neck: Trachea midline. Eye: Normal conjunctiva. Ears, nose, mouth and throat: Oral mucosa moist. Cardiovascular: Regular rate and rhythm, No murmur. Respiratory: Lungs are clear to auscultation, respirations are non-labored. Gastrointestinal: Soft, Non distended, Tenderness: Moderate, left upper quadrant, Guarding: Negative, Rebound: Negative. Back: Nontender, Normal range of motion. Musculoskeletal: Normal ROM, normal strength. Neurological: Alert and oriented to person, place, time, and situation, No focal neurological deficit observed. Psychiatric: Cooperative, appropriate mood & affect. Medical Decision Making Differential Diagnosis: Bowel obstruction, bowel perforation, pancreatitis, peptic ulcer disease, gastritis. Documents reviewed: Emergency department nurses' notes. Results review: Lab results : Lab Results 10/10/2018 5:25 EST Sodium Level 139 mmol/L Potassium Level 3.9 mmol/L Chloride Level 109 mmol/L Carbon Dioxide Level 23 mmol/L Anion Gap 11 Glucose Level 119 mg/dL HI Blood Urea Nitrogen 11 mg/dL Creatinine Level 0.90 mg/dL eGFR 110 mL/min/1.73m2 eGFR NonAfrican 91 mL/min/1.73m2 Bun/Creatinine 12.2 Calcium Level 8.5 mg/dL Protein Total 6.8 Gram/dL Albumin Level 3.7 Gram/dL Globulin 3.1 Gram/dL A/G Ratio 1.2 Bilirubin Total 0.6 mg/dL Alk Phos 45 Units/Liter AST 67 Units/Liter HI ALT 45 Units/Liter Lipase Level 115 Units/Liter Lactic Acid Level 0.8 mmol/L Troponin I Ultra <0.015 ng/mL WBC 9.5 K/uL HI RBC 4.80 Million/uL Hgb 15.4 g/dL Hct 45.8 % MCV 95.4 fL HI MCH 32.1 pg MCHC 33.6 Gram/dL Platelet Count 214 K/uL MPV 8.8 fL LOW RDW 11.7 % Neut % 61.3 % Neut # 5.80 K/uL Lymph % 21.9 % Lymph # 2.07 x10(3)/uL G[place]on % 14.1 % HI G[place] # 1.34 K/uL HI Eos % 1.9 % Eos # 0.18 x10(3)/uL Baso % 0.5 % Baso # 0.05 x10(3)/uL Slide Review No IG# 0.03 x10(3)/uL IG% 0.30 % . Radiology results: Radiology Results (Last 48 hours) [id number] -- 10/10/2018 04:35 CT Abdomen Pelvis W (10/10/2018 07:18) Result: [...] ileus. An early obstruction isnot entirely excluded. . Reexamination/ Reevaluation Time: 10/10/2018 08:28:00 . Notes: likely early small bowel extraction. NG tube ordered. General surgery consult at, will evaluate patient. Hospitalist to admit for observation.. Impression and Plan Diagnosis Small bowel obstruction - Discharge, Medical Plan Condition: Stable. Disposition: Admit Admit/Transfer/Discharge: Place in Observation (Order): Start: 10/10/2018 8:29 EST, Observation Reason: early small bowel obstruction, Unit type: Med-Surg, Admitting: KEMAR ACOSTA MD , Patient care transitioned to: Time: 10/10/2018 07:26:00, OMAR VERGARA MD-EMR, pending CT scan. Counseled: Patient, Regarding diagnosis, Regarding diagnostic results, Regarding treatment plan, Regarding prescription, Patient indicated understanding of instructions. documented in this encounter Plan of Treatment Not on file documented as of this encounter Visit Diagnoses Not on filedocumented in this encounter
--- OUTSIDE RECORDS SUMMARY | 2025-06-09 09:46 | XMS_ITS | Encounter Summary ---
Author Organization [employer] ([place], [place], [place], [place]) Address [address] [place] [address] Care Team Providers Care Cloth Finisher Name Role Phone Unavailable Primary Care Provider Unavailabl e Encounter Details Date Type Department Care Team (Late st Contact Info) Description 10/10/2018 Transcribed Document [facility] [place] Family Medicine [address] [place] [address] ProviderYoli MD [address] [place] [address] Social History Tobacco Use Types Packs/Day Years Used Date Smoking Tobacco: Never Assessed Sex and Gender Information Value Date Recorded Sex Assigned at Not on file Legal Sex Male 6:25 PM CDT Gender Identity Not on file Sexual Orientation Not on file documented as of this encounter Miscellaneous Notes * Cerner Conversion Note - Historical ProviderMD - 10/10/2018 4:[address] CDL DRIVER ED Assessment Entered On: 10/10/2018 5:13 EST Performed On: 10/10/2018 5:13 EST by Linn Raya RN ED Quick Look Assessment Level of Consciousness : Alert, Awake Affect/Behavior : Appropriate, Calm, Cooperative Orientation : Oriented x 4 Skin Temperature : Warm Linn Raya RN - 10/10/2018 5:13 EST ED General-Functional Assess Communication Barrier : None Primary Language : Mongolian Any Spiritual/Cultural Needs or Requests : No Currently in Unsafe Situation : No Linn Raya RN - 10/10/2018 5:13 EST Social Habits Smoking Status : Never (less than 100 in lifetime; none in last 30 days) Smokeless Tobacco Status : Never Desires Tobacco Cessation Calc : 0 Linn Raya RN - 10/10/2018 5:13 EST Social History (As Of: 10/10/2018 05:13:35 EST) Cardiovascular ASMT, ED Cardiovascular Symptoms : None Linn Raya RN - 10/10/2018 5:13 EST Respiratory Respiratory Assessment WDL : WDL Cough : None Linn Raya RN - 10/10/2018 5:13 EST Breath Sounds Assessment Grid All Lobes Breath Sounds : Clear Linn Raya RN - 10/10/2018 5:13 EST Gastrointestinal ED Gastrointestinal Assessment WDL : WDL with exceptions Gastrointestinal Symptoms : Abdominal pain, Diarrhea, Nausea, Vomiting Linn Raay RN - 10/10/2018 5:13 EST documented in this encounter Plan of Treatment Not on file documented as of this encounter Visit Diagnoses Not on filedocumented in this encounter
--- OUTSIDE RECORDS SUMMARY | 2025-06-09 09:46 | XMS_ITS | Encounter Summary ---
Author Organization [employer] ([place], [place], [place], [place]) Address [address] [place] [address] Care Team Providers Care Certified Novell Engineer Name Role Phone Unavailable Primary Care Provider Unavailabl e Encounter Details Date Type Department Care Team (Late st Contact Info) Description 11/23/2018 Transcribed Document [facility] [place] [address] [place] [address] ProviderYoli MD [address] [place] [address] Social History Tobacco Use Types Packs/Day Years Used Date Smoking Tobacco: Never Assessed Sex and Gender Information Value Date Recorded Sex Assigned at Not on file Legal Sex Male 6:25 PM CDT Gender Identity Not on file Sexual Orientation Not on file documented as of this encounter Miscellaneous Notes * Cerner Conversion Note - Historical ProviderMD - 11/23/2018 12:05 PM DIRECTOR SPORTS Nursing Discharge Summary Entered On: 11/23/2018 12:06 EST Performed On: 11/23/2018 12:05 EST by YANET WEIR REGISTERED_NURSE Discharge Documentation Discharge Date/Time : 11/23/2018 14:24 EST PATIENCE JEFFERS - 11/23/2018 14:24 EST Patient Disposition, General : Discharge Discharge To : Other: HOME Mode Of Departure, General Discharge : Private vehicle IV Discontinued : Yes Personal Belongings With Patient : Yes Discharge Instructions Reviewed With, Opportunity For Questions Given : Patient Patient Education Completed : Yes Teaching Method : Explanation Teaching Evaluation : Returns demonstration YANET WEIR REGISTERED_NURSE - 11/23/2018 12:05 EST Electronically signed by Nena Deleon Conversion Bottle House Quality Control Technician Cerner at 01/22/2023 6:28 PM CDT documented in this encounter Plan of Treatment Not on file documented as of this encounter Visit Diagnoses Not on filedocumented in this encounter
--- OUTSIDE RECORDS SUMMARY | 2025-06-09 09:46 | XMS_ITS | Encounter Summary ---
Author Organization [employer] ([place], [place], [place], [place]) Address [address] [place] [address] Care Team Providers Care Flavorings Compounder Name Role Phone Unavailable Primary Care Provider Unavailenrike e Encounter Details Date Type Department Care Team (Late st Contact Info) Description 11/23/2018 Transcribed Document [facility] [place] [address] [place] [address] ProviderYoli MD [address] [place] [address] Social History Tobacco Use Types Packs/Day Years Used Date Smoking Tobacco: Never Assessed Sex and Gender Information Value Date Recorded Sex Assigned at Not on file Legal Sex Male 6:25 PM CDT Gender Identity Not on file Sexual Orientation Not on file documented as of this encounter Miscellaneous Notes * Cerner Conversion Note - Historical ProviderMD - 11/23/2018 2:00 AM TOURIST CAMP ATTENDANT Supervisor [employer] Details Entered On: 11/23/2018 2:51 EST Performed On: 11/23/2018 2:00 EST by Zoe Murray RN Order Details Transport Mode Order Detail : Ambulatory Isolation Precautions Order Detail : Standard Precautions Order Detail : N/A IV Order Detail : 1 Oxygen Order Detail : 0 Nurse Collect Order Detail : 0 Lift/Transfer : Independent Central Line Order Detail : No Room Service : Appropriate Arterial Line : No Zoe Murray RN - 11/23/2018 2:51 EST documented in this encounter Plan of Treatment Not on file documented as of this encounter Visit Diagnoses Not on filedocumented in this encounter
--- OUTSIDE RECORDS SUMMARY | 2025-06-09 09:46 | XMS_ITS | Encounter Summary ---
Author Organization [employer] ([place], [place], [place], [place]) Address [address] [place] [address] Care Team Providers Care Search Engine Optimization Analyst Name Role Phone Unavailable Primary Care Provider Unavailenrike e Encounter Details Date Type Department Care Team (Late st Contact Info) Description 03/06/2019 Transcribed Document [facility] [place] Family Medicine [address] [place] [address] ProviderYoli MD [address] [place] [address] Social History Tobacco Use Types Packs/Day Years Used Date Smoking Tobacco: Never Assessed Sex and Gender Information Value Date Recorded Sex Assigned at Not on file Legal Sex Male 6:25 PM CDT Gender Identity Not on file Sexual Orientation Not on file documented as of this encounter Miscellaneous Notes * Cerner Conversion Note - Historical ProviderMD - 03/06/2019 9:00 AM CDT Pain Assessment Entered On: 03/06/2019 15:41 EDT Performed On: 03/06/2019 10:56 EDT by Sylvie Mcmanus RN Intervention Information: oxyCODONE Performed by Sylvie Mcmanus RN on 03/06/2019 09:56:00 EDT oxyCODONE,15mg Oral Pain Assessment Pain Assessment [...]
--- OUTSIDE RECORDS SUMMARY | 2025-06-09 09:46 | XMS_ITS | Encounter Summary ---
Author Organization [employer] ([place], [place], [place], [place]) Address [address] [place] [address] Care Team Providers Care Senior Controller Name Role Phone Unavailable Primary Care Provider Unavailenrike e Encounter Details Date Type Department Care Team (Late st Contact Info) Description 10/11/2018 Transcribed Document [facility] [place] Family Medicine [address] [place] [address] ProviderYoli MD [address] [place] [address] Social History Tobacco Use Types Packs/Day Years Used Date Smoking Tobacco: Never Assessed Sex and Gender Information Value Date Recorded Sex Assigned at Not on file Legal Sex Male 6:25 PM CDT Gender Identity Not on file Sexual Orientation Not on file documented as of this encounter Miscellaneous Notes * Cerner Conversion Note - Historical ProviderMD - 10/11/2018 12:00 AM 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 Pain Assessment Entered On: 10/11/2018 6:10 EST Performed On: 10/11/2018 0:35 EST by Eileen Sun Rn Intervention Information: acetaminophen Performed by Eileen Sun Rn on 10/11/2018 00:30:00 EST acetaminophen,650mg + sterile empty bag,1Each IV Piggyback,Forearm Left Pain Assessment Pain Assessment : Follow-up assessment Pain Scale Goal : 3 Pain Scale Used : 0-10 Scale Eileen Sun Rn - 10/11/2018 6:10 EST Pain Scale Intensity : 4 Eileen Sun Rn - 10/11/2018 6:10 EST Image 4 - Images currently included in the form version of this document have not been included in the text rendition version of the form. documented in this encounter Plan of Treatment Not on file documented as of this encounter Visit Diagnoses Not on filedocumented in this encounter
--- OUTSIDE RECORDS SUMMARY | 2025-06-09 09:46 | XMS_ITS | Encounter Summary ---
Author Organization [employer] ([place], [place], [place], [place]) Address [address] [place] [address] Care Team Providers Care Industrial Safety And Health Technician Name Role Phone Unavailable Primary Care Provider Unavailenrike e Encounter Details Date Type Department Care Team (Late st Contact Info) Description 11/23/2018 Transcribed Document [facility] [place] Family Medicine [address] [place] [address] ProviderYoli MD [address] [place] [address] Social History Tobacco Use Types Packs/Day Years Used Date Smoking Tobacco: Never Assessed Sex and Gender Information Value Date Recorded Sex Assigned at Not on file Legal Sex Male 6:25 PM CDT Gender Identity Not on file Sexual Orientation Not on file documented as of this encounter Miscellaneous Notes * Cerner Conversion Note - Yoli ProviderMD - 11/23/2018 12:[address] DES[address] 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 Pain Assessment Entered On: 11/23/2018 2:51 EST Performed On: 11/23/2018 0:17 EST by Zoe Murray RN Intervention Information: acetaminophen Performed by Zoe Murray RN on 11/22/2018 23:17:00 EST acetaminophen,500mg Oral Pain Assessment Pain Assessment : Follow-up assessment Pain Scale Goal : 3 Pain Scale Used : 0-10 Scale Location : Abdominal Onset : Acute Quality : Aching, Tender Pain Radiation : No Pain Improved by : Medication Pain Worsened by : None Pain Intervention, Drug : Medicated Pain Improved by Intervention : Yes Zoe Murray RN - 11/23/2018 2:50 EST Pain Scale Intensity : 2 Zoe Murray RN - 11/23/2018 2:50 EST Image 4 - Images currently included in the form version of this document have not been included in the text rendition version of the form. documented in this encounter Plan of Treatment Not on file documented as of this encounter Visit Diagnoses Not on filedocumented in this encounter
--- OUTSIDE RECORDS SUMMARY | 2025-06-09 09:46 | XMS_ITS | Encounter Summary ---
Author Organization [employer] ([place], [place], [place], [place]) Address [address] [place] [address] Care Team Providers Care Manager Career Name Role Phone Unavailable Primary Care Provider Unavailenrike e Encounter Details Date Type Department Care Team (Late st Contact Info) Description 03/07/2019 Transcribed Document [facility] [place] Family Medicine [address] [place] [address] ProviderYoli MD [address] [place], [place] [id number] Social History Tobacco Use Types Packs/Day Years Used Date Smoking Tobacco: Never Assessed Sex and Gender Information Value Date Recorded Sex Assigned at Not on file Legal Sex Male 6:25 PM CDT Gender Identity Not on file Sexual Orientation Not on file documented as of this encounter Miscellaneous Notes * Cerner Conversion Note - Historical ProviderMD - 03/07/2019 10:00 AM CDT Pain Assessment Entered On: 03/07/2019 18:38 EDT Performed On: 03/07/2019 10:02 EDT by Sylvie Mcmanus RN Intervention Information: acetaminophen Performed by Sylvie Mcmanus RN on 03/07/2019 09:02:00 EDT acetaminophen,650mg Oral Pain Assessment Pain Assessment [...]
--- OUTSIDE RECORDS SUMMARY | 2025-06-09 09:46 | XMS_ITS | Encounter Summary ---
Author Organization [employer] ([place], [place], [place], [place]) Address [address] [place] [address] Care Team Providers Care Orientor Name Role Phone Unavailable Primary Care Provider Unavailenrike e Encounter Details Date Type Department Care Team (Late st Contact Info) Description 10/10/2018 Transcribed Document [facility] [place] Family Medicine [address] [place] [address] ProviderYoli MD [address] [place], [place] [id number] Social History Tobacco Use Types Packs/Day Years Used Date Smoking Tobacco: Never Assessed Sex and Gender Information Value Date Recorded Sex Assigned at Not on file Legal Sex Male 6:25 PM CDT Gender Identity Not on file Sexual Orientation Not on file documented as of this encounter Miscellaneous Notes * Cerner Conversion Note - Historical ProviderMD - 10/10/2018 5:[address] ENGINEER Chart Check - Review Order Profile Entered On: 10/10/2018 16:18 EST Performed On: 10/10/2018 17:00 EST by TOMI JEFFERS RN Chart Check Chart Reviewed Date and Time : 10/10/2018 16:18 EST Powerplans Initiated/Discontinued as Appropriate : Yes All Active Orders Reviewed : Yes TOMI JEFFERS RN - 10/10/2018 16:18 EST documented in this encounter Plan of Treatment Not on file documented as of this encounter Visit Diagnoses Not on filedocumented in this encounter
--- OUTSIDE RECORDS SUMMARY | 2025-06-09 09:46 | XMS_ITS | Encounter Summary ---
Author Organization [employer] ([place], [place], [place], [place]) Address [address] [place] [address] Care Team Providers Care Cable Tv Installer Name Role Phone Unavailable Primary Care Provider Unavailabl e Encounter Details Date Type Department Care Team (Late st Contact Info) Description 10/10/2018 Transcribed Document [facility] [place] [address] [place] [address] ProviderYoli MD [address] [place] [address] Social History Tobacco Use Types Packs/Day Years Used Date Smoking Tobacco: Never Assessed Sex and Gender Information Value Date Recorded Sex Assigned at Not on file Legal Sex Male 6:25 PM CDT Gender Identity Not on file Sexual Orientation Not on file documented as of this encounter Miscellaneous Notes * Cerner Conversion Note - Yoli ProviderMD - 10/10/2018 7:19 AM 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 Pain Assessment Entered On: 10/10/2018 8:25 EST Performed On: 10/10/2018 8:23 EST by Cy Nichols, Emergency Room Animal Tech Intervention Information: morphine Performed by Cy Nichols, Emergency Room Animal Tech on 10/10/2018 07:34:00 EST morphine,4mg IV Push,Left Mid Forearm Pain Assessment Pain Assessment : Follow-up assessment Pain Scale Used : 0-10 Scale Location : Abdomen, left upper, Epigastric Onset : Constant Quality : Aching, Cramping, Heavy Pain Radiation : No Pain Improved by : Relaxation Pain Worsened by : Movement Pain Intervention, Drug : Medicated Pain Improved by Intervention : Yes Cy Nichols, Emergency Room Animal Tech - 10/10/2018 8:23 EST Pain Scale Intensity : 7 Cy Nichols Emergency Room Animal Tech - 10/10/2018 8:23 EST Image 4 - Images currently included in the form version of this document have not been included in the text rendition version of the form. documented in this encounter Plan of Treatment Not on file documented as of this encounter Visit Diagnoses Not on filedocumented in this encounter
--- OUTSIDE RECORDS SUMMARY | 2025-06-09 09:47 | XMS_ITS | Encounter Summary ---
Author Organization [employer] ([place], [place], [place], [place]) Address [address] [place] [address] Care Team Providers Care Hereditary Cancer Program Coordinator Name Role Phone Unavailable Primary Care Provider Unavailernike e Encounter Details Date Type Department Care Team (Late st Contact Info) Description 10/10/2018 Transcribed Document [facility] Family Medicine [address] [place] [address] ProviderYoli MD [address] [place] [address] Social History Tobacco Use Types Packs/Day Years Used Date Smoking Tobacco: Never Assessed Sex and Gender Information Value Date Recorded Sex Assigned at Not on file Legal Sex Male 6:25 PM CDT Gender Identity Not on file Sexual Orientation Not on file documented as of this encounter Miscellaneous Notes * Cerner Conversion Note - Historical ProviderMD - 10/10/2018 9:32 AM 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 Admission History, Adult Entered On: 10/10/2018 9:56 EST Performed On: 10/10/2018 9:32 EST by TOMI JEFFERS RN Advance Directive Patient has Advance Directive *Q : No, patient refuses Advance Directive information TOMI JEFFERS RN - 10/10/2018 9:47 EST Anesthesia/Transfusion History Family History of Anesthesia Reaction : No prior transfusion(s) Transfusion History : Prior anesthesia without reaction Family History of Anesthesia Reaction : None TOMI JEFFERS RN - 10/10/2018 9:47 EST Anticipated Discharge Needs Discharge To, Anticipated : Home Anticipated Discharge Needs at This Time : None TOMI JEFFERS RN - 10/10/2018 9:47 EST Education Topics, Admission Orientation DCP GENERIC CODE Assessment/Vital Signs : Verbalizes understanding Bed Control : Verbalizes understanding Call Light : Verbalizes understanding Confidentiality : Verbalizes understanding Diet/Room Service : Verbalizes understanding Fall Prevention : Verbalizes understanding Orientation to Room/Bathroom : Verbalizes understanding Television/Phone : Verbalizes understanding TOMI JEFFERS RN - 10/10/2018 9:47 EST Functional Assessment Living Situation : Home Patient Lives With : Child/Children Persons Assisting Patient at Home : Child/Children JOHNS Hx Falls Immediate/Within 3 Months : No Current Home Treatments : None TOMI JEFFERS RN - 10/10/2018 9:47 EST General Info Arrived From : Emergency department Mode of Arrival on Unit : Ambulatory Patient Arrival Date/Time : 10/10/2018 9:52 EST Legal Guardian : Unaccompanied Want Family/Rep/Phys Notified of Admit : No Emergency Contact #1 : ADEEL MAGALIE Emergency Contact #1 Emergency Contact #1 Relationship : GIRLFRIEND Emergency Contact #2 : LORRIE FRAGOSO Emergency Contact #2 Emergency Contact #2 Relationship : DAUGHTER Chief Complaint : Pt c/o LUQ pain X 2 days with N/D. Denies vomiting. Hx of bowel obstructions Information Obtained From : Patient Primary Language : [place] Preferred Communication Mode : Verbal Communication Barrier : None TOMI JEFFERS RN - 10/10/2018 9:47 EST Fall Risk Scales ABCs Fall Injury Risk Identification : None Injury Moderate to High Risk Interventions : Supervise toileting as indicated, Toileting schedule, Transport methods appropriate to patient JOHNS Hx Falls Immediate/Within 3 Months : No Johns Secondary Diagnosis : Yes JOHNS Use of Ambulatory Aid : None JOHNS IV Therapy or IV Access : Yes Johns Gait/Transferring : Normal, bedrest, immobile Johns Mental Status : Oriented to own ability Johns Fall Risk Score : 35 JOHNS Fall Scale Risk Level : 25-45 Medium Risk [place] Fall Interventions : Adequate lighting, Assistive devices within reach, Bed in low position, Call device within reach, Fall prevention handout/education per facility policy, Hourly comfort/safety rounds, Non-slip footwear, Personal items within reach, Reinforced to call for assistance before getting out of bed, Room free of clutter/spills, Upper side-rails up, Wheels locked, Wires/Cords secured TOMI JEFFERS RN - 10/10/2018 9:47 EST Fall Risk Education Grid Bed Height/Stabilization : Verbalizes understanding Call light use : Verbalizes understanding Door Open : Verbalizes understanding Fall Prevention in the Home : Verbalizes understanding Fall Prevention Protocol : Verbalizes understanding Nonskid Footwear Use : Verbalizes understanding Personal Article Availability : Verbalizes understanding Prevention Responsibility Patient : Verbalizes understanding TOMI JEFFERS RN - 10/10/2018 9:47 EST Fall Risk Scale Calc Temp : 0 TOMI JEFFERS RN - 10/10/2018 9:47 EST Health Histories Smoking Status : Never (less than 100 in lifetime; none in last 30 days) Smokeless Tobacco Status : Never TOMI JEFFERS RN - 10/10/2018 9:47 EST Social History (As Of: 10/10/2018 09:56:51 EST) Height and Weight, Clinical Dosing Height Source : Stated Height Entry Format : [place] Height, Feet : 5 ft(Converted to: 152 cm, 60 Inch) Height, Inches : 11 Inch(Converted to: 0 ft 11 Inch, 27.94 cm) Clinical Height : 180.34 cm Weight Source : Bed scale Weight Entry Format : [place]on Clinical Dosing Weight : 79.55 kg Weight, Pounds : 175 lb Body Surface Area (BSA) : 1.99 m2 Body Mass Index : 24.5 kg/m2 (HI) [place] Body Weight : 74 kg TOMI JEFFERS RN - 10/10/2018 9:47 EST Infectious Disease History Infectious Disease History : None Fever/Chills Last 48 Hours : No Travel To Regions with Travel Advisories : No Travel Outside [place] Within Last 30 Days : No Contact With Traveler to Advisory Region : No Tuberculosis Symptoms : None TOMI JEFFERS RN - 10/10/2018 9:47 EST Tetanus Immunization Status Previous Tetanus Immunizations : No qualifying data available. Tetanus Immunization : Unknown TOMI JEFFERS RN - 10/10/2018 9:47 EST Influenza Vaccine Asmt, Adult Previous Vaccines from Immunization Schedule : No qualifying data available. Influenza Immunization, Current Season : No Inactivated Flu Vaccine Contraindications : No contraindications to inactivated influenza vaccine Transplant Workup/Recent Transplant : No Order for Influenza Vaccine : Order for influenza vaccine sent to pharmacy TOMI JEFFERS RN - 10/10/2018 9:47 EST Pneumococcal Vaccine Previous Vaccines from Immunization Schedule : No qualifying data available. Pneumonia Immunization Received : No Pneumococcal Risk Assessment < Age 65 : None TOMI JEFFERS RN - 10/10/2018 9:47 EST Order Details Transport Mode Order Detail : Wheelchair Isolation Precautions Order Detail : Standard Precautions Order Detail : N/A IV Order Detail : 1 Oxygen Order Detail : 0 Nurse Collect Order Detail : 0 Lift/Transfer : Independent Central Line Order Detail : No Room Service : Appropriate Arterial Line : No TOMI JEFFERS RN - 10/10/2018 9:47 EST Nutrition History Feeding Ability : Independent Adaptive Feeding Equipment : Regular Eating Poorly Due to Decreased Appetite : No Unplanned Weight Loss in Past 3-6 Months : No Malnutrition Screening Tool Total(mal) : 0 Malnutrition Screening Tool Risk Level : Patient not at risk TOMI JEFFERS RN - 10/10/2018 9:47 EST Psychosocial History Does Someone Depend on You for Care? : No Currently in Unsafe Situation : No Tried to Harm Yourself in the Past? : No Thoughts of Harming/Killing Yourself : No TOMI JEFFERS RN - 10/10/2018 9:47 EST Sleep Apnea Risk Assmt Hx of [...] : Yes Neck Circumference Measured (cms) : 32 cm STOP-BANG Sleep Apnea Risk Level Score : 1 Neck Circumference Greater Than 40 cm : No TOMI JEFFERS RN - 10/10/2018 9:47 EST Valuables and Belongings Valuables and Belongings : Clothing Clothing : Common streetwear Clothing Disposition : Bedside TOMI JEFFERS RN - 10/10/2018 9:47 EST Electronically signed by [employer] Conversion Outdoor Adventure Leader Cerner at 01/22/2023 6:46 PM CDT documented in this encounter Plan of Treatment Not on file documented as of this encounter Visit Diagnoses Not on filedocumented in this encounter
--- OUTSIDE RECORDS SUMMARY | 2025-06-09 09:47 | XMS_ITS | Referral Summary ---
Author Organization [employer] ([place], [place], [place], [place]) Address [address] [place] [address] Care Team Providers Care Miter Cutter Name Role Phone Unavailable Primary Care [...]
[2025-06-09 10:04] LABS: Hematocrit 52.1 % (42.0-52.0); Hemoglobin 17.4 g/dL (14.1-18.0); Immature Granulocytes % 0.2 %; Mean Corpuscular HGB Conc 33.4 g/dL (31.8-35.4); Mean Corpuscular Hemoglobin 31.0 pg (27.0-31.2); Mean Corpuscular Volume 92.7 fl (80-94); Nucleated Red Blood Cells % 0 %; Platelet Count 219 K/mm3 (142-424); Red Blood Count 5.62 M/mm3 (4.60-6.20); Red Cell Distribution Width-SD 48.8 fL; White Blood Count 8.7 K/mm3 (4.8-10.8)
[2025-06-09 10:30] LABS: Anion Gap 12.5 mEq/L (5-15); Blood Urea Nitrogen 20 mg/dl (9-20); Calcium 9.6 mg/dl (8.4-10.2); Carbon Dioxide 24 mmol/L (22.0-30.0); Chloride 105 mmol/L (98-107); Creatinine,Serum 1.30 mg/dl (0.66-1.25); Estimated Glomerular Filt Rate 58 ml/min (>60); GFR (African American) 70 ML/MIN (>60); Glucose 91 mg/dl (74-100); Potassium 4.5 mmoL/L (3.5-5.1); Sodium 137 mmol/L (136-145)
[2025-06-09 13:10] LABS: Hemoglobin A1C 5.3 % (4.0-6.0)
== END 2025-06-09 23:59 | disposition home or self-care (01) ==
LOC: LAB 09:38
PROVIDERS: PCP Nurse Practitioner; Visit Provider Orthopaedic Surgery
DX: Z01.812 Encounter for preprocedural laboratory examination (principal); R73.03 Prediabetes; R06.02 Shortness of breath; Z87.898 Personal history of other specified conditions
CPT/HCPCS: 36415; 80048; 83036; 85025